=== PATIENT | female | born 1945 | race Caucasian/White ===

== ENCOUNTER 2019-09-07 08:58 | Observation (INO) | payer OTHER, MEDICAID, SELFPAY ==
[2019-09-07] VITALS (9 sets, daily range): BP systolic 68–132; BP diastolic 38–77; PULSE 59–97; RESP 16–20; TEMP 36.7–36.8; O2SAT 88–99; BMI 40.4
--- NOTE | 2019-09-07 09:00 | ED.GENADULT ---
HPI - General Adult General Chief complaint: Neuro Symptoms/Deficit Stated complaint: Code Stroke Time Seen by Provider: 09/07/19 08:59 Source: EMS Mode of arrival: EMS Limitations: altered mental status History of Present Illness HPI narrative: 74-year-old female who was brought into the emergency department by EMS. Patient's last known normal was at 0825 this morning. This was when she was at her nursing facility and they went in to talk with her about breakfast. At some point after that the staff return to her room and found that she was slurring her words. Was staring off? in the space ?seemed to be drooling somewhat. Was unable to answer questions. 911 was called. Patient arrived to the emergency department approximately 45 minutes after the onset of her symptoms. Due to the proximity of the patient's living facility minimal intervention provided by EMS. Her blood glucose was greater than 100. EMS reports that she potentially was improving somewhat in her symptoms and the short route to the emergency department. Patient was unable to provide any HPI or review of systems. Related Data Home Medications Medication Instructions Recorded Confirmed Lactobacillus acidophilus 10,000,000 cell PO DAILY 09/07/19 09/07/19 acetaminophen 650 mg PO Q4H PRN 09/07/19 09/07/19 aspirin 81 mg PO DAILY 09/07/19 09/07/19 atorvastatin 40 mg PO BEDTIME 09/07/19 09/07/19 carvedilol 3.125 mg PO BID 09/07/19 09/07/19 cholecalciferol (vitamin D3) 5,000 unit PO DAILY 09/07/19 09/07/19 docosanol [Abreva] 1 applic TOPICAL DAILY 09/07/19 09/07/19 donepezil 5 mg PO DAILY 09/07/19 09/07/19 ferrous sulfate 325 mg PO DAILY 09/07/19 09/07/19 fluoxetine 40 mg PO DAILY 09/07/19 09/07/19 furosemide 40 mg PO DAILY 09/07/19 09/07/19 gabapentin 100 mg PO TID 09/07/19 09/07/19 levothyroxine 175 mcg PO DAILY 09/07/19 09/07/19 linagliptin [Tradjenta] 5 mg PO DAILY 09/07/19 09/07/19 magnesium oxide 400 mg PO DAILY 09/07/19 09/07/19 menthol-zinc bi-begk-[id number] oil 1 ea TOPICAL BID 09/07/19 09/07/19 [Chamosyn] nystatin 1 applic TOPICAL BID 09/07/19 09/07/19 omega 6-rrb-gya-fish oil [Fish Oil] 1 cap PO DAILY 09/07/19 09/07/19 omeprazole 40 mg PO BID 09/07/19 09/07/19 potassium chloride 10 meq PO DAILY 09/07/19 09/07/19 Allergies Allergy/AdvReac Type Severity Reaction Status Date / Time adhesive tape Allergy Verified 09/07/19 09:15 allopurinol Allergy Verified 09/07/19 09:15 Review of Systems Review of Systems ROS Unobtainable: Unobtainable due to mental status/LOC Patient History Medical/Surgical History Medical History (Updated 09/07/19 @ 17:59 by Dustin Mendoza DO) Hyperlipidemia (Acute) Hypertension (Acute) Hypothyroid (Acute) Pacemaker (Acute) Social History Smoking Status: Never smoker alcohol intake: never Family/Social History Social History Smoking Status: Never smoker alcohol intake: never Exam Initial Vital Signs Initial Vital Signs: Vital Signs Temperature 98.0 F 09/07/19 09:15 Pulse Rate 97 H 09/07/19 09:15 Respiratory Rate 16 09/07/19 09:15 Blood Pressure 132/77 09/07/19 09:15 Pulse Oximetry 88 L 09/07/19 09:15 Const General: cooperative, healthy appearing, comfortable and well developed Orientation: alert, awake, oriented to person, not oriented to place and confused Limitations: altered mental status [facility] Head: normal to inspection and normocephalic Eyes Pupils: PERRL EOM: EOM intact bilaterally Resp Effort & Inspection: normal respiratory effort Auscultation: clear to auscultation bilaterally Cardio Rate: regular rate Rhythm: regular rhythm Pulses: radial pulses present GI Inspection: non-distended Palpation: soft, No firm and tender (Generalized tenderness initially) Other: No umbilical hernia felt, no tenderness over the umbilicus Skin Lesions: no lesions Rashes: no rashes Neuro General: alert and awake Speech: speech abnormal Motor: muscle tone normal throughout Sensory Exam: no sensory deficits noted Extrem General: normal to inspection and capillary refill normal Psych Appearance: grossly normal and well kempt Scores GCS Maggie coma scale eye opening: To sound Maggie coma scale verbal response: Confused [place] coma scale motor response: Obey commands Maggie coma scale total score: 13 NIH Stroke Scale Level of Conciousness: Alert, keenly responsive Ask month/age: Answers both questions correctly. Open/close eyes, close hand: Performs both tasks correctly Best gaze horizontal: Normal Visual hunter: No visual loss Facial palsy: Minor paralysis, flattened nasolabial fold, asymmetry on smiling Left arm drift: No drift for full 10 sec Right arm drift: No drift for full 10 sec Left leg drift: No drift for full 10 sec Right leg drift: Drifts down, not to bed Limb ataxia: Absent Sensory on face/arms/legs: Normal, no sensory loss Best language: No aphasia, normal Dysarthria: Normal Extinction or inattention: No abnormality Total NIH Stroke scale score: 2 Course Orders Ordered: ED Orders 09/07/19 08:59 CT head/brain wo con Stat EKG-12 Lead Stat 09/07/19 09:07 Complete Blood Count AUTO DIFF Stat Comprehensive Metabolic Panel Stat Lipase Stat Partial Thromboplastin Time Stat Prothrombin Time INR Stat Troponin I Stat Type and Screen Stat 09/07/19 09:48 CT abdomen pelvis w con Stat Acetaminophen (Tylenol) 650 mg PO Q6HR PRN PRN Reason: As Needed for Fever/Mild Pain Al Hydrox/Mg Hydrox/Simethicone (Maalox Plus) 30 ml PO Q6HR PRN PRN Reason: Dyspepsia Bisacodyl (Dulcolax) 10 mg CO DAILY PRN PRN Reason: Constipation Calcium Carbonate (Tums) 1,000 mg PO Q4HR PRN PRN Reason: Dyspepsia Heparin Sodium (Porcine) (Heparin) 5,000 unit SUBCUT BID SHANI Sodium Chloride (Normal Saline 0.9%) 1,000 mls @ 125 mls/hr IV CONT SHANI Last Infusion: 09/07/19 11:39 Dose: 125 mls/hr Documented by: Admin: 09/07/19 09:20 Dose: 125 mls/hr Documented by: CRISTOFER Lorazepam (Ativan) 0.5 mg IV NOW PRN PRN Reason: Claustrophobia Magnesium Hydroxide (Milk Of Magnesia) 30 ml PO DAILY PRN PRN Reason: Constipation Nystatin (Nystop) 1 applic TOP TID PRN PRN Reason: Rash Ondansetron HCl (Zofran) 4 mg IV Q8HR PRN PRN Reason: Nausea And Vomiting Discontinued Medications Influenza Virus Vaccine (Flu Vaccine) 0.5 ml IM .ONCE ONE Stop: 09/07/19 13:51 Ondansetron HCl (Zofran) 4 mg IV NOW ONE Stop: 09/07/19 09:10 Last Admin: 09/07/19 09:20 Dose: 4 mg Documented by: SCANAPO Vital Signs Vital signs: Vital Signs - 8 hr 09/07/19 10:00 Pulse Rate 80 Respiratory Rate 16 Blood Pressure [Right Arm] 110/58 L Pulse Oximetry 97 Medical Decision Making Lab Data Lab results reviewed: Yes I reviewed the patient's lab results. Result diagrams: 09/07/19 09:07 09/07/19 09:07 Labs: Lab Results 09/07/19 09/07/19 09/07/19 Range/Units 09:07 09:07 09:07 WBC 8.3 (4.5-11.0) X10^3/uL RBC 4.51 (4.0-5.2) X10^6/uL Hgb 12.5 (12.0-16.0) g/dL Hct 37.6 (36-46) % MCV 83.2 (80-100) fL MCH 27.7 (26-34) PG MCHC 33.3 (30-36) % RDW 14.6 (11.6-14.8) % Plt Count 258 (150-400) X10^3/uL Neut % (Auto) 65.9 (50-75) % Lymph % (Auto) 22.0 L (25-40) % [place] % (Auto) 8.7 (3-14) % Eos % (Auto) 2.2 (2-4) % Baso % (Auto) 1.2 (0-2) % Neut # (Auto) 5500 (2133-1667) /uL Lymph # (Auto) 1800 (0203-7370) /uL [place] # (Auto) 700 (0-900) /uL Eos # (Auto) 200 (0-450) /uL Baso # (Auto) 100 (0-100) /uL PT 12.3 (10.1-12.7) SECONDS INR 1.1 (0.9-1.3) APTT 28 (26.4-36.2) SECONDS Sodium 143 (137-145) mmol/L Potassium 3.5 (3.4-5.1) mmol/L Chloride 97 L (98-107) mmol/L Carbon Dioxide 29 (22-32) mmol/L BUN 24 H (7-17) mg/dL Creatinine 1.50 H (0.52-1.04) mg/dL Estimated GFR 34.1 L (>60) mL/min BUN/Creatinine Ratio 16.0 (6-22) Glucose 123 H (80-110) mg/dL Calcium 6.9 L (8.4-10.2) mg/dL Total Bilirubin 0.5 (0.2-1.3) mg/dL AST 39 H (14-36) IU/L ALT 23 (9-52) IU/L Alkaline Phosphatase 83 (38-126) U/L Troponin I (0.01-0.034) ng/mL Total Protein 8.1 (6.3-8.2) g/dL Albumin 4.3 (3.5-5.0) g/dL Globulin 3.8 (1.7-4.1) g/dL Albumin/Globulin Ratio 1.1 (1.0-2.8) Lipase 181 (23-300) U/L Blood Type Antibody Screen 09/07/19 09/07/19 Range/Units 09:07 09:07 WBC (4.5-11.0) X10^3/uL RBC (4.0-5.2) X10^6/uL Hgb (12.0-16.0) g/dL Hct (36-46) % MCV (80-100) fL MCH (26-34) PG MCHC (30-36) % RDW (11.6-14.8) % Plt Count (150-400) X10^3/uL Neut % (Auto) (50-75) % Lymph % (Auto) (25-40) % [place] % (Auto) (3-14) % Eos % (Auto) (2-4) % Baso % (Auto) (0-2) % Neut # (Auto) (9450-4808) /uL Lymph # (Auto) (4906-6289) /uL [place] # (Auto) (0-900) /uL Eos # (Auto) (0-450) /uL Baso # (Auto) (0-100) /uL PT (10.1-12.7) SECONDS INR (0.9-1.3) APTT (26.4-36.2) SECONDS Sodium (137-145) mmol/L Potassium (3.4-5.1) mmol/L Chloride (98-107) mmol/L Carbon Dioxide (22-32) mmol/L BUN (7-17) mg/dL Creatinine (0.52-1.04) mg/dL Estimated GFR (>60) mL/min BUN/Creatinine Ratio (6-22) Glucose (80-110) mg/dL Calcium (8.4-10.2) mg/dL Total Bilirubin (0.2-1.3) mg/dL AST (14-36) IU/L ALT (9-52) IU/L Alkaline Phosphatase (38-126) U/L Troponin I 0.016 (0.01-0.034) ng/mL Total Protein (6.3-8.2) g/dL Albumin (3.5-5.0) g/dL Globulin (1.7-4.1) g/dL Albumin/Globulin Ratio (1.0-2.8) Lipase (23-300) U/L Blood Type A Positive Antibody Screen Negative Imaging Data CT scan - head: Radiologist's impression: [place] [address] CT Scan Report Signed Patient: Enid Almanza#: [id number] : 7Acct:[id number] Age/Sex: 74 / FDate of Service: 09/07/19 Loc: ED Accession Number: [id number] Procedure: CT head/brain wo con Ordering Provider: Dustin Mendoza D.O. PROCEDURE: CT HEAD/BRAIN WO CON INDICATIONS: sudden onset confusion, code stroke TECHNIQUE: Noncontrast 4.5 mm thick angled axial sections acquired from the foramen magnum to the vertex, with coronal and sagittal reformats. For radiation dose reduction, the following was used: automated exposure control, adjustment of mA and/or kV according to patient size. COMPARISON: None. FINDINGS: Image quality: Excellent. CSF spaces: Basal cisterns are patent. No extra-axial fluid collections. The ventricles are symmetric in size and shape. Brain: No intracranial bleeds or masses. There is cerebral volume loss for age, with resultant ventricular and sulcal prominence. There are moderate periventricular and deep white matter chronic small vessel ischemic changes. There is an old small focal right head of caudate lacunar infarct and right anterior periventricular deep white matter lacunar infarct. There is intracranial internal carotid artery atherosclerosis. Skull and face: Calvarium and visualized facial bones appear intact, without suspicious lesions. Sinuses: Visualized sinuses and mastoids are clear. IMPRESSION: 1. Age related volume loss and moderate small vessel ischemic change. 2. Old small lacunar infarcts. 3. No evidence acute stroke, hemorrhage, or mass. Comment: Findings were discussed with Dr. Mendoza at the time of study dictation on 09/07/19 and 0913 hrs. Dictated by: Maurizio Rosales M.D. on 09/07/2019 at 9:12 Approved by: Maurizio Rosales M.D. on 09/07/2019 at 9:17 CT scan - abdomen: Radiologist's impression: [place] [address] CT Scan Report Signed Patient: Enid AlmanzaMR#: [id number] : 7Acct:[id number] Age/Sex: 74 / FDate of Service: 09/07/19 Loc: ED Accession Number: [id number] Procedure: CT abdomen pelvis w con Ordering Provider: Dustin Mendoza D.O. PROCEDURE: CT ABDOMEN PELVIS W CON INDICATIONS: Left-sided abdominal pain TECHNIQUE: After the administration of intravenous contrast, 5 mm thick sections acquired from the diaphragm to the symphysis. 5 mm coronal and sagittal reformats were acquired. For radiation dose reduction, the following was used: automated exposure control, adjustment of mA and/or kV according to patient size. COMPARISON: None. FINDINGS: Image quality: Excellent. ABDOMEN: Lung bases: Lung bases are clear. Heart size is normal. Solid organs: Liver is normal in size and enhancement. Gallbladder is surgically absent. Biliary system is non dilated. The pancreas is moderately atrophic. Spleen is normal in size and enhancement. No adrenal nodules. Kidneys demonstrate normal size and enhancement, without hydronephrosis. Peritoneum and bowel: Bowel loops demonstrate normal wall thickness and caliber. The appendix is thin walled and gas filled. No free fluid or air. Nodes and vessels: No retroperitoneal or mesenteric adenopathy by size criteria. Aorta and inferior vena cava are normal in size. There are scattered atheromatous calcifications throughout the aorta and iliac arteries bilaterally. Miscellaneous: There is a fat containing paraumbilical hernia. The fat within the hernia has a serpiginous appearance suggesting some fat necrosis. PELVIS: Genitourinary: Bladder wall thickness is normal. The uterus and ovaries are diminutive. Miscellaneous: No inguinal hernias or adenopathy. Surgical clips are present at the left inguinal canal. Bones: An expansile, medullary lesion is present within the right proximal femoral diaphysis at No vertebral body compression fractures. Severe degenerative changes are present at L5-S1. IMPRESSION: 1. No acute intra-abdominal findings. Normal appendix. 2. Fat-containing paraumbilical hernia with fat necrosis. 3. Expansile medullary lesion within the proximal right femur which is incompletely characterized. Although this may represent an enchondroma, neoplasm cannot be excluded and further characterization is recommended. Dedicated views of the femur recommended. Additionally, if the patient endorses pain in this region, MRI of the femur with and without contrast could be used. These findings were discussed with Dr. Mendoza at 10:05 AM on 09/07/19. Dictated by: Bessie Baron M.D. on 09/07/2019 at 9:52 Approved by: Bessie Baron M.D. on 09/07/2019 at 10:11 ECG Data Attestation: I personally reviewed and interpreted this ECG as follows: Prior ECG tracings: not available for review Interpretation: Ventricular paced Rate is [address] changes concerning for ST-elevation GA MDM Narrative Medical decision making narrative: Patient initially arrived as a code stroke. She was within the window for tPA. Her head CT was unremarkable. Upon my initial evaluation the symptoms that were reported were not present. She did have minor droop the left side of her face and did have some drifting for right leg however I do feel that this was effort based. Patient did not know why she was in the emergency department. She did know her name and the date. She did not know the circumstances of why she was here. Initially she complained of abdominal pain which is why the CT scan was ordered. CT scan does show an umbilical hernia there was some concern about potential necrotic areas however upon my read exam patient did not have any abdominal pain. The umbilical hernia was not felt. She had no pain around the umbilicus. She was not slurring her words. She was complaining of being nauseous. She was given Zofran for this. Who vital signs unremarkable. Initial NIH score of 2. I did discuss the case with Dr. Talavera who will admit for further evaluation treatment of potential TIA and her abdominal pain. I did discuss the CT scan findings with General surgery who stated that they will evaluate the patient as an inpatient. Discharge Plan Departure Patient Disposition: Admitted as Observation Clinical Impression: TIA (transient ischemic attack), Nausea Abdominal pain Qualifiers: Abdominal location: generalized Qualified Code(s): R10.84 - Generalized abdominal pain Discharge Date/Time: 09/07/19 11:44 Admit Date/Time: 09/07/19 11:08 Admit Provider: Kaylan Talavera
[2019-09-07 09:20] LABS: Add Manual Diff / Slide Review NO; Basophils Absolute Auto 100 /uL (0-100); Basophils Percent Auto 1.2 % (0-2); Eosinophils Absolute Auto 200 /uL (0-450); Eosinophils Percent Auto 2.2 % (2-4); Hematocrit 37.6 % (36-46); Hemoglobin 12.5 g/dL (12.0-16.0); Lymphocytes Absolute Auto 1800 /uL (1100-4500); Mean Corpuscular HGB Conc 33.3 % (30-36); Mean Corpuscular Hemoglobin 27.7 PG (26-34); Mean Corpuscular Volume 83.2 fL (80-100); Monocytes Absolute Auto 700 /uL (0-900); Monocytes Percent Auto 8.7 % (3-14); Neutrophils Absolute Auto 5500 /uL (1500-7000); Neutrophils Percent Auto 65.9 % (50-75); Platelet Count 258 X10^3/uL (150-400); Red Blood Cell Count 4.51 X10^6/uL (4.0-5.2); Red Cell Distribution Width 14.6 % (11.6-14.8); White Blood Cell Count 8.3 X10^3/uL (4.5-11.0)
[2019-09-07] MEDS: SODIUM CHLORIDE 0.9% 1,000 ML 125 ML IV (09:20)
[2019-09-07] MEDS: ONDANSETRON 4 MG/2 ML INJ IV (09:20)
[2019-09-07 09:25] LABS: INR 1.1 (0.9-1.3); Prothrombin Time 12.3 SECONDS (10.1-12.7)
[2019-09-07 09:27] LABS: PTT Partial Thromboplastin Tim 28 SECONDS (26.4-36.2)
[2019-09-07 09:29] LABS: Alanine Aminotransferase 23 IU/L (9-52); Albumin 4.3 g/dL (3.5-5.0); Albumin Globulin Ratio 1.1 (1.0-2.8); Alkaline Phosphatase 83 U/L (38-126); Aspartate Aminotransferase 39 IU/L (14-36); Bilirubin Total 0.5 mg/dL (0.2-1.3); Blood Urea Nitrogen 24 mg/dL (7-17); Calcium 6.9 mg/dL (8.4-10.2); Carbon Dioxide 29 mmol/L (22-32); Chloride 97 mmol/L (98-107); Estimated Glomerular Filt Rate 34.1 mL/min (>60); Globulin 3.8 g/dL (1.7-4.1); Glucose 123 mg/dL (80-110); HEMOLYSIS < 15 (0-50); Lipase 181 U/L (23-300); Potassium 3.5 mmol/L (3.4-5.1); Sodium 143 mmol/L (137-145); Total Protein 8.1 g/dL (6.3-8.2)
--- NOTE | 2019-09-07 09:48 | DI.CT.S_ITS ---
PROCEDURE: CT ABDOMEN PELVIS W CON INDICATIONS: Left-sided abdominal pain TECHNIQUE: After the administration of intravenous contrast, 5 mm thick sections acquired from the diaphragm to the symphysis. 5 mm coronal and sagittal reformats were acquired. For radiation dose reduction, the following was used: automated exposure control, adjustment of mA and/or kV according to patient size. COMPARISON: None. FINDINGS: Image quality: Excellent. ABDOMEN: Lung bases: Lung bases are clear. Heart size is normal. Solid organs: Liver is normal in size and enhancement. Gallbladder is surgically absent. Biliary system is non dilated. The pancreas is moderately atrophic. Spleen is normal in size and enhancement. No adrenal nodules. Kidneys demonstrate normal size and enhancement, without hydronephrosis. Peritoneum and bowel: Bowel loops demonstrate normal wall thickness and caliber. The appendix is thin walled and gas filled. No free fluid or air. Nodes and vessels: No retroperitoneal or mesenteric adenopathy by size criteria. Aorta and inferior vena cava are normal in size. There are scattered atheromatous calcifications throughout the aorta and iliac arteries bilaterally. Miscellaneous: There is a fat containing paraumbilical hernia. The fat within the hernia has a serpiginous appearance suggesting some fat necrosis. PELVIS: Genitourinary: Bladder wall thickness is normal. The uterus and ovaries are diminutive. Miscellaneous: No inguinal hernias or adenopathy. Surgical clips are present at the left inguinal canal. Bones: An expansile, medullary lesion is present within the right proximal femoral diaphysis at No vertebral body compression fractures. Severe degenerative changes are present at L5-S1. IMPRESSION: 1. No acute intra-abdominal findings. Normal appendix. 2. Fat-containing paraumbilical hernia with fat necrosis. 3. Expansile medullary lesion within the proximal right femur which is incompletely characterized. Although this may represent an enchondroma, neoplasm cannot be excluded and further characterization is recommended. Dedicated views of the femur recommended. Additionally, if the patient endorses pain in this region, MRI of the femur with and without contrast could be used. These findings were discussed with Dr. Mendoza at 10:05 AM on 09/07/19. Dictated by: Bessie Baron M.D. on 09/07/2019 at 9:52 Approved by: Bessie Baron M.D. on 09/07/2019 at 10:11
[2019-09-07 10:09] LABS: Troponin I 0.016 ng/mL (0.01-0.034)
--- NOTE | 2019-09-07 10:47 | PC.NURSE ---
on inital assessment pt c/o abd pain, and nausea. NIH scale elevated due to willingness to participate.
--- NOTE | 2019-09-07 12:43 | PT.IPTN ---
Physical Therapy Treatment Note M3 PT-IP Subjective Start: 09/07/19 12:37 Freq: NEEDED Status: Active Protocol: Document 09/07/19 12:42 RS (Rec: 09/07/19 12:43 RS [id number]) Subjective Physical Therapy Visit Type Type Administrative Note Notes Code stroke called late morning, pt already up to acute floor, will wait for all work-up to be completed and documentation in prior to PT eval, either later today or tomorrow.
--- NOTE | 2019-09-07 14:22 | SLP.IPNOTE ---
Speech evaluation order received. Per MD, okay to see patient for speech and swallow evaluation tomorrow. ST to eval patient tomorrow.
--- NOTE | 2019-09-07 14:30 | OT.IP.TRT ---
Occupational Therapy Treatment Note M3 OT- IP Subjective and Pain Start: 09/07/19 14:27 Freq: Status: Active Protocol: Document 09/07/19 14:28 [facility] (Rec: 09/07/19 14:29 [facility] [id number]) OT- Subjective Occupational Therapy Visit Type Type Administrative Note Notes Awating for all testing and physician notes to be in prior to seeing pt for OT eval. Therefore to see pt tomorrow for OT eval.
--- NOTE | 2019-09-07 16:50 | PM.HP.1 ---
History of Present Illness History of Present Illness Date Patient Seen: 09/07/19 Chief complaint: Code Stroke Narrative: Enid Almanza is a 74-year-old female with a past medical history significant for CAD status post stent x1, cardiac arrest status post pacemaker, aortic stenosis status post TAVR, hypertension, hyperlipidemia, diabetes mellitus type 2, non-insulin using, CKD stage 4, secondary hypothyroidism status post thyroidectomy for thyroid cancer (unknown type), non-Hodgkin's lymphoma in remission and dementia who presented from [facility] for left-sided facial droop and slurred speech. The patient was in her usual state of health and her last known normal was 8:25 a.m. The patient does not remember the chain of events this morning. The last thing she remembers was eating her morning breakfast which was cereal. Patient has retrograde amnesia and does not remember being taken to the ED and vaguely remembers the CT scan. She denies any significant stroke-like symptoms other than mild numbness and tingling of her tongue which is still present. Her initial NIH score was a 2 for right leg drift (which more likely was due to decreased effort per ED physician and not a true neurological deficit) and slight left-sided facial droop. Her symptoms including slurred speech and left-sided facial droop resolved in the ED. The patient denies headache, vision changes, lightheadedness or dizziness, unilateral weakness, chest pain, shortness of breath, abdominal pain, nausea, vomiting, fever, chills, dysuria, or diarrhea. She endorses chronic constipation. CT brain without contrast did not demonstrate any acute intra-cranial abnormalities but did demonstrate age related volume loss and moderate small-vessel ischemic change and old lacunar infarcts. Patient had some mild nausea and left-sided abdominal pain in the ED, therefore, a CT abdomen and pelvis was performed which demonstrated fat containing paraumbilical hernia with fat necrosis. The patient's abdominal pain readily resolved and she has had no recurrence. The patient was admitted observation for CVA rule out. Patient History Medical History (Updated 09/07/19 @ 18:41 by Kaylan Talavera DO) CAD (coronary artery disease) (Acute) CKD (chronic kidney disease) (Acute) CVA (cerebral vascular accident) (Acute) Dementia (Acute) Diabetes mellitus type 2 in obese (Acute) GERD (gastroesophageal reflux disease) (Acute) Hyperlipidemia (Acute) Hypertension (Acute) Hypothyroid (Acute) Non Hodgkin's lymphoma (Acute) Pacemaker (Acute) Thyroid cancer (Acute) Surgical History (Updated 09/07/19 @ 18:34 by Kaylan Talavera DO) History of cholecystectomy (Acute) History of thyroidectomy (Acute) Hx of tonsillectomy (Acute) S/P TAVR (transcatheter aortic valve replacement) (Acute) Family History (Updated 09/07/19 @ 19:41 by Kaylan Talavera DO) Mother Dementia Father Heart attack Social History Smoking Status: Never smoker alcohol intake: never Family & Social History Family History (Updated 09/07/19 @ 19:41 by Kaylan Talavera DO) Mother Dementia Father Heart attack Social History: Prior Living Arrangements Assisted Living Safety & Behavioral: Feels Safe in Current Yes Environment Been Physically Hurt or No Threatened By a Person Suicidal Ideation Description None Tobacco & Substance use: Smoking Status Never smoker alcohol intake never Substance Use Type does not use Patient is . She has 1 biological daughter. 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 Meds Home Medications and Allergies Home Medications Medication Instructions Recorded Confirmed Type Lactobacillus acidophilus 10,000,000 cell PO DAILY 09/07/19 09/07/19 History acetaminophen 650 mg PO Q4H PRN 09/07/19 09/07/19 History aspirin 81 mg PO DAILY 09/07/19 09/07/19 History atorvastatin 40 mg PO BEDTIME 09/07/19 09/07/19 History carvedilol 3.125 mg PO BID 09/07/19 09/07/19 History cholecalciferol (vitamin D3) 5,000 unit PO DAILY 09/07/19 09/07/19 History docosanol [Abreva] 1 applic TOPICAL DAILY 09/07/19 09/07/19 History donepezil 5 mg PO DAILY 09/07/19 09/07/19 History ferrous sulfate 325 mg PO DAILY 09/07/19 09/07/19 History fluoxetine 40 mg PO DAILY 09/07/19 09/07/19 History furosemide 40 mg PO DAILY 09/07/19 09/07/19 History gabapentin 100 mg PO TID 09/07/19 09/07/19 History levothyroxine 175 mcg PO DAILY 09/07/19 09/07/19 History linagliptin [Tradjenta] 5 mg PO DAILY 09/07/19 09/07/19 History magnesium oxide 400 mg PO DAILY 09/07/19 09/07/19 History menthol-zinc ko-coll-lioa oil 1 ea TOPICAL BID 09/07/19 09/07/19 History [Chamosyn] nystatin 1 applic TOPICAL BID 09/07/19 09/07/19 History omega 1-ieb-bra-fish oil [Fish Oil] 1 cap PO DAILY 09/07/19 09/07/19 History omeprazole 40 mg PO BID 09/07/19 09/07/19 History potassium chloride 10 meq PO DAILY 09/07/19 09/07/19 History Allergies Allergy/AdvReac Type Severity Reaction Status Date / Time adhesive tape Allergy Verified 09/07/19 09:15 allopurinol Allergy Verified 09/07/19 09:15 Review of Systems Review of Systems Narrative: A 10 system comprehensive review of systems was conducted with the patient and found to be negative except as above in the History of Present Illness. Exam Vital Signs (past 8 hours): - 09/07/19 09:15 09/07/19 10:00 09/07/19 11:38 Temperature 98.0 F Pulse Rate 97 H 80 80 Respiratory Rate 16 16 16 Blood Pressure 132/77 119/57 L Blood Pressure [Right Arm] 110/58 L Pulse Oximetry 88 L 97 99 09/07/19 13:30 09/07/19 16:00 Temperature 98.0 F Pulse Rate 64 Respiratory Rate 20 Blood Pressure 103/51 L Blood Pressure [Right Arm] Pulse Oximetry 99 99 Oxygen Delivery Method Nasal Cannula Oxygen Flow Rate 2 Narrative Exam Narrative: General: Elderly female lying in bed and in no acute distress, well-developed, well-nourished, appropriately interactive HEENT: Normocephalic, atraumatic. External ears without defect. Pupils equal, round, and reactive to light and accommodation. Anicteric sclerae, moist conjunctivae, and no lid lag. Oropharynx free of erythema and cobble stoning with moist mucosa. Neck: Supple with full range of motion. No jugular venous distension. No lymphadenopathy or thyromegaly. Cardiovascular: Regular rate and rhythm without murmurs, rubs, or gallops appreciated Pulmonary: Clear to auscultation bilaterally without crackles, wheezes, or rhonchi. Normal respiratory effort with no use of accessory muscles. Abdomen: Soft, obese, bowel sounds present, no tenderness to palpation, nondistended. Periumbilical hernia reducible. No hepatosplenomegaly or masses appreciated. Extremities: No clubbing, cyanosis, or edema. Skin: Normal temperature, turgor, and texture; no rash, ulcers, or subcutaneous nodules appreciated. Neurological: Cranial nerves grossly intact. Resting/pill rolling tremor of bilaterally upper extremities. No facial droop. Mild intermittent slurred speech. Numbness and tingling of tongue. Mild left-sided upper extremity weakness +4/5. Muscle strength in all other extremities +5/5. Cerebellar function intact with gjnjwo-bw-uszv and pqcv-np-mama. Reflexes, coordination, and sensory function within normal limits. Known gait impairment with use of FWW. Psychiatric: Normal mood and flat affect. Alert and oriented to person, place, and time. Mild dementia with short-term memory recall deficit. Objective Labs Result Diagrams: 09/07/19 09:07 09/07/19 09:07 Labs: Laboratory Results - last 24 hr 09/07/19 09/07/19 09/07/19 09:07 09:07 09:07 WBC 8.3 RBC 4.51 Hgb 12.5 Hct 37.6 MCV 83.2 MCH 27.7 MCHC 33.3 RDW 14.6 Plt Count 258 Neut % (Auto) 65.9 Lymph % (Auto) 22.0 L [place] % (Auto) 8.7 Eos % (Auto) 2.2 Baso % (Auto) 1.2 Neut # (Auto) 5500 Lymph # (Auto) 1800 [place] # (Auto) 700 Eos # (Auto) 200 Baso # (Auto) 100 PT 12.3 INR 1.1 APTT 28 Sodium 143 Potassium 3.5 Chloride 97 L Carbon Dioxide 29 BUN 24 H Creatinine 1.50 H Estimated GFR 34.1 L BUN/Creatinine Ratio 16.0 Glucose 123 H Calcium 6.9 L Total Bilirubin 0.5 AST 39 H ALT 23 Alkaline Phosphatase 83 Troponin I Total Protein 8.1 Albumin 4.3 Globulin 3.8 Albumin/Globulin Ratio 1.1 Lipase 181 Blood Type Antibody Screen 09/07/19 09/07/19 09:07 09:07 WBC RBC Hgb Hct MCV MCH MCHC RDW Plt Count Neut % (Auto) Lymph % (Auto) [place] % (Auto) Eos % (Auto) Baso % (Auto) Neut # (Auto) Lymph # (Auto) [place] # (Auto) Eos # (Auto) Baso # (Auto) PT INR APTT Sodium Potassium Chloride Carbon Dioxide BUN Creatinine Estimated GFR BUN/Creatinine Ratio Glucose Calcium Total Bilirubin AST ALT Alkaline Phosphatase Troponin I 0.016 Total Protein Albumin Globulin Albumin/Globulin Ratio Lipase Blood Type A Positive Antibody Screen Negative Assessment & Plan Assessment & Plan narrative: Enid Almanza is a 74-year-old female with a past medical history significant for CAD status post stent x1, cardiac arrest status post pacemaker, aortic stenosis status post TAVR, hypertension, hyperlipidemia, diabetes mellitus type 2, non-insulin using, CKD stage 4, secondary hypothyroidism status post thyroidectomy for thyroid cancer (unknown type), non-Hodgkin's lymphoma in remission and dementia who presented from [facility] for left-sided facial droop and slurred speech. 1. TIA, present on admission. Resolved. -Patient presented from [facility] for left-sided facial droop and slurred speech which quickly resolved without intervention in the ED. -Initial NIH score 2 (R leg drift and L sided facial droop). Repeat NIH 0. -CT brain without contrast demonstrated age related volume loss and moderate small-vessel ischemic change, old lacunar infarcts, no evidence of acute CVA hemorrhage or mass. -Ordered MR stroke protocol, pending. Patient has MRI compatible pacemaker. -Allow for permissive hypertension for 24-48 hours. Order labetalol 10 mg IV every 4 hours as needed for SBP > 220 mmHg and DBP > 110 mmHg. -Continue frequent neuro checks and NIH stroke assessment. Of note, patient was recently seen at [facility] for syncopal episode and current episode patient has retrograde amnesia. -Risk stratified with hemoglobin A1c and fasting lipid panel, pending. -Continue to monitor closely on telemetry. -Ordered echocardiogram to rule out embolic source, pending. -Continue IV fluids at 100 mL/hr to promote cerebral perfusion. -Continue aspirin 81 mg daily and atorvastatin 40 mg daily at bedtime. -Ordered physical, occupational and speech therapy evaluation and treatment, pending. 2. Incidentally found medullary lesion of right proximal femur with hypocalcemia, present on admission. Presumed stable. -CT abdomen and pelvis with contrast demonstrated expansile medullary lesion within the proximal right femur which is incompletely characterized. Although this may represent an enchondroma, neoplasm cannot be excluded and further characterization is recommended. Dedicated views of the femur recommended. Additionally, if the patient endorses pain in this region, MRI of the femur with and without contrast could be used. -Patient has no visible deformity or pain in right leg or hip. -Initial calcium level 6.9. Ordered calcium gluconate 2 g IV x1. -Defer further workup to outpatient. 3. CAD status post stenting, pacemaker and TAVR, present on admission. Stable. -Patient has history of stenting with YADIRA to unknown coronary artery. She also has history of TAVR. During her operation for TAVR she had cardiac arrest requiring temporary pacemaker and when temporary pacemaker was later removed she again had another cardiac arrest. -Continue cardiac medications including aspirin 81 mg daily, atorvastatin 40 mg daily at bedtime, carvedilol 3.125 mg twice daily, furosemide 40 mg daily, Steele 3, and potassium chloride 10 mEq daily. 4. Hypertension, chronic, present on admission. Stable. -Continue carvedilol 3.125 mg twice daily and furosemide 40 mg daily. 5. Hyperlipidemia, chronic, present on admission. Stable. -Continue atorvastatin 40 mg daily at bedtime. 6. Diabetes mellitus type 2, non-insulin using, present on admission. Stable. -Unclear baseline glycemic control. Ordered hemoglobin A1c, pending. -Continue gabapentin 100 mg 3 times daily. -Held Tradjenta. -Continue [facility] blood glucose checks and low-dose correctional scale insulin. -Continue heart healthy/carbohydrate consistent diet. 7. Chronic kidney disease stage 4, present on admission. Stable. -Unclear baseline creatinine. Initial creatinine 1.5. Per patient's daughter patient has CKD stage 4. -Avoid nephrotoxin agents. -Continue IV fluids as above. -Continue to monitor creatinine periodically. 8. Secondary hypothyroidism, status post thyroidectomy for thyroid cancer, present on admission. Stable. -Ordered TSH with reflex, pending. -Continue levothyroxine 175 mcg daily. 9. Dementia, chronic, present on admission. Stable. -Unclear if the patient has a baseline behavioral disturbance. -Continue donepezil 5 mg daily. Patient is admitted under observation status with expected length of stay less than 2 midnights due to severity of presenting symptoms, risk of adverse event, and complexity of treatment plan. Quality VTE Deep Vein Thrombosis/Pulmonary Embolism Present on Admission: No
--- NOTE | 2019-09-07 17:08 | ST.IPCSEOM ---
Speech-Language Pathology Swallow Evaluation POLITICAL ADVISOR Clinical Swallow Evaluation Start: 09/07/19 16:50 Freq: Status: Active Protocol: Document 09/07/19 16:51 TLC (Rec: 09/07/19 17:08 TLC [id number]) Clinical Swallow Evaluation Session Time Visit Start Time 16:30 Visit Stop Time 16:51 Total Visit Minutes 21 Setting Assessment Location Acute Care Visit Type Note Type Initial Evaluation Next Note Type Next Note Type Treatment Note Patient Information Identification Type Name History Patient is a resident of [facility] who was brought to the ER department after staff observed her to have stroke like symptoms, specifically, facial droop and slurred speech. Full MD report not yet available; however, patient reports her symptoms have since resolved with the exception of tongue numbness. Subjective Observations Patient is alert and oriented. She was compliant during assessment. Evaluation Liquids Trialed Thin Administration Type Self-Feeding Oral Impairment WFL Oral Phase Comments Patient has bright red/purple swelling underneath her tongue which was noticeable during tongue protrusion. This is not her baseline and she and her daughter are not sure when/ what happened to cause the swelling. Patient reports her whole tongue is numb, but range of motion and strength appear WFL during [facility]. Diadochokinesis rates are WFL and speech is 100% intelligible with very mild speech imprecision likely related to lingual numbness. No impairments in the oral phase with thin liquids. Textures not trialed per patient request. She reports she ate a sandwich for lunch and denied difficulty with chewing or swallowing. Pharyngeal Impairment WFL Pharyngeal Phase Comments No signs of aspiration or other pharyngeal impairment during single and consecutive straw sips of water. Patient's daughter reports she does occasionally choke which the patient attributes to taking too large of bites. Patient has not worked with a speech therapist or been diagnosed with aspiration or pneumonia in the past. Education was provided regarding safe swallow precautions including upright posture, slow rate, and use of lingual sweep to check for residue given lingual numbness. Findings Rehabilitation Potential Good Impressions Patient presents with lingual numbness without overt difficulty during the oral or pharyngeal phases of swallowing. Speech is clear and no signs of expressive or receptive language impairment were observed in conversation. Nursing was made aware of patient's tongue swelling/ bruising and will monitor. Diet Recommendations Liquids Order Thin Diet Order Regular Medication Recommendations As Tolerated Aspiration Precautions Recommended Precautions Upright at 90 Degrees,Small Bites/Sips,Lingual Sweep Treatment Plan Appropriate for Therapy Yes Therapy Recommendations Follow-up for further evaluation of oral/pharyngeal phase of swallowing with regular textures, preferably during meal, as patient was only assessed with water today . Ongoing evaluation to include cognitive assessment as well. Dysphagia Goals Patient will demonstrate adequate safety awareness and implement safe swallowing precautions during meals as recommended in order to improve safety during oral intake and decrease risk of choking.
[2019-09-07] MEDS: CALCIUM GLUCONATE 9.3 MEQ in SODIUM CHLORIDE 0.9% 50 ML 70 ML IV (19:56)
[2019-09-07] MEDS: SODIUM CHLORIDE 0.9% 250 ML IV (22:10)
[2019-09-07] MEDS: INSULIN ASPART 100 UNIT/ML INSULN PEN SUBCUT (22:11)
[2019-09-07] MEDS: HEPARIN 5,000 UNIT/ML VIAL 5000 UNIT SUBCUT (22:14)
[2019-09-08] VITALS (9 sets, daily range): BP systolic 98–113; BP diastolic 43–56; PULSE 60–75; RESP 16–18; TEMP 36.2–37; O2SAT 94–99
[2019-09-08 05:31] LABS: Add Manual Diff / Slide Review NO; Basophils Absolute Auto 100 /uL (0-100); Eosinophils Absolute Auto 200 /uL (0-450); Eosinophils Percent Auto 2.4 % (2-4); Hematocrit 33.2 % (36-46); Lymphocytes Absolute Auto 1400 /uL (1100-4500); Lymphocytes Percent Auto 20.6 % (25-40); Mean Corpuscular HGB Conc 33.2 % (30-36); Mean Corpuscular Hemoglobin 27.7 PG (26-34); Mean Corpuscular Volume 83.6 fL (80-100); Monocytes Absolute Auto 700 /uL (0-900); Neutrophils Absolute Auto 4400 /uL (1500-7000); Platelet Count 212 X10^3/uL (150-400); Red Blood Cell Count 3.97 X10^6/uL (4.0-5.2); Red Cell Distribution Width 14.7 % (11.6-14.8); White Blood Cell Count 6.6 X10^3/uL (4.5-11.0)
[2019-09-08 05:37] LABS: Alanine Aminotransferase 27 IU/L (9-52); Albumin 3.4 g/dL (3.5-5.0); Alkaline Phosphatase 70 U/L (38-126); Aspartate Aminotransferase 28 IU/L (14-36); Bilirubin Total 0.4 mg/dL (0.2-1.3); Blood Urea Nitrogen 27 mg/dL (7-17); Calcium 6.5 mg/dL (8.4-10.2); Carbon Dioxide 33 mmol/L (22-32); Chloride 99 mmol/L (98-107); Cholesterol 131 mg/dL (140-199); Estimated Glomerular Filt Rate 34.1 mL/min (>60); Globulin 3.4 g/dL (1.7-4.1); Glucose 195 mg/dL (80-110); HDL Cholesterol 31 mg/dL (40-60); HEMOLYSIS < 15 (0-50); Hemoglobin A1C% w Est Avg Glu 10.1 % (4.0-6.0); LDL Cholesterol Calculated 59 mg/dL (<100); Potassium 3.8 mmol/L (3.4-5.1); Sodium 139 mmol/L (137-145); Total Protein 6.8 g/dL (6.3-8.2); Triglycerides 205 mg/dL (35-150)
[2019-09-08] MEDS: CALCIUM CARBONATE 500 MG TAB 1000 MG PO ×3 (06:14→13:03)
[2019-09-08 06:20] LABS: TSH w/ Reflex to FT4 2.49 uIU/mL (0.47-4.68)
[2019-09-08] MEDS: SODIUM CHLORIDE 0.9% 1,000 ML 125 ML IV (06:38)
--- NOTE | 2019-09-08 06:53 | PC.NURSE ---
Spoke with the civil cadd technician and he informed me that he cannot complete the MRI due to the lack of adequate staff for an emergency situation. The pacemaker is compatible with receiving an MRI but according to policy, the hospital has to have a engineering program analyst on standby in case of an emergency. JOSEPH Isabel was notified of the information.
[2019-09-08] MEDS: INSULIN ASPART 100 UNIT/ML INSULN PEN SUBCUT ×4 (08:25→20:59)
[2019-09-08] MEDS: INFLUENZA VACCINE 0.5 ML SYRINGE IM (08:28)
[2019-09-08] MEDS: HEPARIN 5,000 UNIT/ML VIAL 5000 UNIT SUBCUT ×2 (08:28→20:31)
--- NOTE | 2019-09-08 09:00 | DI.ECHO.S_ITS ---
Echocardiogram Report + + :Name: JANA LOREDO Study Date: 09/10/2019 Height: 67 in : :[facility] Weight: 257 lb : : Gender: Female BSA: 2.2 m2 : :: 1945 Age: 74 yrs BP: 112/67 mmHg: :Reason For Study: TIA : : Performed By: Neelima Wilkins : :Referring: LILIA CADE : + + Interpretation Summary The left ventricle is normal in size. The ejection fraction is estimated to be 50-55%.There is no obvious LV thrombus. There has been no significant change in LVEF since the previous study. There is a bioprosthetic aortic valve. The prosthetic aortic valve is well-seated. The peak aortic velocity is 2.04 m/sec. The peak aortic velocity on the previous exam was 2.4 m/sec. The aortic valve mean gradient is 9.9 mmHg. The IVC is of normal diameter and collapses greater than 50% with a sniff. This suggests a low right atrial pressure of 3 mm Hg. The patient was in normal sinus rhythm during the exam. Procedure: A two-dimensional transthoracic echocardiogram with color flow and Doppler was performed. The study quality was technically difficult. 1.5 cc's of Definity contrast was used it improve images. The patient was in normal sinus rhythm during the exam. Left Ventricle: The left ventricle is normal in size. There is normal left ventricular wall thickness. There is no thrombus. The ejection fraction is estimated to be 50-55%. There has been no significant change since the previous study. There is inferior wall hypokinesis. Compared to the prior exam, the left ventricular wall motion has not changed. Diastolic function could not be accurately assessed due to unobtainable data. Right Ventricle: The right ventricle grossly appears normal in size with probable normal systolic function. There is a pacemaker lead in the right ventricle. Atria: The left atrium is severely dilated. The left atrium has remained unchanged in size since the prior echo exam. Right atrial size is normal. There is a catheter/pacemaker lead seen in the right atrium. The interatrial septum is intact with no evidence for an atrial septal defect. Mitral Valve: The mitral valve leaflets appear mildly thickened, but open well. There is severe mitral annular calcification. Predominantly posterior mitral annulus calcification. No significant mitral valve stenosis. There is mild to moderate mitral regurgitation. Aortic Valve: There is a bioprosthetic aortic valve. The prosthetic aortic valve is well-seated. The peak aortic velocity is 2.04 m/sec. The peak aortic velocity on the previous exam was 2.4 m/sec. The aortic valve mean gradient is 9.9 mmHg. No aortic regurgitation is present. Tricuspid Valve: The tricuspid valve is normal. The right ventricular systolic pressure is estimated to be at least 32 mmHg based on an estimated right atrial pressure of 3 mm Hg. There is trace tricuspid regurgitation. Pulmonic Valve: The pulmonic valve is not well visualized. Great Vessels: The aortic root is normal size. The ascending aorta is at the upper limits of normal in size. The aortic arch is at the upper limits of normal in size. The IVC is of normal diameter and collapses greater than 50% with a sniff. This suggests a low right atrial pressure of 3 mm Hg. Pericardium/ Pleura There is no pericardial effusion. There is no pleural effusion. MMode/2D Measurements & Calculations LVIDd: 5.2 cm Ao root diam: 2.4 cm LVIDs: 3.1 cm Aortic Jxn: 2.4 cm FS: 40.5 % asc Aorta Diam: 3.5 cm EPSS: 1.3 cm Ao Arch Diam (Prox Trans): 3.4 cm IVSd: 1.0 cm LVPWd: 0.95 cm LV chong. diameter/BSA (cm/m^2): 2.3 LV sys. diameter/BSA (cm/m^2): 1.4 LA dimension: 4.8 cm RA long axis: 4.5 cm LA A2 area: 25.9 cm2 RA area: 14.5 cm2 LA A4 area: 30.7 cm2 RA vol: 40.0 ml LA length (vol): 6.1 cm RA : 17.8 ml/m2 LA vol: 110.8 ml IVC diam: 1.6 cm LA vol index: 49.2 ml/m2 RVDd major: 5.9 cm RVD1 (basal): 3.5 cm RVD2 (mid): 2.6 cm Doppler Measurements & Calculations Ao V2 max: 204.8 cm/sec LVOT Max Topher: 86.1 cm/sec Ao V2 mean: 149.4 cm/sec LV V1 max P.0 mmHg Ao max P.8 mmHg LV V1 VTI: 25.0 cm Ao mean P.9 mmHg sev ratio: 0.49 Ao V2 VTI: 51.4 cm MV E max topher: 118.9 cm/sec TR max topher: 267.8 cm/sec MV A max topher: 135.1 cm/sec TR max P.7 mmHg MV E/A: 0.88 PA V2 max: 60.5 cm/sec Med Peak E' Topher: 3.3 cm/sec PA V2 mean: 44.7 cm/sec E/E' med: 36.5 PA mean P.89 mmHg Lat Peak E' Topher: 5.9 cm/sec PA Accel Time: 0.18 sec E/E' lat: 20.0 E/e' average: 28.3 MV dec time: 0.23 sec MV P1/2t: 72.2 msec MV P1/2t max topher: 120.7 cm/sec MVA(P1/2t): 3.0 cm2 _ Reading Physician:02:05 PM
[2019-09-08 09:48] LABS: Appearance Urine UA CLEAR; Bilirubin Urine UA NEGATIVE (NEGATIVE); Color Urine UA YELLOW; Glucose Urine UA TRACE g/dL (Negative); Ketones Urine UA NEGATIVE (NEGATIVE); Leukocyte Esterase Urine UA TRACE (NEGATIVE); Nitrite Urine UA NEGATIVE (Negative); Occult Blood Urine UA 1+ (Negative); Protein Urine UA TRACE (Negative); Urobilinogen Urine UA 0.2 E.U./dL (0.2)
[2019-09-08 09:59] LABS: pH Urine UA 5.5 (4.5-8.0)
[2019-09-08 10:05] LABS: Amorphous Sediment Urine 1+; Bacteria Urine Moderate (10-30); Culture Indicated Urine Specimen Cultured; RBC Urine 0-1/HPF (0-5/HPF); Squamous Epithelial Cell Urine 1-5 /HPF (0-5/HPF); WBC Urine 1-5/HPF (0-5/HPF)
--- NOTE | 2019-09-08 11:07 | PT.IIE ---
Surgical History (Last Updated 09/07/19 @ 18:34 by Kaylan Talavera DO) History of cholecystectomy (Acute) History of thyroidectomy (Acute) Hx of tonsillectomy (Acute) S/P TAVR (transcatheter aortic valve replacement) (Acute) Medical History (Last Updated 09/07/19 @ 18:41 by Kaylan Talavera DO) CAD (coronary artery disease) (Acute) CKD (chronic kidney disease) (Acute) CVA (cerebral vascular accident) (Acute) Dementia (Acute) Diabetes mellitus type 2 in obese (Acute) GERD (gastroesophageal reflux disease) (Acute) Hyperlipidemia (Acute) Hypertension (Acute) Hypothyroid (Acute) Non Hodgkin's lymphoma (Acute) Pacemaker (Acute) Thyroid cancer (Acute) Physical Therapy Inpatient Evaluation/Re-Eval M1 PT/OT-IP Prior Functional Status Start: 09/07/19 14:27 Freq: NEEDED Status: Active Protocol: Document 09/08/19 10:31 AW (Rec: 09/08/19 11:04 AW [id number]) Medical Review Prior Functional Status Medical History Reviewed Yes Diet/Fluid Consistency Regular Communication Able to make needs known Mobility and Gait Pt lives at [facility] and ambulates facility distances with FWW. She reports use of 4WW for community distances such as shopping trips. Activities of Daily Living and IADL's Pt receives assistance with bathing, meds, and meals at [facility]. She is independent with dressing and toileting. Prior Functional Level (Other details) Pt reports 4 falls in the past year, mostly from tripping over her walker. She denies any injury from her falls. Social History Household Members none Living Arrangements Assisted Living Number of Floors (Floors) One Floor Number of Stairs To Enter/Railing? 0 stairs Home Environment Standard Height Toilet,Walk in Shower Home Equipment Front Wheel Walker,Four Wheel Walker,Straight Cane,Raised Toilet Seat w/Armrests,Shower Seat with Backrest,Hand Held Shower,Hospital Bed,Grab Bars Near Toilet,Grab Bars In Shower Additional Social History Comment Pt lived with her daughter and son in law in [facility] until moving to [facility] a week ago after a reported fallling out with the son in law. M2 PT-IP Current Condition Start: 09/07/19 12:37 Freq: NEEDED Status: Active Protocol: Document 09/08/19 10:31 AW (Rec: 09/08/19 11:04 AW [id number]) Physical Therapy Current Condition Current Condition Evaluation Date 09/08/19 Treatment Diagnosis TIA/rule out CVA, difficulty in walking Onset Date 09/07/19 Weight Bearing Status Weight Bearing Status Full Weight Bearing M3 PT-IP Subjective Start: 09/07/19 12:37 Freq: NEEDED Status: Active Protocol: Document 09/08/19 10:31 AW (Rec: 09/08/19 11:04 AW [id number]) Subjective Physical Therapy Visit Type Type Initial Evaluation Visit Start Time 09:15 Visit Stop Time 09:44 Total Visit Minutes 29 Number of TRAUMA THERAPIST Visits 0 Physical Therapy Visit Comments Patient Comments Pt would like to get to the toilet Patient Goals Pt hopes to return to [facility] today Therapy Pain Assessment Pain When Pain Assessed During Mobility Pain Present Pain Present Denied Pain M4 PT-IP Mobility and Gait Start: 09/07/19 12:37 Freq: NEEDED Status: Active Protocol: Document 09/08/19 10:31 AW (Rec: 09/08/19 11:04 AW [id number]) PT-Transfer Assessment Sit to and From Stand Sit to and from Stand Standby Assistance Equipment Transfer Assistive Device Gait Belt,Front Wheeled Walker Orthotic/Prosthetic Devices or Brace: No Transfers Transfer Destination Chair,Toilet Transfer Ability Level of Assist Standby Assistance Comments Mobility Comments Pt required only SBA for sit < > stand and transfers to and from chair and toilet. She demonstrated good safety awareness overall but required cues to keep FWW closer to her body for increased support . Gait Assessment Gait Gait Assistance Required: Standby Assistance Distance (Feet) 150 Able to Maintain Weight Bearing Status Yes During Gait Assistive Devices Assistive Device Gait Belt,Front Wheeled Walker Orthotic/Prosthetic Devices or Brace: No Gait Deviations General Gait Pattern Decreased Stride Length, Decreased Feet Clearance, Flexed Trunk Factors Limiting Gait Function Factors Limiting Gait Function Poor Balance Comments Gait Comments Pt ambulated 150 feet using FWW SBA, requiring cues to shorten distance to walker. She was able to perform head turns, nods, and changes in velocity with no path deviations and good attention to safety. PT-Balance Assessment Sitting Balance and Reactions Static Sitting Balance Ability Good Dynamic Sitting Balance Ability Good Standing Balance and Reactions Static Standing Balance Ability Good Dynamic Standing Balance Ability Good Device Used FWW M5 PT-IP Objective Assessments Start: 09/07/19 12:37 Freq: NEEDED Status: Active Protocol: Document 09/08/19 10:31 AW (Rec: 09/08/19 11:04 AW [id number]) Orientation Orientation/Cognition Level of Alertness Alert Orientation Name,Month,Day of Week,Place, Situation Language Function Ability No Deficits Noted Safety Awareness Understands Safety Issues Memory Description No Deficits Noted Comments Per chart review, pt has dementia, but she appears appropriate in her responses to questioning and does not falter. She was seen by ST yesterday and reported tongue numbness which has resolved today. Gross Range of Motion Upper Extremity ROM Assessment Within Functional Limits Lower Extremity ROM Assessment Within Functional Limits Strength Upper Extremity Strength Assessment Within Functional Limits Lower Extremity Strength Assessment Within Functional Limits Comments Strength Comments BUE and BLE grossly 4/5 to 4+/ 5 with no appreciable difference side to side. Coordination Assessment Gross Coordination Gross Coordination WNL Assessment Finger to Nose Test Normal Performance Pronation/Supination Test Normal Performance Foot Tapping Test Normal Performance Sensation Assessment Sensation Gross Sensation Right LE Impaired,Left LE Impaired Light Touch Impaired Sensation Description Tingling Comments Sensation Comments Pt reports longstanding history of neuropathy which affects sensation in bilateral plantar feet. M6 PT-IP Treatment Start: 09/07/19 12:37 Freq: NEEDED Status: Active Protocol: Document 09/08/19 10:31 AW (Rec: 09/08/19 11:04 AW [id number]) Physical Therapy Treatment Education Education Provided Precautions,Safety Other Treatments Other Treatment Performed Provided education on safe use of FWW M7 PT-IP Assessment and Plan Start: 09/07/19 12:37 Freq: NEEDED Status: Active Protocol: Document 09/08/19 10:31 AW (Rec: 09/08/19 11:04 AW [id number]) PT Summary Assessment and Plan Potential Rehabilitation Potential Good Status of Condition at Evaluation Evolving Summary Impairments Balance Assessment Summary Pt is a 74 yo woman admitted with TIA/CVA rule-out. CT was clear for acute process; MRI may not be performed due to pacemaker status and imaging staffing issues. She was brought to the ED after being found with left facial drooping and slurred speech. PLOF: Pt was ambulatory for facility distances ([facility]) using FWW and for community distances using 4WW. She receives facility assist with bathing, meals, and meds, but is otherwise independent. She reports 4 non-injurious falls in the past year. CLOF: Pt required no more than SBA for all mobility using FWW. She performed head turns, nods , and changes in velocity with no path deviations and good attention to safety. Pt is likely at her baseline for mobility, but in the context of multiple falls, she may benefit from outpatient PT to address balance concerns. PT recommends return to [facility] when medically cleared. Goals Bed Mobility Goal Independent Gait Goal Independent Gait Distance 300 Frequency of Treatment Frequency Of Treatment Once a Day Treatment Plan Physical Therapy Treatment Plan Gait Training,Therapeutic Exercise,Balance Retraining, Discharge Planning, Neuromuscular Re-ed Other Recommendations and Next Treatment balance Focus Recommendations To Nursing Amount of Assist Needed Standby Assistance Discharge Recommendations PT Discharge Recommendations Home with Assistance, Outpatient PT Other Discharge Recommendations Back to [facility], outpatient PT
[2019-09-08] MEDS: NYSTATIN POWDER 15GM 1 APPLIC TOP (12:15)
--- NOTE | 2019-09-08 12:26 | ST.IPTN ---
BOOTH MANAGER Treatment Note BOOTH MANAGER Treatment Note Start: 09/08/19 12:15 Freq: Status: Active Protocol: Document 09/08/19 12:15 TLC (Rec: 09/08/19 12:26 TLC [email or web address]) Speech Pathology Treatment Note Session Time Visit Start Time 11:40 Visit Stop Time 12:15 Total Visit Minutes 25 Visit Information Visit Number 2 Setting Treatment Setting Acute Care Visit Type Note Type Treatment Note General Information General Information Patient is in for TIA symptoms which have resolved. She continues to have a bruised tongue and numbness. She is a resident of [facility]. Subjective Identification Type Name Observations/Patient Presentation Patient was drowsy, but agreed to participate in cognitive assessment. She was oriented x5. Objective Treatment Activities Grzegorz Cognitive Assessment was administered and patient scored 17/30 indicating impaired neurocognitive function. Patient scored 2/5 on Visuospatial/executive, 3/3 on naming, 4/6 on attention, 1/3 on language, 1/2 on abstraction, 0/5 on delayed recall and 6/6 on orientation. When asked about her diagnosis of dementia, patient reports she doesn't recall ever being diagnosed with dementia. She states memory has always been difficult for her. When asked about medication management, she reports staff helps her with this at [facility]. She has no concerns about her memory at this time. Patient was observed during lunch for ongoing assessment of swallowing skills. No signs of oral or pharyngeal phase dysphagia observed despite ongoing lingual numbness and swelling. Assessment Patient Response to Treatment Good Assessment of Improvement Patient's score of 17/30 on MOCA indicates below normal cognitive function; however, she appears at her baseline cognitively and denies any need for assistance with memory/cognition stating she feels safe at [facility]. I recommend nursing continue to monitor her tongue swelling and she be re-evaluated for speech therapy upon discharge if concerns regarding memory/ safety arise; however, no acute speech therapy needs were identified at this time. Plan Therapy Recommendations Discharge from Speech Therapy
--- NOTE | 2019-09-08 14:17 | CM.DANOTE ---
Discharge Planning/Care Management DCP: assessment: case received, EMR reviewed and met now with pt. Introduced self and role. Pt is a 74 year old female who admitted yesterday to care of hospitalist team. Payer: [facility]. Admission status: OBS: confirmed by UR RN Chad. Pt confirms that she has been at [facility] for a week. 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 She says she does not remember the event that brought her to the hospital but does feel today like my usual self. She uses a FWW and a 4WW at the facility and does report a hx of falls before entering the facility. PT/OT/ONCOLOGIST are seeing pt. Dr. Contreras stated in Team Rounds that she is conferring with [place] neurology for ? dx seizure vs CVA/TIA. MRI cannot be done here as needs pacemaker compatible process. ECHO is pending. Dr. Contreras does say she plans for a likely d/c back to the [facility] setting later today if pt is stable for same. She states she will call Juliana to update her on the POC going forward and the recommendations from neurology. Have spoken with Alisa/[facility]. She reports that she and a new hire, DANIEL Arevalo, will be over later today to assess pt. She is aware that d/c may be today but is busy and cannot get here until later. Dr. Contreras is aware. P: return to [facility] when stable for same and with [facility] w/c van transport. [facility] is faxing clinical information to the [facility] Discharge Assessment Start: 09/08/19 14:15 Freq: Status: Active Protocol: Document 09/08/19 14:16 ITV (Rec: 09/08/19 14:16 ITV [id number]) Discharge Planning Assessment Advance Directives? Yes History Provided By Patient,Medical Record Prior Living Arrangements Assisted Living Household Members none Facility Name Admitted From: [facility] Willing to Return to Facility? Yes Review Status In Process Discharge Assessment Start: 09/08/19 14:15 Freq: Status: Active Protocol: Document 09/08/19 14:16 ITV (Rec: 09/08/19 14:16 ITV [id number]) Discharge Planning Assessment Advance Directives? Yes History Provided By Patient,Medical Record Prior Living Arrangements Assisted Living Household Members none Facility Name Admitted From: [facility] Willing to Return to Facility? Yes Review Status In Process
--- NOTE | 2019-09-08 14:58 | OT.IP.EVAL ---
Past Medical History (Last Updated 09/07/19 @ 18:41 by Kaylan Talavera DO) CAD (coronary artery disease) (Acute) CKD (chronic kidney disease) (Acute) CVA (cerebral vascular accident) (Acute) Dementia (Acute) Diabetes mellitus type 2 in obese (Acute) GERD (gastroesophageal reflux disease) (Acute) Hyperlipidemia (Acute) Hypertension (Acute) Hypothyroid (Acute) Non Hodgkin's lymphoma (Acute) Pacemaker (Acute) Thyroid cancer (Acute) Surgical History (Last Updated 09/07/19 @ 18:34 by Kaylan Talavera DO) History of cholecystectomy (Acute) History of thyroidectomy (Acute) Hx of tonsillectomy (Acute) S/P TAVR (transcatheter aortic valve replacement) (Acute) Occupational Therapy Inpatient Evaluation/Re-Eval M1 PT/OT-IP Prior Functional Status Start: 09/07/19 14:27 Freq: NEEDED Status: Active Protocol: Document 09/08/19 14:34 [facility] (Rec: 09/08/19 14:57 [facility] [id number]) Medical Review Prior Functional Status Medical History Reviewed Yes Diet/Fluid Consistency Regular Communication Able to make needs known Mobility and Gait Pt lives at [facility] and ambulates facility distances with FWW. She reports use of 4WW for community distances such as shopping trips. Activities of Daily Living and IADL's Pt receives assistance with bathing, meds, and meals at [facility]. She is independent with dressing and toileting. Pt's daughter assists with finances . Prior Functional Level (Other details) Pt reports 4 falls in the past year, mostly from tripping over her walker. She denies any injury from her falls. Pt states not sure why she is falling and can not give any reasons to why she is falling. Social History Household Members none Living Arrangements Assisted Living Number of Floors (Floors) One Floor Number of Stairs To Enter/Railing? 0 stairs Home Environment Standard Height Toilet,Walk in Shower Home Equipment Front Wheel Walker,Four Wheel Walker,Straight Cane,Raised Toilet Seat w/Armrests,Shower Seat with Backrest,Hand Held Shower,Hospital Bed,Grab Bars Near Toilet,Grab Bars In Shower Additional Social History Comment Pt lived with her daughter and son in law in [facility] until moving to [facility] a week ago after a reported fallling out with the son in law. M2 OT-IP Current Condition Start: 09/07/19 14:27 Freq: Status: Active Protocol: Document 09/08/19 14:34 [facility] (Rec: 09/08/19 14:57 [facility] [id number]) Occupational Therapy Current Condition Current Condition Evaluation Date 09/08/19 Treatment Diagnosis TIA Diagnosis Onset Date 09/07/19 Weight Bearing Status Weight Bearing Status Weight Bear as Tolerated M3 OT- IP Subjective and Pain Start: 09/07/19 14:27 Freq: Status: Active Protocol: Document 09/08/19 14:34 [facility] (Rec: 09/08/19 14:57 [facility] [email or web address]) OT- Subjective Occupational Therapy Visit Type Type Initial Evaluation Visit Start Time 12:12 Visit Stop Time 12:31 Total Visit Minutes 19 Occupational Therapy Visit Comments Patient Comments Pt eating lunch but agreed to work with OT for OT eval. OT Pain Assessment Pain When Pain Assessed At Rest Pain Present Pain Present Denied Pain M4 OT- IP ADL's Start: 09/07/19 14:27 Freq: Status: Active Protocol: Document 09/08/19 14:34 [facility] (Rec: 09/08/19 14:57 [facility] [email or web address]) OT MUC-Tczm-Ibloglc General Evaluation Self-Feeding Ability Standby Assistance Comments OT Self-Feeding Comments VC for pocketing, noted pt pocketing food on the left side of her mouth and not aware, vc to clear her mouth. OT ADL-Dressing General Eval Lower Body Dressing Ability Independent OT ADL-Toileting Comments OT Toileting Comments Pt states not having to go. OT ADL-Bathing Bathing Type Bathing Type Shower General Evaluation Bathing Ability Minimal Assistance Comments OT Bathing Comments occupational therapy aide assist pt for showering needs. Prior pt gets assist for showering at [facility]. M5 OT- IP IADL's Start: 09/07/19 14:27 Freq: Status: Active Protocol: Document 09/08/19 14:34 [facility] (Rec: 09/08/19 14:57 [facility] [email or web address]) OT-Instrumental Activities of Daily Living Medication Management Medication Management Caregiver Administers Money Management Money Management Caregiver Provides Assistance Meal Preparation Meal Preparation Caregiver Provides Assist Driving Driving Caregiver Provides Assist M6 OT- IP Functional Cognition Start: 09/07/19 14:27 Freq: Status: Active Protocol: Document 09/08/19 14:34 [facility] (Rec: 09/08/19 14:57 [facility] [email or web address]) Cognitive Factors Limiting Selfcare Function Cognitive Ability Level of Alertness Alert Patient Orientation Name,Place,Situation Attention Span Ability Capable of Focused Attention, Capable of Sustained Attention Ability to Follow Commands Able to Follow Multi-Step Commands Memory Description Short Term Impaired Safety Awareness Underestimates Need for Assistance Cognitive Comments Cognitive Assessment Comments Per pt feels does not have any cognitive needs. ELECTRO MECHANICAL TECHNOLOGIST did MOCA and scored - see ELECTRO MECHANICAL TECHNOLOGIST eval for details. OT- Vision and Hearing OT- Hearing Assessment OT- Hearing Assessment WFL OT- Vision Assessment Visual Acuity Glasses For Reading M7 OT- IP Mobility and Balance Start: 09/07/19 14:27 Freq: Status: Active Protocol: Document 09/08/19 14:34 [facility] (Rec: 09/08/19 14:57 [facility] [email or web address]) OT-Transfer Assessment Sit to and From Stand Sit to and from Stand Standby Assistance Transfers Transfer Ability Standby Assistance,1 Person Assistance Technique Transfer Destination Chair Transfer Technique Stand Step Pivot Devices Transfer Assistive Devices Gait Belt,Front Wheeled Walker Comments Mobility Comments Close SBA with FWW, noted that pt leaning to the left. Per pt did not realize it. OT- Balance Assessment Sitting Balance and Reactions Static Sitting Balance Ability Normal Dynamic Sitting Balance Ability Normal Standing Balance and Reactions Static Standing Balance Ability Good M8 OT- IP Objective Assessments Start: 09/07/19 14:27 Freq: Status: Active Protocol: Document 09/08/19 14:34 [facility] (Rec: 09/08/19 14:57 [facility] [email or web address]) OT Gross Range of Motion Upper Extremity Range of Motion Assessment Within Functional Limits OT Strength Upper Extremity Strength Assessment Within Functional Limits OT- Coordination Assessment Upper Extremity Finger to Nose Test Within Functional Limits OT-Muscle Tone Assessment Muscle Tone WNL Yes M9 OT- IP Assessment and Plan Start: 09/07/19 14:27 Freq: Status: Active Protocol: Document 09/08/19 14:34 [facility] (Rec: 09/08/19 14:57 [facility] [email or web address]) OT Summary Assessment and Plan Potential Rehabilitation Potential Good Analytic Complexity at Evaluation Low Goals Self-Feeding Goal Independent Grooming Goal Independent Dressing Goal Independent Toileting Goal Independent Days to Meet Goals 2 Frequency of Treatment Frequency Of Treatment Once a Day Treatment Plan OT Treatment Plan ADL Training,Functional Cognition Training,Functional Mobility,Patient/Family Education,Discharge Planning Other Treatment Recommendations and Next Pt to be able to stand at sink Treatment Focus for grooming and use the toilet independently with good safety. Discharge Recommendations OT Discharge Recommendations Home with Assistance, Outpatient PT
--- NOTE | 2019-09-08 15:54 | P.PN_ITS ---
Subjective Subjective Date Patient Seen: 09/08/19 Interval history: The patient is a 74-year-old female who was observed yesterday to be normal at 830 in the morning following of which she had slurred speech and facial droop. The symptoms resolved fairly quickly. Upon arrival to the [facility] her symptoms had completely resolved. Patient does not recall the events at all. She has a tongue bite. She does not recall that as well. Patient was found to be slumped over unresponsive. Upon awakening she was noted to have slurred speech and facial droop. Patient has no prior history of seizures or prior episodes. She did have a head CT which was unremarkable. She does have a MRI compatible pacemaker but we are unable to get the MRI as we do not have an on-call stem by student records coordinator during the procedure. Exam Vital Signs (past 8 hours): - 09/08/19 08:00 09/08/19 12:00 09/08/19 15:36 Temperature 97.2 F L 97.6 F 97.7 F Pulse Rate 75 60 62 Respiratory Rate 16 16 17 Blood Pressure 100/53 L 106/51 L 107/56 L Pulse Oximetry 99 94 96 Oxygen Delivery Method Room Air Oxygen Flow Rate 2 Narrative Exam Narrative: Pleasant female awake alert and in no obvious distress Patient has a resting tremor of both upper extremities. HEENT: Normocephalic atraumatic, extraocular muscles are intact, tongue is midline, speech is clear, she has no facial droop Lungs: Clear to auscultation Cardiac exam: Regular rate and rhythm normal S1-S2 with a 2/6 systolic ejection murmur Abdomen: Soft nontender nondistended, no hepatosplenomegaly Extremities: No edema Neuro exam: Non focal Objective Labs Result Diagrams: 09/08/19 04:50 09/08/19 04:50 Labs: Laboratory Results - last 24 hr 09/08/19 09/08/19 09/08/19 04:50 04:50 04:50 WBC 6.6 RBC 3.97 L Hgb 11.0 L Hct 33.2 L MCV 83.6 MCH 27.7 MCHC 33.2 RDW 14.7 Plt Count 212 Neut % (Auto) 66.0 Lymph % (Auto) 20.6 L [place] % (Auto) 10.0 Eos % (Auto) 2.4 Baso % (Auto) 1.0 Neut # (Auto) 4400 Lymph # (Auto) 1400 [place] # (Auto) 700 Eos # (Auto) 200 Baso # (Auto) 100 Sodium 139 Potassium 3.8 Chloride 99 Carbon Dioxide 33 H BUN 27 H Creatinine 1.50 H Estimated GFR 34.1 L BUN/Creatinine Ratio 18.0 Glucose 195 H Hemoglobin A1c 10.1 H Calcium 6.5 L Total Bilirubin 0.4 AST 28 ALT 27 Alkaline Phosphatase 70 Total Protein 6.8 Albumin 3.4 L Globulin 3.4 Albumin/Globulin Ratio 1.0 Triglycerides 205 H Cholesterol 131 L LDL Cholesterol, Calc 59 HDL Cholesterol 31 L TSH Urine Color Urine Appearance Urine pH Ur Specific [place] Urine Protein Urine Glucose (UA) Urine Ketones Urine Occult Blood Urine Nitrate Urine Bilirubin Urine Urobilinogen Ur Leukocyte Esterase Urine RBC Urine WBC Ur Squamous Epith Cells Amorphous Sediment Urine Bacteria Ur Culture Indicated? 09/08/19 09/08/19 04:50 09:30 WBC RBC Hgb Hct MCV MCH MCHC RDW Plt Count Neut % (Auto) Lymph % (Auto) [place] % (Auto) Eos % (Auto) Baso % (Auto) Neut # (Auto) Lymph # (Auto) [place] # (Auto) Eos # (Auto) Baso # (Auto) Sodium Potassium Chloride Carbon Dioxide BUN Creatinine Estimated GFR BUN/Creatinine Ratio Glucose Hemoglobin A1c Calcium Total Bilirubin AST ALT Alkaline Phosphatase Total Protein Albumin Globulin Albumin/Globulin Ratio Triglycerides Cholesterol LDL Cholesterol, Calc HDL Cholesterol TSH 2.49 Urine Color Yellow Urine Appearance Clear Urine pH 5.5 Ur Specific [place] 1.010 Urine Protein Trace H Urine Glucose (UA) Trace H Urine Ketones Negative Urine Occult Blood 1+ H Urine Nitrate Negative Urine Bilirubin Negative Urine Urobilinogen 0.2 Ur Leukocyte Esterase Trace H Urine RBC 0-1/hpf Urine WBC 1-5/hpf Ur Squamous Epith Cells 1-5 /hpf Amorphous Sediment 1+ Urine Bacteria Moderate (10-30) H Ur Culture Indicated? Specimen cultured Assessment & Plan Assessment & Plan narrative: 1. 74-year-old female admitted to the hospital aft er being found unresponsive, associated left facial droop, and slurring of her speech. The patient has no recollection of the event. She apparently was unresponsive. In addition the patient has a bite on her tongue. She does not recall this either. Patient's symptom are highly suggestive of probable seizure. I have discussed this with the stroke neurologist. Based on the presentation and information obtained thus far his recommendation is to start her empirically on Keppra 500 twice daily for possible seizure. 2. Question TIA versus stroke. The patient had a head CT which was negative. MRI is unobtainable at this time. Will await cardiac echo to rule out an embolic focus. Patient to have outpatient MRI at a facility has pacemaker compatible MRI. She will also follow up with her outpatient neurologist. This was discussed with the patient and her daughter. 3. Coronary artery disease, status post stent, continue aspirin and Plavix 4. History of cardiac arrest status post pacemaker placement 5. Aortic stenosis with a history of TAVR 6. Hypertension, continue home medication 7. Hyperlipidemia, continue statin 8. Type 2 diabetes, continue current treatment 9. Hypothyroidism, continue L-thyroxine 10. Chronic kidney disease stage 4, chronic 11. History of non-Hodgkin's lymphoma, chronic 12. History of dementia, continue donepezil Weight cardiac echo, start Keppra, observe for recurrent seizure, if negative anticipate discharge back to [facility] with follow-up as above Quality VTE Deep Vein Thrombosis/Pulmonary Embolism Present on Admission: No
[2019-09-08] MEDS: levETIRAcetam 250 MG TABLET 500 MG PO (20:30)
[2019-09-08] MEDS: SODIUM CHLORIDE 0.9% FLUSH 10 ML IV (20:32)
[2019-09-09] VITALS (8 sets, daily range): BP systolic 106–127; BP diastolic 44–71; PULSE 63–85; RESP 14–19; TEMP 36.5–36.9; O2SAT 92–97
[2019-09-09] MEDS: HEPARIN 5,000 UNIT/ML VIAL 5000 UNIT SUBCUT ×2 (09:12→21:00)
[2019-09-09] MEDS: levETIRAcetam 250 MG TABLET 500 MG PO ×2 (09:12→21:01)
[2019-09-09] MEDS: INSULIN ASPART 100 UNIT/ML INSULN PEN SUBCUT ×4 (09:13→21:01)
[2019-09-09] MEDS: SODIUM CHLORIDE 0.9% FLUSH 10 ML IV ×2 (09:16→21:01)
--- NOTE | 2019-09-09 09:52 | PT.IPTN ---
Physical Therapy Treatment Note M2 PT-IP Current Condition Start: 09/07/19 12:37 Freq: NEEDED Status: Active Protocol: Document 09/08/19 10:31 AW (Rec: 09/08/19 11:04 AW [id number]) Physical Therapy Current Condition Current Condition Evaluation Date 09/08/19 Treatment Diagnosis TIA/rule out CVA, difficulty in walking Onset Date 09/07/19 Weight Bearing Status Weight Bearing Status Full Weight Bearing M3 PT-IP Subjective Start: 09/07/19 12:37 Freq: NEEDED Status: Active Protocol: Document 09/09/19 08:57 LJ (Rec: 09/09/19 09:52 LJ [id number]) Subjective Physical Therapy Visit Type Type Treatment Note Visit Start Time 08:57 Visit Stop Time 09:07 Total Visit Minutes 10 Physical Therapy Visit Comments Patient Comments Pt willing to gegt up but not wanting to walk. Therapy Pain Assessment Pain When Pain Assessed During Mobility Pain Present Pain Present Denied Pain M4 PT-IP Mobility and Gait Start: 09/07/19 12:37 Freq: NEEDED Status: Active Protocol: Document 09/09/19 08:57 LJ (Rec: 09/09/19 09:52 LJ [id number]) PT-Transfer Assessment Sit to and From Stand Sit to and from Stand Standby Assistance Equipment Transfer Assistive Device Gait Belt,Front Wheeled Walker Orthotic/Prosthetic Devices or Brace: No Transfers Transfer Destination Chair Transfer Ability Level of Assist Standby Assistance Comments Mobility Comments Pt able to get herself out of bed SBA. She stood and immediately went to chair to sit down. Nursing entered room and pt refused any further PT . Gait Assessment Gait Gait Assistance Required: Standby Assistance Distance (Feet) 3 Assistive Devices Assistive Device Gait Belt,Front Wheeled Walker Orthotic/Prosthetic Devices or Brace: No Gait Deviations General Gait Pattern Decreased Stride Length, Decreased Feet Clearance, Flexed Trunk Comments Gait Comments Pt stand 3 steps then pivot to sit in chair. Unwilling to walk in room or jarrell. Nursing entered to check vitals. Left pt with nusring M5 PT-IP Objective Assessments Start: 09/07/19 12:37 Freq: NEEDED Status: Active Protocol: Document 09/08/19 10:31 AW (Rec: 09/08/19 11:04 AW [id number]) Orientation Orientation/Cognition Level of Alertness Alert Orientation Name,Month,Day of Week,Place, Situation Language Function Ability No Deficits Noted Safety Awareness Understands Safety Issues Memory Description No Deficits Noted Comments Per chart review, pt has dementia, but she appears appropriate in her responses to questioning and does not falter. She was seen by ST yesterday and reported tongue numbness which has resolved today. Gross Range of Motion Upper Extremity ROM Assessment Within Functional Limits Lower Extremity ROM Assessment Within Functional Limits Strength Upper Extremity Strength Assessment Within Functional Limits Lower Extremity Strength Assessment Within Functional Limits Comments Strength Comments BUE and BLE grossly 4/5 to 4+/ 5 with no appreciable difference side to side. Coordination Assessment Gross Coordination Gross Coordination WNL Assessment Finger to Nose Test Normal Performance Pronation/Supination Test Normal Performance Foot Tapping Test Normal Performance Sensation Assessment Sensation Gross Sensation Right LE Impaired,Left LE Impaired Light Touch Impaired Sensation Description Tingling Comments Sensation Comments Pt reports longstanding history of neuropathy which affects sensation in bilateral plantar feet. M6 PT-IP Treatment Start: 09/07/19 12:37 Freq: NEEDED Status: Active Protocol: Document 09/08/19 10:31 AW (Rec: 09/08/19 11:04 AW [id number]) Physical Therapy Treatment Education Education Provided Precautions,Safety Other Treatments Other Treatment Performed Provided education on safe use of FWW M7 PT-IP Assessment and Plan Start: 09/07/19 12:37 Freq: NEEDED Status: Active Protocol: Document 09/09/19 08:57 LJ (Rec: 09/09/19 09:52 LJ [id number]) PT Summary Assessment and Plan Potential Rehabilitation Potential Good Status of Condition at Evaluation Evolving Summary Impairments Balance Assessment Summary Pt was SBA for bed mobility and transfer to chair. Unable to assess gait today d/t pt moving from bed to chair refusing to ambulate. Goals Bed Mobility Goal Independent Gait Goal Independent Gait Distance 300 Frequency of Treatment Frequency Of Treatment Once a Day Treatment Plan Physical Therapy Treatment Plan Gait Training,Therapeutic Exercise,Balance Retraining, Discharge Planning, Neuromuscular Re-ed Recommendations To Nursing Amount of Assist Needed Standby Assistance Discharge Recommendations PT Discharge Recommendations Home with Assistance, Outpatient PT Other Discharge Recommendations Back to [facility], outpatient PT
--- NOTE | 2019-09-09 13:45 | CM.MNRNOTE ---
Pt with flat affect. She is appropriate and helpful with care. Up to chair for a couple of hours and lying back down. Ate well at breakfast. Resting comforably.
--- NOTE | 2019-09-09 15:16 | OT.IP.TRT ---
Occupational Therapy Treatment Note M2 OT-IP Current Condition Start: 09/07/19 14:27 Freq: Status: Active Protocol: Document 09/08/19 14:34 [facility] (Rec: 09/08/19 14:57 [facility] [id number]) Occupational Therapy Current Condition Current Condition Evaluation Date 09/08/19 Treatment Diagnosis TIA Diagnosis Onset Date 09/07/19 Weight Bearing Status Weight Bearing Status Weight Bear as Tolerated M3 OT- IP Subjective and Pain Start: 09/07/19 14:27 Freq: Status: Active Protocol: Document 09/09/19 15:15 [facility] (Rec: 09/09/19 15:16 [facility] [id number]) OT- Subjective Occupational Therapy Visit Type Type Patient Refusal Notes Attempted to see pt for OT, pt asleep in bed and not wanting to get up at this time.
--- NOTE | 2019-09-09 15:22 | CM.DPC ---
DCP Cont: Called [facility], spoke to Jennifer to confirm that patient could be discharged back to the facility, and if assessment was complete. Jennifer stated that patient was already assessed, and they could accept her back. Updated Dr. Contreras during team rounds, but Dr. Contreras stated that patient needs an echocardiogra first. Was noted that echo has not yet been done, so patient will remain another day. Was able to reach Jennifer at [facility], and she stated that they can accept her tomorrow without another assessment as long as she has not had any changes in condition. P: DCP to continue to follow closely. Patient should be able to discharge back to [facility] tomorrow depending on echo. Charissa Bermeo RN/Label Tacker
--- NOTE | 2019-09-09 16:08 | P.PN_ITS ---
Subjective Subjective Date Patient Seen: 09/09/19 Interval history: The Patient is a 74 y/o female admitted to the hospital for a presumed TIA. The patient does not recall the events. She was found to be normal at 8:30 am. When staff returned to check on her she had slurred speech and facial droop. The patient has no memory of the event. Her Head CT was negative. The patient has a large bite on her tongue which she does not recall how it happened. She has had no events overnight.She is awaiting Echo to complete her TIA work up. She has no further speech abnormalities Exam Vital Signs (past 8 hours): - 09/09/19 08:30 09/09/19 11:17 Temperature 98.0 F 98.4 F Pulse Rate 63 79 Respiratory Rate 14 16 Blood Pressure 106/44 L 112/67 Pulse Oximetry 92 95 Oxygen Delivery Method Room Air Oxygen Flow Rate 0 Narrative Exam Narrative: pleasant female in no Acute Distress Lungs: Clear To auscultation CV: RRR nl Sl S2 ABd: Soft/ non tender/ non distended Ext: no edema Neuro: non focal Objective Labs Result Diagrams: 09/08/19 04:50 09/08/19 04:50 Assessment & Plan Assessment & Plan narrative: 74-year-old female admitted to the hospital after being found unresponsive, associated left facial droop, and slurring of her speech. The patient has no recollection of the event. She apparently was unr esponsive. In addition the patient has a bite on her tongue. She does not recall this either. Patient's symptom are highly suggestive of probable seizure. I have discussed this with the stroke neurologist. Based on the presentation and information obtained thus far his recommendation is to start her empirically on Keppra 500 twice daily for possible seizure. No further seizures overnight. Patient tolerating Keppra well. 2. Question TIA versus stroke. The patient had a head CT which was negative. MRI is unobtainable at this time. Will await cardiac echo to rule out an embolic focus. Patient to have outpatient MRI at a facility has pacemaker compatible MRI. She will also follow up with her outpatient neurologist. This was discussed with the patient and her daughter. Echo still pending at this time. Once Echo obtained, transfer back to [facility] 3. Coronary artery disease, status post stent, continue aspirin and Plavix 4. History of cardiac arrest status post pacemaker placement 5. Aortic stenosis with a history of TAVR 6. Hypertension, continue home medication 7. Hyperlipidemia, continue statin 8. Type 2 diabetes, continue current treatment 9. Hypothyroidism, continue L-thyroxine 10. Chronic kidney disease stage 4, chronic 11. History of non-Hodgkin's lymphoma, chronic 12. History of dementia, continue donepezil Await Echo, if negative, transfer back to [facility] Quality VTE Deep Vein Thrombosis/Pulmonary Embolism Present on Admission: No
[2019-09-10 00:15] VITALS: BP 105/58; PULSE 64; RESP 18; TEMP 36.5; O2SAT 95
[2019-09-10] MEDS: SODIUM CHLORIDE 0.9% FLUSH 10 ML IV ×2 (01:17→08:19)
[2019-09-10 04:00] VITALS: BP 107/57; PULSE 63; RESP 16; TEMP 36.4; O2SAT 95
[2019-09-10] MEDS: ACETAMINOPHEN 325 MG TABLET 650 MG PO (04:12)
--- NOTE | 2019-09-10 06:36 | PC.NURSE ---
Pt restless overnight. Helped pt to sit in chair. Tylenol given x1 for objective symptoms of discomfort. Pt able to sleep in chair. PIV dressing reinforced, flushes easily, no blood return. Plan for ECHO today then possible discharge to SNF.
--- NOTE | 2019-09-10 06:39 | PC.NURSE ---
Pt reports pain improving since admit. Pain located at left ribs to left flank. Describes at achy/sharp. Pt denies nausea.Scope patch behind right ear. Tolerating fluids at bedside overnight. SCDs on majority of shift, refused after ambu to BR at 0600. Rationale explained to pt regarding prevention of VTE/clots, pt stated I am walking alot. Possible discharge to home today. Supportive spouse at bedside.
[2019-09-10 08:00] VITALS: BP 112/67; PULSE 79; RESP 16; TEMP 36.6; O2SAT 95
[2019-09-10] MEDS: levETIRAcetam 250 MG TABLET 500 MG PO (08:18)
[2019-09-10] MEDS: HEPARIN 5,000 UNIT/ML VIAL 5000 UNIT SUBCUT (08:18)
[2019-09-10] MEDS: INSULIN ASPART 100 UNIT/ML INSULN PEN SUBCUT ×2 (08:19→13:09)
--- NOTE | 2019-09-10 11:51 | PT.IPTN ---
Physical Therapy Treatment Note M2 PT-IP Current Condition Start: 09/07/19 12:37 Freq: NEEDED Status: Active Protocol: Document 09/08/19 10:31 AW (Rec: 09/08/19 11:04 AW [id number]) Physical Therapy Current Condition Current Condition Evaluation Date 09/08/19 Treatment Diagnosis TIA/rule out CVA, difficulty in walking Onset Date 09/07/19 Weight Bearing Status Weight Bearing Status Full Weight Bearing M3 PT-IP Subjective Start: 09/07/19 12:37 Freq: NEEDED Status: Active Protocol: Document 09/10/19 11:51 SP (Rec: 09/10/19 12:01 SP [id number]) Subjective Physical Therapy Visit Type Type Treatment Note Visit Start Time 11:25 Visit Stop Time 11:50 Total Visit Minutes 25 Number of LOG PREPARER Visits 1 Physical Therapy Visit Comments Patient Comments Pt willing to get up and work with PT. Patient Goals Pt hopes is going to [facility] soon. Therapy Pain Assessment Pain Present Pain Present Denied Pain M4 PT-IP Mobility and Gait Start: 09/07/19 12:37 Freq: NEEDED Status: Active Protocol: Document 09/10/19 11:51 SP (Rec: 09/10/19 12:01 SP [id number]) PT-Bed Mobility Assessment Rolling Type of Rolling Roll to Left Level of Assist Standby Assistance Supine to Sit Supine to Sit Standby Assistance Scooting Scooting to Edge of Bed Standby Assistance PT-Transfer Assessment Sit to and From Stand Sit to and from Stand Standby Assistance Equipment Transfer Assistive Device Gait Belt,Front Wheeled Walker Orthotic/Prosthetic Devices or Brace: No Transfers Transfer Destination Chair Transfer Technique Stand Step Pivot Transfer Ability Level of Assist Standby Assistance,Use of Upper Extremities Comments Mobility Comments Pt is able to get herself out of bed SBA. Occasional cues for stationary stance before moving for awareness of balance and hand placement prior to sitting. Good FWW positioning. Gait Assessment Gait Gait Assistance Required: Standby Assistance Distance (Feet) 274 Assistive Devices Assistive Device Gait Belt,Front Wheeled Walker Orthotic/Prosthetic Devices or Brace: No Gait Deviations General Gait Pattern Decreased Stride Length,Flexed Trunk Comments Gait Comments Pt was able to walk 137 ft x2 using FW, occasional cues for slower pacing during turns. M5 PT-IP Objective Assessments Start: 09/07/19 12:37 Freq: NEEDED Status: Active Protocol: Document 09/08/19 10:31 AW (Rec: 09/08/19 11:04 AW [id number]) Orientation Orientation/Cognition Level of Alertness Alert Orientation Name,Month,Day of Week,Place, Situation Language Function Ability No Deficits Noted Safety Awareness Understands Safety Issues Memory Description No Deficits Noted Comments Per chart review, pt has dementia, but she appears appropriate in her responses to questioning and does not falter. She was seen by ST yesterday and reported tongue numbness which has resolved today. Gross Range of Motion Upper Extremity ROM Assessment Within Functional Limits Lower Extremity ROM Assessment Within Functional Limits Strength Upper Extremity Strength Assessment Within Functional Limits Lower Extremity Strength Assessment Within Functional Limits Comments Strength Comments BUE and BLE grossly 4/5 to 4+/ 5 with no appreciable difference side to side. Coordination Assessment Gross Coordination Gross Coordination WNL Assessment Finger to Nose Test Normal Performance Pronation/Supination Test Normal Performance Foot Tapping Test Normal Performance Sensation Assessment Sensation Gross Sensation Right LE Impaired,Left LE Impaired Light Touch Impaired Sensation Description Tingling Comments Sensation Comments Pt reports longstanding history of neuropathy which affects sensation in bilateral plantar feet. M6 PT-IP Treatment Start: 09/07/19 12:37 Freq: NEEDED Status: Active Protocol: Document 09/10/19 11:51 SP (Rec: 09/10/19 12:01 SP [id number]) Physical Therapy Treatment Other Treatments Other Treatment Performed Pt performed standing LE marching, forward/backward/ side stepping using FWW, cued for body awareness around end of bed for safety. M7 PT-IP Assessment and Plan Start: 09/07/19 12:37 Freq: NEEDED Status: Active Protocol: Document 09/10/19 11:51 SP (Rec: 09/10/19 12:01 SP [id number]) PT Summary Assessment and Plan Potential Rehabilitation Potential Good Status of Condition at Evaluation Evolving Summary Impairments Balance Assessment Summary Pt was SBA for bed mobility and transfer to chair, and gait. Goals Bed Mobility Goal Independent Gait Goal Independent Gait Distance 300 Frequency of Treatment Frequency Of Treatment Once a Day Treatment Plan Physical Therapy Treatment Plan Gait Training,Therapeutic Exercise,Balance Retraining, Discharge Planning, Neuromuscular Re-ed Recommendations To Nursing Amount of Assist Needed Standby Assistance Discharge Recommendations PT Discharge Recommendations Home with Assistance, Outpatient PT Other Discharge Recommendations Back to [facility], outpatient PT
[2019-09-10 12:00] VITALS: BP 118/70; PULSE 90; RESP 16; TEMP 36.6; O2SAT 95
--- NOTE | 2019-09-10 14:54 | CM.DPC ---
DCP Cont: Patient is to be discharged today to go back to [facility]. Dr. Contreras will review echocardiogram when report comes in. At this time, she is stable for discharge. Called Jennifer at [facility] and set up time of picking machine operator helper for [id number]. Just faxed over signed med sheets and latest prog note to [facility]. Updated nurse, Jass. P: Patient is to be discharged today back to [facility]. White board updated. Charissa Bermeo RN/Blending Plant Operator
--- NOTE | 2019-09-10 15:12 | PC.NURSE ---
Report called to Navid at [facility]. Patient packed and ready to be picked up. VSS. Patient denies pain or other complaint, eager to get back to [facility].
--- NOTE | 2019-09-10 18:50 | P.DS_ITS ---
History of Present Illness History of Present Illness Date Patient Seen: 09/10/19 Chief complaint: Code Stroke Narrative: logan Almanza is a 74-year-old female with a past medical history sign ificant for CAD status post stent x1, cardiac arrest status post pacemaker, aortic stenosis status post TAVR, hypertension, hyperlipidemia, diabetes mellitus type 2, non-insulin using, CKD stage 4, secondary hypothyroidism status post thyroidectomy for thyroid cancer (unknown type), non-Hodgkin's lymphoma in remission and dementia who presented from [facility] for left-sided facial droop and slurred speech. The patient was in her usual state of health and her last known normal was 8:25 a.m. The patient does not remember the chain of events this morning. The last thing she remembers was eating her morning breakfast which was cereal. Patient has retrograde amnesia and does not remember being taken to the ED and vaguely remembers the CT scan. She denies any significant stroke-like symptoms other than mild numbness and tingling of her tongue which is still present. Her initial NIH score was a 2 for right leg drift (which more likely was due to decreased effort per ED physician and not a true neurological deficit) and slight left-sided facial droop. Her symptoms including slurred speech and left-sided facial droop resolved in the ED. The patient denies headache, vision changes, lightheadedness or dizziness, unilateral weakness, chest pain, shortness of breath, abdominal pain, nausea, vomiting, fever, chills, dysuria, or diarrhea. She endorses chronic c onstipation. CT brain without contrast did not demonstrate any acute intra- cranial abnormalities but did demonstrate age related volume loss and moderate small-vessel ischemic change and old lacunar infarcts. Patient had some mild nausea and left-sided abdominal pain in the ED, therefore, a CT abdomen and pelvis was performed which demonstrated fat containing paraumbilical hernia with fat necrosis. The patient's abdominal pain readily resolved and she has had no recurrence. The patient was admitted observation for CVA rule out. Discharge Providers Provider Date of admission: 09/07/19 11:08 Discharge Date: 09/10/19 Consults: 09/07/19 12:10 Consult to Discharge Planning Routine Comment: Consult to Occupational Therapy Evaluate & Treat Comment: Physician Instructions: Evaluate and treat 09/07/19 12:11 Consult to Physical Therapy Evaluate & Treat Comment: Physician Instructions: Evaluate and Treat Consult to Speech Therapy Evaluate & Treat Comment: facial droop, slurred speech Physician Instructions: Evaluate and treat Discharge provider: Melba Contreras MD Summary Hospital Course Discharge Diagnosis: 1. New onset seizure 2. History of coronary disease status post stent 3. History of cardiac arrest with pacemaker placed 4. Aortic stenosis with a history of TAVR 5. Hypertension 6. Hyperlipidemia 7. Chronic kidney disease stage 4 8. Hypothyroidism, status post thyroidectomy for thyroid cancer 9. History of non-Hodgkin's lymphoma in remission 10. Morbid obesity Hospital Course: The patient is a 74-year-old female who was admitted to the hospital for presumed CVA. Patient is a [facility] and was eating breakfast. When staff returned the patient was unresponsive and found to have facial droop and difficulty with speech. The patient had no memory of the event . Head CT was obtained which showed no active bleed. the patient had a pacemaker in place although MRI compatible she was unable to get an MRI at this facility. The patient had a large bite on her tongue. She did not recall biting her tongue. Patient also had no memory of the event. Case was discussed with the [facility] on-call Neurology who concurred that this was highly suspicious for probable seizure. Patient was started on Keppra for seizure prophylaxis. Echocardiogram was obtained to rule out an embolic focus. It unfortunately we were unable to get the echo after 3 days. She ultimately got the echocardiogram and was deemed appropriate for discharge back to [facility]. Patient had no further episodes in the hospital. His she had no further slurring of her speech, no facial droop, or neurological symptoms. Exam Vital Signs (past 8 hours): - 09/10/19 12:00 Temperature 97.9 F Pulse Rate 90 Respiratory Rate 16 Blood Pressure 118/70 Pulse Oximetry 95 Oxygen Delivery Method Room Air Oxygen Flow Rate 0 Narrative Exam Narrative: Pleasant female in no obvious distress Lungs: Clear to auscultation Cardiac exam: Regular rate rhythm normal S1-S2 with a 2/6 systolic ejection Abdomen: Soft nontender nondistended Extremities: No edema Objective Labs Result Diagrams: 09/08/19 04:50 09/08/19 04:50 Discharge Plan Discharge Plan Patient Disposition: SNF Transfer to: [facility] Transportation: Cab[facility] Discharge comment: Needs outpatient MRI at a facility that has a MRI compatible pacemaker capacity I certify the postop hospital retirement care is medically necessary on a continuing basis for any conditions for which he/ she received care during this hospitalization.: Yes The receiving facility has agreed to accept transfer and provide medical t reatment.: Yes Discharge Med Rec/Prescriptions Prescriptions: New levetiracetam 250 mg Tablet 500 mg PO BID 30 Days Qty: 120 RF: 0 Continued fluoxetine 40 mg Capsule 40 mg PO DAILY RF: 0 furosemide 40 mg Tablet 40 mg PO DAILY RF: 0 atorvastatin 40 mg Tablet 40 mg PO BEDTIME RF: 0 docosanol [Abreva] 10 % Cream 1 applic TOPICAL DAILY RF: 0 levothyroxine 175 mcg Tablet 175 mcg PO DAILY RF: 0 acetaminophen 325 mg Tablet 650 mg PO Q4H PRN (Reason: pain level 1-3 or fever >100.1) RF: 0 donepezil 5 mg Tablet 5 mg PO DAILY RF: 0 potassium chloride 10 mEq Tablet Extended Release 10 meq PO DAILY RF: 0 omeprazole 40 mg Capsule,Delayed Release(Dr/Ec) 40 mg PO BID RF: 0 aspirin 81 mg Tablet,Delayed Release (Dr/Ec) 81 mg PO DAILY RF: 0 carvedilol 3.125 mg Tablet 3.125 mg PO BID RF: 0 ferrous sulfate 325 mg (65 mg iron) Tablet 325 mg PO DAILY RF: 0 gabapentin 100 mg Capsule 100 mg PO TID RF: 0 nystatin 100,000 unit/gram Powder 1 applic TOPICAL BID RF: 0 cholecalciferol (vitamin D3) 1,000 unit (25 mcg) Tablet 5,000 unit PO DAILY RF: 0 Chamosyn 0.45-20 % Ointment 1 ea TOPICAL BID RF: 0 omega 5-vpv-sdu-fish oil [Fish Oil] 1,000 mg (120 mg-180 mg) Capsule 1 cap PO DAILY RF: 0 Tradjenta 5 mg Tablet 5 mg PO DAILY RF: 0 Lactobacillus acidophilus 10 billion cell Capsule 10,000,000 cell PO DAILY RF: 0 magnesium oxide 400 mg magnesium Tablet 400 mg PO DAILY RF: 0 Provider Discharge Instructions Diet: Low-sodium and Low-cholesterol Liquid consistency: Normal/Thin Food texture: Regular Special Rehabilitation Services Reason for rehabilitation: Recovery r/t decondition Rehab type: Physical therapy and Occupational therapy Visit Report/Discharge Packet Instructions: DI for Transient Ischemic Attack, DI for Seizure (Not Epilepsy/Seizure Disorder), Levetiracetam Discharge Data Attending Provider: Kaylan Talavera Admit Date/Time: 09/07/19 11:08 Discharges patient from system. Discharge Date/Time: 09/10/19 16:00 Quality VTE Deep Vein Thrombosis/Pulmonary Embolism Present on Admission: No
--- NOTE | 2019-09-14 16:39 | PT.IPTN ---
Current Diagnoses Other symptoms and signs involving the nervous system (09/07/19) Physical Therapy Treatment Note M2 PT-IP Current Condition Start: 09/07/19 12:37 Freq: NEEDED Status: Discharge Protocol: Document 09/08/19 10:31 AW (Rec: 09/08/19 11:04 AW [id number]) Physical Therapy Current Condition Current Condition Evaluation Date 09/08/19 Treatment Diagnosis TIA/rule out CVA, difficulty in walking Onset Date 09/07/19 Weight Bearing Status Weight Bearing Status Full Weight Bearing M3 PT-IP Subjective Start: 09/07/19 12:37 Freq: NEEDED Status: Discharge Protocol: Document 09/10/19 11:51 SP (Rec: 09/10/19 12:01 SP [id number]) Subjective Physical Therapy Visit Type Type Treatment Note Visit Start Time 11:25 Visit Stop Time 11:50 Total Visit Minutes 25 Number of ADAPTIVE PHYSICAL EDUCATOR Visits 1 Physical Therapy Visit Comments Patient Comments Pt willing to get up and work with PT. Patient Goals Pt hopes is going to [facility] soon. Therapy Pain Assessment Pain Present Pain Present Denied Pain M4 PT-IP Mobility and Gait Start: 09/07/19 12:37 Freq: NEEDED Status: Discharge Protocol: Document 09/10/19 11:51 SP (Rec: 09/10/19 12:01 SP [id number]) PT-Bed Mobility Assessment Rolling Type of Rolling Roll to Left Level of Assist Standby Assistance Supine to Sit Supine to Sit Standby Assistance Scooting Scooting to Edge of Bed Standby Assistance PT-Transfer Assessment Sit to and From Stand Sit to and from Stand Standby Assistance Equipment Transfer Assistive Device Gait Belt,Front Wheeled Walker Orthotic/Prosthetic Devices or Brace: No Transfers Transfer Destination Chair Transfer Technique Stand Step Pivot Transfer Ability Level of Assist Standby Assistance,Use of Upper Extremities Comments Mobility Comments Pt is able to get herself out of bed SBA. Occasional cues for stationary stance before moving for awareness of balance and hand placement prior to sitting. Good FWW positioning. Gait Assessment Gait Gait Assistance Required: Standby Assistance Distance (Feet) 274 Assistive Devices Assistive Device Gait Belt,Front Wheeled Walker Orthotic/Prosthetic Devices or Brace: No Gait Deviations General Gait Pattern Decreased Stride Length,Flexed Trunk Comments Gait Comments Pt was able to walk 137 ft x2 using FW, occasional cues for slower pacing during turns. M5 PT-IP Objective Assessments Start: 09/07/19 12:37 Freq: NEEDED Status: Discharge Protocol: Document 09/08/19 10:31 AW (Rec: 09/08/19 11:04 AW [id number]) Orientation Orientation/Cognition Level of Alertness Alert Orientation Name,Month,Day of Week,Place, Situation Language Function Ability No Deficits Noted Safety Awareness Understands Safety Issues Memory Description No Deficits Noted Comments Per chart review, pt has dementia, but she appears appropriate in her responses to questioning and does not falter. She was seen by ST yesterday and reported tongue numbness which has resolved today. Gross Range of Motion Upper Extremity ROM Assessment Within Functional Limits Lower Extremity ROM Assessment Within Functional Limits Strength Upper Extremity Strength Assessment Within Functional Limits Lower Extremity Strength Assessment Within Functional Limits Comments Strength Comments BUE and BLE grossly 4/5 to 4+/ 5 with no appreciable difference side to side. Coordination Assessment Gross Coordination Gross Coordination WNL Assessment Finger to Nose Test Normal Performance Pronation/Supination Test Normal Performance Foot Tapping Test Normal Performance Sensation Assessment Sensation Gross Sensation Right LE Impaired,Left LE Impaired Light Touch Impaired Sensation Description Tingling Comments Sensation Comments Pt reports longstanding history of neuropathy which affects sensation in bilateral plantar feet. M6 PT-IP Treatment Start: 09/07/19 12:37 Freq: NEEDED Status: Discharge Protocol: Document 09/10/19 11:51 SP (Rec: 09/10/19 12:01 SP [id number]) Physical Therapy Treatment Other Treatments Other Treatment Performed Pt performed standing LE marching, forward/backward/ side stepping using FWW, cued for body awareness around end of bed for safety. M7 PT-IP Assessment and Plan Start: 09/07/19 12:37 Freq: NEEDED Status: Discharge Protocol: Document 09/10/19 11:51 SP (Rec: 09/10/19 12:01 SP [id number]) PT Summary Assessment and Plan Potential Rehabilitation Potential Good Status of Condition at Evaluation Evolving Summary Impairments Balance Assessment Summary Pt was SBA for bed mobility and transfer to chair, and gait. Goals Bed Mobility Goal Independent Gait Goal Independent Gait Distance 300 Frequency of Treatment Frequency Of Treatment Once a Day Treatment Plan Physical Therapy Treatment Plan Gait Training,Therapeutic Exercise,Balance Retraining, Discharge Planning, Neuromuscular Re-ed Recommendations To Nursing Amount of Assist Needed Standby Assistance Discharge Recommendations PT Discharge Recommendations Home with Assistance, Outpatient PT Other Discharge Recommendations Back to [facility], outpatient PT
--- NOTE | 2019-09-21 10:08 | PC.NURSE ---
late entry: Calcium Gluconate stopped 2056 NS stopped 2310
== END 2019-09-10 16:00 ==
LOC: ED 10:57 → AC 11:09
PROVIDERS: Nurse Practitioner Adult Health; Admitting Provider Internal Medicine; Emergency Provider Emergency Medicine; Visit Provider Internal Medicine
DX: R29.818 Other symptoms and signs involving the nervous system (principal); I25.10 Atherosclerotic heart disease of native coronary artery without angina pectoris; Z95.0 Presence of cardiac pacemaker; Z86.74 Personal history of sudden cardiac arrest; E78.5 Hyperlipidemia, unspecified; N18.4 Chronic kidney disease, stage 4 (severe); E03.9 Hypothyroidism, unspecified; E66.9 Obesity, unspecified; Z23 Encounter for immunization
CPT/HCPCS: 36415; 70450; 74177; 80053; 80061; 81001; 82962; 83036; 83690; 84443; 84484; 85025; 85610; 85730; 86850; 86900; 86901; 87086; 90471; 90656; 92507; 92610; 93005; 93306; 96361; 96365; 96372; 96375; 97116; 97162; 97165; 97530; 99283; 99285; G0378; J0610; J1644; J2405; Q2038; Q9957; Q9967

== ENCOUNTER → 2019-10-20 08:10 | Outpatient (ROUT) | payer OTHER, MEDICAID, SELFPAY ==
[2019-09-07 13:30] VITALS: BMI 40.4
[2019-10-20 08:59] LABS: Add Manual Diff / Slide Review NO; Basophils Absolute Auto 100 /uL (0-100); Basophils Percent Auto 1.3 % (0-2); Eosinophils Absolute Auto 100 /uL (0-450); Hematocrit 31.6 % (36-46); Lymphocytes Absolute Auto 1400 /uL (1100-4500); Mean Corpuscular HGB Conc 34.8 % (30-36); Mean Corpuscular Volume 83.1 fL (80-100); Monocytes Absolute Auto 700 /uL (0-900); Monocytes Percent Auto 11.6 % (3-14); Neutrophils Absolute Auto 3600 /uL (1500-7000); Neutrophils Percent Auto 61.1 % (50-75); Platelet Count 227 X10^3/uL (150-400); Red Cell Distribution Width 14.4 % (11.6-14.8); White Blood Cell Count 5.9 X10^3/uL (4.5-11.0)
[2019-10-20 09:04] LABS: Hemoglobin A1C% w Est Avg Glu 9.6 % (4.0-6.0)
[2019-10-20 09:08] LABS: Alanine Aminotransferase 21 IU/L (<35); Albumin 3.8 g/dL (3.5-5.0); Albumin Globulin Ratio 1.2 (1.0-2.8); Alkaline Phosphatase 78 U/L (38-126); Aspartate Aminotransferase 32 IU/L (14-36); BUN Creatinine Ratio 18.8 (6-22); Bilirubin Total 0.4 mg/dL (0.2-1.3); Blood Urea Nitrogen 32 mg/dL (7-17); Carbon Dioxide 34 mmol/L (22-32); Chloride 97 mmol/L (98-107); Estimated Glomerular Filt Rate 29.5 mL/min (>60); Globulin 3.2 g/dL (1.7-4.1); Glucose 140 mg/dL (80-110); HEMOLYSIS < 15 (0-50); Magnesium 1.3 mg/dL (1.6-2.3); Potassium 3.9 mmol/L (3.4-5.1); Sodium 142 mmol/L (137-145)
[2019-10-20 09:26] LABS: Calcium 6.3 mg/dL (8.4-10.2)
[2019-10-20 09:39] LABS: Thyroid Stimulating Hormone 1.15 uIU/mL (0.47-4.68)
[2019-10-20 09:56] LABS: Vitamin B12 507 pg/mL (239-931)
== END ==
PROVIDERS: Visit Provider Family Medicine
DX: E83.42 Hypomagnesemia (principal); E83.51 Hypocalcemia; E03.9 Hypothyroidism, unspecified; E11.9 Type 2 diabetes mellitus without complications; I50.9 Heart failure, unspecified; Z79.899 Other long term (current) drug therapy
CPT/HCPCS: 36415; 80053; 82607; 83036; 83735; 84443; 85025

== ENCOUNTER 2019-10-20 11:00 | Emergency (ER) | payer OTHER, MEDICAID, SELFPAY ==
[2019-09-07 13:30] VITALS: BMI 40.4
[2019-10-20 11:00] VITALS: BP 136/76; PULSE 76; RESP 14; TEMP 36.9; O2SAT 100
[2019-10-20 11:30] VITALS: BP 114/54; PULSE 70; RESP 17; O2SAT 94
--- NOTE | 2019-10-20 11:32 | ED_ITS ---
HPI - Recheck/Abnormal Lab/Rx <Marisela Harris PA-C - Last Filed: 10/20/19 14:51> General Chief Complaint: Recheck/Abnormal Lab/Rx Stated Complaint: states hypocalcemia Time Seen by Provider: 10/20/19 11:13 Source: patient and old records reviewed Mode of arrival: Wheelchair Limitations: no limitations History of Present Illness HPI narrative: This 74-year-old female states that she was sent here by her PCP office (got a phone call this morning) due to low calcium. She states that she had routine lab work and this was found. She states that she would not have come in otherwise. She states that for the last few days, she has had some very mild intermittent headache not interfering with sleep or activity or needing any medications, no headache now. This morning she states she had some mild abdominal cramping and a single episode of diarrhea, no vomiting. She states she has been eating and drinking normally. She denies any urinary symptoms. She denies any chest pain or dyspnea, denies any recent new illness or fever. She denies any new body aches or muscle cramps. She does have some chronic pain in the right foot but denies any other symptoms on systems review aside from some fatigue Related Data Home Medications Medication Instructions Recorded Confirmed Lactobacillus acidophilus 10,000,000 cell PO DAILY 09/07/19 10/20/19 Tradjenta 5 mg PO DAILY 09/07/19 10/20/19 acetaminophen 650 mg PO Q4H PRN 09/07/19 10/20/19 aspirin 81 mg PO DAILY 09/07/19 10/20/19 atorvastatin 40 mg PO BEDTIME 09/07/19 10/20/19 carvedilol 3.125 mg PO BID 09/07/19 10/20/19 cholecalciferol (vitamin D3) 5,000 unit PO DAILY 09/07/19 10/20/19 donepezil 5 mg PO DAILY 09/07/19 10/20/19 ferrous sulfate 325 mg PO DAILY 09/07/19 10/20/19 fluoxetine 40 mg PO DAILY 09/07/19 10/20/19 furosemide 40 mg PO DAILY 09/07/19 10/20/19 levothyroxine 175 mcg PO DAILY 09/07/19 10/20/19 magnesium oxide 400 mg PO DAILY 09/07/19 10/20/19 nystatin 1 applic TOPICAL BID 09/07/19 10/20/19 omega 2-qvv-brv-fish oil [Fish Oil] 1 cap PO DAILY 09/07/19 10/20/19 omeprazole 40 mg PO BID 09/07/19 10/20/19 potassium chloride 10 meq PO DAILY 09/07/19 10/20/19 acetaminophen 1,000 mg PO TID 10/20/19 10/20/19 acyclovir 400 mg PO DAILYX5 10/20/19 10/20/19 gabapentin 300 mg PO BID 10/20/19 10/20/19 levetiracetam 500 mg PO BID 10/20/19 10/20/19 primidone 75 mg PO BEDTIME 10/20/19 10/20/19 Allergies Allergy/AdvReac Type Severity Reaction Status Date / Time adhesive tape Allergy Verified 10/20/19 11:36 allopurinol Allergy Verified 10/20/19 11:36 Review of Systems <Marisela Harris PA-C - Last Filed: 10/20/19 14:51> Review of Systems ROS Unobtainable: All systems reviewed & are unremarkable except as noted in HPI and below Patient History <Marisela Harris PA-C - Last Filed: 10/20/19 14:51> Medical History (Updated 10/20/19 @ 12:02 by Marisela Harris PA-C) CAD (coronary artery disease) (Acute) CKD (chronic kidney disease) (Acute) CVA (cerebral vascular accident) (Acute) Dementia (Acute) Diabetes mellitus type 2 in obese (Acute) GERD (gastroesophageal reflux disease) (Acute) Heart failure, unspecified (Acute) Hyperlipidemia (Acute) Hypertension (Acute) Hypothyroid (Acute) Non Hodgkin's lymphoma (Acute) Pacemaker (Acute) Thyroid cancer (Acute) Tremor, unspecified (Acute) Surgical History History of cholecystectomy (Acute) History of thyroidectomy (Acute) Hx of tonsillectomy (Acute) S/P TAVR (transcatheter aortic valve replacement) (Acute) Family History (Updated 09/07/19 @ 19:41 by Kaylan Talavera DO) Mother Dementia Father Heart attack Social History household members: none Smoking Status: Never smoker alcohol intake: never alcohol intake frequency: 0-2 drinks per day Substance Use Type: does not use Exam <Marisela Harris PA-C - Last Filed: 10/20/19 14:51> Narrative Exam Narrative: GENERAL APPEARANCE: Patient resting comfortably, in no distress. HEENT: PERRL, EOMI, normal oropharynx NECK: Supple LUNGS: Clear to auscultation bilaterally. HEART: Rate and rhythm regular without murmur, normal S1 and S2, no S3 or S4. ABDOMEN: Soft, NT, ND, + BS x 4 quadrants, no palpable HSM or mass NEUROLOGIC: Alert and gives appropriate history, normal speech, bilateral upper extremity resting tremor noted MUSCULOSKELETAL: Negative Chovstek sign EXTREMITIES: No cyanosis or edema, no calf tenderness DERMATOLOGIC: No exanthem Initial Vital Signs Initial Vital Signs: Vital Signs Temperature 98.4 F 10/20/19 11:00 Pulse Rate 76 10/20/19 11:00 Respiratory Rate 14 10/20/19 11:00 Blood Pressure 136/76 10/20/19 11:00 Pulse Oximetry 100 10/20/19 11:00 <Lizzy Be DO - Last Filed: 10/21/19 07:26> Initial Vital Signs Initial Vital Signs: Vital Signs Temperature 98.4 F 10/20/19 11:00 Pulse Rate 76 10/20/19 11:00 Respiratory Rate 14 10/20/19 11:00 Blood Pressure 136/76 10/20/19 11:00 Pulse Oximetry 100 10/20/19 11:00 Course <Marisela Harris PA-C - Last Filed: 10/20/19 14:51> Course Additional Information: Patient does not appear to have any acute symptoms of hypocalcemia today. She had a similar calcium on her previous admission here. We did attempt to reach her PCP office for records however apparently not seen recently there, they not have same EMR so unclear what outpatient workup and lab work has been done. Patient certainly could tolerate oral calcium replacement if needed. She was given IV calcium as her corrected calcium was quite low, and advised contacting PCP for further instructions and follow-up based on results of previous workup. She is agreeable and nursing reviewed planned with her nurse at [facility]. She was sleeping comfortably throughout her stay Orders Ordered: Discontinued Medications Calcium Gluconate 9.3 meq/ (Sodium Chloride) 70 mls @ 140 mls/hr IV NOW ONE Stop: 10/20/19 11:51 Last Infusion: 10/20/19 13:00 Dose: 0 mls/hr Documented by: Admin: 10/20/19 12:17 Dose: 140 mls/hr Documented by: ERASTO Sodium Chloride (Normal Saline 0.9%) 1,000 mls @ 1,000 mls/hr IV BOLUS ONE Stop: 10/20/19 12:49 Last Infusion: 10/20/19 13:20 Dose: 0 mls/hr Documented by: Infusion: 10/20/19 12:24 Dose: 500 mls/hr Documented by: Admin: 10/20/19 12:18 Dose: 1,000 mls/hr Documented by: ERASTO Vital Signs Vital signs: Vital Signs - 8 hr 10/20/19 11:00 10/20/19 11:30 10/20/19 12:00 Temperature 98.4 F Pulse Rate 76 70 70 Respiratory Rate 14 17 18 Blood Pressure 136/76 Blood Pressure [Left Arm] 114/54 L 104/54 L Pulse Oximetry 100 94 98 10/20/19 13:00 Temperature Pulse Rate 65 Respiratory Rate 15 Blood Pressure Blood Pressure [Left Arm] 112/61 Pulse Oximetry 98 <Lizzy Be, - Last Filed: 10/21/19 07:26> Orders Ordered: Discontinued Medications Calcium Gluconate 9.3 meq/ (Sodium Chloride) 70 mls @ 140 mls/hr IV NOW ONE Stop: 10/20/19 11:51 Last Infusion: 10/20/19 13:00 Dose: 0 mls/hr Documented by: Admin: 10/20/19 12:17 Dose: 140 mls/hr Documented by: ERASTO Sodium Chloride (Normal Saline 0.9%) 1,000 mls @ 1,000 mls/hr IV BOLUS ONE Stop: 10/20/19 12:49 Last Infusion: 10/20/19 13:20 Dose: 0 mls/hr Documented by: Infusion: 10/20/19 12:24 Dose: 500 mls/hr Documented by: Admin: 10/20/19 12:18 Dose: 1,000 mls/hr Documented by: ERASTO Vital Signs Vital signs: Vital Signs - 8 hr 10/20/19 11:00 10/20/19 11:30 10/20/19 12:00 Temperature 98.4 F Pulse Rate 76 70 70 Respiratory Rate 14 17 18 Blood Pressure 136/76 Blood Pressure [Left Arm] 114/54 L 104/54 L Pulse Oximetry 100 94 98 10/20/19 13:00 Temperature Pulse Rate 65 Respiratory Rate 15 Blood Pressure Blood Pressure [Left Arm] 112/61 Pulse Oximetry 98 MDM - Recheck/Abnormal Lab/Rx <Marisela Harris PA-C - Last Filed: 10/20/19 14:51> Lab Data Attestation: I reviewed the patient's lab results. Result diagrams: 10/20/19 11:15 10/20/19 11:15 Labs: Lab Results 10/20/19 10/20/19 10/20/19 Range/Units 11:15 11:15 11:15 WBC 7.7 (4.5-11.0) X10^3/uL RBC 4.02 (4.0-5.2) X10^6/uL Hgb 11.2 L (12.0-16.0) g/dL Hct 33.6 L (36-46) % MCV 83.7 (80-100) fL MCH 27.9 (26-34) PG MCHC 33.3 (30-36) % RDW 14.7 (11.6-14.8) % Plt Count 259 (150-400) X10^3/uL Neut % (Auto) 66.7 (50-75) % Lymph % (Auto) 21.5 L (25-40) % [place] % (Auto) 9.0 (3-14) % Eos % (Auto) 1.4 L (2-4) % Baso % (Auto) 1.4 (0-2) % Neut # (Auto) 5100 (2335-8838) /uL Lymph # (Auto) 1700 (4049-3407) /uL [place] # (Auto) 700 (0-900) /uL Eos # (Auto) 100 (0-450) /uL Baso # (Auto) 100 (0-100) /uL Sodium 140 (137-145) mmol/L Potassium 4.1 (3.4-5.1) mmol/L Chloride 97 L (98-107) mmol/L Carbon Dioxide 30 (22-32) mmol/L BUN 32 H (7-17) mg/dL Creatinine 1.80 H (0.52-1.04) mg/dL Estimated GFR 27.7 L (>60) mL/min BUN/Creatinine Ratio 17.8 (6-22) Glucose 277 H D (80-110) mg/dL Calcium 6.4 L* (8.4-10.2) mg/dL Phosphorus 4.7 H (2.8-4.1) mg/dL Magnesium 1.2 L (1.6-2.3) mg/dL Total Bilirubin 0.4 (0.2-1.3) mg/dL AST 36 (14-36) IU/L ALT 22 (<35) IU/L Alkaline Phosphatase 88 (38-126) U/L Total Protein 8.1 (6.3-8.2) g/dL Albumin 4.2 (3.5-5.0) g/dL Globulin 3.9 (1.7-4.1) g/dL Albumin/Globulin Ratio 1.1 (1.0-2.8) ECG Data Attestation: I personally reviewed and interpreted this ECG as follows: (Paced rhythm, rate 72, no acute changes) <Lizzy Be, - Last Filed: 10/21/19 07:26> Lab Data Labs: Lab Results 10/20/19 10/20/19 10/20/19 Range/Units 11:15 11:15 11:15 WBC 7.7 (4.5-11.0) X10^3/uL RBC 4.02 (4.0-5.2) X10^6/uL Hgb 11.2 L (12.0-16.0) g/dL Hct 33.6 L (36-46) % MCV 83.7 (80-100) fL MCH 27.9 (26-34) PG MCHC 33.3 (30-36) % RDW 14.7 (11.6-14.8) % Plt Count 259 (150-400) X10^3/uL Neut % (Auto) 66.7 (50-75) % Lymph % (Auto) 21.5 L (25-40) % [place] % (Auto) 9.0 (3-14) % Eos % (Auto) 1.4 L (2-4) % Baso % (Auto) 1.4 (0-2) % Neut # (Auto) 5100 (3056-8077) /uL Lymph # (Auto) 1700 (6445-9380) /uL [place] # (Auto) 700 (0-900) /uL Eos # (Auto) 100 (0-450) /uL Baso # (Auto) 100 (0-100) /uL Sodium 140 (137-145) mmol/L Potassium 4.1 (3.4-5.1) mmol/L Chloride 97 L (98-107) mmol/L Carbon Dioxide 30 (22-32) mmol/L BUN 32 H (7-17) mg/dL Creatinine 1.80 H (0.52-1.04) mg/dL Estimated GFR 27.7 L (>60) mL/min BUN/Creatinine Ratio 17.8 (6-22) Glucose 277 H D (80-110) mg/dL Calcium 6.4 L* (8.4-10.2) mg/dL Phosphorus 4.7 H (2.8-4.1) mg/dL Magnesium 1.2 L (1.6-2.3) mg/dL Total Bilirubin 0.4 (0.2-1.3) mg/dL AST 36 (14-36) IU/L ALT 22 (<35) IU/L Alkaline Phosphatase 88 (38-126) U/L Total Protein 8.1 (6.3-8.2) g/dL Albumin 4.2 (3.5-5.0) g/dL Globulin 3.9 (1.7-4.1) g/dL Albumin/Globulin Ratio 1.1 (1.0-2.8) Discharge Plan Departure Patient Disposition: Assisted Living Clinical Impression: Hypocalcemia Discharge Date/Time: 10/20/19 13:39 Instructions: DI for Hypocalcemia Activity Restrictions/Additional Instructions: From what we know of your history, your low calcium is likely chronic. We were not able to obtain any of your outside lab work from your primary care office today, so it is not clear what additional testing you have had as an outpatient since you were last hospitalized here. We have given you IV calcium today to help, and you should call your PCP office today to schedule a follow-up so you can have repeat lab work drawn this week. Please check with them on whether they want you to be taking any oral calcium and whether you need any other testing as this may be related to kidney or endocrine issue. Prescriptions: No Action fluoxetine 40 mg Capsule 40 mg PO DAILY RF: 0 furosemide 40 mg Tablet 40 mg PO DAILY RF: 0 atorvastatin 40 mg Tablet 40 mg PO BEDTIME RF: 0 levothyroxine 175 mcg Tablet 175 mcg PO DAILY RF: 0 acetaminophen 325 mg Tablet 650 mg PO Q4H PRN (Reason: pain level 1-3 or fever >100.1) RF: 0 donepezil 5 mg Tablet 5 mg PO DAILY RF: 0 potassium chloride 10 mEq Tablet Extended Release 10 meq PO DAILY RF: 0 omeprazole 40 mg Capsule,Delayed Release(Dr/Ec) 40 mg PO BID RF: 0 aspirin 81 mg Tablet,Delayed Release (Dr/Ec) 81 mg PO DAILY RF: 0 carvedilol 3.125 mg Tablet 3.125 mg PO BID RF: 0 ferrous sulfate 325 mg (65 mg iron) Tablet 325 mg PO DAILY RF: 0 nystatin 100,000 unit/gram Powder 1 applic TOPICAL BID RF: 0 cholecalciferol (vitamin D3) 1,000 unit (25 mcg) Tablet 5,000 unit PO DAILY RF: 0 omega 7-gzg-emc-fish oil [Fish Oil] 1,000 mg (120 mg-180 mg) Capsule 1 cap PO DAILY RF: 0 Tradjenta 5 mg Tablet 5 mg PO DAILY RF: 0 Lactobacillus acidophilus 10 billion cell Capsule 10,000,000 cell PO DAILY RF: 0 magnesium oxide 400 mg magnesium Tablet 400 mg PO DAILY RF: 0 primidone 50 mg Tablet 75 mg PO BEDTIME RF: 0 acyclovir 400 mg Tablet 400 mg PO DAILYX5 RF: 0 acetaminophen 500 mg Tablet 1,000 mg PO TID RF: 0 levetiracetam 250 mg Tablet 500 mg PO BID RF: 0 gabapentin 300 mg Capsule 300 mg PO BID RF: 0 Referrals: Kinsey Bose MD [Non-Staff] -
[2019-10-20 11:40] LABS: Add Manual Diff / Slide Review NO; Basophils Absolute Auto 100 /uL (0-100); Basophils Percent Auto 1.4 % (0-2); Eosinophils Absolute Auto 100 /uL (0-450); Eosinophils Percent Auto 1.4 % (2-4); Hematocrit 33.6 % (36-46); Hemoglobin 11.2 g/dL (12.0-16.0); Lymphocytes Absolute Auto 1700 /uL (1100-4500); Lymphocytes Percent Auto 21.5 % (25-40); Mean Corpuscular HGB Conc 33.3 % (30-36); Mean Corpuscular Hemoglobin 27.9 PG (26-34); Mean Corpuscular Volume 83.7 fL (80-100); Monocytes Absolute Auto 700 /uL (0-900); Neutrophils Absolute Auto 5100 /uL (1500-7000); Neutrophils Percent Auto 66.7 % (50-75); Platelet Count 259 X10^3/uL (150-400); Red Blood Cell Count 4.02 X10^6/uL (4.0-5.2); Red Cell Distribution Width 14.7 % (11.6-14.8); White Blood Cell Count 7.7 X10^3/uL (4.5-11.0)
[2019-10-20 11:44] LABS: Phosphorous 4.7 mg/dL (2.8-4.1)
[2019-10-20 11:45] LABS: Alanine Aminotransferase 22 IU/L (<35); Albumin 4.2 g/dL (3.5-5.0); Albumin Globulin Ratio 1.1 (1.0-2.8); Alkaline Phosphatase 88 U/L (38-126); Aspartate Aminotransferase 36 IU/L (14-36); BUN Creatinine Ratio 17.8 (6-22); Bilirubin Total 0.4 mg/dL (0.2-1.3); Blood Urea Nitrogen 32 mg/dL (7-17); Carbon Dioxide 30 mmol/L (22-32); Chloride 97 mmol/L (98-107); Estimated Glomerular Filt Rate 27.7 mL/min (>60); Globulin 3.9 g/dL (1.7-4.1); Glucose 277 mg/dL (80-110); HEMOLYSIS < 15 (0-50); Magnesium 1.2 mg/dL (1.6-2.3); Potassium 4.1 mmol/L (3.4-5.1); Sodium 140 mmol/L (137-145); Total Protein 8.1 g/dL (6.3-8.2)
[2019-10-20 11:49] LABS: Calcium 6.4 mg/dL (8.4-10.2)
[2019-10-20 12:00] VITALS: BP 104/54; PULSE 70; RESP 18; O2SAT 98
[2019-10-20] MEDS: CALCIUM GLUCONATE 9.3 MEQ in SODIUM CHLORIDE 0.9% 50 ML 140 ML IV (12:17)
[2019-10-20] MEDS: SODIUM CHLORIDE 0.9% 1,000 ML 1000 ML IV (12:18)
[2019-10-20 13:00] VITALS: BP 112/61; PULSE 65; RESP 15; O2SAT 98
== END 2019-10-20 13:39 ==
PROVIDERS: Emergency Provider Internal Medicine
DX: E83.51 Hypocalcemia (principal); E11.69 Type 2 diabetes mellitus with other specified complication; I10 Essential (primary) hypertension; R07.9 Chest pain, unspecified
CPT/HCPCS: 36415; 80053; 83735; 84100; 85025; 93005; 96365; 99283; 99284; J0610

== ENCOUNTER 2019-12-25 22:04 | Emergency (ER) | payer OTHER, MEDICAID, SELFPAY ==
[2019-09-07 13:30] VITALS: BMI 40.4
[2019-12-25 22:17] VITALS: BP 141/61; PULSE 64; RESP 20; TEMP 36.4; O2SAT 97
[2019-12-25 22:28] LABS: Creatine Kinase 131 U/L (30-135)
--- NOTE | 2019-12-25 22:38 | ED.SOB ---
HPI - SOB/Dyspnea General Chief Complaint: Shortness of Breath/Dyspnea Stated Complaint: SOB & swollen feet Time Seen by Provider: 12/25/19 22:27 Source: patient and EMS Mode of arrival: EMS Limitations: no limitations History of Present Illness HPI Narrative: This is a 74-year-old female comes in with complaint of swelling in her feet that is been gradually worsening over the last 2-3 days. She states today she noticed that she started to feel more short of breath. She is not having any trouble laying flat. She denies any fevers or chills. She denies any nasal congestion or cold or cough. No productive sputum. She states she had a little chest pain earlier today. Um she denies any radiation. She also started feeling short of breath today. Patient denies any nausea, no vomiting. She has not felt sweaty. She denies any issues with urination or bowel movements. She states she does have a history of CHF she is on Lasix. She states she has not had any changes to her Lasix dose. Patient has a history of diabetes states she is on insulin as well as oral medications, hypertension, dyslipidemia and a tremor. States she has been evaluated for Parkinson's but told that that is not the source. She does take an aspirin 81 mg daily. She states she has had a pacemaker placed as well as stents in her groin. It appears she has also had aortic valve replacement. She is allergic to allopurinol. No tobacco, no alcohol or illicit. She lives at [facility] living [facility]. She typically gets around with a walker. Her primary care is Kinsey Barrera, she follows with Dr. Huynh and [facility]. Related Data Home Medications Medication Instructions Recorded Confirmed Lactobacillus acidophilus 10,000,000 cell PO DAILY 09/07/19 10/20/19 Tradjenta 5 mg PO DAILY 09/07/19 10/20/19 acetaminophen 650 mg PO Q4H PRN 09/07/19 10/20/19 aspirin 81 mg PO DAILY 09/07/19 10/20/19 atorvastatin 40 mg PO BEDTIME 09/07/19 10/20/19 carvedilol 3.125 mg PO BID 09/07/19 10/20/19 cholecalciferol (vitamin D3) 5,000 unit PO DAILY 09/07/19 10/20/19 donepezil 5 mg PO DAILY 09/07/19 10/20/19 ferrous sulfate 325 mg PO DAILY 09/07/19 10/20/19 fluoxetine 40 mg PO DAILY 09/07/19 10/20/19 furosemide 40 mg PO DAILY 09/07/19 10/20/19 levothyroxine 175 mcg PO DAILY 09/07/19 10/20/19 magnesium oxide 400 mg PO DAILY 09/07/19 10/20/19 nystatin 1 applic TOPICAL BID 09/07/19 10/20/19 omega 4-pan-hca-fish oil [Fish Oil] 1 cap PO DAILY 09/07/19 10/20/19 omeprazole 40 mg PO BID 09/07/19 10/20/19 potassium chloride 10 meq PO DAILY 09/07/19 10/20/19 acetaminophen 1,000 mg PO TID 10/20/19 10/20/19 acyclovir 400 mg PO DAILYX5 10/20/19 10/20/19 gabapentin 300 mg PO BID 10/20/19 10/20/19 levetiracetam 500 mg PO BID 10/20/19 10/20/19 primidone 75 mg PO BEDTIME 10/20/19 10/20/19 Previous Rx's Medication Instructions Recorded furosemide [Lasix] 20 mg PO DAILY #3 tab 12/25/19 Allergies Allergy/AdvReac Type Severity Reaction Status Date / Time adhesive tape Allergy Verified 10/20/19 11:36 allopurinol Allergy Verified 10/20/19 11:36 Review of Systems Review of Systems ROS Unobtainable: All systems reviewed & are unremarkable except as noted in HPI and below Patient History Medical History CAD (coronary artery disease) (Acute) CKD (chronic kidney disease) (Acute) CVA (cerebral vascular accident) (Acute) Dementia (Acute) Diabetes mellitus type 2 in obese (Acute) GERD (gastroesophageal reflux disease) (Acute) Heart failure, unspecified (Acute) Hyperlipidemia (Acute) Hypertension (Acute) Hypothyroid (Acute) Non Hodgkin's lymphoma (Acute) Pacemaker (Acute) Thyroid cancer (Acute) Tremor, unspecified (Acute) Surgical History History of cholecystectomy (Acute) History of thyroidectomy (Acute) Hx of tonsillectomy (Acute) S/P TAVR (transcatheter aortic valve replacement) (Acute) Family History Mother Dementia Father Heart attack Social History household members: none Smoking Status: Never smoker alcohol intake: never Smoking Status: Never smoker alcohol intake frequency: 0-2 drinks per day Substance Use Type: does not use Exam Narrative Exam Narrative: GENERAL: Alert and oriented x three, obese female in mild distress. HEENT: Head normocephalic, atraumatic, EOMI, pupils reactive, face symmetric, moist mucous membranes NECK: Supple, full range of motion CARDIOVASCULAR: Regular rate and rhythm without murmurs, rubs or gallops. RESPIRATORY: Breath sounds equal bilaterally, no wheezes rales or rhonchi. ABDOMEN: Soft, nontender. Normoactive bowel sounds all 4 quadrants. No guarding or rebound, rigidity, no mass : No CVA tenderness EXTREMITIES: Normal range of motion, patient has 2+ edema bilateral lower extremities.. Neurovascularly intact NEUROLOGICAL: Cranial nerves II through XII grossly intact. Moving all extremities. Patient has mild generalized tremor that is most obvious in the right upper extremity. SKIN: Warm, dry, no petechiae, no rashes or lesions. Initial Vital Signs Initial Vital Signs: Vital Signs Temperature 97.6 F 12/25/19 22:17 Pulse Rate 64 12/25/19 22:17 Respiratory Rate 20 12/25/19 22:17 Blood Pressure 141/61 H 12/25/19 22:17 Pulse Oximetry 97 12/25/19 22:17 Course Orders Ordered: ED Orders 12/25/19 22:00 BNP [NT-proBNP (BNP-Adult 18+)] Stat Complete Blood Count AUTO DIFF Stat Comprehensive Metabolic Panel Stat Lipase Stat cardiac panel [Troponin & CK Cardiac Panel] Stat 12/25/19 22:39 XR chest 1V Stat Discontinued Medications Acetaminophen (Tylenol) 650 mg PO NOW ONE Stop: 12/25/19 23:10 Furosemide (Lasix) 40 mg IV NOW ONE Stop: 12/25/19 23:02 Last Admin: 12/25/19 23:06 Dose: 40 mg Documented by: SEEMA Vital Signs Vital signs: Vital Signs - 8 hr 12/25/19 22:17 12/26/19 00:09 Temperature 97.6 F Pulse Rate 64 66 Respiratory Rate 20 19 Blood Pressure 141/61 H Blood Pressure [Left Arm] 141/61 H Pulse Oximetry 97 93 MDM - SOB/Dyspnea Lab Data Attestation: I reviewed the patient's lab results. Result diagrams: 12/25/19 22:00 12/25/19 22:00 Labs: Lab Results 12/25/19 12/25/19 12/25/19 Range/Units 22:00 22:00 22:00 WBC 6.9 (4.5-11.0) X10^3/uL RBC 4.07 (4.0-5.2) X10^6/uL Hgb 11.3 L (12.0-16.0) g/dL Hct 34.2 L (36-46) % MCV 84.1 (80-100) fL MCH 27.8 (26-34) PG MCHC 33.1 (30-36) % RDW 14.5 (11.6-14.8) % Plt Count 235 (150-400) X10^3/uL Neut % (Auto) 55.9 (50-75) % Lymph % (Auto) 31.7 (25-40) % [place] % (Auto) 8.9 (3-14) % Eos % (Auto) 2.6 (2-4) % Baso % (Auto) 0.9 (0-2) % Neut # (Auto) 3900 (3960-3188) /uL Lymph # (Auto) 2200 (3360-5278) /uL [place] # (Auto) 600 (0-900) /uL Eos # (Auto) 200 (0-450) /uL Baso # (Auto) 100 (0-100) /uL Sodium 135 L (137-145) mmol/L Potassium 3.8 (3.4-5.1) mmol/L Chloride 94 L (98-107) mmol/L Carbon Dioxide 30 (22-32) mmol/L BUN 39 H (7-17) mg/dL Creatinine 1.60 H (0.52-1.04) mg/dL Estimated GFR 31.7 L (>60) mL/min BUN/Creatinine Ratio 24.4 H (6-22) Glucose 286 H (80-110) mg/dL Calcium 9.1 (8.4-10.2) mg/dL Total Bilirubin 0.3 (0.2-1.3) mg/dL AST 33 (14-36) IU/L ALT 20 (<35) IU/L Alkaline Phosphatase 91 (38-126) U/L Total Creatine Kinase 131 (30-135) U/L CK-MB (CK-2) 2.54 H (<2.37) ng/mL CK-MB (CK-2) Rel Index 1.9 (1.5-5.0) % Troponin I 0.014 (0.01-0.034) ng/mL NT-Pro-B Natriuret Pep 1060 H (<125) pg/mL Total Protein 8.1 (6.3-8.2) g/dL Albumin 4.2 (3.5-5.0) g/dL Globulin 3.9 (1.7-4.1) g/dL Albumin/Globulin Ratio 1.1 (1.0-2.8) Lipase 155 (23-300) U/L Imaging Data Chest x-ray: Attestation: I personally reviewed and interpreted this imaging study as follows: My Impression: patient has pulm edema, no infiltrate noted. ECG Data Attestation: I personally reviewed and interpreted this ECG as follows: Prior ECG tracings: available for review Interpretation: Ventricularly paced rhythm with a rate of 65 P are 162 QRS of 129 and QTC of 511. Patient has similar EKG from 10/20/19. [facility] Narrative Medical decision making narrative: Patient comes in with history consistent with CHF. Her renal function appears stable a baseline creatinine of 1.6 most recent in September was 1.8. Patient's glucose is elevated to 86. She has some laterally abnormalities with a sodium 135 and chloride 94 but normal potassium. BUN is elevated 39. Normal LFTs. CK-MB is 2.4 with a negative troponin and a positive BNP of 1060. CV she shows a mild anemia which is it consistent with prior labs. No white count or other changes. Chest x-ray appears consistent with pulmonary edema and cardiomegaly and patient does not have any other process noted. Pacemaker does appear to be in place. Patient does not appear to be in significant distress she was given additional dose of Lasix here in the department with plan for short term increase in her Lasix for additional diuresis and short-term follow-up. Patient is feeilng better. She is comfortable with the plan for outpatient diuresis and based on her vital signs and labs I feel this would be appropriate today. Patient able to ambulate with walker and states she was able to get around her home without major issue today. Discharge Plan Departure Patient Disposition: Home Clinical Impression: CHF exacerbation Discharge Date/Time: 12/26/19 00:39 Instructions: DI for Heart Failure Activity Restrictions/Additional Instructions: Follow-up with primary care your coroner, call Saturday morning for recheck. I recommend follow up in the next 3-5 days. Increase your Lasix, take 60 mg instead of 40 mg x 3 days. Continue your other home medications as prescribed. Return to the ER for fevers greater 100.4 F, new or worsening shortness of breath, increasing swelling in your lower extremities, lightheadedness, passing out, nausea, persistent vomiting, chest pain or other new or concerning symptoms Prescriptions: New furosemide [Lasix] 20 mg tablet 20 mg PO DAILY Qty: 3 RF: 0 No Action fluoxetine 40 mg Capsule 40 mg PO DAILY RF: 0 furosemide 40 mg Tablet 40 mg PO DAILY RF: 0 atorvastatin 40 mg Tablet 40 mg PO BEDTIME RF: 0 levothyroxine 175 mcg Tablet 175 mcg PO DAILY RF: 0 acetaminophen 325 mg Tablet 650 mg PO Q4H PRN (Reason: pain level 1-3 or fever >100.1) RF: 0 donepezil 5 mg Tablet 5 mg PO DAILY RF: 0 potassium chloride 10 mEq Tablet Extended Release 10 meq PO DAILY RF: 0 omeprazole 40 mg Capsule,Delayed Release(Dr/Ec) 40 mg PO BID RF: 0 aspirin 81 mg Tablet,Delayed Release (Dr/Ec) 81 mg PO DAILY RF: 0 carvedilol 3.125 mg Tablet 3.125 mg PO BID RF: 0 ferrous sulfate 325 mg (65 mg iron) Tablet 325 mg PO DAILY RF: 0 nystatin 100,000 unit/gram Powder 1 applic TOPICAL BID RF: 0 cholecalciferol (vitamin D3) 1,000 unit (25 mcg) Tablet 5,000 unit PO DAILY RF: 0 omega 2-yja-mpo-fish oil [Fish Oil] 1,000 mg (120 mg-180 mg) Capsule 1 cap PO DAILY RF: 0 Tradjenta 5 mg Tablet 5 mg PO DAILY RF: 0 Lactobacillus acidophilus 10 billion cell Capsule 10,000,000 cell PO DAILY RF: 0 magnesium oxide 400 mg magnesium Tablet 400 mg PO DAILY RF: 0 primidone 50 mg Tablet 75 mg PO BEDTIME RF: 0 acyclovir 400 mg Tablet 400 mg PO DAILYX5 RF: 0 acetaminophen 500 mg Tablet 1,000 mg PO TID RF: 0 levetiracetam 250 mg Tablet 500 mg PO BID RF: 0 gabapentin 300 mg Capsule 300 mg PO BID RF: 0 Referrals: Kinsey Bose MD [Non-Staff] -
--- NOTE | 2019-12-25 22:39 | DI.RAD.S_ITS ---
PROCEDURE: XR CHEST 1V INDICATIONS: Short of breath, swollen feet. TECHNIQUE: One view of the chest was acquired. COMPARISON: None. FINDINGS: Surgical changes and devices: A pacer device is seen. A percutaneous placed aortic valve replacement can be seen. Lower neck clips can be seen. Lungs and pleura: Low lung volumes are noted. This causes a crowded appearance to the lung markings and limits evaluation. Mild blunting of the left costophrenic angle can be seen. No focal infiltrates are seen. No pneumothorax is seen. Mediastinum: Mediastinal contours appear normal. Heart size is normal. Bones and chest wall: No suspicious bony lesions. Age-appropriate bony degenerative changes are seen. Overlying soft tissues appear unremarkable. IMPRESSION: Mild blunting of the left costophrenic angle is seen, which may represent small pleural effusion. Postoperative and degenerative changes are seen. As clinically appropriate, a short-term followup chest series (with PA and lateral views) performed in deep inspiration is suggested for further evaluation. Dictated by: Vinayak Gupta M.D. on 12/26/2019 at 9:12 Approved by: Vinayak Gupta M.D. on 12/26/2019 at 9:14
[2019-12-25 22:42] LABS: NT-proBNP (BNP-Adult 18+) 1060 pg/mL (<125); Troponin I 0.014 ng/mL (0.01-0.034)
[2019-12-25 22:44] LABS: CKMB % Relative Index 1.9 % (1.5-5.0); Creatine Kinase MB 2.54 ng/mL (<2.37)
[2019-12-25 22:55] LABS: Alanine Aminotransferase 20 IU/L (<35); Albumin 4.2 g/dL (3.5-5.0); Albumin Globulin Ratio 1.1 (1.0-2.8); Alkaline Phosphatase 91 U/L (38-126); Aspartate Aminotransferase 33 IU/L (14-36); BUN Creatinine Ratio 24.4 (6-22); Bilirubin Total 0.3 mg/dL (0.2-1.3); Blood Urea Nitrogen 39 mg/dL (7-17); Calcium 9.1 mg/dL (8.4-10.2); Carbon Dioxide 30 mmol/L (22-32); Chloride 94 mmol/L (98-107); Estimated Glomerular Filt Rate 31.7 mL/min (>60); Globulin 3.9 g/dL (1.7-4.1); Glucose 286 mg/dL (80-110); HEMOLYSIS 27 (0-50); Lipase 155 U/L (23-300); Potassium 3.8 mmol/L (3.4-5.1); Sodium 135 mmol/L (137-145); Total Protein 8.1 g/dL (6.3-8.2)
[2019-12-25 22:56] LABS: Add Manual Diff / Slide Review NO; Basophils Absolute Auto 100 /uL (0-100); Basophils Percent Auto 0.9 % (0-2); Eosinophils Absolute Auto 200 /uL (0-450); Eosinophils Percent Auto 2.6 % (2-4); Hematocrit 34.2 % (36-46); Hemoglobin 11.3 g/dL (12.0-16.0); Lymphocytes Absolute Auto 2200 /uL (1100-4500); Lymphocytes Percent Auto 31.7 % (25-40); Mean Corpuscular HGB Conc 33.1 % (30-36); Mean Corpuscular Hemoglobin 27.8 PG (26-34); Mean Corpuscular Volume 84.1 fL (80-100); Monocytes Absolute Auto 600 /uL (0-900); Monocytes Percent Auto 8.9 % (3-14); Neutrophils Absolute Auto 3900 /uL (1500-7000); Neutrophils Percent Auto 55.9 % (50-75); Platelet Count 235 X10^3/uL (150-400); Red Blood Cell Count 4.07 X10^6/uL (4.0-5.2); Red Cell Distribution Width 14.5 % (11.6-14.8); White Blood Cell Count 6.9 X10^3/uL (4.5-11.0)
[2019-12-25] MEDS: FUROSEMIDE 40 MG/4 ML VIAL IV (23:06)
[2019-12-26 00:09] VITALS: BP 141/61; PULSE 66; RESP 19; O2SAT 93
== END 2019-12-26 00:39 | disposition home or self-care (01) ==
PROVIDERS: Emergency Provider Emergency Medicine
DX: I11.0 Hypertensive heart disease with heart failure (principal); I50.9 Heart failure, unspecified; E11.8 Type 2 diabetes mellitus with unspecified complications; Z79.4 Long term (current) use of insulin; Z95.0 Presence of cardiac pacemaker; Z95.4 Presence of other heart-valve replacement; R06.02 Shortness of breath
CPT/HCPCS: 36415; 71045; 80053; 82550; 82553; 83690; 83880; 84484; 85025; 93005; 96374; 99284; 99285; J1940

== ENCOUNTER → 2020-01-12 19:32 | Outpatient (ROUT) | payer OTHER, SELFPAY ==
[2019-09-07 13:30] VITALS: BMI 40.4
[2020-01-12 19:49] LABS: Appearance Urine UA CLEAR; Bilirubin Urine UA NEGATIVE (NEGATIVE); Color Urine UA YELLOW; Glucose Urine UA 1+ g/dL (Negative); Ketones Urine UA NEGATIVE (NEGATIVE); Leukocyte Esterase Urine UA NEGATIVE (NEGATIVE); Nitrite Urine UA NEGATIVE (Negative); Occult Blood Urine UA TRACE-LYSED (Negative); Protein Urine UA NEGATIVE (Negative); Specific Gravity Urine UA 1.015 (1.000-1.035); Urobilinogen Urine UA 0.2 E.U./dL (0.2)
[2020-01-12 20:21] LABS: Bacteria Urine Many (>30); Culture Indicated Urine Specimen Cultured; RBC Urine 0-1/HPF (0-5/HPF); Squamous Epithelial Cell Urine 0-1 /HPF (0-5/HPF); WBC Urine 5-10/HPF (0-5/HPF)
== END ==
PROVIDERS: Visit Provider Family Medicine
DX: R35.0 Frequency of micturition (principal); R39.15 Urgency of urination
CPT/HCPCS: 81001; 87077; 87086; 87186

== ENCOUNTER → 2020-01-21 07:44 | Outpatient (ROUT) | payer OTHER, MEDICAID, SELFPAY ==
[2019-09-07 13:30] VITALS: BMI 40.4
[2020-01-21 09:04] LABS: Hemoglobin A1C% w Est Avg Glu 8.7 % (4.0-6.0)
[2020-01-21 09:21] LABS: Alanine Aminotransferase 26 IU/L (<35); Albumin 3.9 g/dL (3.5-5.0); Alkaline Phosphatase 73 U/L (38-126); Aspartate Aminotransferase 33 IU/L (14-36); BUN Creatinine Ratio 17.1 (6-22); Bilirubin Total 0.3 mg/dL (0.2-1.3); Blood Urea Nitrogen 36 mg/dL (7-17); Calcium 9.7 mg/dL (8.4-10.2); Carbon Dioxide 35 mmol/L (22-32); Chloride 98 mmol/L (98-107); Estimated Glomerular Filt Rate 23.2 mL/min (>60); Globulin 3.9 g/dL (1.7-4.1); Glucose 126 mg/dL (80-110); HEMOLYSIS < 15 (0-50); Potassium 3.7 mmol/L (3.4-5.1); Sodium 140 mmol/L (137-145); Total Protein 7.8 g/dL (6.3-8.2)
[2020-01-21 09:48] LABS: Thyroid Stimulating Hormone 0.75 uIU/mL (0.47-4.68)
== END ==
PROVIDERS: Visit Provider Family Medicine
DX: E11.9 Type 2 diabetes mellitus without complications (principal); Z79.899 Other long term (current) drug therapy; E03.9 Hypothyroidism, unspecified
CPT/HCPCS: 36415; 80053; 83036; 84443

== ENCOUNTER → 2020-04-28 08:14 | Outpatient (ROUT) | payer OTHER, MEDICAID, SELFPAY ==
[2019-09-07 13:30] VITALS: BMI 40.4
[2020-04-28 08:45] LABS: Hemoglobin A1C% w Est Avg Glu 9.6 % (4.0-6.0)
[2020-04-28 08:49] LABS: Alanine Aminotransferase 25 IU/L (<35); Albumin Globulin Ratio 1.1 (1.0-2.8); Alkaline Phosphatase 74 U/L (38-126); Aspartate Aminotransferase 30 IU/L (14-36); BUN Creatinine Ratio 23.1 (6-22); Bilirubin Total 0.4 mg/dL (0.2-1.3); Blood Urea Nitrogen 42 mg/dL (7-17); Calcium 9.4 mg/dL (8.4-10.2); Carbon Dioxide 33 mmol/L (22-32); Chloride 95 mmol/L (98-107); Cholesterol 174 mg/dL (140-199); Estimated Glomerular Filt Rate 27.3 mL/min (>60); Globulin 3.6 g/dL (1.7-4.1); Glucose 240 mg/dL (80-110); HDL Cholesterol 35 mg/dL (40-60); HEMOLYSIS < 15 (0-50); LDL Cholesterol Calculated 83 mg/dL (<100); Potassium 3.6 mmol/L (3.4-5.1); Sodium 137 mmol/L (137-145); Total Protein 7.6 g/dL (6.3-8.2); Triglycerides 281 mg/dL (35-150)
[2020-04-28 14:41] LABS: Microalbumin Urine Random 3.7 mg/dL (0-1.6)
== END ==
PROVIDERS: Visit Provider Family Medicine
DX: E11.42 Type 2 diabetes mellitus with diabetic polyneuropathy (principal); E11.22 Type 2 diabetes mellitus with diabetic chronic kidney disease
CPT/HCPCS: 36415; 80053; 80061; 82043; 82570; 83036

== ENCOUNTER → 2020-06-21 07:58 | Outpatient (ROUT) | payer OTHER, MEDICAID, SELFPAY ==
[2019-09-07 13:30] VITALS: BMI 40.4
[2020-06-21 09:31] LABS: BUN Creatinine Ratio 14.3 (6-22); Blood Urea Nitrogen 29 mg/dL (7-17); Calcium 8.9 mg/dL (8.4-10.2); Carbon Dioxide 38 mmol/L (22-32); Chloride 96 mmol/L (98-107); Estimated Glomerular Filt Rate 24.1 mL/min (>60); Glucose 189 mg/dL (80-110); HEMOLYSIS < 15 (0-50); Potassium 3.7 mmol/L (3.4-5.1); Sodium 139 mmol/L (137-145)
[2020-06-21 10:11] LABS: Vitamin B12 936 pg/mL (239-931)
== END ==
PROVIDERS: Visit Provider Physician Assistant
DX: E53.8 Deficiency of other specified B group vitamins (principal); N18.9 Chronic kidney disease, unspecified
CPT/HCPCS: 36415; 80048; 82607

== ENCOUNTER → 2020-07-07 07:39 | Outpatient (ROUT) | payer OTHER, MEDICAID, SELFPAY ==
[2019-09-07 13:30] VITALS: BMI 40.4
[2020-07-07 07:50] LABS: BUN Creatinine Ratio 17.4 (6-22); Blood Urea Nitrogen 35 mg/dL (7-17); Calcium 9.4 mg/dL (8.4-10.2); Carbon Dioxide 36 mmol/L (22-32); Chloride 96 mmol/L (98-107); Estimated Glomerular Filt Rate 24.4 mL/min (>60); Glucose 132 mg/dL (80-110); HEMOLYSIS < 15 (0-50); Potassium 3.9 mmol/L (3.4-5.1); Sodium 138 mmol/L (137-145)
== END ==
PROVIDERS: Visit Provider Family Medicine
DX: N18.9 Chronic kidney disease, unspecified (principal)
CPT/HCPCS: 80048

== ENCOUNTER → 2020-07-11 06:59 | Outpatient (CLI) | payer OTHER, MEDICAID, SELFPAY ==
[2019-09-07 13:30] VITALS: BMI 40.4
--- NOTE | 2020-07-11 | DI.ECHO.S_ITS ---
[place] +---------+ [facility] +---------+ : : [address] : : : : [id number] : : : : Phone: [phone]+ Echocardiogram Report + + :Name: JANA LOREDO Study Date: 07/11/2020 Height: 66 in : :[facility] Weight: 311 lb : : Gender: Female BSA: 2.4 m2 : :: 1945 Age: 74 yrs BP: 144/86 mmHg: :Reason For Study: HEART FAILURE : : Performed By: Maria Elena Vilchis : :Referring: NIKUNJ STOO : + + Interpretation Summary This was a technically difficult study. -A bioprosthetic valve is present in aortic position; The morphology is consistent with a transcatheter (TAVR) valve with normal hemodynamics for this type of valve and without perivalvular leak. -There is significant mitral annular calcification, mainly associated with the posterior leaflet and annulus. Despite accelerated flow, the mean gradient across the mitral valve is only 2.7 mmHg, indicating no significant mitral stenosis. -The LVEF is grossly normal. Diastolic function cannot be assessed due to concomitant heavy calcification of the mitral valve annulus. There is E/A reversal indicating probably only grade I diastolic dysfunction. -There is no obvious wall abnormality although this possibility is not entirely excluded due to inadequate visualization. Despite echo contrast use, the image quality remains poor, related to poor acoustic windows. -Overall these findings are similar to the prior echocardiogram. Procedure: A two-dimensional transthoracic echocardiogram with color flow and Doppler was performed. The study quality was technically difficult. Images were not obtained from all of the standard acoustic windows due to the limited scope of the study. Contrast was injected into an intravenous site in the right arm. A contrast injection of Definity was performed to improve assessment of LV function. The patient has a paced rhythm. The heart rate ranged between 72-75 bpm during the study. Left Ventricle: The left ventricle is normal in size. There is mild concentric left ventricular hypertrophy. There is no thrombus. The ejection fraction is estimated to be 55-60%. The left ventricular ejection fraction is normal. There are no obvious focal wall motion abnormalities noted but poor endocardial definition reduces the sensitivity for the detection of such. Diastolic function could not be accurately assessed due to confounding valvular disease. Right Ventricle: The right ventricle is not well visualized. There is a pacemaker lead in the right ventricle. The right ventricular systolic function is normal. Atria: The left atrium is mildly dilated. Right atrium not well visualized. The right atrium grossly appears normal in size. There is no Doppler evidence for an interatrial shunt. Mitral Valve: The mitral valve leaflets are heavily calcified. There is moderate mitral annular calcification. No significant mitral valve stenosis. There is trace mitral regurgitation. Aortic Valve: There is a bioprosthetic aortic valve. The gradients through the prosthetic aortic valve are within the normal range for this type of valve. The peak aortic velocity is 1.9 m/sec. The aortic valve mean gradient is 7 mmHg. No aortic regurgitation is present. Tricuspid Valve: The tricuspid valve is not well visualized. The tricuspid valve is not well visualized, but is grossly normal. Pulmonary artery pressures cannot be estimated because of the lack of a measurable TR jet velocity. There is trace tricuspid regurgitation. Pulmonic Valve: The pulmonic valve is not well visualized. There is no pulmonic valvular regurgitation. Great Vessels: The aortic root is not well visualized but is probably normal size. The ascending aorta could not be visualized. The inferior vena cava was not visualized. Pericardium/ Pleura There is no pericardial effusion. There is no pleural effusion. MMode/2D Measurements & Calculations LVIDd: 3.8 cm LVOT diam: 2.0 cm LVIDs: 2.8 cm Ao Arch Diam (Prox Trans): 3.3 cm FS: 26.9 % IVSd: 0.94 cm LVPWd: 1.2 cm LV chong. diameter/BSA (cm/m^2): 1.6 LV sys. diameter/BSA (cm/m^2): 1.2 LA A2 area: 25.2 cm2 TAPSE: 1.8 cm LA A4 area: 21.2 cm2 LA length (vol): 5.4 cm LA vol: 83.4 ml LA vol index: 34.5 ml/m2 Doppler Measurements & Calculations Ao V2 max: 188.6 cm/sec LVOT Max Topher: 90.8 cm/sec Ao V2 mean: 123.6 cm/sec LV V1 max P.3 mmHg Ao max P.2 mmHg LV V1 VTI: 21.2 cm Ao mean P.3 mmHg DAVID(I,D): 1.9 cm2 Ao V2 VTI: 37.6 cm DAVID(V,D): 1.6 cm2 sev ratio: 0.56 DAVID indexed to BSA (cm^2/m^2): 0.77 MV E max topher: 120.3 cm/sec PA V2 max: 76.5 cm/sec MV A max topher: 130.8 cm/sec PA V2 mean: 49.9 cm/sec MV E/A: 0.92 PA mean P.2 mmHg Med Peak E' Topher: 4.7 cm/sec PA pr(Accel): 17.3 mmHg E/E' med: 25.5 Lat Peak E' Topher: 7.4 cm/sec E/E' lat: 16.4 E/e' average: 20.9 MV dec time: 0.25 sec MVA(VTI): 1.8 cm2 MV V2 mean: 77.8 cm/sec SV(LVOT): 69.7 ml MV mean P.8 mmHg MV V2 VTI: 38.5 cm Electronically signed by: Erich Tello M.D. on Reading Physician:07/11/2020 09:55 AM
== END ==
PROVIDERS: Referring Provider Physician Assistant; Visit Provider Physician Assistant
DX: I50.9 Heart failure, unspecified (principal); Z95.2 Presence of prosthetic heart valve; Z95.0 Presence of cardiac pacemaker
CPT/HCPCS: 93306; Q9957

== ENCOUNTER 2020-08-07 03:09 | Emergency (ER) | payer OTHER, MEDICAID, SELFPAY ==
[2019-09-07 13:30] VITALS: BMI 40.4
[2020-08-07] VITALS (9 sets, daily range): BP systolic 118–133; BP diastolic 52–73; PULSE 63–70; RESP 16; TEMP 36.6; O2SAT 91–98; BMI 50.3
--- NOTE | 2020-08-07 03:22 | ED.FALL ---
HPI - Fall General Chief Complaint: Fall Stated Complaint: fall Time Seen by Provider: 08/07/20 03:22 Source: patient and EMS Mode of arrival: EMS History of Present Illness HPI Narrative: 74-year-old woman with a history of SD with stenting, aortic stenosis post TAVR, pacemaker complicated by cardiac arrest, diabetes, chronic renal disease, hypothyroidism post thyroid cancer, hyperlipidemia and memory loss lives in an assisted living facility and presented for further evaluation after a fall from bed. Was sitting on the edge of her bed and think she probably fell asleep briefly she tumbled forward hitting the midportion of her forehead/bridge of her nose on her nightstand in landing directly on her face with no blocking of protection using hands or knees. She does not believe that she passed out. She activated her call light and was helped up by staff. Because of the head injury she is sent to the emergency room for further evaluation. She herself has no specific complaints. She was given Tylenol prior to leaving the facility and notes some tenderness over the bridge of her nose. Related Data Home Medications Medication Instructions Recorded Confirmed Lactobacillus acidophilus 10,000,000 cell PO DAILY 09/07/19 10/20/19 Tradjenta 5 mg PO DAILY 09/07/19 10/20/19 acetaminophen 650 mg PO Q4H PRN 09/07/19 10/20/19 aspirin 81 mg PO DAILY 09/07/19 10/20/19 atorvastatin 40 mg PO BEDTIME 09/07/19 10/20/19 carvedilol 3.125 mg PO BID 09/07/19 10/20/19 cholecalciferol (vitamin D3) 5,000 unit PO DAILY 09/07/19 10/20/19 donepezil 5 mg PO DAILY 09/07/19 10/20/19 ferrous sulfate 325 mg PO DAILY 09/07/19 10/20/19 fluoxetine 40 mg PO DAILY 09/07/19 10/20/19 furosemide 40 mg PO DAILY 09/07/19 10/20/19 levothyroxine 175 mcg PO DAILY 09/07/19 10/20/19 magnesium oxide 400 mg PO DAILY 09/07/19 10/20/19 nystatin 1 applic TOPICAL BID 09/07/19 10/20/19 omega 0-mtq-gzq-fish oil [Fish Oil] 1 cap PO DAILY 09/07/19 10/20/19 omeprazole 40 mg PO BID 09/07/19 10/20/19 potassium chloride 10 meq PO DAILY 09/07/19 10/20/19 acetaminophen 1,000 mg PO TID 10/20/19 10/20/19 acyclovir 400 mg PO DAILYX5 10/20/19 10/20/19 gabapentin 300 mg PO BID 10/20/19 10/20/19 levetiracetam 500 mg PO BID 10/20/19 10/20/19 primidone 75 mg PO BEDTIME 10/20/19 10/20/19 Previous Rx's Medication Instructions Recorded furosemide [Lasix] 20 mg PO DAILY #3 tab 12/25/19 Allergies Allergy/AdvReac Type Severity Reaction Status Date / Time adhesive tape Allergy Verified 10/20/19 11:36 allopurinol Allergy Verified 10/20/19 11:36 Review of Systems Review of Systems Narrative: Pertinent positive and negative findings as per HPI Remainder of review of systems is otherwise unremarkable for Constitutional: Fevers, chills, weakness ENT: No sore throat, ear pain CV: Chest pain, palpitations, Respiratory: Cough, wheeze, GI: Nausea, vomiting, diarrhea, : Dysuria, hematuria, flank pain Neuro: Syncope, dizziness, tingling Patient History Medical History CAD (coronary artery disease) (Acute) CKD (chronic kidney disease) (Acute) CVA (cerebral vascular accident) (Acute) Dementia (Acute) Diabetes mellitus type 2 in obese (Acute) GERD (gastroesophageal reflux disease) (Acute) Heart failure, unspecified (Acute) Hyperlipidemia (Acute) Hypertension (Acute) Hypothyroid (Acute) Non Hodgkin's lymphoma (Acute) Pacemaker (Acute) Thyroid cancer (Acute) Tremor, unspecified (Acute) Surgical History History of cholecystectomy (Acute) History of thyroidectomy (Acute) Hx of tonsillectomy (Acute) S/P TAVR (transcatheter aortic valve replacement) (Acute) Family History Mother Dementia Father Heart attack Social History household members: none Smoking Status: Never smoker alcohol intake: never Smoking Status: Never smoker alcohol intake frequency: 0-2 drinks per day Substance Use Type: does not use Exam Narrative Exam Narrative: General: Morbidly obese, in no acute distress. Able to give a complete and coherent history. Well-nourished well-developed HEENT: Moist mucous membranes, normal sclera with reactive pupils, small skin tear over the bridge of her nose and contusion from the bridge of the nose up through her eyebrows consistent with hitting the edge of a nightstand Neck: No JVD, supple, tenderness midline at C2 and C3 with no occipital Sir boggs tenderness or paraspinous muscle spasm Respiratory: Lungs are clear to auscultation, no wheezing no rales no rhonchi. Full and symmetrical air movement Cardiac: Regular rate and rhythm Abdomen: Soft nontender good bowel tones, no flank pain Skin: Warm and dry, no rashes Neurologic: Grossly neurologically intact with no obvious asymmetries or abnormalities, gentle resting tremor in both hands Extremities: No trauma, well perfused, no abrasions to hands or knees, no tenderness to upper extremities are clavicles Psych: Cooperative, fluent speech and thought process Initial Vital Signs Initial Vital Signs: Vital Signs Temperature 98 F 08/07/20 03:14 Pulse Rate 67 08/07/20 03:14 Respiratory Rate 16 08/07/20 03:14 Blood Pressure 118/56 L 08/07/20 03:14 Pulse Oximetry 98 08/07/20 03:14 Procedures Laceration Repair Skin flap over the bridge of the nose: Site: face Size (cm): 0.3 Description: flap Depth: simple, single layer Pre-repair: wound explored Skin layer closed with: dermabond Course Orders Ordered: ED Orders 08/07/20 03:50 CT cervical spine wo con Stat CT head/brain wo con Stat Discontinued Medications Oxycodone/Acetaminophen (Percocet 5/325) 1 tab PO NOW ONE Stop: 08/07/20 03:51 Last Admin: 08/07/20 03:55 Dose: 1 tab Documented by: SHARRON Vital Signs Vital signs: Vital Signs - 8 hr 08/07/20 03:14 Temperature 98 F Pulse Rate 67 Respiratory Rate 16 Blood Pressure 118/56 L Pulse Oximetry 98 [facility] - Fall Medical Records Attestation: I reviewed the patient's medical records. [facility] Narrative Medical decision making narrative: 74-year-old woman who fell forward out of bed landing directly on her mid face with midline cervical spine pain. The 3 mm skin flap area over her nose is reapproximated with skin glue. Mechanism and body habitus are all consistent with significant risk for acute cervical injury and CT scan of the head and C-spine are done. Pain is moderate after receiving the Tylenol so additional Percocet is given in the department. Discharge Plan Departure Prescriptions: No Action fluoxetine 40 mg Capsule 40 mg PO DAILY RF: 0 furosemide 40 mg Tablet 40 mg PO DAILY RF: 0 atorvastatin 40 mg Tablet 40 mg PO BEDTIME RF: 0 levothyroxine 175 mcg Tablet 175 mcg PO DAILY RF: 0 acetaminophen 325 mg Tablet 650 mg PO Q4H PRN (Reason: pain level 1-3 or fever >100.1) RF: 0 donepezil 5 mg Tablet 5 mg PO DAILY RF: 0 potassium chloride 10 mEq Tablet Extended Release 10 meq PO DAILY RF: 0 omeprazole 40 mg Capsule,Delayed Release(Dr/Ec) 40 mg PO BID RF: 0 aspirin 81 mg Tablet,Delayed Release (Dr/Ec) 81 mg PO DAILY RF: 0 carvedilol 3.125 mg Tablet 3.125 mg PO BID RF: 0 ferrous sulfate 325 mg (65 mg iron) Tablet 325 mg PO DAILY RF: 0 nystatin 100,000 unit/gram Powder 1 applic TOPICAL BID RF: 0 cholecalciferol (vitamin D3) 1,000 unit (25 mcg) Tablet 5,000 unit PO DAILY RF: 0 omega 1-wot-nlh-fish oil [Fish Oil] 1,000 mg (120 mg-180 mg) Capsule 1 cap PO DAILY RF: 0 Tradjenta 5 mg Tablet 5 mg PO DAILY RF: 0 Lactobacillus acidophilus 10 billion cell Capsule 10,000,000 cell PO DAILY RF: 0 magnesium oxide 400 mg magnesium Tablet 400 mg PO DAILY RF: 0 primidone 50 mg Tablet 75 mg PO BEDTIME RF: 0 acyclovir 400 mg Tablet 400 mg PO DAILYX5 RF: 0 acetaminophen 500 mg Tablet 1,000 mg PO TID RF: 0 levetiracetam 250 mg Tablet 500 mg PO BID RF: 0 gabapentin 300 mg Capsule 300 mg PO BID RF: 0 furosemide [Lasix] 20 mg tablet 20 mg PO DAILY Qty: 3 RF: 0
--- NOTE | 2020-08-07 03:50 | DI.CT.S_ITS ---
PROCEDURE: CT CERVICAL SPINE WO CON INDICATIONS: fall, midline tenderness C2 and 3 TECHNIQUE: Noncontrast 3 mm thick sections acquired from the skull base to the T4 level. Sagittal and coronal reformats were then constructed. For radiation dose reduction, the following was used: automated exposure control, adjustment of mA and/or kV according to patient size. COMPARISON: None. FINDINGS: Image quality: Excellent. Bones: No fractures or dislocations. Visualized superior ribs are intact. Mild degenerative changes at the atlantodental interval and in the disc spaces of the lower cervical spine. Soft tissues: Prevertebral soft tissues are normal in thickness. No paravertebral hematomas. No apical pneumothoraces. Surgical clips of prior thyroidectomy. Pacemaker power pack in the left chest. Mild calcific atherosclerosis. IMPRESSION: 1. No CT evidence of acute cervical spine injury. 2. Mild degenerative changes. 3. Post thyroidectomy and cardiac assist device placement. 4. Concordant with preliminary report. Dictated by: Lilibeth Liao M.D. on 08/07/2020 at 6:26 Approved by: Lilibeth Liao M.D. on 08/07/2020 at 6:29
--- NOTE | 2020-08-07 03:50 | DI.CT.S_ITS ---
PROCEDURE: CT HEAD/BRAIN WO CON INDICATIONS: fall TECHNIQUE: Noncontrast 4.5 mm thick angled axial sections acquired from the foramen magnum to the vertex, with coronal and sagittal reformats. For radiation dose reduction, the following was used: automated exposure control, adjustment of mA and/or kV according to patient size. COMPARISON: [facility], CT, CT HEAD/BRAIN WO CON, 09/07/2019, 8:49. FINDINGS: Image quality: Excellent. CSF spaces: Basal cisterns are patent. No extra-axial fluid collections. The ventricles are symmetric in size and shape. Brain: No intracranial bleeds or masses. There is cerebral volume loss for age, with resultant ventricular and sulcal prominence. There are periventricular and deep white matter chronic small vessel ischemic changes. There is intracranial internal carotid artery atherosclerosis. Skull and face: Moderate-sized frontal subcutaneous hematoma. There is slight flattening deformity of the right nasal bone, chronicity uncertain. Sinuses: Visualized sinuses and mastoids are clear. IMPRESSION: 1. No CT evidence of acute intracranial process. 2. Changes of mild chronic microvascular ischemia in the white matter. 3. A frontal scalp hematoma with adjacent right nasal bone fracture of uncertain chronicity but no underlying acute skull fracture. 4. Concordant with preliminary report. Dictated by: Lilibeth Liao M.D. on 08/07/2020 at 6:29 Approved by: Lilibeth Liao M.D. on 08/07/2020 at 6:33
[2020-08-07] MEDS: OXYCODONE/ACETAMINOPHEN 5/325 TABLET 1 TAB PO (03:55)
== END 2020-08-07 09:00 | disposition home or self-care (01) ==
PROVIDERS: Emergency Provider Emergency Medicine
DX: S01.21XA Laceration without foreign body of nose, initial encounter (principal); W06.XXXA Fall from bed, initial encounter
CPT/HCPCS: 70450; 72125; 99284

== ENCOUNTER → 2020-08-11 07:29 | Outpatient (ROUT) | payer OTHER, MEDICAID, SELFPAY ==
[2019-09-07 13:30] VITALS: BMI 40.4
[2020-08-11 08:28] LABS: Add Manual Diff / Slide Review NO; Basophils Absolute Auto 100 /uL (0-100); Basophils Percent Auto 1.2 % (0-2); Eosinophils Absolute Auto 200 /uL (0-450); Eosinophils Percent Auto 2.8 % (2-4); Hematocrit 32.9 % (36-46); Hemoglobin 10.8 g/dL (12.0-16.0); Lymphocytes Absolute Auto 2000 /uL (1100-4500); Mean Corpuscular Hemoglobin 28.7 PG (26-34); Monocytes Absolute Auto 800 /uL (0-900); Monocytes Percent Auto 10.6 % (3-14); Neutrophils Absolute Auto 4200 /uL (1500-7000); Neutrophils Percent Auto 57.4 % (50-75); Platelet Count 201 X10^3/uL (150-400); Red Blood Cell Count 3.78 X10^6/uL (4.0-5.2); Red Cell Distribution Width 14.1 % (11.6-14.8); White Blood Cell Count 7.2 X10^3/uL (4.5-11.0)
[2020-08-11 08:50] LABS: Alanine Aminotransferase 17 IU/L (<35); Albumin 3.8 g/dL (3.5-5.0); Albumin Globulin Ratio 1.1 (1.0-2.8); Alkaline Phosphatase 68 U/L (38-126); Aspartate Aminotransferase 28 IU/L (14-36); BUN Creatinine Ratio 19.2 (6-22); Bilirubin Total 0.4 mg/dL (0.2-1.3); Blood Urea Nitrogen 38 mg/dL (7-17); Calcium 9.4 mg/dL (8.4-10.2); Carbon Dioxide 33 mmol/L (22-32); Chloride 97 mmol/L (98-107); Estimated Glomerular Filt Rate 24.7 mL/min (>60); Globulin 3.5 g/dL (1.7-4.1); Glucose 150 mg/dL (80-110); HEMOLYSIS < 15 (0-50); Magnesium 1.4 mg/dL (1.6-2.3); Sodium 141 mmol/L (137-145); Total Protein 7.3 g/dL (6.3-8.2)
[2020-08-11 09:16] LABS: Hemoglobin A1C% w Est Avg Glu 9.6 % (4.0-6.0)
[2020-08-11 09:23] LABS: Thyroid Stimulating Hormone 3.64 uIU/mL (0.47-4.68)
[2020-08-11 09:39] LABS: Vitamin B12 852 pg/mL (239-931)
== END ==
PROVIDERS: Visit Provider Family Medicine
DX: E11.22 Type 2 diabetes mellitus with diabetic chronic kidney disease (principal); E11.42 Type 2 diabetes mellitus with diabetic polyneuropathy; E53.8 Deficiency of other specified B group vitamins; E83.42 Hypomagnesemia; D64.9 Anemia, unspecified; E03.9 Hypothyroidism, unspecified; E03.4 Atrophy of thyroid (acquired)
CPT/HCPCS: 36415; 80053; 82607; 83036; 83735; 84443; 85025

== ENCOUNTER → 2020-09-22 07:48 | Outpatient (ROUT) | payer OTHER, MEDICAID, SELFPAY ==
[2019-09-07 13:30] VITALS: BMI 40.4
[2020-09-22 08:39] LABS: Add Manual Diff / Slide Review NO; Basophils Absolute Auto 100 /uL (0-100); Basophils Percent Auto 1.3 % (0-2); Eosinophils Absolute Auto 200 /uL (0-450); Eosinophils Percent Auto 2.2 % (2-4); Hematocrit 37.9 % (36-46); Hemoglobin 12.3 g/dL (12.0-16.0); Lymphocytes Absolute Auto 1800 /uL (1100-4500); Lymphocytes Percent Auto 25.3 % (25-40); Mean Corpuscular HGB Conc 32.3 % (30-36); Mean Corpuscular Hemoglobin 28.6 PG (26-34); Mean Corpuscular Volume 88.4 fL (80-100); Monocytes Absolute Auto 600 /uL (0-900); Monocytes Percent Auto 8.2 % (3-14); Neutrophils Absolute Auto 4600 /uL (1500-7000); Platelet Count 237 X10^3/uL (150-400); Red Blood Cell Count 4.29 X10^6/uL (4.0-5.2); Red Cell Distribution Width 14.4 % (11.6-14.8); White Blood Cell Count 7.2 X10^3/uL (4.5-11.0)
[2020-09-22 08:43] LABS: Alanine Aminotransferase 26 IU/L (<35); Albumin 4.4 g/dL (3.5-5.0); Alkaline Phosphatase 81 U/L (38-126); Aspartate Aminotransferase 38 IU/L (14-36); BUN Creatinine Ratio 16.3 (6-22); Bilirubin Total 0.4 mg/dL (0.2-1.3); Blood Urea Nitrogen 33 mg/dL (7-17); Calcium 10.1 mg/dL (8.4-10.2); Carbon Dioxide 38 mmol/L (22-32); Chloride 96 mmol/L (98-107); Globulin 4.5 g/dL (1.7-4.1); Glucose 191 mg/dL (80-110); HEMOLYSIS < 15 (0-50); Magnesium 1.5 mg/dL (1.6-2.3); Potassium 3.7 mmol/L (3.4-5.1); Sodium 142 mmol/L (137-145); Total Protein 8.9 g/dL (6.3-8.2)
== END ==
PROVIDERS: PCP Family Medicine; Visit Provider Internal Medicine
DX: G25.0 Essential tremor (principal); E83.42 Hypomagnesemia
CPT/HCPCS: 36415; 80053; 83735; 85025

== ENCOUNTER → 2020-11-03 07:34 | Outpatient (ROUT) | payer OTHER, MEDICAID, SELFPAY ==
[2019-09-07 13:30] VITALS: BMI 40.4
[2020-11-03 08:47] LABS: Blood Urea Nitrogen 42 mg/dL (7-17); Calcium 8.7 mg/dL (8.4-10.2); Carbon Dioxide 36 mmol/L (22-32); Chloride 97 mmol/L (98-107); Estimated Glomerular Filt Rate 27.1 mL/min (>60); Glucose 267 mg/dL (80-110); HEMOLYSIS < 15 (0-50); Potassium 4.1 mmol/L (3.4-5.1); Sodium 138 mmol/L (137-145)
== END ==
PROVIDERS: PCP Family Medicine; Visit Provider Nurse Practitioner Family
DX: N18.9 Chronic kidney disease, unspecified (principal)
CPT/HCPCS: 36415; 80048

== ENCOUNTER → 2020-11-10 08:15 | Outpatient (ROUT) | payer OTHER, MEDICAID, SELFPAY ==
[2019-09-07 13:30] VITALS: BMI 40.4
[2020-11-10 08:47] LABS: Add Manual Diff / Slide Review NO; Basophils Absolute Auto 100 /uL (0-100); Eosinophils Absolute Auto 200 /uL (0-450); Eosinophils Percent Auto 1.9 % (2-4); Hematocrit 36.2 % (36-46); Hemoglobin 11.7 g/dL (12.0-16.0); Lymphocytes Absolute Auto 2100 /uL (1100-4500); Lymphocytes Percent Auto 24.2 % (25-40); Mean Corpuscular HGB Conc 32.3 % (30-36); Mean Corpuscular Hemoglobin 28.2 PG (26-34); Mean Corpuscular Volume 87.4 fL (80-100); Monocytes Absolute Auto 800 /uL (0-900); Monocytes Percent Auto 9.1 % (3-14); Neutrophils Absolute Auto 5400 /uL (1500-7000); Neutrophils Percent Auto 63.8 % (50-75); Platelet Count 219 X10^3/uL (150-400); Red Blood Cell Count 4.14 X10^6/uL (4.0-5.2); Red Cell Distribution Width 14.2 % (11.6-14.8); White Blood Cell Count 8.5 X10^3/uL (4.5-11.0)
[2020-11-10 09:06] LABS: Alanine Aminotransferase 24 IU/L (<35); Albumin 4.1 g/dL (3.5-5.0); Albumin Globulin Ratio 1.1 (1.0-2.8); Alkaline Phosphatase 78 U/L (38-126); Aspartate Aminotransferase 37 IU/L (14-36); BUN Creatinine Ratio 20.9 (6-22); Bilirubin Total 0.4 mg/dL (0.2-1.3); Blood Urea Nitrogen 37 mg/dL (7-17); Calcium 8.8 mg/dL (8.4-10.2); Carbon Dioxide 39 mmol/L (22-32); Chloride 95 mmol/L (98-107); Estimated Glomerular Filt Rate 28.1 mL/min (>60); Globulin 3.9 g/dL (1.7-4.1); Glucose 140 mg/dL (80-110); HEMOLYSIS < 15 (0-50); Potassium 3.7 mmol/L (3.4-5.1); Sodium 140 mmol/L (137-145)
== END ==
PROVIDERS: PCP Family Medicine; Visit Provider Nurse Practitioner Gerontology
DX: E11.9 Type 2 diabetes mellitus without complications (principal)
CPT/HCPCS: 36415; 80053; 83036; 85025

== ENCOUNTER → 2020-11-11 14:32 | Outpatient (ROUT) | payer OTHER, MEDICAID, SELFPAY ==
[2019-09-07 13:30] VITALS: BMI 40.4
[2020-11-11 14:38] LABS: Appearance Urine UA CLOUDY; Bilirubin Urine UA NEGATIVE (NEGATIVE); Color Urine UA YELLOW; Glucose Urine UA NEGATIVE (Negative); Ketones Urine UA NEGATIVE (NEGATIVE); Leukocyte Esterase Urine UA 1+ (NEGATIVE); Nitrite Urine UA POSITIVE (Negative); Occult Blood Urine UA 1+ (Negative); Protein Urine UA 1+ (Negative); Urobilinogen Urine UA 0.2 E.U./dL (0.2)
[2020-11-11 14:52] LABS: Amorphous Sediment Urine 1+; Bacteria Urine Many (>30); Culture Indicated Urine Specimen Cultured; RBC Urine 1-5/HPF (0-5/HPF); Squamous Epithelial Cell Urine 1-5 /HPF (0-5/HPF); WBC Urine 30-100/HPF (0-5/HPF)
== END ==
PROVIDERS: PCP Family Medicine; Visit Provider Internal Medicine
DX: N39.0 Urinary tract infection, site not specified (principal)
CPT/HCPCS: 81001; 87077; 87086; 87186

== ENCOUNTER → 2020-11-15 14:48 | Outpatient (ROUT) | payer OTHER, MEDICAID, SELFPAY ==
[2019-09-07 13:30] VITALS: BMI 40.4
[2020-11-15 16:52] LABS: Vitamin B12 826 pg/mL (239-931)
== END ==
PROVIDERS: PCP Family Medicine; Visit Provider Nurse Practitioner Gerontology
DX: E53.8 Deficiency of other specified B group vitamins (principal)
CPT/HCPCS: 82607

== ENCOUNTER → 2020-12-12 15:15 | Outpatient (ROUT) | payer OTHER, MEDICAID, SELFPAY ==
[2019-09-07 13:30] VITALS: BMI 40.4
[2020-12-12 15:20] LABS: Appearance Urine UA SL CLOUDY; Bilirubin Urine UA NEGATIVE (NEGATIVE); Color Urine UA YELLOW; Glucose Urine UA NEGATIVE (Negative); Ketones Urine UA NEGATIVE (NEGATIVE); Leukocyte Esterase Urine UA 2+ (NEGATIVE); Nitrite Urine UA NEGATIVE (Negative); Occult Blood Urine UA TRACE-LYSED (Negative); Protein Urine UA NEGATIVE (Negative); Urobilinogen Urine UA 0.2 E.U./dL (0.2)
[2020-12-12 15:41] LABS: pH Urine UA 5.5 (4.5-8.0)
[2020-12-12 15:42] LABS: Bacteria Urine Many (>30); Culture Indicated Urine Specimen Cultured; RBC Urine 1-5/HPF (0-5/HPF); Squamous Epithelial Cell Urine 1-5 /HPF (0-5/HPF); WBC Urine 30-100/HPF (0-5/HPF)
== END ==
PROVIDERS: PCP Family Medicine; Visit Provider Nurse Practitioner Gerontology
DX: R35.0 Frequency of micturition (principal); R39.15 Urgency of urination; R32 Unspecified urinary incontinence
CPT/HCPCS: 81001; 87077; 87086; 87186

== ENCOUNTER → 2021-01-03 08:26 | Outpatient (ROUT) | payer OTHER, MEDICAID, SELFPAY ==
[2019-09-07 13:30] VITALS: BMI 40.4
[2021-01-03 09:00] LABS: Blood Urea Nitrogen 31 mg/dL (7-17); Calcium 9.3 mg/dL (8.4-10.2); Carbon Dioxide 38 mmol/L (22-32); Chloride 97 mmol/L (98-107); Estimated Glomerular Filt Rate 27.2 mL/min (>60); Glucose 145 mg/dL (80-110); HEMOLYSIS < 15 (0-50); Potassium 3.8 mmol/L (3.4-5.1); Sodium 138 mmol/L (137-145)
== END ==
PROVIDERS: PCP Family Medicine; Visit Provider Nurse Practitioner Family
DX: I50.9 Heart failure, unspecified (principal)
CPT/HCPCS: 36415; 80048

== ENCOUNTER → 2021-02-07 08:58 | Outpatient (ROUT) | payer OTHER, MEDICAID, SELFPAY ==
[2019-09-07 13:30] VITALS: BMI 40.4
[2021-02-07 09:36] LABS: BUN Creatinine Ratio 18.7 (6-22); Blood Urea Nitrogen 40 mg/dL (7-17); Carbon Dioxide 38 mmol/L (22-32); Chloride 94 mmol/L (98-107); Estimated Glomerular Filt Rate 22.6 mL/min (>60); Glucose 136 mg/dL (80-110); HEMOLYSIS < 15 (0-50); Potassium 3.8 mmol/L (3.4-5.1); Sodium 138 mmol/L (137-145)
[2021-02-07 09:37] LABS: Hemoglobin A1C% w Est Avg Glu 7.7 % (4.0-6.0)
== END ==
PROVIDERS: PCP Family Medicine; Visit Provider Nurse Practitioner Family
DX: E11.22 Type 2 diabetes mellitus with diabetic chronic kidney disease (principal); N18.9 Chronic kidney disease, unspecified
CPT/HCPCS: 36415; 80048; 83036

== ENCOUNTER → 2021-02-14 08:09 | Outpatient (ROUT) | payer OTHER, MEDICAID, SELFPAY ==
[2019-09-07 13:30] VITALS: BMI 40.4
[2021-02-14 09:15] LABS: BUN Creatinine Ratio 19.2 (6-22); Blood Urea Nitrogen 44 mg/dL (7-17); Calcium 9.4 mg/dL (8.4-10.2); Carbon Dioxide 35 mmol/L (22-32); Chloride 95 mmol/L (98-107); Estimated Glomerular Filt Rate 20.9 mL/min (>60); Glucose 246 mg/dL (80-110); HEMOLYSIS < 15 (0-50); Potassium 3.9 mmol/L (3.4-5.1); Sodium 138 mmol/L (137-145)
== END ==
PROVIDERS: PCP Family Medicine; Visit Provider Nurse Practitioner Family
DX: N18.9 Chronic kidney disease, unspecified (principal)
CPT/HCPCS: 36415; 80048

== ENCOUNTER → 2021-03-07 07:52 | Outpatient (ROUT) | payer OTHER, MEDICAID, SELFPAY ==
[2019-09-07 13:30] VITALS: BMI 40.4
[2021-03-07 08:49] LABS: Albumin 4.2 g/dL (3.5-5.0); BUN Creatinine Ratio 19.5 (6-22); Blood Urea Nitrogen 41 mg/dL (7-17); Calcium 9.5 mg/dL (8.4-10.2); Carbon Dioxide 34 mmol/L (22-32); Chloride 97 mmol/L (98-107); Estimated Glomerular Filt Rate 23.1 mL/min (>60); Glucose 157 mg/dL (80-110); HEMOLYSIS < 15 (0-50); Sodium 140 mmol/L (137-145)
[2021-03-07 08:57] LABS: Vitamin D 25 Hydroxy (D3) 31.4 ng/mL (30.0-100.0)
[2021-03-08 05:37] LABS: Parathyroid Hormone Int 4 pg/mL (15-65)
== END ==
PROVIDERS: PCP Family Medicine; Visit Provider Internal Medicine Nephrology
DX: N18.4 Chronic kidney disease, stage 4 (severe) (principal)
CPT/HCPCS: 36415; 80069; 82306; 83970

== ENCOUNTER → 2021-03-14 08:08 | Outpatient (ROUT) | payer OTHER, MEDICAID, SELFPAY ==
[2019-09-07 13:30] VITALS: BMI 40.4
[2021-03-14 09:28] LABS: BUN Creatinine Ratio 18.3 (6-22); Blood Urea Nitrogen 35 mg/dL (7-17); Calcium 9.7 mg/dL (8.4-10.2); Carbon Dioxide 35 mmol/L (22-32); Chloride 96 mmol/L (98-107); Estimated Glomerular Filt Rate 25.8 mL/min (>60); Glucose 137 mg/dL (80-110); HEMOLYSIS < 15 (0-50); Potassium 3.8 mmol/L (3.4-5.1); Sodium 138 mmol/L (137-145)
== END ==
PROVIDERS: PCP Family Medicine; Visit Provider Nurse Practitioner Family
DX: N18.9 Chronic kidney disease, unspecified (principal)
CPT/HCPCS: 36415; 80048

== ENCOUNTER → 2021-04-06 19:25 | Outpatient (ROUT) | payer OTHER, MEDICAID, SELFPAY ==
[2019-09-07 13:30] VITALS: BMI 40.4
[2021-04-06 19:29] LABS: RBC Urine None Seen (0-5/HPF)
[2021-04-06 19:35] LABS: Appearance Urine UA CLOUDY; Bilirubin Urine UA NEGATIVE (NEGATIVE); Color Urine UA YELLOW; Glucose Urine UA NEGATIVE (Negative); Ketones Urine UA NEGATIVE (NEGATIVE); Leukocyte Esterase Urine UA 2+ (NEGATIVE); Nitrite Urine UA NEGATIVE (Negative); Occult Blood Urine UA TRACE-INTACT (Negative); Protein Urine UA NEGATIVE (Negative); Urobilinogen Urine UA 0.2 E.U./dL (0.2)
[2021-04-06 19:47] LABS: Bacteria Urine Many (>30); Culture Indicated Urine Specimen Cultured; Squamous Epithelial Cell Urine 1-5 /HPF (0-5/HPF); Transitional Epi Cells Urine 1-5/HPF (0-5/HPF); WBC Urine 30-100/HPF (0-5/HPF)
== END ==
PROVIDERS: PCP Family Medicine; Visit Provider Nurse Practitioner Family
DX: R39.15 Urgency of urination (principal)
CPT/HCPCS: 81001; 87077; 87086; 87186

== ENCOUNTER → 2021-04-11 08:31 | Outpatient (ROUT) | payer OTHER, MEDICAID, SELFPAY ==
[2019-09-07 13:30] VITALS: BMI 40.4
[2021-04-11 08:58] LABS: Add Manual Diff / Slide Review NO; Basophils Absolute Auto 100 /uL (0-100); Basophils Percent Auto 1.3 % (0-2); Eosinophils Absolute Auto 200 /uL (0-450); Eosinophils Percent Auto 2.6 % (2-4); Hematocrit 36.2 % (36-46); Hemoglobin 11.6 g/dL (12.0-16.0); Lymphocytes Absolute Auto 1800 /uL (1100-4500); Lymphocytes Percent Auto 23.2 % (25-40); Mean Corpuscular HGB Conc 32.1 % (30-36); Mean Corpuscular Hemoglobin 28.2 PG (26-34); Mean Corpuscular Volume 87.8 fL (80-100); Monocytes Absolute Auto 500 /uL (0-900); Monocytes Percent Auto 6.5 % (3-14); Neutrophils Absolute Auto 5000 /uL (1500-7000); Neutrophils Percent Auto 66.4 % (50-75); Platelet Count 262 X10^3/uL (150-400); Red Blood Cell Count 4.12 X10^6/uL (4.0-5.2); Red Cell Distribution Width 14.6 % (11.6-14.8); White Blood Cell Count 7.5 X10^3/uL (4.5-11.0)
[2021-04-11 09:25] LABS: Alanine Aminotransferase 38 IU/L (<35); Albumin 4.2 g/dL (3.5-5.0); Alkaline Phosphatase 87 U/L (38-126); Aspartate Aminotransferase 57 IU/L (14-36); BUN Creatinine Ratio 18.1 (6-22); Bilirubin Total 0.3 mg/dL (0.2-1.3); Blood Urea Nitrogen 37 mg/dL (7-17); Calcium 9.9 mg/dL (8.4-10.2); Carbon Dioxide 36 mmol/L (22-32); Chloride 93 mmol/L (98-107); Estimated Glomerular Filt Rate 23.9 mL/min (>60); Globulin 4.2 g/dL (1.7-4.1); Glucose 196 mg/dL (80-110); HEMOLYSIS < 15 (0-50); Magnesium 1.4 mg/dL (1.6-2.3); Sodium 138 mmol/L (137-145); Total Protein 8.4 g/dL (6.3-8.2)
[2021-04-11 09:28] LABS: NT-proBNP (BNP-Adult 18+) 474 pg/mL (<125)
[2021-04-11 10:29] LABS: Thyroid Stimulating Hormone 21.2 uIU/mL (0.47-4.68)
== END ==
PROVIDERS: PCP Family Medicine; Visit Provider Nurse Practitioner Family
DX: N18.9 Chronic kidney disease, unspecified (principal); I50.9 Heart failure, unspecified; Z79.899 Other long term (current) drug therapy
CPT/HCPCS: 36415; 80053; 83735; 83880; 84443; 85025

== ENCOUNTER → 2021-04-19 18:44 | Outpatient (ROUT) | payer OTHER, MEDICAID, SELFPAY ==
[2019-09-07 13:30] VITALS: BMI 40.4
[2021-04-19 18:58] LABS: Appearance Urine UA CLOUDY; Bilirubin Urine UA NEGATIVE (NEGATIVE); Color Urine UA YELLOW; Glucose Urine UA NEGATIVE (Negative); Ketones Urine UA NEGATIVE (NEGATIVE); Leukocyte Esterase Urine UA 1+ (NEGATIVE); Nitrite Urine UA POSITIVE (Negative); Occult Blood Urine UA TRACE-INTACT (Negative); Protein Urine UA NEGATIVE (Negative); Urobilinogen Urine UA 0.2 E.U./dL (0.2)
[2021-04-19 19:08] LABS: pH Urine UA 5.5 (4.5-8.0)
[2021-04-19 19:13] LABS: RBC Urine 1-5/HPF (0-5/HPF); Squamous Epithelial Cell Urine 5-10 /HPF (0-5/HPF); WBC Urine 30-100/HPF (0-5/HPF)
[2021-04-19 19:14] LABS: Bacteria Urine Many (>30); Culture Indicated Urine Specimen Cultured
[2021-04-19 19:19] LABS: Creatinine Urine Random 59.1 mg/dL; Protein (Total) Urine Random 19 mg/dL (0-12); Protein Creatinine Ratio Urine 0.32 GRAM/24H
[2021-04-19 19:28] LABS: BUN Creatinine Ratio 18.3 (6-22); Blood Urea Nitrogen 38 mg/dL (7-17); Calcium 9.1 mg/dL (8.4-10.2); Carbon Dioxide 37 mmol/L (22-32); Chloride 93 mmol/L (98-107); Estimated Glomerular Filt Rate 23.3 mL/min (>60); Glucose 263 mg/dL (80-110); HEMOLYSIS < 15 (0-50); Phosphorous 3.5 mg/dL (2.8-4.1); Potassium 4.2 mmol/L (3.4-5.1); Sodium 140 mmol/L (137-145)
[2021-04-21 05:36] LABS: Parathyroid Hormone Int 4 pg/mL (15-65)
== END ==
PROVIDERS: PCP Family Medicine; Visit Provider Internal Medicine Nephrology
DX: E11.22 Type 2 diabetes mellitus with diabetic chronic kidney disease (principal); N18.4 Chronic kidney disease, stage 4 (severe); Z79.4 Long term (current) use of insulin
CPT/HCPCS: 80069; 81001; 82570; 83970; 84156; 87077; 87086; 87186

== ENCOUNTER → 2021-04-20 08:00 | Outpatient (ROUT) | payer OTHER, MEDICAID, SELFPAY ==
[2019-09-07 13:30] VITALS: BMI 40.4
[2021-04-20 08:50] LABS: Magnesium 1.6 mg/dL (1.6-2.3)
== END ==
PROVIDERS: PCP Family Medicine; Visit Provider Internal Medicine
DX: R79.0 Abnormal level of blood mineral (principal)
CPT/HCPCS: 36415; 83735

== ENCOUNTER → 2021-05-09 07:52 | Outpatient (ROUT) | payer OTHER, MEDICAID, SELFPAY ==
[2019-09-07 13:30] VITALS: BMI 40.4
[2021-05-09 09:25] LABS: Thyroid Stimulating Hormone 13.3 uIU/mL (0.47-4.68)
== END ==
PROVIDERS: PCP Family Medicine; Visit Provider Internal Medicine
DX: E05.90 Thyrotoxicosis, unspecified without thyrotoxic crisis or storm (principal)
CPT/HCPCS: 36415; 84443

== ENCOUNTER → 2021-06-15 14:55 | Outpatient (ROUT) | payer OTHER, MEDICAID, SELFPAY ==
[2019-09-07 13:30] VITALS: BMI 40.4
[2021-06-15 15:05] LABS: Add Manual Diff / Slide Review NO; Basophils Absolute Auto 100 /uL (0-100); Basophils Percent Auto 1.2 % (0-2); Eosinophils Absolute Auto 200 /uL (0-450); Eosinophils Percent Auto 2.3 % (2-4); Hematocrit 34.1 % (36-46); Hemoglobin 11.2 g/dL (12.0-16.0); Lymphocytes Absolute Auto 1500 /uL (1100-4500); Lymphocytes Percent Auto 19.3 % (25-40); Mean Corpuscular HGB Conc 32.9 % (30-36); Mean Corpuscular Hemoglobin 29.2 PG (26-34); Mean Corpuscular Volume 88.6 fL (80-100); Monocytes Absolute Auto 500 /uL (0-900); Monocytes Percent Auto 6.5 % (3-14); Neutrophils Absolute Auto 5300 /uL (1500-7000); Neutrophils Percent Auto 70.7 % (50-75); Platelet Count 235 X10^3/uL (150-400); Red Blood Cell Count 3.84 X10^6/uL (4.0-5.2); Red Cell Distribution Width 15.2 % (11.6-14.8); White Blood Cell Count 7.6 X10^3/uL (4.5-11.0)
[2021-06-15 15:23] LABS: Alanine Aminotransferase 21 IU/L (<35); Albumin 4.1 g/dL (3.5-5.0); Alkaline Phosphatase 77 U/L (38-126); Aspartate Aminotransferase 36 IU/L (14-36); BUN Creatinine Ratio 15.7 (6-22); Bilirubin Total 0.3 mg/dL (0.2-1.3); Blood Urea Nitrogen 31 mg/dL (7-17); Calcium 9.3 mg/dL (8.4-10.2); Carbon Dioxide 31 mmol/L (22-32); Chloride 100 mmol/L (98-107); Estimated Glomerular Filt Rate 24.7 mL/min (>60); Glucose 249 mg/dL (80-110); HEMOLYSIS < 15 (0-50); Potassium 3.6 mmol/L (3.4-5.1); Sodium 139 mmol/L (137-145); Total Protein 8.1 g/dL (6.3-8.2)
== END ==
PROVIDERS: PCP Family Medicine; Visit Provider Nurse Practitioner Family
DX: R19.7 Diarrhea, unspecified (principal)
CPT/HCPCS: 80053; 85025

== ENCOUNTER → 2021-06-20 07:40 | Outpatient (ROUT) | payer OTHER, MEDICAID, SELFPAY ==
[2019-09-07 13:30] VITALS: BMI 40.4
== END ==
PROVIDERS: PCP Family Medicine; Visit Provider Internal Medicine
DX: E03.9 Hypothyroidism, unspecified (principal)
CPT/HCPCS: 36415; 84443

== ENCOUNTER → 2021-06-22 16:29 | Outpatient (ROUT) | payer OTHER, MEDICAID, SELFPAY ==
[2019-09-07 13:30] VITALS: BMI 40.4
[2021-06-22 16:47] LABS: BUN Creatinine Ratio 23.4 (6-22); Blood Urea Nitrogen 44 mg/dL (7-17); Calcium 10.1 mg/dL (8.4-10.2); Carbon Dioxide 32 mmol/L (22-32); Chloride 97 mmol/L (98-107); Estimated Glomerular Filt Rate 26.2 mL/min (>60); Glucose 225 mg/dL (80-110); HEMOLYSIS < 15 (0-50); Potassium 3.4 mmol/L (3.4-5.1); Sodium 140 mmol/L (137-145)
== END ==
PROVIDERS: PCP Family Medicine; Visit Provider Nurse Practitioner Family
DX: N18.9 Chronic kidney disease, unspecified (principal); Z79.899 Other long term (current) drug therapy; R53.83 Other fatigue
CPT/HCPCS: 80048

== ENCOUNTER → 2021-06-27 08:31 | Outpatient (ROUT) | payer OTHER, MEDICAID, SELFPAY ==
[2019-09-07 13:30] VITALS: BMI 40.4
[2021-06-27 09:15] LABS: BUN Creatinine Ratio 21.6 (6-22); Blood Urea Nitrogen 43 mg/dL (7-17); Calcium 9.6 mg/dL (8.4-10.2); Carbon Dioxide 34 mmol/L (22-32); Chloride 97 mmol/L (98-107); Estimated Glomerular Filt Rate 24.6 mL/min (>60); Glucose 238 mg/dL (80-110); HEMOLYSIS < 15 (0-50); Magnesium 1.1 mg/dL (1.6-2.3); Potassium 3.8 mmol/L (3.4-5.1); Sodium 139 mmol/L (137-145)
== END ==
PROVIDERS: PCP Family Medicine; Visit Provider Nurse Practitioner Family
DX: R22.43 Localized swelling, mass and lump, lower limb, bilateral (principal); I50.9 Heart failure, unspecified; E83.42 Hypomagnesemia
CPT/HCPCS: 36415; 80048; 83735

== ENCOUNTER → 2021-07-11 08:28 | Outpatient (ROUT) | payer OTHER, MEDICAID, SELFPAY ==
[2019-09-07 13:30] VITALS: BMI 40.4
[2021-07-11 10:16] LABS: BUN Creatinine Ratio 23.6 (6-22); Blood Urea Nitrogen 49 mg/dL (7-17); Carbon Dioxide 32 mmol/L (22-32); Chloride 100 mmol/L (98-107); Estimated Glomerular Filt Rate 23.3 mL/min (>60); Glucose 183 mg/dL (80-110); HEMOLYSIS < 15 (0-50); Magnesium 1.2 mg/dL (1.6-2.3); Potassium 3.6 mmol/L (3.4-5.1); Sodium 139 mmol/L (137-145)
== END ==
PROVIDERS: PCP Family Medicine; Visit Provider Nurse Practitioner Family
DX: N18.9 Chronic kidney disease, unspecified (principal); E83.42 Hypomagnesemia
CPT/HCPCS: 36415; 80048; 83735

== ENCOUNTER → 2021-07-25 08:58 | Outpatient (ROUT) | payer OTHER, MEDICAID, SELFPAY ==
[2019-09-07 13:30] VITALS: BMI 40.4
[2021-07-25 10:11] LABS: Add Manual Diff / Slide Review NO; Basophils Absolute Auto 100 /uL (0-100); Basophils Percent Auto 1.4 % (0-2); Eosinophils Absolute Auto 100 /uL (0-450); Hematocrit 35.8 % (36-46); Hemoglobin 11.6 g/dL (12.0-16.0); Lymphocytes Absolute Auto 1500 /uL (1100-4500); Lymphocytes Percent Auto 21.5 % (25-40); Mean Corpuscular HGB Conc 32.5 % (30-36); Mean Corpuscular Hemoglobin 28.7 PG (26-34); Mean Corpuscular Volume 88.4 fL (80-100); Monocytes Absolute Auto 600 /uL (0-900); Monocytes Percent Auto 8.9 % (3-14); Neutrophils Absolute Auto 4600 /uL (1500-7000); Neutrophils Percent Auto 66.2 % (50-75); Platelet Count 214 X10^3/uL (150-400); Red Blood Cell Count 4.05 X10^6/uL (4.0-5.2); Red Cell Distribution Width 15.4 % (11.6-14.8)
[2021-07-25 10:26] LABS: Albumin 4.2 g/dL (3.5-5.0); BUN Creatinine Ratio 21.8 (6-22); Blood Urea Nitrogen 42 mg/dL (7-17); Calcium 9.4 mg/dL (8.4-10.2); Carbon Dioxide 33 mmol/L (22-32); Chloride 100 mmol/L (98-107); Estimated Glomerular Filt Rate 25.4 mL/min (>60); Glucose 148 mg/dL (80-110); HEMOLYSIS < 15 (0-50); Magnesium 1.3 mg/dL (1.6-2.3); Phosphorous 4.1 mg/dL (2.8-4.1); Potassium 3.6 mmol/L (3.4-5.1); Sodium 142 mmol/L (137-145)
[2021-07-26 12:11] LABS: Parathyroid Hormone Int 2 pg/mL (15-65)
== END ==
PROVIDERS: PCP Family Medicine; Visit Provider Internal Medicine Nephrology
DX: N18.4 Chronic kidney disease, stage 4 (severe) (principal)
CPT/HCPCS: 36415; 80069; 83735; 83970; 85025

== ENCOUNTER → 2021-08-01 08:05 | Outpatient (ROUT) | payer OTHER, MEDICAID, SELFPAY ==
[2019-09-07 13:30] VITALS: BMI 40.4
[2021-08-01 08:22] LABS: Add Manual Diff / Slide Review NO; Basophils Absolute Auto 100 /uL (0-100); Eosinophils Absolute Auto 200 /uL (0-450); Eosinophils Percent Auto 2.6 % (2-4); Hematocrit 35.1 % (36-46); Hemoglobin 11.3 g/dL (12.0-16.0); Lymphocytes Absolute Auto 1600 /uL (1100-4500); Lymphocytes Percent Auto 25.6 % (25-40); Mean Corpuscular HGB Conc 32.1 % (30-36); Mean Corpuscular Hemoglobin 28.2 PG (26-34); Monocytes Absolute Auto 700 /uL (0-900); Monocytes Percent Auto 10.3 % (3-14); Neutrophils Absolute Auto 3900 /uL (1500-7000); Neutrophils Percent Auto 60.5 % (50-75); Platelet Count 222 X10^3/uL (150-400); Red Blood Cell Count 3.99 X10^6/uL (4.0-5.2); Red Cell Distribution Width 14.9 % (11.6-14.8); White Blood Cell Count 6.4 X10^3/uL (4.5-11.0)
[2021-08-01 08:45] LABS: Albumin 3.8 g/dL (3.5-5.0); BUN Creatinine Ratio 18.5 (6-22); Blood Urea Nitrogen 32 mg/dL (7-17); Calcium 9.2 mg/dL (8.4-10.2); Carbon Dioxide 33 mmol/L (22-32); Chloride 100 mmol/L (98-107); Estimated Glomerular Filt Rate 28.9 mL/min (>60); Glucose 145 mg/dL (80-110); HEMOLYSIS < 15 (0-50); Magnesium 1.4 mg/dL (1.6-2.3); Phosphorous 3.8 mg/dL (2.8-4.1); Potassium 3.7 mmol/L (3.4-5.1); Sodium 140 mmol/L (137-145)
[2021-08-01 09:02] LABS: Vitamin D 25 Hydroxy (D3) 18.1 ng/mL (30.0-100.0)
[2021-08-02 05:37] LABS: Parathyroid Hormone Int 2 pg/mL (15-65)
== END ==
PROVIDERS: PCP Family Medicine; Visit Provider Internal Medicine Nephrology
DX: N18.4 Chronic kidney disease, stage 4 (severe) (principal)
CPT/HCPCS: 36415; 80069; 82306; 83735; 83970; 85025

== ENCOUNTER → 2021-08-08 07:58 | Outpatient (ROUT) | payer OTHER, MEDICAID, SELFPAY ==
[2019-09-07 13:30] VITALS: BMI 40.4
[2021-08-08 09:15] LABS: BUN Creatinine Ratio 16.7 (6-22); Blood Urea Nitrogen 32 mg/dL (7-17); Calcium 9.5 mg/dL (8.4-10.2); Carbon Dioxide 36 mmol/L (22-32); Chloride 96 mmol/L (98-107); Estimated Glomerular Filt Rate 25.5 mL/min (>60); Glucose 143 mg/dL (80-110); HEMOLYSIS < 15 (0-50); Potassium 3.7 mmol/L (3.4-5.1); Sodium 139 mmol/L (137-145)
== END ==
PROVIDERS: PCP Family Medicine; Visit Provider Nurse Practitioner Family
DX: N18.9 Chronic kidney disease, unspecified (principal)
CPT/HCPCS: 36415; 80048

== ENCOUNTER → 2021-09-12 08:18 | Outpatient (ROUT) | payer OTHER, MEDICAID, SELFPAY ==
[2019-09-07 13:30] VITALS: BMI 40.4
[2021-09-12 08:56] LABS: BUN Creatinine Ratio 20.8 (6-22); Blood Urea Nitrogen 38 mg/dL (7-17); Carbon Dioxide 37 mmol/L (22-32); Chloride 97 mmol/L (98-107); Glucose 159 mg/dL (80-110); HEMOLYSIS < 15 (0-50); Potassium 4.3 mmol/L (3.4-5.1); Sodium 141 mmol/L (137-145)
[2021-09-12 09:45] LABS: Vitamin B12 875 pg/mL (239-931)
== END ==
PROVIDERS: PCP Family Medicine; Visit Provider Nurse Practitioner Family
DX: N18.9 Chronic kidney disease, unspecified (principal); E53.9 Vitamin B deficiency, unspecified
CPT/HCPCS: 36415; 80048; 82607

== ENCOUNTER → 2021-09-26 08:36 | Outpatient (ROUT) | payer OTHER, MEDICAID, SELFPAY ==
[2019-09-07 13:30] VITALS: BMI 40.4
[2021-09-26 08:54] LABS: Add Manual Diff / Slide Review NO; Basophils Absolute Auto 100 /uL (0-100); Basophils Percent Auto 1.3 % (0-2); Eosinophils Absolute Auto 200 /uL (0-450); Hematocrit 32.6 % (36-46); Hemoglobin 10.9 g/dL (12.0-16.0); Lymphocytes Absolute Auto 1700 /uL (1100-4500); Lymphocytes Percent Auto 23.6 % (25-40); Mean Corpuscular HGB Conc 33.5 % (30-36); Mean Corpuscular Hemoglobin 29.8 PG (26-34); Mean Corpuscular Volume 88.9 fL (80-100); Monocytes Absolute Auto 700 /uL (0-900); Monocytes Percent Auto 10.3 % (3-14); Neutrophils Absolute Auto 4300 /uL (1500-7000); Neutrophils Percent Auto 61.8 % (50-75); Platelet Count 212 X10^3/uL (150-400); Red Blood Cell Count 3.67 X10^6/uL (4.0-5.2); Red Cell Distribution Width 16.1 % (11.6-14.8)
[2021-09-26 09:25] LABS: BUN Creatinine Ratio 19.4 (6-22); Blood Urea Nitrogen 36 mg/dL (7-17); Carbon Dioxide 37 mmol/L (22-32); Chloride 94 mmol/L (98-107); Estimated Glomerular Filt Rate 26.5 mL/min (>60); Glucose 147 mg/dL (80-110); HEMOLYSIS < 15 (0-50); Potassium 3.9 mmol/L (3.4-5.1); Sodium 138 mmol/L (137-145)
[2021-09-26 13:09] LABS: Appearance Urine UA CLEAR; Bilirubin Urine UA NEGATIVE (NEGATIVE); Color Urine UA YELLOW; Glucose Urine UA NEGATIVE (Negative); Ketones Urine UA NEGATIVE (NEGATIVE); Leukocyte Esterase Urine UA TRACE (NEGATIVE); Nitrite Urine UA POSITIVE (Negative); Occult Blood Urine UA 2+ (Negative); Protein Urine UA 1+ (Negative); Specific Gravity Urine UA 1.015 (1.000-1.035); Urobilinogen Urine UA 0.2 E.U./dL (0.2)
[2021-09-26 13:15] LABS: pH Urine UA 5.5 (4.5-8.0)
[2021-09-26 13:17] LABS: Bacteria Urine Many (>30); Culture Indicated Urine Specimen Cultured; RBC Urine 5-10/HPF (0-5/HPF); WBC Urine 1-5/HPF (0-5/HPF)
== END ==
PROVIDERS: Internal Medicine; PCP Family Medicine; Visit Provider Nurse Practitioner Gerontology
DX: N18.9 Chronic kidney disease, unspecified (principal); R41.0 Disorientation, unspecified
CPT/HCPCS: 36415; 80048; 81001; 85025; 87077; 87086; 87186

== ENCOUNTER 2021-10-04 21:52 | Emergency (ER) | payer OTHER, MEDICAID, SELFPAY ==
[2019-09-07 13:30] VITALS: BMI 40.4
[2021-10-04] VITALS (15 sets, daily range): BP systolic 96–120; BP diastolic 57–64; PULSE 79–96; RESP 16–32; O2SAT 91–99
--- NOTE | 2021-10-04 21:58 | DI.RAD.S_ITS ---
PROCEDURE: XR CHEST 1V INDICATIONS: chest pain TECHNIQUE: One view of the chest was acquired. COMPARISON: [facility], CR, XR CHEST 1V, 12/25/2019, 23:07. FINDINGS: Surgical changes and devices: PACEMAKER, PERCUTANEOUS AORTIC VALVE, THYROID CLIPS Lungs and pleura: Submaximal inspiration. Patchy bibasilar atelectasis. No pleural effusions or pneumothorax. Mediastinum: Mediastinal contours appear normal. Heart size is normal. Bones and chest wall: No suspicious bony lesions. Overlying soft tissues appear unremarkable. IMPRESSION: Submaximal inspiration, patchy bibasilar atelectasis. Dictated by: Maurizio Rosales M.D. on 10/04/2021 at 22:52 Approved by: Maurizio Rosales M.D. on 10/04/2021 at 22:53
--- NOTE | 2021-10-04 22:05 | ED_ITS ---
HPI - Chest Pain General Chief Complaint: Chest Pain Stated Complaint: Chest pain Time Seen by Provider: 10/04/21 21:57 Source: patient and EMS Mode of arrival: EMS History of Present Illness HPI narrative: 76-year-old female nonsmoker with a history of coronary artery disease presents from a local assisted living facility in the chief complaint of some anterior chest pain that started about an hour prior to her arrival. She states that she was in bed and had been repositioned with a pillow behind her back and felt uncomfortable and stated that it made her feel like she had a hard time breathing. Associated with this she developed some sharp poke E pain in her central chest that was still there when paramedics were called. She denies any dizziness, weakness or lightheadedness. She denies any recent trauma or injury. She has had no fever or chills nor abdominal pain, nausea, vomiting or diarrhea. Paramedics gave aspirin and nitro and patient has been asymptomatic since her arrival. She states that she has been in her normal state of health and denies any recent fatigue, weakness, lightheadedness or any bothersome symp toms. She denies any recent travel, history of blood clot. She denies any change in medications or diet Related Data Home Medications Medication Instructions Recorded Confirmed Lactobacillus acidophilus 10 10,000,000 cell PO DAILY 09/07/19 10/20/19 billion cell capsule acetaminophen 325 mg tablet 650 mg PO Q4H PRN 09/07/19 10/20/19 aspirin 81 mg tablet,delayed 81 mg PO DAILY 09/07/19 10/20/19 release atorvastatin 40 mg tablet 40 mg PO BEDTIME 09/07/19 10/20/19 carvedilol 3.125 mg tablet 3.125 mg PO BID 09/07/19 10/20/19 cholecalciferol (vitamin D3) 25 5,000 unit PO DAILY 09/07/19 10/20/19 mcg (1,000 unit) tablet donepezil 5 mg tablet 5 mg PO DAILY 09/07/19 10/20/19 ferrous sulfate 325 mg (65 mg 325 mg PO DAILY 09/07/19 10/20/19 iron) tablet fluoxetine 40 mg capsule 40 mg PO DAILY 09/07/19 10/20/19 furosemide 40 mg tablet 40 mg PO DAILY 09/07/19 10/20/19 levothyroxine 175 mcg tablet 175 mcg PO DAILY 09/07/19 10/20/19 linagliptin 5 mg tablet (Tradjenta) 5 mg PO DAILY 09/07/19 10/20/19 magnesium oxide 400 mg PO DAILY 09/07/19 10/20/19 nystatin 100,000 unit/gram topical 1 applic TOPICAL BID 09/07/19 10/20/19 powder omega 0-eko-jnu-fish oil 1,000 mg 1 cap PO DAILY 09/07/19 10/20/19 (120 mg-180 mg) capsule (Fish Oil) omeprazole 40 mg capsule,delayed 40 mg PO BID 09/07/19 10/20/19 release potassium chloride 10 mEq 10 meq PO DAILY 09/07/19 10/20/19 tablet,extended release acetaminophen 500 mg tablet 1,000 mg PO TID 10/20/19 10/20/19 acyclovir 400 mg tablet 400 mg PO DAILYX5 10/20/19 10/20/19 gabapentin 300 mg capsule 300 mg PO BID 10/20/19 10/20/19 levetiracetam 250 mg tablet 500 mg PO BID 10/20/19 10/20/19 primidone 50 mg tablet 75 mg PO BEDTIME 10/20/19 10/20/19 Previous Rx's Medication Instructions Recorded furosemide 20 mg tablet (Lasix) 20 mg PO DAILY #3 tab 12/25/19 Allergies Allergy/AdvReac Type Severity Reaction Status Date / Time adhesive tape Allergy Verified 10/20/19 11:36 allopurinol Allergy Verified 10/20/19 11:36 Review of Systems Review of Systems Narrative: GENERAL: Denies chills, fatigue, malaise, fever, sweats. HEENT: Denies sinus pain, ear pain, sore throat, difficulty swallowing, dizziness. RESPIRATORY: Denies dyspnea, cough, wheezing, hemoptysis, sputum. CARDIOVASCULAR: See HPI GASTROINTESTINAL: Denies nausea, vomiting, abdominal pain, diarrhea, constipation, melena. : Denies dysuria, frequency, incontinence, hematuria, urinary retention. MUSCULOSKELETAL: denies weakness, joint pain, or bony pain SKIN: Denies rash, skin lesions, or other NEUROLOGIC: Denies weakness, headache, numbness, change in speech, confusion, seizures, incoordination. PSYCHIATRIC: No concerning psychosocial issues. 12 point review of systems is negative except for those stated above Patient History Medical History (Updated 10/05/21 @ 01:38 by Zeke Conn DO) CAD (coronary artery disease) CKD (chronic kidney disease) CVA (cerebral vascular accident) Dementia Diabetes mellitus type 2 in obese GERD (gastroesophageal reflux disease) Heart failure, unspecified Hyperlipidemia Hypertension Hypothyroid Non Hodgkin's lymphoma Pacemaker Thyroid cancer Tremor, unspecified Surgical History History of cholecystectomy History of thyroidectomy Hx of tonsillectomy S/P TAVR (transcatheter aortic valve replacement) Family History Mother Dementia Father Heart attack Social History household members: none Smoking Status: Never smoker alcohol intake: never Smoking Status: Never smoker alcohol intake frequency: 0-2 drinks per day Substance Use Type: does not use Exam Narrative Exam Narrative: GENERAL: [76 year old patient appears stated age. Well-developed patient, in mild distress. HEAD: Atraumatic. Normocephalic. EYES: Pupils equal round and reactive. Extraocular motions intact. No scleral icterus. No injection or drainage. ENT: Nose without bleeding, purulent drainage. Throat without erythema, tonsillar hypertrophy or exudate. Airway patent. NECK: Trachea midline. Non tender CARDIOVASCULAR: Regular rate and rhythm without murmurs, gallops, or rubs. RESPIRATORY: Clear to auscultation. Breath sounds equal bilaterally. No wheezes, rales, or rhonchi. GASTROINTESTINAL: Abdomen soft, non-tender, nondistended. EXTREMITIES: No edema or joint tenderness. BACK: Nontender without deformity or crepitance. No flank tenderness. NEURO: AOx3. SKIN: No rash or erythema of visible areas Initial Vital Signs Initial Vital Signs: Vital Signs Pulse Rate 96 H 10/04/21 21:57 Respiratory Rate 16 10/04/21 21:57 Blood Pressure 96/58 L 10/04/21 21:57 Pulse Oximetry 91 10/04/21 21:57 Course Orders Ordered: ED Orders 10/04/21 21:58 XR chest 1V Stat EKG-12 Lead Stat 10/04/21 22:10 Complete Blood Count AUTO DIFF Stat Comprehensive Metabolic Panel Stat D Dimer Stat Lipase Stat NT-proBNP (BNP-Adult 18+) Stat Troponin & CK Cardiac Panel Stat 10/05/21 00:25 Troponin I Stat Sodium Chloride (Normal Saline 0.9%) 1,000 mls @ 150 mls/hr IV CONT SHANI Last Infusion: 10/05/21 01:06 Dose: 0 mls/hr Documented by: Infusion: 10/04/21 22:43 Dose: 150 mls/hr Documented by: Admin: 10/04/21 22:13 Dose: 500 mls/hr Documented by: JALIL Discontinued Medications Aspirin (Aspirin 81 Mg Chew Tab) 324 mg PO NOW ONE Stop: 10/04/21 21:59 Last Admin: 10/04/21 22:13 Dose: Not Given Documented by: JALIL Vital Signs Vital signs: Vital Signs - 8 hr 10/04/21 21:57 10/04/21 22:01 10/04/21 22:04 Pulse Rate 96 H 95 H 96 H Respiratory Rate 16 22 26 H Blood Pressure 96/58 L Pulse Oximetry 91 97 97 10/04/21 22:08 10/04/21 22:10 10/04/21 22:20 Pulse Rate 93 H 93 H 86 Respiratory Rate 32 H 24 18 Blood Pressure 101/57 L 105/58 L 103/58 L Pulse Oximetry 95 95 97 10/04/21 22:30 10/04/21 22:40 10/04/21 22:50 Pulse Rate 84 85 84 Respiratory Rate 18 19 20 Blood Pressure 113/60 116/63 112/57 L Pulse Oximetry 97 99 97 10/04/21 23:00 10/04/21 23:10 10/04/21 23:20 Pulse Rate 82 84 85 Respiratory Rate 19 20 19 Blood Pressure 117/57 L 114/62 112/61 Pulse Oximetry 97 94 94 10/04/21 23:30 10/04/21 23:40 10/04/21 23:50 Pulse Rate 79 79 79 Respiratory Rate 18 17 17 Blood Pressure 117/64 120/60 113/59 L Pulse Oximetry 95 96 96 10/05/21 00:00 10/05/21 00:10 10/05/21 00:20 Pulse Rate 78 83 80 Respiratory Rate 16 21 18 Blood Pressure 120/57 L 118/61 124/63 Pulse Oximetry 96 96 97 10/05/21 00:30 10/05/21 00:40 10/05/21 00:50 Pulse Rate 78 82 79 Respiratory Rate 17 23 20 Blood Pressure 122/61 122/57 L 125/60 Pulse Oximetry 97 97 99 10/05/21 01:00 Pulse Rate 79 Respiratory Rate 20 Blood Pressure 143/60 H Pulse Oximetry 97 MDM - Chest Pain Lab Data Result diagrams: 10/04/21 22:10 10/04/21 22:10 Labs: Lab Results 10/04/21 10/04/21 10/04/21 Range/Units 22:10 22:10 22:10 WBC 8.1 (4.5-11.0) X10^3/uL RBC 3.93 L (4.0-5.2) X10^6/uL Hgb 11.6 L (12.0-16.0) g/dL Hct 35.6 L (36-46) % MCV 90.7 (80-100) fL MCH 29.5 (26-34) PG MCHC 32.5 (30-36) % RDW 16.5 H (11.6-14.8) % Plt Count 271 (150-400) X10^3/uL Neut % (Auto) 60.1 (50-75) % Lymph % (Auto) 24.9 L (25-40) % [place] % (Auto) 10.8 (3-14) % Eos % (Auto) 2.8 (2-4) % Baso % (Auto) 1.4 (0-2) % Neut # (Auto) 4900 (7272-9094) /uL Lymph # (Auto) 2000 (0259-8985) /uL [place] # (Auto) 900 (0-900) /uL Eos # (Auto) 200 (0-450) /uL Baso # (Auto) 100 (0-100) /uL D-Dimer 441 H (<230) ng/mL Sodium 138 (137-145) mmol/L Potassium 4.2 (3.4-5.1) mmol/L Chloride 91 L (98-107) mmol/L Carbon Dioxide 38 H (22-32) mmol/L BUN 39 H (7-17) mg/dL Creatinine 2.07 H (0.52-1.04) mg/dL Estimated GFR 23.4 L (>60) mL/min BUN/Creatinine Ratio 18.8 (6-22) Glucose 255 H D (80-110) mg/dL Calcium 9.8 (8.4-10.2) mg/dL Total Bilirubin 0.4 (0.2-1.3) mg/dL AST 58 H (14-36) IU/L ALT 43 H (<35) IU/L Alkaline Phosphatase 90 (38-126) U/L Total Creatine Kinase 72 (30-135) U/L CK-MB (CK-2) TNP CK-MB (CK-2) Rel Index TNP Troponin I 0.026 (0.01-0.034) ng/mL NT-Pro-B Natriuret Pep 595 H (<125) pg/mL Total Protein 8.4 H (6.3-8.2) g/dL Albumin 4.2 (3.5-5.0) g/dL Globulin 4.2 H (1.7-4.1) g/dL Albumin/Globulin Ratio 1.0 (1.0-2.8) Lipase 225 (23-300) U/L 10/05/21 Range/Units 00:25 WBC (4.5-11.0) X10^3/uL RBC (4.0-5.2) X10^6/uL Hgb (12.0-16.0) g/dL Hct (36-46) % MCV (80-100) fL MCH (26-34) PG MCHC (30-36) % RDW (11.6-14.8) % Plt Count (150-400) X10^3/uL Neut % (Auto) (50-75) % Lymph % (Auto) (25-40) % [place] % (Auto) (3-14) % Eos % (Auto) (2-4) % Baso % (Auto) (0-2) % Neut # (Auto) (5554-5404) /uL Lymph # (Auto) (7916-1901) /uL [place] # (Auto) (0-900) /uL Eos # (Auto) (0-450) /uL Baso # (Auto) (0-100) /uL D-Dimer (<230) ng/mL Sodium (137-145) mmol/L Potassium (3.4-5.1) mmol/L Chloride (98-107) mmol/L Carbon Dioxide (22-32) mmol/L BUN (7-17) mg/dL Creatinine (0.52-1.04) mg/dL Estimated GFR (>60) mL/min BUN/Creatinine Ratio (6-22) Glucose (80-110) mg/dL Calcium (8.4-10.2) mg/dL Total Bilirubin (0.2-1.3) mg/dL AST (14-36) IU/L ALT (<35) IU/L Alkaline Phosphatase (38-126) U/L Total Creatine Kinase (30-135) U/L CK-MB (CK-2) CK-MB (CK-2) Rel Index Troponin I 0.031 (0.01-0.034) ng/mL NT-Pro-B Natriuret Pep (<125) pg/mL Total Protein (6.3-8.2) g/dL Albumin (3.5-5.0) g/dL Globulin (1.7-4.1) g/dL Albumin/Globulin Ratio (1.0-2.8) Lipase (23-300) U/L Imaging Data Chest x-ray: Radiologist's Impression: Enid Almanza??76??F??1945 ? Allergy/Adv: adhesive tape, allopurinol Close Chest X-Ray (Signed) Maurizio Rosales - 10/04/[address] (Signed) Lilibeth Liao - 08/07/[address] (Signed) Lilibeth Liao - 08/07/20 Echocardiogram Ultrasound (Signed) Erich Tello - 07/11/20 Chest X-Ray (Signed) Vinayak Gupta - 12/25/19 Echocardiogram Ultrasound (Signed) Eric Gallagher - 09/08/19 Telemetry Strips 09/07/19 Abdomen/Pelvis CT (Signed) Bessie Baron - 09/07/[address] (Signed) Maurizio Rosales - 09/07/19 Launch?[address] [address] XRay Report Signed Patient: Enid Almanza MR#: [id number] : 1945 Acct:[id number] Age/Sex: 76 / F Date of Service: 11/10/21 Loc: ED Accession Number: [id number] ?? Procedure: XR chest 1V Ordering Provider: Zeke Conn D.O. PROCEDURE:? XR CHEST 1V ? INDICATIONS:? chest pain ? TECHNIQUE:? One view of the chest was acquired.? ? COMPARISON:? [facility], CR, XR CHEST 1V, 12/25/2019, 23:07. ? FINDINGS:? ? Surgical changes and devices:? PACEMAKER, PERCUTANEOUS AORTIC VALVE, THYROID CLIPS ? Lungs and pleura:? Submaximal inspiration.? Patchy bibasilar atelectasis.? No pleural effusions or pneumothorax.? ? Mediastinum:? Mediastinal contours appear normal.? Heart size is normal.? ? Bones and chest wall:? No suspicious bony lesions.? Overlying soft tissues appear unremarkable.? ? IMPRESSION:? Submaximal inspiration, patchy bibasilar atelectasis. ? ? Dictated by: Maurizio Rosales M.D. on 10/04/2021 at 22:52 ? ? Approved by: Maurizio Rosales M.D. on 10/04/2021 at 22:53 ? MDM Narrative Medical decision making narrative: Atrial sensed, ventricular paced, no obvious occlusive findings, no T-wave inversions or depressions, no ST elevations or depressions. No ectopy. Discharge Plan Departure Patient Disposition: Home Clinical Impression: Atypical chest pain Instructions: DI for Atypical Chest Pain Activity Restrictions/Additional Instructions: *You have been diagnosed with [atypical chest pain. Your history, physical exam, EKG and labs are very reassuring. There is no evidence of heart attack, pneumonia, or other life-threatening cause of her chest pain. *What to do: *Please continue to take your regular medications as directed. [ ] New medication prescriptions sent to your pharmacy: [ ] [ ] New medication written as a paper prescription [x ] No new medications given *Please follow up with your primary care provider in 2-3 days, call for an appointment. Let them know you were seen in the Emergency Department and that we ask that you be seen in follow up. We will electronically transmit a record of today's note if your PCP is in our system *If you do not have a primary care provider please contact the [facility] Resource line at [phone]. They will ask some questions about your medical history and help get you set up with a doctor in the community. *Return to Emergency Department if you should have any new, worsening or concerning symptoms, such as [fever greater than 101 F, shaking chills, worsening pain, persistent vomiting or other bothersome symptoms] Prescriptions: No Action fluoxetine 40 mg Capsule 40 mg PO DAILY RF: 0 furosemide 40 mg Tablet 40 mg PO DAILY RF: 0 atorvastatin 40 mg Tablet 40 mg PO BEDTIME RF: 0 levothyroxine 175 mcg Tablet 175 mcg PO DAILY RF: 0 acetaminophen 325 mg Tablet 650 mg PO Q4H PRN (Reason: pain level 1-3 or fever >100.1) RF: 0 donepezil 5 mg Tablet 5 mg PO DAILY RF: 0 potassium chloride 10 mEq Tablet Extended Release 10 meq PO DAILY RF: 0 omeprazole 40 mg Capsule,Delayed Release(Dr/Ec) 40 mg PO BID RF: 0 aspirin 81 mg Tablet,Delayed Release (Dr/Ec) 81 mg PO DAILY RF: 0 carvedilol 3.125 mg Tablet 3.125 mg PO BID RF: 0 ferrous sulfate 325 mg (65 mg iron) Tablet 325 mg PO DAILY RF: 0 nystatin 100,000 unit/gram Powder 1 applic TOPICAL BID RF: 0 cholecalciferol (vitamin D3) 1,000 unit (25 mcg) Tablet 5,000 unit PO DAILY RF: 0 omega 7-ako-scn-fish oil [Fish Oil] 1,000 mg (120 mg-180 mg) Capsule 1 cap PO DAILY RF: 0 Tradjenta 5 mg Tablet 5 mg PO DAILY RF: 0 Lactobacillus acidophilus 10 billion cell Capsule 10,000,000 cell PO DAILY RF: 0 magnesium oxide 400 mg magnesium Tablet 400 mg PO DAILY RF: 0 primidone 50 mg Tablet 75 mg PO BEDTIME RF: 0 acyclovir 400 mg Tablet 400 mg PO DAILYX5 RF: 0 acetaminophen 500 mg Tablet 1,000 mg PO TID RF: 0 levetiracetam 250 mg Tablet 500 mg PO BID RF: 0 gabapentin 300 mg Capsule 300 mg PO BID RF: 0 furosemide [Lasix] 20 mg tablet 20 mg PO DAILY Qty: 3 RF: 0 Referrals: Kinsey Bose MD [Primary Care Provider] -
[2021-10-04] MEDS: SODIUM CHLORIDE 0.9% 1,000 ML 500 ML IV (22:13)
[2021-10-04 22:22] LABS: Add Manual Diff / Slide Review NO; Basophils Absolute Auto 100 /uL (0-100); Basophils Percent Auto 1.4 % (0-2); Eosinophils Absolute Auto 200 /uL (0-450); Eosinophils Percent Auto 2.8 % (2-4); Hematocrit 35.6 % (36-46); Hemoglobin 11.6 g/dL (12.0-16.0); Lymphocytes Absolute Auto 2000 /uL (1100-4500); Lymphocytes Percent Auto 24.9 % (25-40); Mean Corpuscular HGB Conc 32.5 % (30-36); Mean Corpuscular Hemoglobin 29.5 PG (26-34); Mean Corpuscular Volume 90.7 fL (80-100); Monocytes Absolute Auto 900 /uL (0-900); Monocytes Percent Auto 10.8 % (3-14); Neutrophils Absolute Auto 4900 /uL (1500-7000); Neutrophils Percent Auto 60.1 % (50-75); Platelet Count 271 X10^3/uL (150-400); Red Blood Cell Count 3.93 X10^6/uL (4.0-5.2); Red Cell Distribution Width 16.5 % (11.6-14.8); White Blood Cell Count 8.1 X10^3/uL (4.5-11.0)
[2021-10-04 22:28] LABS: Alanine Aminotransferase 43 IU/L (<35); Albumin 4.2 g/dL (3.5-5.0); Alkaline Phosphatase 90 U/L (38-126); Aspartate Aminotransferase 58 IU/L (14-36); BUN Creatinine Ratio 18.8 (6-22); Bilirubin Total 0.4 mg/dL (0.2-1.3); Blood Urea Nitrogen 39 mg/dL (7-17); Calcium 9.8 mg/dL (8.4-10.2); Carbon Dioxide 38 mmol/L (22-32); Chloride 91 mmol/L (98-107); Creatine Kinase 72 U/L (30-135); D Dimer 441 ng/mL (<230); Estimated Glomerular Filt Rate 23.4 mL/min (>60); Globulin 4.2 g/dL (1.7-4.1); Glucose 255 mg/dL (80-110); HEMOLYSIS < 15 (0-50); Lipase 225 U/L (23-300); Potassium 4.2 mmol/L (3.4-5.1); Sodium 138 mmol/L (137-145); Total Protein 8.4 g/dL (6.3-8.2)
[2021-10-04 22:40] LABS: NT-proBNP (BNP-Adult 18+) 595 pg/mL (<125); Troponin I 0.026 ng/mL (0.01-0.034)
[2021-10-05] VITALS (11 sets, daily range): BP systolic 105–146; BP diastolic 53–74; PULSE 74–83; RESP 16–23; O2SAT 94–99
[2021-10-05 00:52] LABS: Troponin I 0.031 ng/mL (0.01-0.034)
== END 2021-10-05 08:47 | disposition home or self-care (01) ==
PROVIDERS: Emergency Provider Emergency Medicine; PCP Family Medicine
DX: R07.89 Other chest pain (principal)
CPT/HCPCS: 36415; 71045; 80053; 82550; 83690; 83880; 84484; 85025; 85379; 93005; 93010; 96360; 96361; 99284

== ENCOUNTER → 2021-10-24 08:17 | Outpatient (ROUT) | payer OTHER, MEDICAID, SELFPAY ==
[2019-09-07 13:30] VITALS: BMI 40.4
[2021-10-24 08:50] LABS: Add Manual Diff / Slide Review NO; Basophils Absolute Auto 100 /uL (0-100); Basophils Percent Auto 1.9 % (0-2); Eosinophils Absolute Auto 200 /uL (0-450); Eosinophils Percent Auto 3.1 % (2-4); Hematocrit 35.5 % (36-46); Hemoglobin 11.6 g/dL (12.0-16.0); Lymphocytes Absolute Auto 1700 /uL (1100-4500); Mean Corpuscular HGB Conc 32.7 % (30-36); Mean Corpuscular Hemoglobin 29.8 PG (26-34); Mean Corpuscular Volume 91.2 fL (80-100); Monocytes Absolute Auto 600 /uL (0-900); Monocytes Percent Auto 9.5 % (3-14); Neutrophils Absolute Auto 4000 /uL (1500-7000); Neutrophils Percent Auto 60.5 % (50-75); Platelet Count 247 X10^3/uL (150-400); Red Blood Cell Count 3.89 X10^6/uL (4.0-5.2); Red Cell Distribution Width 16.6 % (11.6-14.8); White Blood Cell Count 6.7 X10^3/uL (4.5-11.0)
[2021-10-24 09:09] LABS: BUN Creatinine Ratio 19.4 (6-22); Blood Urea Nitrogen 39 mg/dL (7-17); Carbon Dioxide 37 mmol/L (22-32); Chloride 95 mmol/L (98-107); Estimated Glomerular Filt Rate 24.2 mL/min (>60); Glucose 181 mg/dL (80-110); HEMOLYSIS < 15 (0-50); Potassium 4.2 mmol/L (3.4-5.1); Sodium 141 mmol/L (137-145)
== END ==
PROVIDERS: PCP Family Medicine; Visit Provider Nurse Practitioner Gerontology
DX: N18.9 Chronic kidney disease, unspecified (principal)
CPT/HCPCS: 36415; 80048; 85025

== ENCOUNTER → 2021-11-23 14:28 | Outpatient (ROUT) | payer OTHER, MEDICAID, SELFPAY ==
[2019-09-07 13:30] VITALS: BMI 40.4
[2021-11-23 14:51] LABS: Add Manual Diff / Slide Review NO; Basophils Absolute Auto 100 /uL (0-100); Basophils Percent Auto 0.7 % (0-2); Eosinophils Absolute Auto 200 /uL (0-450); Eosinophils Percent Auto 2.6 % (2-4); Hematocrit 35.5 % (36-46); Hemoglobin 11.7 g/dL (12.0-16.0); Lymphocytes Absolute Auto 1800 /uL (1100-4500); Lymphocytes Percent Auto 22.8 % (25-40); Mean Corpuscular Hemoglobin 30.5 PG (26-34); Mean Corpuscular Volume 92.2 fL (80-100); Monocytes Absolute Auto 700 /uL (0-900); Monocytes Percent Auto 8.7 % (3-14); Neutrophils Absolute Auto 5200 /uL (1500-7000); Neutrophils Percent Auto 65.2 % (50-75); Platelet Count 250 X10^3/uL (150-400); Red Blood Cell Count 3.85 X10^6/uL (4.0-5.2); Red Cell Distribution Width 15.4 % (11.6-14.8)
[2021-11-23 15:14] LABS: BUN Creatinine Ratio 21.2 (6-22); Blood Urea Nitrogen 40 mg/dL (7-17); Calcium 9.7 mg/dL (8.4-10.2); Carbon Dioxide 33 mmol/L (22-32); Chloride 98 mmol/L (98-107); Glucose 251 mg/dL (80-110); HEMOLYSIS < 15 (0-50); Potassium 4.3 mmol/L (3.4-5.1); Sodium 141 mmol/L (137-145)
== END ==
PROVIDERS: PCP Family Medicine; Visit Provider Internal Medicine
DX: N18.9 Chronic kidney disease, unspecified (principal); D64.9 Anemia, unspecified
CPT/HCPCS: 80048; 85025

== ENCOUNTER → 2021-12-15 15:41 | Outpatient (CLI) | payer OTHER, MEDICAID, SELFPAY ==
[2019-09-07 13:30] VITALS: BMI 40.4
== END ==
PROVIDERS: PCP Family Medicine; Referring Provider Nurse Practitioner Family; Visit Provider Nurse Practitioner Family
DX: L89.323 Pressure ulcer of left buttock, stage 3 (principal); E11.22 Type 2 diabetes mellitus with diabetic chronic kidney disease; I12.9 Hypertensive chronic kidney disease with stage 1 through stage 4 chronic kidney disease, or unspecified chronic kidney disease; N18.9 Chronic kidney disease, unspecified; R32 Unspecified urinary incontinence; I87.2 Venous insufficiency (chronic) (peripheral); E66.01 Morbid (severe) obesity due to excess calories; F03.90 Unspecified dementia, unspecified severity, without behavioral disturbance, psychotic disturbance, mood disturbance, and anxiety; Z72.9 Problem related to lifestyle, unspecified; Z68.43 Body mass index [BMI] 50.0-59.9, adult; Z79.4 Long term (current) use of insulin; Z79.84 Long term (current) use of oral hypoglycemic drugs
CPT/HCPCS: 11042; 87070; 87075; 87077; 87186; 87205; 99204; 99213

== ENCOUNTER → 2021-12-29 14:09 | Outpatient (CLI) | payer OTHER, MEDICAID, SELFPAY ==
[2019-09-07 13:30] VITALS: BMI 40.4
== END ==
PROVIDERS: PCP Family Medicine; Referring Provider Registered Nurse; Visit Provider Nurse Practitioner Family
DX: E11.22 Type 2 diabetes mellitus with diabetic chronic kidney disease (principal); I12.9 Hypertensive chronic kidney disease with stage 1 through stage 4 chronic kidney disease, or unspecified chronic kidney disease; N18.30 Chronic kidney disease, stage 3 unspecified; R32 Unspecified urinary incontinence; I50.20 Unspecified systolic (congestive) heart failure; E03.9 Hypothyroidism, unspecified; D64.9 Anemia, unspecified; E66.01 Morbid (severe) obesity due to excess calories; Z68.43 Body mass index [BMI] 50.0-59.9, adult; Z72.9 Problem related to lifestyle, unspecified; Z79.4 Long term (current) use of insulin; Z87.2 Personal history of diseases of the skin and subcutaneous tissue
CPT/HCPCS: 99212; 99213

== ENCOUNTER 2022-01-06 13:20 | Inpatient (IN) | payer OTHER, MEDICAID, SELFPAY ==
[2019-09-07 13:30] VITALS: BMI 40.4
[2022-01-06] VITALS (9 sets, daily range): BP systolic 109–143; BP diastolic 56–65; PULSE 87–95; RESP 16–24; TEMP 36.1–36.6; O2SAT 89–97; BMI 50.5; BMI 47.5
--- NOTE | 2022-01-06 14:17 | DI.RAD.S_ITS ---
PROCEDURE: XR CHEST 1V INDICATIONS: suspected sepsis TECHNIQUE: One view of the chest was acquired. COMPARISON: [facility], CR, XR CHEST 1V, 10/04/2021, 22:00. FINDINGS: Biventricular pacemaker in good position. Elevation left hemidiaphragm and blunting the left costophrenic angle. Right lung and pleural space clear. Surgical clips noted in the thyroid fossa. Osseous structures unremarkable. Heart size is enlarged. Mild vascular congestion noted. IMPRESSION: Small left pleural effusion with associated atelectasis and or infiltrate. Biventricular pacer in place. Mild cardiomegaly and vascular congestion Approved by: Jerad Brothers M.D. on 01/06/2022 at 14:31
[2022-01-06 14:27] LABS: Bilirubin Urine UA NEGATIVE (NEGATIVE); Color Urine UA YELLOW; Glucose Urine UA NEGATIVE (Negative); Ketones Urine UA NEGATIVE (NEGATIVE); Leukocyte Esterase Urine UA 2+ (NEGATIVE); Nitrite Urine UA POSITIVE (Negative); Occult Blood Urine UA 1+ (Negative); Protein Urine UA NEGATIVE (Negative); Urobilinogen Urine UA 0.2 E.U./dL (0.2)
[2022-01-06 14:30] LABS: pH Urine UA 5.5 (4.5-8.0)
[2022-01-06 14:34] LABS: Lactate (Lactic Acid) 1.3 mmol/L (0.7-2.1)
[2022-01-06 14:35] LABS: Alanine Aminotransferase 34 IU/L (<35); Albumin 4.3 g/dL (3.5-5.0); Alkaline Phosphatase 85 U/L (38-126); Aspartate Aminotransferase 43 IU/L (14-36); BUN Creatinine Ratio 26.1 (6-22); Bilirubin Total 0.4 mg/dL (0.2-1.3); Blood Urea Nitrogen 49 mg/dL (7-17); Calcium 11.1 mg/dL (8.4-10.2); Carbon Dioxide 38 mmol/L (22-32); Chloride 99 mmol/L (98-107); Estimated Glomerular Filt Rate 26.2 mL/min (>60); Globulin 4.4 g/dL (1.7-4.1); Glucose 96 mg/dL (80-110); HEMOLYSIS < 15 (0-50); Lipase 69 U/L (23-300); Potassium 4.4 mmol/L (3.4-5.1); Sodium 141 mmol/L (137-145); Total Protein 8.7 g/dL (6.3-8.2)
--- NOTE | 2022-01-06 14:38 | PC.NURSE ---
nonblanchable pressure injury to sacral/buttocks area. Pt co pain to area. Rolled to side and positioned with pillow to offload pressure.
--- NOTE | 2022-01-06 14:46 | ED_ITS ---
HPI - Altered Mental Status General Chief Complaint: Altered Mental Status Stated Complaint: decreased LOC Time Seen by Provider: 01/06/22 14:43 Source: patient, EMS and RN notes reviewed Mode of arrival: EMS History of Present Illness HPI narrative: Patient is a 76-year-old female who resides at [facility]. She has a history morbid obesity, coronary artery disease presenting today with altered mental status. She apparently has had declining mental status for a couple of days. She she has foul-smelling urine and is incontinent. She has some skin breakdown in her sacral area as well. He is overall extremely poor historian. Complaining of pain in her buttock region. Related Data Home Medications Medication Instructions Recorded Confirmed aspirin 81 mg tablet,delayed 81 mg PO DAILY 09/07/19 01/06/22 release atorvastatin 40 mg tablet 40 mg PO BEDTIME 09/07/19 01/06/22 carvedilol 3.125 mg tablet 3.125 mg PO BID 09/07/19 01/06/22 cholecalciferol (vitamin D3) 25 5,000 unit PO DAILY 09/07/19 01/06/22 mcg (1,000 unit) tablet donepezil 5 mg tablet 5 mg PO DAILY 09/07/19 01/06/22 ferrous sulfate 325 mg (65 mg 325 mg PO DAILY 09/07/19 01/06/22 iron) tablet fluoxetine 40 mg capsule 40 mg PO DAILY 09/07/19 01/06/22 levothyroxine 175 mcg tablet 200 mcg PO DAILY 09/07/19 01/06/22 linagliptin 5 mg tablet (Tradjenta) 5 mg PO DAILY 09/07/19 01/06/22 magnesium oxide 400 mg PO DAILY 09/07/19 01/06/22 nystatin 100,000 unit/gram topical 1 applic TOPICAL BID 09/07/19 01/06/22 powder potassium chloride 10 mEq 10 meq PO DAILY 09/07/19 01/06/22 tablet,extended release acetaminophen 500 mg tablet 1,000 mg PO TID 10/20/19 01/06/22 gabapentin 300 mg capsule 300 mg PO BID 10/20/19 01/06/22 levetiracetam 250 mg tablet 500 mg PO BID 10/20/19 01/06/22 primidone 50 mg tablet 75 mg PO BEDTIME 11/26/19 02/12/22 torsemide 20 mg tablet 40 mg PO DAILY 01/06/22 01/06/22 Allergies Allergy/AdvReac Type Severity Reaction Status Date / Time adhesive tape Allergy Verified 01/06/22 13:27 allopurinol Allergy Verified 01/06/22 13:27 Review of Systems Review of Systems ROS Unobtainable: All systems reviewed & are unremarkable except as noted in HPI and below Constitutional Constitutional: Reports fatigue and Reports weakness Cardiovascular Cardiovascular: Denies chest pain and Denies dyspnea Respiratory Respiratory: Denies dyspnea Gastrointestinal Gastrointestinal: Denies abdominal pain Genitourinary Genitourinary: Reports as per HPI Integumentary/Breasts Skin/Breast: Reports as per HPI, Reports skin ulcer and Reports sores Neurologic Neurologic: Reports confusion and Reports weakness Psychiatric Psychiatric: Reports confusion Endocrine Endocrine: Reports fatigue Patient History Medical History CAD (coronary artery disease) CKD (chronic kidney disease) CVA (cerebral vascular accident) Dementia Diabetes mellitus type 2 in obese GERD (gastroesophageal reflux disease) Heart failure, unspecified Hyperlipidemia Hypertension Hypothyroid Non Hodgkin's lymphoma Pacemaker Thyroid cancer Tremor, unspecified Surgical History History of cholecystectomy History of thyroidectomy Hx of tonsillectomy S/P TAVR (transcatheter aortic valve replacement) Family History Mother Dementia Father Heart attack Social History household members: none Smoking Status: Never smoker alcohol intake: never Smoking Status: Never smoker alcohol intake frequency: 0-2 drinks per day Substance Use Type: does not use Exam Initial Vital Signs Initial Vital Signs: Vital Signs Temperature 97.9 F 01/06/22 13:27 Pulse Rate 94 H 01/06/22 13:27 Respiratory Rate 24 01/06/22 13:27 Blood Pressure 143/61 H 01/06/22 13:27 Pulse Oximetry 94 01/06/22 13:27 GENERAL: Alert 76-year-old female alert appears in pain BMI 47 HEENT: Head atraumatic,EOMI, pupils reactive, face symmetric, moist mucous membranes CARDIOVASCULAR: Regular rate and rhythm without murmurs, rubs or gallops. RESPIRATORY: Breath sounds equal bilaterally, no wheezes rales or rhonchi. ABDOMEN: Soft, nontender. Normoactive bowel sounds all 4 quadrants. No guarding or rebound. : Kimble catheter in place EXTREMITIES: Normal range of motion, no clubbing or edema. Neurovascularly intact NEUROLOGICAL: Moving all extremities SKIN: Warm, dry, no laceration, no petechiae, no rashes or lesions. Scores GCS [place] coma scale eye opening: Spontaneous Maggie coma scale verbal response: Confused [place] coma scale motor response: Localising [place] coma scale total score: 13 Course Orders Ordered: ED Orders 01/06/22 13:27 COVID19 -Nasal swab/Pre-Proc Stat 01/06/22 14:00 Urinalysis and Microscopic Stat Urine Culture Stat 01/06/22 14:10 Complete Blood Count AUTO DIFF Stat Comprehensive Metabolic Panel Stat Lactate (Lactic Acid) Stat Lipase Stat Procalcitonin Stat 01/06/22 14:17 XR chest 1V Stat 01/06/22 15:06 CT head/brain wo con Stat 01/06/22 15:10 Blood Culture Stat Acetaminophen (Acetaminophen 325 Mg Tablet) 650 mg PO Q6HR PRN PRN Reason: Fever/Mild Pain (1-3) Dextrose (Dextrose 50 % In Water 25 Gm/50 Ml Syringe) 25 gm IV PRN PRN PRN Reason: Hypoglycemia Enoxaparin Sodium (Enoxaparin 40 Mg/0.4 Ml Syringe) 40 mg SUBCUT BID SHANI Sodium Chloride (Normal Saline 0.9%) 1,000 mls @ 100 mls/hr IV CONT SHANI Last Admin: 01/06/22 17:59 Dose: 100 mls/hr Documented by: JEREMY Ceftriaxone Sodium 1,000 mg/ (Sodium Chloride) 100 mls @ 200 mls/hr IV Q24H SHANI Stop: 01/08/22 15:01 Insulin Human Lispro (Insulin Lispro 100 Unit/Ml 3ml Vial) 0 unit SUBCUT ACHS SHANI; Protocol Naloxone HCl (Naloxone 0.4 Mg/Ml Vial) 0.2 mg IV Q2MIN PRN PRN Reason: Opiate Reversal Ondansetron HCl (Ondansetron 4 Mg/2 Ml Inj) 4 mg IV Q8HR PRN PRN Reason: Nausea And Vomiting Discontinued Medications Ceftriaxone Sodium 1,000 mg/ (Sodium Chloride) 100 mls @ 200 mls/hr IV NOW ONE Stop: 01/06/22 15:05 Last Infusion: 01/06/22 17:00 Dose: 0 mls/hr Documented by: Infusion: 01/06/22 16:14 Dose: 200 mls/hr Documented by: Infusion: 01/06/22 15:54 Dose: 0 mls/hr Documented by: Admin: 01/06/22 15:48 Dose: 200 mls/hr Documented by: KRISSY Vital Signs Vital signs: Vital Signs - 8 hr 01/06/22 13:27 Temperature 97.9 F Pulse Rate 94 H Respiratory Rate 24 Blood Pressure 143/61 H Pulse Oximetry 94 MDM - Altered Mental Status Lab Data Attestation: I reviewed the patient's lab results. Result diagrams: 01/06/22 14:10 01/06/22 14:10 Labs: Lab Results 01/06/22 01/06/22 01/06/22 Range/Units 13:27 14:00 14:10 WBC 8.2 (4.5-11.0) X10^3/uL RBC 3.95 L (4.0-5.2) X10^6/uL Hgb 11.9 L (12.0-16.0) g/dL Hct 36.1 (36-46) % MCV 91.6 (80-100) fL MCH 30.2 (26-34) PG MCHC 33.0 (30-36) % RDW 15.1 H (11.6-14.8) % Plt Count 273 (150-400) X10^3/uL Neut % (Auto) 68.0 (50-75) % Lymph % (Auto) 19.3 L (25-40) % [place] % (Auto) 8.9 (3-14) % Eos % (Auto) 2.3 (2-4) % Baso % (Auto) 1.5 (0-2) % Neut # (Auto) 5600 (7346-2662) /uL Lymph # (Auto) 1600 (6204-2916) /uL [place] # (Auto) 700 (0-900) /uL Eos # (Auto) 200 (0-450) /uL Baso # (Auto) 100 (0-100) /uL Sodium (137-145) mmol/L Potassium (3.4-5.1) mmol/L Chloride (98-107) mmol/L Carbon Dioxide (22-32) mmol/L BUN (7-17) mg/dL Creatinine (0.52-1.04) mg/dL Estimated GFR (>60) mL/min BUN/Creatinine Ratio (6-22) Glucose (80-110) mg/dL Lactate (0.7-2.1) mmol/L Calcium (8.4-10.2) mg/dL Total Bilirubin (0.2-1.3) mg/dL AST (14-36) IU/L ALT (<35) IU/L Alkaline Phosphatase (38-126) U/L Total Protein (6.3-8.2) g/dL Albumin (3.5-5.0) g/dL Globulin (1.7-4.1) g/dL Albumin/Globulin Ratio (1.0-2.8) Lipase (23-300) U/L Procalcitonin (<0.5) ng/mL Urine Color Yellow Urine Appearance Cloudy Urine pH 5.5 (4.5-8.0) Ur Specific [place] 1.010 (1.000-1.035) Urine Protein Negative (Negative) Urine Glucose (UA) Negative (Negative) g/dL Urine Ketones Negative (NEGATIVE) Urine Occult Blood 1+ H (Negative) Urine Nitrate Positive H (Negative) Urine Bilirubin Negative (NEGATIVE) Urine Urobilinogen 0.2 (0.2) E.U./dL Ur Leukocyte Esterase 2+ H (NEGATIVE) Urine RBC 5-10/hpf H (0-5/HPF) Urine WBC 10-30/hpf H (0-5/HPF) Urine Bacteria Many (>30) H (None) Hyaline Casts 1-5/lpf (None) Ur Culture Indicated? Specimen cultured SARS-CoV-2 (PCR) Negative (Negative) 01/06/22 01/06/22 Range/Units 14:10 14:10 WBC (4.5-11.0) X10^3/uL RBC (4.0-5.2) X10^6/uL Hgb (12.0-16.0) g/dL Hct (36-46) % MCV (80-100) fL MCH (26-34) PG MCHC (30-36) % RDW (11.6-14.8) % Plt Count (150-400) X10^3/uL Neut % (Auto) (50-75) % Lymph % (Auto) (25-40) % [place] % (Auto) (3-14) % Eos % (Auto) (2-4) % Baso % (Auto) (0-2) % Neut # (Auto) (6608-0204) /uL Lymph # (Auto) (6244-6284) /uL [place] # (Auto) (0-900) /uL Eos # (Auto) (0-450) /uL Baso # (Auto) (0-100) /uL Sodium 141 (137-145) mmol/L Potassium 4.4 (3.4-5.1) mmol/L Chloride 99 (98-107) mmol/L Carbon Dioxide 38 H (22-32) mmol/L BUN 49 H (7-17) mg/dL Creatinine 1.88 H (0.52-1.04) mg/dL Estimated GFR 26.2 L (>60) mL/min BUN/Creatinine Ratio 26.1 H (6-22) Glucose 96 (80-110) mg/dL Lactate 1.3 (0.7-2.1) mmol/L Calcium 11.1 H (8.4-10.2) mg/dL Total Bilirubin 0.4 (0.2-1.3) mg/dL AST 43 H (14-36) IU/L ALT 34 (<35) IU/L Alkaline Phosphatase 85 (38-126) U/L Total Protein 8.7 H (6.3-8.2) g/dL Albumin 4.3 (3.5-5.0) g/dL Globulin 4.4 H (1.7-4.1) g/dL Albumin/Globulin Ratio 1.0 (1.0-2.8) Lipase 69 (23-300) U/L Procalcitonin 0.07 (<0.5) ng/mL Urine Color Urine Appearance Urine pH (4.5-8.0) Ur Specific [place] (1.000-1.035) Urine Protein (Negative) Urine Glucose (UA) (Negative) g/dL Urine Ketones (NEGATIVE) Urine Occult Blood (Negative) Urine Nitrate (Negative) Urine Bilirubin (NEGATIVE) Urine Urobilinogen (0.2) E.U./dL Ur Leukocyte Esterase (NEGATIVE) Urine RBC (0-5/HPF) Urine WBC (0-5/HPF) Urine Bacteria (None) Hyaline Casts (None) Ur Culture Indicated? SARS-CoV-2 (PCR) (Negative) Imaging Data CT scan - head: Radiologist's Impression: PROCEDURE:? CT HEAD/BRAIN WO CON ? INDICATIONS:? Altered mental status ? TECHNIQUE:? Noncontrast 4.5 mm thick angled axial sections acquired from the foramen magnum to the vertex, with coronal and sagittal reformats.? For radiation dose reduction, the following was used:? automated exposure control, adjustment of mA and/or kV according to patient size.? ? COMPARISON:? [facility], CT, CT HEAD/BRAIN WO CON, 08/07/2020, 3:53. ? FINDINGS:? Image quality:? Excellent.? ? CSF spaces:? Basal cisterns are patent.? No extra-axial fluid collections.? Ventricles are normal in size and shape.? ? Brain:? No midline shift.? No intracranial masses or hemorrhage.? Mccoy-white matter interface is normal.? Moderate cerebral and cerebellar volume loss with multifocal white matter chronic ischemic change noted.? Old posterior parietal bilateral infarcts noted.? Old right frontal infarct noted as well. ? Incidental note is made of fluid-filled slightly expanded sella reflecting a empty sella, unchanged from the prior ? Skull and face:? Calvarium and visualized facial bones are intact, without suspicious lesions.? ? Sinuses:? Visualized sinuses and mastoids are clear.? ? IMPRESSION:? Atrophy, old bilateral parietal and right frontal infarcts, and chronic ischemic change without acute hemorrhage or mass effect ? Approved by: Jerad Brothers M.D. on 01/06/2022 at 15:01? Chest x-ray: Radiologist's Impression: PROCEDURE:? XR CHEST 1V ? INDICATIONS:? suspected sepsis ? TECHNIQUE:? One view of the chest was acquired.? ? COMPARISON:? [facility], CR, XR CHEST 1V, 10/04/2021, 22:00. ? FINDINGS:? ? ? Biventricular pacemaker in good position.? Elevation left hemidiaphragm and blunting the left costophrenic angle.? Right lung and pleural space clear.? Surgical clips noted in the thyroid fossa.? Osseous structures unremarkable. ? Heart size is enlarged.? Mild vascular congestion noted. ? ? IMPRESSION:? ? Small left pleural effusion with associated atelectasis and or infiltrate. ? Biventricular pacer in place.? Mild cardiomegaly and vascular congestion ? ? ? Approved by: Jerad Brothers M.D. on 01/06/2022 at 14:31? ECG Data Interpretation: Paced rhythm rate 91 is artifact noted no ST changes MDM Narrative Medical decision making narrative: Patient has metabolic encephalopathy she is found have a UTI. Reassuring no sign of severe sepsis. Head CT negative. Dr. Kumar accepts Discharge Plan Departure Patient Disposition: Admitted as Observation Clinical Impression: Acute UTI Admit Date/Time: 01/06/22 15:26 Admit Provider: Jose Kumar
[2022-01-06 14:47] LABS: COVID19 -Nasal RAPID Negative (Negative)
[2022-01-06 14:52] LABS: Procalcitonin 0.07 ng/mL (<0.5)
[2022-01-06 14:57] LABS: Appearance Urine UA CLOUDY; RBC Urine 5-10/HPF (0-5/HPF); WBC Urine 10-30/HPF (0-5/HPF)
[2022-01-06 14:58] LABS: Bacteria Urine Many (>30); Culture Indicated Urine Specimen Cultured; Hyaline Casts Urine 1-5/LPF
[2022-01-06 15:04] LABS: Add Manual Diff / Slide Review NO; Basophils Absolute Auto 100 /uL (0-100); Basophils Percent Auto 1.5 % (0-2); Eosinophils Absolute Auto 200 /uL (0-450); Eosinophils Percent Auto 2.3 % (2-4); Hematocrit 36.1 % (36-46); Hemoglobin 11.9 g/dL (12.0-16.0); Lymphocytes Absolute Auto 1600 /uL (1100-4500); Lymphocytes Percent Auto 19.3 % (25-40); Mean Corpuscular Hemoglobin 30.2 PG (26-34); Mean Corpuscular Volume 91.6 fL (80-100); Monocytes Absolute Auto 700 /uL (0-900); Monocytes Percent Auto 8.9 % (3-14); Neutrophils Absolute Auto 5600 /uL (1500-7000); Platelet Count 273 X10^3/uL (150-400); Red Blood Cell Count 3.95 X10^6/uL (4.0-5.2); Red Cell Distribution Width 15.1 % (11.6-14.8); White Blood Cell Count 8.2 X10^3/uL (4.5-11.0)
--- NOTE | 2022-01-06 15:06 | DI.CT.S_ITS ---
PROCEDURE: CT HEAD/BRAIN WO CON INDICATIONS: Altered mental status TECHNIQUE: Noncontrast 4.5 mm thick angled axial sections acquired from the foramen magnum to the vertex, with coronal and sagittal reformats. For radiation dose reduction, the following was used: automated exposure control, adjustment of mA and/or kV according to patient size. COMPARISON: [facility], CT, CT HEAD/BRAIN WO CON, 08/07/2020, 3:53. FINDINGS: Image quality: Excellent. CSF spaces: Basal cisterns are patent. No extra-axial fluid collections. Ventricles are normal in size and shape. Brain: No midline shift. No intracranial masses or hemorrhage. Mccoy-white matter interface is normal. Moderate cerebral and cerebellar volume loss with multifocal white matter chronic ischemic change noted. Old posterior parietal bilateral infarcts noted. Old right frontal infarct noted as well. Incidental note is made of fluid-filled slightly expanded sella reflecting a empty sella, unchanged from the prior Skull and face: Calvarium and visualized facial bones are intact, without suspicious lesions. Sinuses: Visualized sinuses and mastoids are clear. IMPRESSION: Atrophy, old bilateral parietal and right frontal infarcts, and chronic ischemic change without acute hemorrhage or mass effect Approved by: Jerad Brothers M.D. on 01/06/2022 at 15:01
[2022-01-06] MEDS: cefTRIAXone 1,000 MG in SODIUM CHLORIDE 0.9% 100 ML 200 ML IV (15:48)
--- NOTE | 2022-01-06 16:41 | PM.HP.1 ---
History of Present Illness History of Present Illness Chief complaint: decreased LOC Narrative: Enid Almanza is a 74-year-old female with a past medical history significant for CAD status post stent x1, cardiac arrest status post pacemaker, aortic stenosis status post TAVR, hypertension, hyperlipidemia, diabetes mellitus type 2, non-insulin using, CKD stage 4, secondary hypothyroidism status post thyroidectomy for thyroid cancer (unknown type), non-Hodgkin's lymphoma in remission and dementia who presented from [place] assisted living facility?for decreased alertness. She is not currently rousable enough to participate in subjective exam currently so history is largely taken from review of the medical record. She complained of pain in her buttock region to the ER provider. No further history is available for review. She did respond and open eyes somewhat when ABG attempted by respiratory therapy. In the emergency room, the patient was mildly hypertensive but very minimally, the remainder of her vital signs are unremarkable. Laboratory evaluation revealed no significant changes in her CBC and no leukocytosis. Her Carbon dioxide is elevated at 38, have ordered ABG to check for hypercapnea. Calcium also mildly elevated at 11.1. Procalcitonin was negative. Urinalysis was indicative of infection with nitrates and 2+ leuk esterase. Specimen was sent for culture. COVID-19 testing was negative.CXR with mild vascular congestion and head CT without acute abnormality. Patient History Medical History CAD (coronary artery disease) CKD (chronic kidney disease) CVA (cerebral vascular accident) Dementia Diabetes mellitus type 2 in obese GERD (gastroesophageal reflux disease) Heart failure, unspecified Hyperlipidemia Hypertension Hypothyroid Non Hodgkin's lymphoma Pacemaker Thyroid cancer Tremor, unspecified Surgical History History of cholecystectomy History of thyroidectomy Hx of tonsillectomy S/P TAVR (transcatheter aortic valve replacement) Family & Social History Family History Mother Dementia Father Heart attack Social History: household members none Tobacco & Substance use: Smoking Status Never smoker alcohol intake never alcohol intake frequency 0-2 drinks per day Substance Use Type does not use Meds Home Medications and Allergies Home Medications Medication Instructions Recorded Confirmed Type aspirin 81 mg tablet,delayed 81 mg PO DAILY 09/07/19 01/06/22 History release atorvastatin 40 mg tablet 40 mg PO BEDTIME 09/07/19 01/06/22 History carvedilol 3.125 mg tablet 3.125 mg PO BID 09/07/19 01/06/22 History cholecalciferol (vitamin D3) 25 5,000 unit PO DAILY 09/07/19 01/06/22 History mcg (1,000 unit) tablet donepezil 5 mg tablet 5 mg PO DAILY 09/07/19 01/06/22 History ferrous sulfate 325 mg (65 mg 325 mg PO DAILY 09/07/19 01/06/22 History iron) tablet fluoxetine 40 mg capsule 40 mg PO DAILY 09/07/19 01/06/22 History levothyroxine 175 mcg tablet 200 mcg PO DAILY 09/07/19 01/06/22 History linagliptin 5 mg tablet (Tradjenta) 5 mg PO DAILY 09/07/19 01/06/22 History magnesium oxide 400 mg PO DAILY 09/07/19 01/06/22 History nystatin 100,000 unit/gram topical 1 applic TOPICAL BID 09/07/19 01/06/22 History powder potassium chloride 10 mEq 10 meq PO DAILY 09/07/19 01/06/22 History tablet,extended release acetaminophen 500 mg tablet 1,000 mg PO TID 10/20/19 01/06/22 History gabapentin 300 mg capsule 300 mg PO BID 10/20/19 01/06/22 History levetiracetam 250 mg tablet 500 mg PO BID 10/20/19 01/06/22 History primidone 50 mg tablet 75 mg PO BEDTIME 10/20/19 01/06/22 History torsemide 20 mg tablet 40 mg PO DAILY 01/06/22 01/06/22 History Allergies Allergy/AdvReac Type Severity Reaction Status Date / Time adhesive tape Allergy Verified 01/06/22 13:27 allopurinol Allergy Verified 01/06/22 13:27 Review of Systems Review of Systems Narrative: Patient unable to participate in review of systems given altered mental status as noted in HPI. Exam Vital Signs (past 8 hours): - 01/06/22 13:27 01/06/22 16:26 Temperature 97.9 F 97.9 F Pulse Rate 94 H 87 Respiratory Rate 24 18 Blood Pressure 143/61 H 137/56 L Pulse Oximetry 94 95 Oxygen Delivery Method Room Air Oxygen Flow Rate 0 Narrative Exam Narrative: General:? Elderly female lying in bed and in no acute distress, well-developed, well-nourished. Somnolent. HEENT: Normocephalic, atraumatic. External ears without defect. Pupils equal, round, and reactive to light . Anicteric sclerae, moist conjunctivae. Neck: Supple with full range of motion. No jugular venous distension. No lymphadenopathy or thyromegaly.? Cardiovascular: Regular rate and rhythm without murmurs, rubs, or gallops appreciated Pulmonary: Decreased breath sounds with shallow respirations. Sonorous. no use of accessory muscles. Abdomen:? Soft, obese, nondistended. Extremities: No clubbing, cyanosis. bilateral non pitting lower extremity edema is present. Skin: Normal temperature, turgor, and texture; no rash, ulcers, or subcutaneous nodules appreciated. Neurological: Non-verbal, GCS of 8 as noted below but protecting airway. Psychiatric:unable to assess. Objective ECG Impression: A sensed, V-paced rhythm. Labs Result Diagrams: 01/06/22 14:10 01/06/22 14:10 Labs: Laboratory Results - last 24 hr 01/06/22 01/06/22 01/06/22 13:27 14:00 14:10 WBC 8.2 RBC 3.95 L Hgb 11.9 L Hct 36.1 MCV 91.6 MCH 30.2 MCHC 33.0 RDW 15.1 H Plt Count 273 Neut % (Auto) 68.0 Lymph % (Auto) 19.3 L Kings % (Auto) 8.9 Eos % (Auto) 2.3 Baso % (Auto) 1.5 Neut # (Auto) 5600 Lymph # (Auto) 1600 Kings # (Auto) 700 Eos # (Auto) 200 Baso # (Auto) 100 Sodium Potassium Chloride Carbon Dioxide BUN Creatinine Estimated GFR BUN/Creatinine Ratio Glucose Lactate Calcium Total Bilirubin AST ALT Alkaline Phosphatase Total Protein Albumin Globulin Albumin/Globulin Ratio Lipase Procalcitonin Urine Color Yellow Urine Appearance Cloudy Urine pH 5.5 Ur Specific [place] 1.010 Urine Protein Negative Urine Glucose (UA) Negative Urine Ketones Negative Urine Occult Blood 1+ H Urine Nitrate Positive H Urine Bilirubin Negative Urine Urobilinogen 0.2 Ur Leukocyte Esterase 2+ H Urine RBC 5-10/hpf H Urine WBC 10-30/hpf H Urine Bacteria Many (>30) H Hyaline Casts 1-5/lpf Ur Culture Indicated? Specimen cultured SARS-CoV-2 (PCR) Negative 01/06/22 01/06/22 14:10 14:10 WBC RBC Hgb Hct MCV MCH MCHC RDW Plt Count Neut % (Auto) Lymph % (Auto) Kings % (Auto) Eos % (Auto) Baso % (Auto) Neut # (Auto) Lymph # (Auto) Kings # (Auto) Eos # (Auto) Baso # (Auto) Sodium 141 Potassium 4.4 Chloride 99 Carbon Dioxide 38 H BUN 49 H Creatinine 1.88 H Estimated GFR 26.2 L BUN/Creatinine Ratio 26.1 H Glucose 96 Lactate 1.3 Calcium 11.1 H Total Bilirubin 0.4 AST 43 H ALT 34 Alkaline Phosphatase 85 Total Protein 8.7 H Albumin 4.3 Globulin 4.4 H Albumin/Globulin Ratio 1.0 Lipase 69 Procalcitonin 0.07 Urine Color Urine Appearance Urine pH Ur Specific [place] Urine Protein Urine Glucose (UA) Urine Ketones Urine Occult Blood Urine Nitrate Urine Bilirubin Urine Urobilinogen Ur Leukocyte Esterase Urine RBC Urine WBC Urine Bacteria Hyaline Casts Ur Culture Indicated? SARS-CoV-2 (PCR) Assessment & Plan Assessment & Plan narrative: Enid Almanza is a 74-year-old female with a past medical history significant for CAD status post stent x1, cardiac arrest status post pacemaker, aortic stenosis status post TAVR, hypertension, hyperlipidemia, diabetes mellitus type 2, non-insulin using, CKD stage 4, secondary hypothyroidism status post thyroidectomy for thyroid cancer (unknown type), non-Hodgkin's lymphoma in remission and dementia who presented from [facility]?for decreased alertness. 1. Acute toxic / metabolic encephalopathy in setting of known chronic dementia. - possible sepsis from UTI in setting of chronic dementia. - will continue ceftriaxone and follow up cultures. - check ABG to evaluate for hypercapnea. - Head CT with old CVAs, but no acute process. - CXR unremarkable. - f/u urine and blood cultures. 2. Acute cystitis with possible sepsis - SOFA score is 4 given GCS of 11 today as well as renal disease. - continue ceftriaxone. Antibiotics and fluids given in ER 3. Mild hypercalcemia - continue IVF and recheck, likely due to relative dehydration. 4. CAD status post stenting, pacemaker and TAVR, present on admission.? Stable. -Patient has history of stenting with YADIRA to unknown coronary artery.? She also has history of TAVR.? During her operation for TAVR she had cardiac arrest requiring temporary pacemaker and when temporary pacemaker was later removed she again had another cardiac arrest. -Previous cardiac medications including aspirin 81 mg daily, atorvastatin 40 mg daily at bedtime, carvedilol 3.125 mg twice daily, furosemide 40 mg daily, Bishop 3, and potassium chloride 10 mEq daily. Will recheck once able to confirm outside meds. 5. Hypertension, chronic, present on admission.? Stable. -Continue carvedilol 3.125 mg twice daily and furosemide 40 mg daily if confirmed med list. 6. Hyperlipidemia, chronic, present on admission.? Stable. -Continue atorvastatin 40 mg daily at bedtime if confirmed. 7. Diabetes mellitus type 2, non-insulin using, present on admission.? Stable. -Unclear baseline glycemic control.? -until med list from assisted living continue fingersticks with sliding scale. 8. Chronic kidney disease stage 4, present on admission.? Stable. -Unclear baseline creatinine.? Initial creatinine 1.88. Continue to follow. 9. Secondary hypothyroidism, status post thyroidectomy for thyroid cancer, present on admission.? Stable. - continue home medications once obtained from assisted living Code: Full, patient unable to give surrogate decision maker given current confusion / altered mental status. Emergency contact listed as Juliana in fax cover sheet from assisted living. DVT: Lovenox Dispo: Admit as inpatient. I have utilized all available immediate resources to obtain, update, or review the patient's current medications. COVID-19 COVID-19 status: Negative Time Spent With Patient Critical Care time: I spent a total of [] minutes of critical care time on this patient's care today; this time is exclusive of procedural time. Scores GCS Maggie coma scale eye opening: To pressure Maggie coma scale verbal response: Confused [place] coma scale motor response: Localising [place] coma scale total score: 11 SOFA PaO2/FIO2: >=400 mmHg Platelets: >= 150 Bilirubin: < 1.2 mg/dL Hypotension: MAP >= 70 mmHg [place] Coma Scale: 10-12 Renal: Creatinine 1.2-1.9 mg/dL SOFA Score: 3
[2022-01-06 17:25] LABS: HCO3 ABG 37 mmol/L (22-26); PCO2 ABG 61.1 mmHg (35-45); PO2 ABG 56 mmHg (80-100); pH ABG 7.38 (7.35-7.45)
[2022-01-06 17:26] LABS: Fractionated Inspired Oxygen 21; Oxygen Saturation ABG 87 % (95-100); TCO2 ABG 38 mmol/L (21-31)
[2022-01-06] MEDS: SODIUM CHLORIDE 0.9% 1,000 ML 100 ML IV (17:59)
[2022-01-06] MEDS: ENOXAPARIN 40 MG/0.4 ML SYRINGE SUBCUT (21:05)
[2022-01-07] VITALS (17 sets, daily range): BP systolic 111–139; BP diastolic 51–66; PULSE 84–100; RESP 16–22; TEMP 36.3–37.2; O2SAT 88–98
[2022-01-07] MEDS: ACETAMINOPHEN 325 MG TABLET 650 MG PO ×3 (01:27→19:24)
[2022-01-07] MEDS: SODIUM CHLORIDE 0.9% 1,000 ML 100 ML IV ×2 (03:05→12:24)
--- NOTE | 2022-01-07 04:45 | PC.NURSE ---
Shift note: Patient became more alert and responsive, oriented to person and place, with verbalized anxiety and appears restless at times, complaints of hip pain, tylenol was given and stated relief. Maintained on O2 support at 1lpm, denies shortness of breath, O2 sat >89%. Turned and repositioned every 2hrs, pericare rendered. Afebrile, vital signs within acceptable limits. Kimble cath in placed with adequate urine output. Will continue to monitor.
[2022-01-07 06:09] LABS: Add Manual Diff / Slide Review NO; Basophils Absolute Auto 100 /uL (0-100); Basophils Percent Auto 0.8 % (0-2); Eosinophils Absolute Auto 100 /uL (0-450); Eosinophils Percent Auto 1.7 % (2-4); Hematocrit 32.2 % (36-46); Hemoglobin 10.8 g/dL (12.0-16.0); Lymphocytes Absolute Auto 1400 /uL (1100-4500); Lymphocytes Percent Auto 16.9 % (25-40); Mean Corpuscular HGB Conc 33.5 % (30-36); Mean Corpuscular Hemoglobin 30.3 PG (26-34); Mean Corpuscular Volume 90.4 fL (80-100); Monocytes Absolute Auto 900 /uL (0-900); Neutrophils Absolute Auto 5700 /uL (1500-7000); Neutrophils Percent Auto 69.6 % (50-75); Platelet Count 233 X10^3/uL (150-400); Red Blood Cell Count 3.56 X10^6/uL (4.0-5.2); Red Cell Distribution Width 14.9 % (11.6-14.8); White Blood Cell Count 8.2 X10^3/uL (4.5-11.0)
[2022-01-07 06:14] LABS: Alanine Aminotransferase 25 IU/L (<35); Albumin 3.6 g/dL (3.5-5.0); Alkaline Phosphatase 74 U/L (38-126); Aspartate Aminotransferase 40 IU/L (14-36); BUN Creatinine Ratio 26.1 (6-22); Bilirubin Total 0.4 mg/dL (0.2-1.3); Blood Urea Nitrogen 41 mg/dL (7-17); Calcium 9.7 mg/dL (8.4-10.2); Carbon Dioxide 38 mmol/L (22-32); Chloride 101 mmol/L (98-107); Estimated Glomerular Filt Rate 32.2 mL/min (>60); Globulin 3.6 g/dL (1.7-4.1); Glucose 149 mg/dL (80-110); HEMOLYSIS < 15 (0-50); Magnesium 1.6 mg/dL (1.6-2.3); Sodium 142 mmol/L (137-145); Total Protein 7.2 g/dL (6.3-8.2)
[2022-01-07 06:22] LABS: Hemoglobin A1C% w Est Avg Glu 8.1 % (4.0-6.0)
[2022-01-07] MEDS: INSULIN LISPRO 100 UNIT/ML 3ML VIAL SUBCUT ×2 (08:24→12:11)
[2022-01-07] MEDS: FLUoxetine 20 MG CAPSULE 40 MG PO (08:27)
[2022-01-07] MEDS: POTASSIUM CHLORIDE 10 MEQ TAB PO (08:27)
[2022-01-07] MEDS: ASPIRIN EC 81 MG TABLET PO (08:27)
[2022-01-07] MEDS: GABAPENTIN 300 MG CAPSULE PO ×2 (08:27→20:29)
[2022-01-07] MEDS: levETIRAcetam 250 MG TABLET 500 MG PO ×2 (08:27→20:29)
[2022-01-07] MEDS: carvediloL 3.125 MG TABLET PO ×2 (08:28→20:29)
[2022-01-07] MEDS: FERROUS SULFATE 325 MG TABLET PO (08:28)
[2022-01-07] MEDS: ENOXAPARIN 40 MG/0.4 ML SYRINGE SUBCUT ×2 (08:29→20:30)
[2022-01-07] MEDS: NYSTATIN POWDER 15GM 1 APPLIC TOP ×2 (08:38→20:30)
[2022-01-07] MEDS: CHOLECALCIFEROL (VITAMIN D3) 5,000 UNIT TABLET 5000 UNIT PO (08:38)
[2022-01-07] MEDS: MAGNESIUM CHLORIDE 64 MG TABLET 128 MG PO (08:40)
--- NOTE | 2022-01-07 09:31 | PT.IIE ---
Medical History (Last Reviewed 01/06/22 @ 16:42 by Jose Kumar DO) CAD (coronary artery disease) CKD (chronic kidney disease) CVA (cerebral vascular accident) Dementia Diabetes mellitus type 2 in obese GERD (gastroesophageal reflux disease) Heart failure, unspecified Hyperlipidemia Hypertension Hypothyroid Non Hodgkin's lymphoma Pacemaker Thyroid cancer Tremor, unspecified Physical Therapy Inpatient Evaluation/Re-Eval M1 PT/OT-IP Prior Functional Status Start: 01/07/22 07:44 Freq: NEEDED Status: Active Protocol: Document 01/07/22 09:31 AW (Rec: 01/07/22 09:57 AW [id number]) Medical Review Prior Functional Status Medical History Reviewed Yes Communication Pt has dementia at baseline. She speaks in short sentences and requires extra processing time for all responses. She is actively hallucinating during this visit, talking about a dog in the corner. Mobility and Gait Pt is unable to describe her baseline mobility. After evaluation, PT calls [facility] who report she is a lillian lift for all transfers and does not stand. Activities of Daily Living and IADL's Facility staff assist with all ADLs Prior Functional Level (Other details) Per chart notes, pt was SBA with [facility] in August 2019 with fair dynamic balance. Social History Household Members none Living Arrangements Assisted Living M2 PT-IP Current Condition Start: 01/07/22 07:44 Freq: NEEDED Status: Active Protocol: Document 01/07/22 09:31 AW (Rec: 01/07/22 09:57 AW [id number]) Physical Therapy Current Condition Current Condition Evaluation Date 01/07/22 Treatment Diagnosis AMS, sacral PI's, hypercapneic respiratory failure; impaired mobility Onset Date 01/06/22 M3 PT-IP Subjective Start: 01/07/22 07:44 Freq: NEEDED Status: Active Protocol: Document 01/07/22 09:31 AW (Rec: 01/07/22 09:57 AW [id number]) Subjective Physical Therapy Visit Type Type Initial Evaluation Visit Start Time 08:55 Visit Stop Time 09:31 Total Visit Minutes 36 Physical Therapy Visit Comments Patient Comments I've been better. Patient Goals Return to [facility] Pain Assessment Pain When Pain Assessed During Mobility Pain Present Pain Present Pain Reported FLACC Pain Scale Face Frequent/constant frown Legs Uneasy, restless, tense Activity Squirming,shifting Cry Moans/whimpers/complains Consolability Reassurable with touch FLACC Total 6 Location Buttock Scale Used not quantified; see FLACC M4 PT-IP Mobility and Gait Start: 01/07/22 07:44 Freq: NEEDED Status: Active Protocol: Document 01/07/22 09:31 AW (Rec: 01/07/22 09:57 AW [id number]) PT-Bed Mobility Assessment Rolling Level of Assist Maximal Assistance,1 Person Assistance Supine to Sit Supine to Sit Maximum Assistance,Total Assistance,1 Person Assistance Sit to Supine Sit to Supine Moderate Assistance,Maximum Assistance,1 Person Assistance Scooting Scooting Up and Down in Bed Dependent PT-Transfer Assessment Comments Mobility Comments Pt was sitting up in bed trying to eat breakfast as PT arrived. BUE were tremulous which complicated feeding. BP was 124/61 HR 100. SpO2 was 95 % on room air. Pt complained of buttock pain (right more affected than left) but agreed to attempt sitting up EOB. With HOB max elevated, pt required max A x 1 to sit up. PT moved her legs to the side and provided bed cane for pt to use to pull her trunk upright. Once sitting, pt was able to use bed cane to stabilize herself without need for further assist to maintain seated balance. Pt is grossly weak and not following commands well enough to attempt standing. She was assisted back to supine mod A x 1. She rolled to her left side with heavy use of bed tilt features for RN to inspect skin. She required total A x 2 for scooting up in the bed. SpO2 was 89% room air. RN applied 1.5 lpm NC and SpO2 recovered to 92% almost immediately. Pt was left with RN attending. Gait Assessment Comments Gait Comments Pt is not ambulatory at baseline PT-Balance Assessment Sitting Balance and Reactions Static Sitting Balance Ability Fair Dynamic Sitting Balance Ability Poor M5 PT-IP Objective Assessments Start: 01/07/22 07:44 Freq: NEEDED Status: Active Protocol: Document 01/07/22 09:31 AW (Rec: 01/07/22 09:57 AW [id number]) Orientation Orientation/Cognition Level of Alertness Confusional State Orientation Name,Place Gross Range of Motion Lower Extremity ROM Assessment Bilaterally Impaired Impairments Habitus impairs LE mobility Strength Lower Extremity Strength Assessment Bilaterally Impaired Comments Strength Comments Pt requires assist with all LE movements but is able to elevate RLE to the bed in left sidelying. Sensation Assessment Comments Sensation Comments Unable to formally assess due to cognition. Muscle Tone Muscle Tone WNL No Comments Muscle Tone Comments Hypotonia throughout BLE. BUE tremulous. M6 PT-IP Treatment Start: 01/07/22 07:44 Freq: NEEDED Status: Active Protocol: Document 01/07/22 09:31 AW (Rec: 01/07/22 09:57 AW [id number]) Physical Therapy Treatment Education Education Provided Safety M7 PT-IP Assessment and Plan Start: 01/07/22 07:44 Freq: NEEDED Status: Active Protocol: Document 01/07/22 09:31 AW (Rec: 01/07/22 09:57 AW [id number]) PT Summary Assessment and Plan Potential Rehabilitation Potential Poor Status of Condition at Evaluation Evolving Summary Assessment Summary Enid is a 76 yo woman admitted with AMS, hypercapneic respiratory failure, and sacral wounds. She is currently being followed by outpatient wound care. She resides at [facility]. After assessment - during which pt required max to total assist with bed mobility and was deemed unsafe for out of bed activity - phone call to [facility] confirms she is a lillian lift at baseline and does not stand to transfer. No acute PT needs are identified. Will complete orders at this time. Advised RN to use lillian for any transfer needs. Frequency of Treatment Frequency Of Treatment Discharge Recommendations To Nursing Amount of Assist Needed Mechanical Lift Discharge Recommendations PT Discharge Recommendations Home with 24/7 Assist Available
--- NOTE | 2022-01-07 12:02 | CM.DANOTE ---
Addendum entered by Charissa Bermeo R.N. 01/07/22 14:37: Osiris, nurse at [facility] called back. Confirmed that she is hoier at baseline, and she eats on her own. Stated that patient's wounds have resolved, and no longer goes to wound clinic. She is aware that [facility] most likely will be ready for discharge tomorrow. She did indicate that their nurse, Sola, may need to come over and assess before returning, since she has been out for over 24 hours. Original Note: DCP: Case received, EMR reviewed and met with patient. Lianna physical therapist was able to get in contact with [facility] nurse to inquire upon patient's baseline mobility status at their facility. DCP assessment was completed based upon information currently available. Patient is a 76 year old female who admitted yesterday afternoon to the care of the hospitalist team. PCP: Dr. Bose. Payer: confirmed: [employer]/Medicaid. Patient came to the hospital via ambulance secondary to having decreased LOC. Patient was difficult to rouse. She was diagnosed with acute toxic/metabolic encephalopathy, with acute cystitis. Checked on patient in her room. Karyn Dsouza was in room and getting ready to work with her. She was in pain to to her having some break down to her sacral area. Lianna was able to contact [facility] nurse, Osiris, who confirmed that patient is a hoier lift at her baseline. Lianna was able to get her to scoot to the edge of the bed. Discussed patient during rounds. She is more alert, for she had been somulent at admission. She is being treated for UTI with IV ABO. Patient may be ready for discharge tomorrow, according to hospitalist. Called over at [facility], left a message at the nursing station regarding patient, to inquire about would care. In the message, let nursing know that patient will likely be ready for discharge tomorrow, but is currently being treated for UTI. P: DCP to continue to follow. Patient should be able to return back to [facility], they will either transport, or may order Medicaid transport if needed. There is a message out for [facility] nurse to call back. Charissa Bermeo RN/News Technical Director Discharge Planning/Care Management CM Discharge Assessment Start: 01/07/22 12:01 Freq: Status: Active Protocol: Document 01/07/22 12:01 (Rec: 01/07/22 12:02 [id number]) Discharge Planning Assessment Assigned Human Resources Receptionist Charissa Bermeo RN/News Technical Director Advance Directives? Yes Advance Directives on File No History Provided By Patient,Medical Record Prior Living Arrangements Assisted Living Household Members none Type of transporation used prior to Relies on Others admit Independent with ADL's No Is patient alert and oriented? Yes Needs Assistance With Bathing,Grooming,Meal Prep, Toileting,Managing Medications ,Home Chores / Shopping DME Already Rented / Owned Wheelchair Discharge Plan Assisted Living Facility Transportation Arrangement Facility or Medicaid Transport Referrals Initiated None needed Whiteboard Updated in Patient Room with Yes name and ext. # of Human Resources Receptionist Review Status In Process Next Review Type Continued Stay Review
--- NOTE | 2022-01-07 14:43 | P.PN_ITS ---
Subjective Subjective Date Patient Seen: 01/07/22 Time Patient Seen: 12:00 Interval history: Much improved mentation today, still feels a bit confused but denies nausea, vomiting. No abdominal pain, chest pain, or shortness of breath. Exam Vital Signs (past 8 hours): - 01/07/22 07:30 01/07/22 08:00 01/07/22 08:30 Temperature 98.9 F Pulse Rate 100 H Respiratory Rate 18 Blood Pressure 121/51 L Pulse Oximetry 94 91 88 L 01/07/22 08:35 01/07/22 08:55 01/07/22 11:16 Temperature Pulse Rate Respiratory Rate Blood Pressure Pulse Oximetry 92 94 96 01/07/22 12:00 Temperature 97.3 F L Pulse Rate 84 Respiratory Rate 18 Blood Pressure 139/66 Pulse Oximetry 96 Oxygen Delivery Method Room Air Oxygen Flow Rate 1 Narrative Exam Narrative: General:? Elderly female lying in bed and in no acute distress, well-developed, well-nourished. HEENT: Normocephalic, atraumatic. External ears without defect. Pupils equal, round, and reactive to light . Anicteric sclerae, moist conjunctivae. Neck: Supple with full range of motion. No jugular venous distension. No lymphadenopathy or thyromegaly.? Cardiovascular: Regular rate and rhythm without murmurs, rubs, or gallops appreciated Pulmonary: Decreased breath sounds with shallow respirations. Sonorous. no use o f accessory muscles. Abdomen:? Soft, obese, nondistended. Extremities: No clubbing, cyanosis. bilateral non pitting lower extremity edema is present. Skin: Normal temperature, turgor, and texture; no rash, ulcers, or subcutaneous nodules appreciated. Neurological: alert and oriented to name only, but awake and answers questions appropriately. Baseline mentation unknown. Objective Labs Result Diagrams: 01/07/22 05:27 01/07/22 05:27 Labs: Laboratory Results - last 24 hr 01/06/22 01/06/22 01/06/22 13:27 14:00 14:10 WBC 8.2 RBC 3.95 L Hgb 11.9 L Hct 36.1 MCV 91.6 MCH 30.2 MCHC 33.0 RDW 15.1 H Plt Count 273 Neut % (Auto) 68.0 Lymph % (Auto) 19.3 L Dickens % (Auto) 8.9 Eos % (Auto) 2.3 Baso % (Auto) 1.5 Neut # (Auto) 5600 Lymph # (Auto) 1600 Dickens # (Auto) 700 Eos # (Auto) 200 Baso # (Auto) 100 ABG pH ABG pCO2 ABG pO2 ABG HCO3 ABG Total CO2 ABG O2 Saturation ABG Base Excess FiO2 Sodium Potassium Chloride Carbon Dioxide BUN Creatinine Estimated GFR BUN/Creatinine Ratio Glucose Hemoglobin A1c Lactate Calcium Magnesium Total Bilirubin AST ALT Alkaline Phosphatase Total Protein Albumin Globulin Albumin/Globulin Ratio Lipase Procalcitonin Urine Appearance Cloudy Urine RBC 5-10/hpf H Urine WBC 10-30/hpf H Urine Bacteria Many (>30) H Hyaline Casts 1-5/lpf Ur Culture Indicated? Specimen cultured SARS-CoV-2 (PCR) Negative 01/06/22 01/06/22 01/06/22 14:10 14:10 17:06 WBC RBC Hgb Hct MCV MCH MCHC RDW Plt Count Neut % (Auto) Lymph % (Auto) Dickens % (Auto) Eos % (Auto) Baso % (Auto) Neut # (Auto) Lymph # (Auto) Dickens # (Auto) Eos # (Auto) Baso # (Auto) ABG pH 7.38 ABG pCO2 61.1 H* ABG pO2 56 L ABG HCO3 37 H ABG Total CO2 38 H ABG O2 Saturation 87 L ABG Base Excess 11.0 H FiO2 21 Sodium 141 Potassium 4.4 Chloride 99 Carbon Dioxide 38 H BUN 49 H Creatinine 1.88 H Estimated GFR 26.2 L BUN/Creatinine Ratio 26.1 H Glucose 96 Hemoglobin A1c Lactate 1.3 Calcium 11.1 H Magnesium Total Bilirubin 0.4 AST 43 H ALT 34 Alkaline Phosphatase 85 Total Protein 8.7 H Albumin 4.3 Globulin 4.4 H Albumin/Globulin Ratio 1.0 Lipase 69 Procalcitonin 0.07 Urine Appearance Urine RBC Urine WBC Urine Bacteria Hyaline Casts Ur Culture Indicated? SARS-CoV-2 (PCR) 01/07/22 01/07/22 01/07/22 05:27 05:27 05:27 WBC 8.2 RBC 3.56 L Hgb 10.8 L Hct 32.2 L MCV 90.4 MCH 30.3 MCHC 33.5 RDW 14.9 H Plt Count 233 Neut % (Auto) 69.6 Lymph % (Auto) 16.9 L Dickens % (Auto) 11.0 Eos % (Auto) 1.7 L Baso % (Auto) 0.8 Neut # (Auto) 5700 Lymph # (Auto) 1400 Dickens # (Auto) 900 Eos # (Auto) 100 Baso # (Auto) 100 ABG pH ABG pCO2 ABG pO2 ABG HCO3 ABG Total CO2 ABG O2 Saturation ABG Base Excess FiO2 Sodium 142 Potassium 4.0 Chloride 101 Carbon Dioxide 38 H BUN 41 H Creatinine 1.57 H Estimated GFR 32.2 L BUN/Creatinine Ratio 26.1 H Glucose 149 H Hemoglobin A1c 8.1 H Lactate Calcium 9.7 Magnesium 1.6 Total Bilirubin 0.4 AST 40 H ALT 25 Alkaline Phosphatase 74 Total Protein 7.2 Albumin 3.6 Globulin 3.6 Albumin/Globulin Ratio 1.0 Lipase Procalcitonin Urine Appearance Urine RBC Urine WBC Urine Bacteria Hyaline Casts Ur Culture Indicated? SARS-CoV-2 (PCR) [facility] Medical History CAD (coronary artery disease) CKD (chronic kidney disease) CVA (cerebral vascular accident) Dementia Diabetes mellitus type 2 in obese GERD (gastroesophageal reflux disease) Heart failure, unspecified Hyperlipidemia Hypertension Hypothyroid Non Hodgkin's lymphoma Pacemaker Thyroid cancer Tremor, unspecified Surgical History History of cholecystectomy History of thyroidectomy Hx of tonsillectomy S/P TAVR (transcatheter aortic valve replacement) Family History Mother Dementia Father Heart attack Social History household members: none Smoking Status: Never smoker alcohol intake: never Assessment & Plan Assessment & Plan narrative: Enid Almanza is a 74-year-old female with a past medical history significant for CAD status post stent x1, cardiac arrest status post pacemaker, aortic stenosis status post TAVR, hypertension, hyperlipidemia, diabetes mellitus type 2, non- insulin using, CKD stage 4, secondary hypothyroidism status post thyroidectomy for thyroid cancer (unknown type), non-Hodgkin's lymphoma in remission and d ementia who presented from [facility] living [facility]?for decreased alertness. 1. Acute toxic / metabolic encephalopathy in setting of known chronic dementia, improving. ?- probable sepsis from UTI in setting of chronic dementia. GCS 11 on admit, now improved to just mild confusion. ?- will continue ceftriaxone and follow up cultures. ?- ABG with PCO2 but no acidosis, likely chronic hypercapnea and much improved today. ?- Head CT with old CVAs, but no acute process. ?- CXR unremarkable. ?- f/u urine and blood cultures. 2. Acute cystitis with possible sepsis ?- SOFA score is 4 given GCS of 11 on admission as well as renal disease. ?- continue ceftriaxone. Antibiotics and fluids given in ER - follow up cultures. 3. Mild hypercalcemia, resolved ?- continue IVF today but calcium level now normal, likely due to dehdydration. 4. CAD status post stenting, pacemaker and TAVR, present on admission.? Stable. -Patient has history of stenting with YADIRA to unknown coronary artery.? She also has history of TAVR.? During her operation for TAVR she had cardiac arrest requiring temporary pacemaker and when temporary pacemaker was later removed she again had another cardiac arrest. -Continue home medications. 5. Hypertension, chronic, present on admission.? Stable. -Continue home medications. 6. Hyperlipidemia, chronic, present on admission.? Stable. -Continue atorvastatin 40 mg daily at bedtime if confirmed. 7. Diabetes mellitus type 2, non-insulin using, present on admission.? Stable. -Unclear baseline glycemic control.? -continue sliding scale only for now. AM sugar 149 today. -A1c 8.1%. 8. Acute kidney injury on Chronic kidney disease stage 4, present on admission. -Unclear baseline creatinine.? Initial creatinine 1.88 improved to 1.57 today with fluids. 9. Secondary hypothyroidism, status post thyroidectomy for thyroid cancer, present on admission.? Stable. ?- continue home medications once obtained from assisted living 10. Chronic hypercapnic respiratory failure - PCO2 on ABG of 60 but compensated. Likely baseline from presumed Obesity hypoventilation syndrome. Code: Full, patient unable to give surrogate decision maker given current confusion / altered mental status. Emergency contact listed as Juliana in fax cover sheet from assisted living. DVT: Lovenox Dispo: Admitted as inpatient. Anticipate return to assisted living in the next 1-2 days with continued improvement in encephalopathy. I have utilized all available immediate resources to obtain, update, or review the patient's current medications. Time Spent With Patient Critical Care time: I spent a total of [] minutes of critical care time on this patient's care today; this time is exclusive of procedural time. Quality VTE Deep Vein Thrombosis/Pulmonary Embolism Present on Admission: No
[2022-01-07] MEDS: cefTRIAXone 1,000 MG in SODIUM CHLORIDE 0.9% 100 ML 200 ML IV (14:49)
[2022-01-07] MEDS: DONEPEZIL 5 MG TABLET PO (20:29)
[2022-01-07] MEDS: ATORVASTATIN 20 MG TABLET 40 MG PO (20:29)
[2022-01-08] VITALS (17 sets, daily range): BP systolic 118–137; BP diastolic 32–79; PULSE 80–104; RESP 16–24; TEMP 36.6–37.7; O2SAT 91–95
--- NOTE | 2022-01-08 01:38 | PC.NURSE ---
Large BM during this shift. Thoroughly cleaned sacrum, applied barrier cream, and applied padded allevyn's dressing to pressure injuries. Waffle cushion in place. Patient laying right side after complete bed change, refused the following turn 2 hours later. Continuing to attempt repositionings throughout shift.
[2022-01-08 06:25] LABS: Add Manual Diff / Slide Review NO; Basophils Absolute Auto 100 /uL (0-100); Eosinophils Absolute Auto 200 /uL (0-450); Hematocrit 33.2 % (36-46); Hemoglobin 11.1 g/dL (12.0-16.0); Lymphocytes Absolute Auto 1400 /uL (1100-4500); Lymphocytes Percent Auto 16.7 % (25-40); Mean Corpuscular HGB Conc 33.3 % (30-36); Mean Corpuscular Hemoglobin 30.1 PG (26-34); Mean Corpuscular Volume 90.4 fL (80-100); Monocytes Absolute Auto 900 /uL (0-900); Monocytes Percent Auto 11.6 % (3-14); Neutrophils Absolute Auto 5600 /uL (1500-7000); Neutrophils Percent Auto 68.7 % (50-75); Platelet Count 228 X10^3/uL (150-400); Red Blood Cell Count 3.67 X10^6/uL (4.0-5.2); Red Cell Distribution Width 14.7 % (11.6-14.8); White Blood Cell Count 8.1 X10^3/uL (4.5-11.0)
[2022-01-08] MEDS: LEVOTHYROXINE 100 MCG TABLET 200 MCG PO (06:26)
[2022-01-08 06:34] LABS: Alanine Aminotransferase 22 IU/L (<35); Albumin 3.7 g/dL (3.5-5.0); Albumin Globulin Ratio 0.9 (1.0-2.8); Alkaline Phosphatase 71 U/L (38-126); Aspartate Aminotransferase 50 IU/L (14-36); BUN Creatinine Ratio 19.3 (6-22); Bilirubin Total 0.5 mg/dL (0.2-1.3); Blood Urea Nitrogen 27 mg/dL (7-17); Calcium 9.4 mg/dL (8.4-10.2); Carbon Dioxide 37 mmol/L (22-32); Chloride 100 mmol/L (98-107); Estimated Glomerular Filt Rate 36.8 mL/min (>60); Globulin 4.1 g/dL (1.7-4.1); Glucose 170 mg/dL (80-110); HEMOLYSIS < 15 (0-50); Magnesium 1.6 mg/dL (1.6-2.3); Potassium 3.9 mmol/L (3.4-5.1); Sodium 140 mmol/L (137-145); Total Protein 7.8 g/dL (6.3-8.2)
[2022-01-08] MEDS: INSULIN LISPRO 100 UNIT/ML 3ML VIAL SUBCUT ×3 (08:25→17:33)
[2022-01-08] MEDS: carvediloL 3.125 MG TABLET PO (08:26)
[2022-01-08] MEDS: ASPIRIN EC 81 MG TABLET PO (08:26)
[2022-01-08] MEDS: ENOXAPARIN 40 MG/0.4 ML SYRINGE SUBCUT ×2 (08:26→21:11)
[2022-01-08] MEDS: GABAPENTIN 300 MG CAPSULE PO (08:27)
[2022-01-08] MEDS: FERROUS SULFATE 325 MG TABLET PO (08:27)
[2022-01-08] MEDS: FLUoxetine 20 MG CAPSULE 40 MG PO (08:27)
[2022-01-08] MEDS: ACETAMINOPHEN 325 MG TABLET 650 MG PO ×2 (08:27→20:49)
[2022-01-08] MEDS: CHOLECALCIFEROL (VITAMIN D3) 5,000 UNIT TABLET 5000 UNIT PO (08:27)
[2022-01-08] MEDS: POTASSIUM CHLORIDE 10 MEQ TAB PO (08:27)
[2022-01-08] MEDS: levETIRAcetam 250 MG TABLET 500 MG PO (08:27)
[2022-01-08] MEDS: NYSTATIN POWDER 15GM 1 APPLIC TOP ×2 (08:29→21:13)
--- NOTE | 2022-01-08 09:38 | OT.IPNOTE ---
Per chart review pt is dep in all ADLs and functional mobility at baseline. Per P.T. note: PT calls [facility] who report she is a lillian lift for all transfers and does not stand. Activities of Daily Living and IADL's: Facility staff assist with all ADLs Will discharge pt from OT services as baseline is dependent.
[2022-01-08] MEDS: SODIUM CHLORIDE 0.9% 1,000 ML 100 ML IV (09:51)
[2022-01-08] MEDS: OXYCODONE IR 5 MG TABLET PO (10:44)
--- NOTE | 2022-01-08 11:02 | CM.DPC ---
DCP continued: During Am round Dr. Barbosa stated he will be DC the patient home today. NATALIE called [facility] and talked with Sola who stated she will need to come and get eyes on the patient to make sure she is ready for DC and that they can accept the patient back to there facility at OR. CM let the patients nurse know of Sola's visit and the patients nurse let CM know she was behaving a little differently and they gave the patient pain medication to see if that helped the patient feel less shaky and ready for DC. NATALIE will follow up with Sola from [place] after her visit and Cm will also follow up with the patients nurse to see on the patients potential for DC today. Shani Bocanegra RNrespiratory manager
--- NOTE | 2022-01-08 12:51 | PM.PN.1 ---
Subjective Subjective Date Patient Seen: 01/08/22 Time Patient Seen: 08:00 Interval history: She is confused, she seems to be moaning in pain. Nurse who has been taking care of her other days says she is more alert than when admitted. When asked where her pain is she says her UTI. Exam Vital Signs (past 8 hours): - 01/08/22 05:00 01/08/22 08:00 01/08/22 08:26 Temperature 97.9 F Pulse Rate 100 H 100 H Respiratory Rate 19 Blood Pressure 118/62 118/62 Pulse Oximetry 91 94 01/08/22 09:41 Temperature Pulse Rate Respiratory Rate Blood Pressure Pulse Oximetry 93 Oxygen Delivery Method Room Air Oxygen Flow Rate 0 Narrative Exam Narrative: General: moaning, confused Cardiovascular: Regular rate and rhythm without murmurs Pulmonary: clear bilaterally Abdomen:? Soft, obese, nondistended. Skin: stage 2 sacral decubitus ulcer Neurological: alert and oriented to name only, but awake and answers questions appropriately. Baseline mentation unknown. Objective Labs Result Diagrams: 01/08/22 06:10 01/08/22 06:10 Labs: Laboratory Results - last 24 hr 01/08/22 01/08/22 06:10 06:10 WBC 8.1 RBC 3.67 L Hgb 11.1 L Hct 33.2 L MCV 90.4 MCH 30.1 MCHC 33.3 RDW 14.7 Plt Count 228 Neut % (Auto) 68.7 Lymph % (Auto) 16.7 L Wilkin % (Auto) 11.6 Eos % (Auto) 2.0 Baso % (Auto) 1.0 Neut # (Auto) 5600 Lymph # (Auto) 1400 Wilkin # (Auto) 900 Eos # (Auto) 200 Baso # (Auto) 100 Sodium 140 Potassium 3.9 Chloride 100 Carbon Dioxide 37 H BUN 27 H Creatinine 1.40 H Estimated GFR 36.8 L BUN/Creatinine Ratio 19.3 Glucose 170 H Calcium 9.4 Magnesium 1.6 Total Bilirubin 0.5 AST 50 H ALT 22 Alkaline Phosphatase 71 Total Protein 7.8 Albumin 3.7 Globulin 4.1 Albumin/Globulin Ratio 0.9 L PFSH Medical History CAD (coronary artery disease) CKD (chronic kidney disease) CVA (cerebral vascular accident) Dementia Diabetes mellitus type 2 in obese GERD (gastroesophageal reflux disease) Heart failure, unspecified Hyperlipidemia Hypertension Hypothyroid Non Hodgkin's lymphoma Pacemaker Thyroid cancer Tremor, unspecified Surgical History History of cholecystectomy History of thyroidectomy Hx of tonsillectomy S/P TAVR (transcatheter aortic valve replacement) Family History Mother Dementia Father Heart attack Social History household members: none Smoking Status: Never smoker alcohol intake: never Assessment & Plan Assessment & Plan narrative: Enid Almanza 74W with PMH CAD status post stent x1, cardiac arrest status post pacemaker, aortic stenosis status post TAVR, HTN, HL, DM, CKD stage 3-4, secondary hypothyroidism status post thyroidectomy for thyroid cancer (unknown type), non-Hodgkin's lymphoma in remission and dementia who presented from [facility]?for decreased alertness. 1. Acute toxic / metabolic encephalopathy in setting of known chronic dementia, improving. ?- probable sepsis from UTI in setting of chronic dementia. GCS 11 on admit, now improved to just mild confusion. ?- will continue ceftriaxone and follow up cultures. ?- ABG with PCO2 but no acidosis, likely chronic hypercapnea and much improved today. ?- Head CT with old CVAs, but no acute process. ?- CXR unremarkable. ?- urine cultures show proteus with many resistance but sensitive to ceftriaxone, blood cultures negative 2. Acute cystitis with possible sepsis ?- SOFA score is 4 given GCS of 11 on admission as well as renal disease. ?- continue ceftriaxone. Antibiotics and fluids given in ER 3. Mild hypercalcemia, resolved ?- continue IVF today but calcium level now normal, likely due to dehdydration. 4. CAD status post stenting, pacemaker and TAVR, present on admission.? Stable. -Patient has history of stenting with YADIRA to unknown coronary artery.? She also has history of TAVR.? During her operation for TAVR she had cardiac arrest requiring temporary pacemaker and when temporary pacemaker was later removed she again had another cardiac arrest. -Continue home medications. 5. Hypertension, chronic, present on admission.? Stable. -Continue home medications. 6. Hyperlipidemia, chronic, present on admission.? Stable. -Continue atorvastatin 40 mg daily at bedtime if confirmed. 7. Diabetes mellitus type 2, non-insulin using, present on admission.? Stable. -Unclear baseline glycemic control.? -continue sliding scale only for now. AM sugar 149 today. -A1c 8.1%. 8. Acute kidney injury on Chronic kidney disease stage 4, present on admission. -Unclear baseline creatinine.? Initial creatinine 1.88 improved to 1.57 today with fluids. 9. Secondary hypothyroidism, status post thyroidectomy for thyroid cancer, present on admission.? Stable. ?- continue home medications once obtained from assisted living 10. Chronic hypercapnic respiratory failure - PCO2 on ABG of 60 but compensated. Likely baseline from presumed Obesity hypoventilation syndrome. Code: Full, patient unable to give surrogate decision maker given current confusion / altered mental status. Emergency contact listed as Juliana in fax cover sheet from assisted living. DVT: Lovenox Dispo: Admitted as inpatient. Anticipate return to assisted living in the next 1-2 days with continued improvement in encephalopathy. Time Spent With Patient Critical Care time: I spent a total of [] minutes of critical care time on this patient's care today; this time is exclusive of procedural time. Quality VTE Deep Vein Thrombosis/Pulmonary Embolism Present on Admission: No
[2022-01-08] MEDS: cefTRIAXone 1,000 MG in SODIUM CHLORIDE 0.9% 100 ML 200 ML IV (15:10)
--- NOTE | 2022-01-08 18:11 | PC.NURSE ---
tried to feed patient but she refused to eat lunch and dinner.
--- NOTE | 2022-01-08 22:56 | PC.NURSE ---
Addendum entered by Zeenat Jones R.N. 01/09/22 01:35: Pt had pulled out IV sometime around 0100. New IV site inserted at 0125. Original Note: Pt was given Tylenol at 2048 for a mild fever of 100.0, while swallowing the medication she held the water and one pill in her mouth for an extended period of time and was reminded multiple times to swallow the medication. After swallowing one, this RN asked the patient if the medication could be crushed and given in applesauce, however, she refused and she was given the next pill. Pt held the pill in her mouth again and was reminded several times to swallow. Once she swallowed she began to cough intensely. She did calm down and began to slow her breathing after several reminders. Provider Anna Puente was notified that patient was not able to take the rest of her medications due to it not being safe for her to swallow. Pt has calmed down and is breathing fine, however she continues to moan out from chronic pain. No new orders for IV pain medications given at this time.
[2022-01-09] VITALS (16 sets, daily range): BP systolic 102–130; BP diastolic 44–74; PULSE 97–115; RESP 18–29; TEMP 31.7–37.7; O2SAT 91–96
[2022-01-09 06:42] LABS: Alanine Aminotransferase 20 IU/L (<35); Albumin 3.8 g/dL (3.5-5.0); Albumin Globulin Ratio 1.1 (1.0-2.8); Alkaline Phosphatase 72 U/L (38-126); Aspartate Aminotransferase 48 IU/L (14-36); BUN Creatinine Ratio 15.1 (6-22); Bilirubin Total 0.6 mg/dL (0.2-1.3); Blood Urea Nitrogen 21 mg/dL (7-17); Calcium 9.4 mg/dL (8.4-10.2); Carbon Dioxide 34 mmol/L (22-32); Chloride 100 mmol/L (98-107); Estimated Glomerular Filt Rate 37.1 mL/min (>60); Globulin 3.5 g/dL (1.7-4.1); Glucose 177 mg/dL (80-110); HEMOLYSIS < 15 (0-50); Magnesium 1.6 mg/dL (1.6-2.3); Potassium 3.9 mmol/L (3.4-5.1); Sodium 139 mmol/L (137-145); Total Protein 7.3 g/dL (6.3-8.2)
[2022-01-09 06:52] LABS: Hematocrit 33.6 % (36-46); Hemoglobin 11.1 g/dL (12.0-16.0); Mean Corpuscular HGB Conc 33.1 % (30-36); Mean Corpuscular Hemoglobin 30.1 PG (26-34); Mean Corpuscular Volume 91.1 fL (80-100); Platelet Count 237 X10^3/uL (150-400); Red Blood Cell Count 3.69 X10^6/uL (4.0-5.2); Red Cell Distribution Width 14.7 % (11.6-14.8); White Blood Cell Count 9.3 X10^3/uL (4.5-11.0)
[2022-01-09 06:57] LABS: Add Manual Diff / Slide Review YES
[2022-01-09 07:18] LABS: Anisocytosis 1+; Neutrophils Absolute Manual 7161 /uL (3000-5900); Total Cells Counted 100
[2022-01-09] MEDS: INSULIN LISPRO 100 UNIT/ML 3ML VIAL SUBCUT ×4 (08:40→21:14)
[2022-01-09] MEDS: ENOXAPARIN 40 MG/0.4 ML SYRINGE SUBCUT ×2 (11:37→21:13)
--- NOTE | 2022-01-09 15:56 | P.PN_ITS ---
Subjective Subjective Interval history: The patient denies any acute complaints this morning. She reports feeling overall well. She is aware that she's pending SNF. Exam Vital Signs (past 8 hours): - 01/09/22 08:00 01/09/22 09:21 01/09/22 11:00 Temperature 99.6 F Pulse Rate 107 H Respiratory Rate 18 Blood Pressure 130/71 Pulse Oximetry 92 93 93 01/09/22 12:00 01/09/22 12:29 01/09/22 15:30 Temperature 99.8 F H Pulse Rate 103 H Respiratory Rate 18 Blood Pressure 102/44 L Pulse Oximetry 93 95 91 01/09/22 15:38 Temperature Pulse Rate Respiratory Rate Blood Pressure Pulse Oximetry 96 Oxygen Delivery Method Room Air Oxygen Flow Rate 0 Narrative Exam Narrative: General: moaning, confused Cardiovascular: RRR, S1 and S2 heart sounds normal, no extra heart sounds or murmurs appreciated Pulmonary: clear to auscultation bilaterally Abdomen:? Soft, obese, non-distended, non-tender Skin: stage 2 sacral decubitus ulcer Neurological: alert and oriented to name only, but awake and answers questions appropriately. Baseline mentation unknown. Objective Labs Result Diagrams: 01/09/22 05:50 01/09/22 05:50 Labs: Laboratory Results - last 24 hr 01/09/22 01/09/22 05:50 05:50 WBC 9.3 RBC 3.69 L Hgb 11.1 L Hct 33.6 L MCV 91.1 MCH 30.1 MCHC 33.1 RDW 14.7 Plt Count 237 Neut % (Auto) Not Reportable Lymph % (Auto) Not Reportable Winston % (Auto) Not Reportable Eos % (Auto) Not Reportable Baso % (Auto) Not Reportable Lymph # (Auto) Not Reportable Winston # (Auto) Not Reportable Baso # (Auto) Not Reportable Total Counted 100 Seg Neutrophils % 77.0 H Lymphocytes % (Manual) 10.0 L Atypical Lymphs % 5.0 H Monocytes % (Manual) 4.0 Eosinophils % (Manual) 4.0 Neutrophils # (Manual) 7161 H RBC Morphology Not Reportable Anisocytosis 1+ H Sodium 139 Potassium 3.9 Chloride 100 Carbon Dioxide 34 H BUN 21 H Creatinine 1.39 H Estimated GFR 37.1 L BUN/Creatinine Ratio 15.1 Glucose 177 H Calcium 9.4 Magnesium 1.6 Total Bilirubin 0.6 AST 48 H ALT 20 Alkaline Phosphatase 72 Total Protein 7.3 Albumin 3.8 Globulin 3.5 Albumin/Globulin Ratio 1.1 PFSH Medical History CAD (coronary artery disease) CKD (chronic kidney disease) CVA (cerebral vascular accident) Dementia Diabetes mellitus type 2 in obese GERD (gastroesophageal reflux disease) Heart failure, unspecified Hyperlipidemia Hypertension Hypothyroid Non Hodgkin's lymphoma Pacemaker Thyroid cancer Tremor, unspecified Surgical History History of cholecystectomy History of thyroidectomy Hx of tonsillectomy S/P TAVR (transcatheter aortic valve replacement) Family History Mother Dementia Father Heart attack Social History household members: none Smoking Status: Never smoker alcohol intake: never Assessment & Plan Assessment & Plan narrative: Enid Almanza 74W with H CAD status post stent x1, cardiac arrest status post pacemaker, aortic stenosis status post TAVR, HTN, HL, DM, CKD stage 3-4, secondary hypothyroidism status post thyroidectomy for thyroid cancer (unknown type), non-Hodgkin's lymphoma in remission and dementia who presented from [facility]?for decreased alertness. 1. Acute toxic / metabolic encephalopathy in setting of known chronic dementia, improving. ?- probable sepsis from UTI in setting of chronic dementia. GCS 11 on admit, now improved to just mild confusion. ?- completed 3 days of IV ceftriaxone ?- ABG with PCO2 but no acidosis, likely chronic hypercapnea ?- Head CT with old CVAs, but no acute process. ?- CXR unremarkable. ?- urine cultures show proteus with many resistance but sensitive to ceftriaxone, blood cultures negative 2. Acute cystitis with possible sepsis ?- SOFA score is 4 given GCS of 11 on admission as well as renal disease. ?- IV ceftriaxone. Antibiotics and fluids given in ER 3. Mild hypercalcemia, resolved ?- likely due to dehydration 4. CAD status post stenting, pacemaker and TAVR, present on admission.? Stable. -Patient has history of stenting with YADIRA to unknown coronary artery.? She also has history of TAVR.? During her operation for TAVR she had cardiac arrest requiring temporary pacemaker and when temporary pacemaker was later removed she again had another cardiac arrest. -Continue home medications. 5. Hypertension, chronic, present on admission.? Stable. -Continue home medications. 6. Hyperlipidemia, chronic, present on admission.? Stable. -Continue atorvastatin 40 mg daily at bedtime if confirmed. 7. Diabetes mellitus type 2, non-insulin using, present on admission.? Stable. -Unclear baseline glycemic control.? -continue sliding scale only for now. AM sugar 149 today. -A1c 8.1%. 8. Acute kidney injury on Chronic kidney disease stage 4, present on admission. -Unclear baseline creatinine.? Initial creatinine 1.88 improved to 1.57 today with fluids. 9. Secondary hypothyroidism, status post thyroidectomy for thyroid cancer, present on admission.? Stable. ?- continue home medications once obtained from assisted living 10. Chronic hypercapnic respiratory failure - PCO2 on ABG of 60 but compensated. Likely baseline from presumed Obesity hypoventilation syndrome. Code: Full, patient unable to give surrogate decision maker given current confusion / altered mental status. Emergency contact listed as Juliana in fax cover sheet from assisted living. I have utilized all available immediate resources to obtain, update, or review the patient's current medications. Time Spent With Patient Critical Care time: I spent a total of [] minutes of critical care time on this patient's care today; this time is exclusive of procedural time. Quality VTE Deep Vein Thrombosis/Pulmonary Embolism Present on Admission: No MIPS - Admit I confirm the patient?s Advance Care Plan is present, Code status is documented, Surrogate decision maker is in patient?s record [If Yes, STOP here]: Yes
[2022-01-09] MEDS: NYSTATIN POWDER 15GM 1 APPLIC TOP ×2 (16:45→21:20)
--- NOTE | 2022-01-09 17:30 | ST.IPCSEOM ---
Visit Care Team Role Provider Type Kinsey Bose MD Primary Care Provider Non-Staff Specialty: Family Practice Address: [address] [place] [address], [id number] Email: Lizzy Be DO Emergency Provider Physician Specialty: Emergency Medicine Address: [address] [place] [address], [address] Email: [email or web address] Jose [email or web address] DO Admit Provider Physician Attending Provider Specialty: Internal Medicine Address: [address] [place] [address], [address] Email: [email or web address] Current Diagnoses Other toxic encephalopathy (01/06/22) Past Medical History (Last Reviewed 01/06/22 @ 16:42 by Jose Kumar DO) CAD (coronary artery disease) (Medical) CKD (chronic kidney disease) (Medical) CVA (cerebral vascular accident) (Medical) Dementia (Medical) Diabetes mellitus type 2 in obese (Medical) GERD (gastroesophageal reflux disease) (Medical) Heart failure, unspecified (Medical) History of cholecystectomy (Medical) History of thyroidectomy (Medical) Hx of tonsillectomy (Medical) Hyperlipidemia (Medical) Hypertension (Medical) Hypothyroid (Medical) Non Hodgkin's lymphoma (Medical) Pacemaker (Medical) S/P TAVR (transcatheter aortic valve replacement) (Medical) Thyroid cancer (Medical) Tremor, unspecified (Medical) Speech-Language Pathology Swallow Evaluation TRENCH DIGGING MACHINE OPERATOR Clinical Swallow Evaluation Start: 01/09/22 14:31 Freq: Status: Active Protocol: Document 01/09/22 14:32 JADYN (Rec: 01/09/22 14:56 ZS [id number]) Clinical Swallow Evaluation Session Time Visit Start Time 12:00 Visit Stop Time 13:00 Total Visit Minutes 60 Visit Information Visit Number Initial Evaluation Setting Assessment Location Acute Care Visit Type Note Type Initial evaluation Next Note Type Next Note Type Treatment Note Patient Information Identification Type Name,Wristband History Enid Almanza is a 74-year-old female with a past medical history significant for CAD status post stent x1, cardiac arrest status post pacemaker, aortic stenosis status post TAVR, hypertension, hyperlipidemia, diabetes mellitus type 2, non-insulin using, CKD stage 4, secondary hypothyroidism status post thyroidectomy for thyroid cancer (unknown type), non- Hodgkin's lymphoma in remission and dementia who presented from [facility] facility?for decreased alertness. She presents with acute toxic/ metabolic encephalopathy in setting of known chronic dementia and probable sepsis from UTI. Subjective Observations Enid was reclined in bed when TRENCH DIGGING MACHINE OPERATOR arrived at 12:00. She was moaning, though she denied any pain. Resting tremors observed in both arms and hands. She agreed to participate in swallow evaluation and was repositioned. After repositioning Enid and completing oral mechanism exam , she complained of pain in her buttocks and was repositioned to reduce pain. Nursing assisted with positioning for reduced pain in buttocks and achieve an upright position for PO trials . TRENCH DIGGING MACHINE OPERATOR returned at 15:00 to complete solid PO trials and Enid was seated upright in bed following a bath with daughter at bedside. Enid continued moaning, but was not coughing when TRENCH DIGGING MACHINE OPERATOR returned at 15:00. She did report that she felt itchy, though was agreeable to repositioning and participation in assessment with solid PO trials. Reported by Patient Location Lower Back,Other Other Symptoms Coughing,Difficulty swallowing pills Comment Nursing reported Enid has difficulty swallowing medication and presents with prolonged holding of water in her mouth. NSG added Enid refused for pills to be delivered crushed in carrier despite difficulty taking pills with water. On 01/08/2022 , Enid required reminders to swallow and began to cough intensely following a pill and was unable to take the rest of her pills due to concerns regarding swallow safety, per NSG. Current Diet Regular,Thin liquids Baseline Feeding Method Needs some assistance Objective Assessment Mental Status Alert,Cooperative,Confused Oral Integrity WFL Dentition Within normal limits Lip Function Within normal limits Observation of Lips at Rest Symmetrical Pucker Within normal limits Lip Retraction Within normal limits Alternating Pucker/Lip Retraction Within normal limits Tongue Function Mild impairment Observations of Tongue at Rest Within normal limits Tongue Protrusion Within normal limits Tongue Lateralization Reduced range of motion, Reduced strength Jaw Function Within normal limits Observations of Jaw at Rest Within normal limits Jaw Opening Within normal limits Jaw Closing Within normal limits Hard/Soft Palate Function Within normal limits Observations of Hard/Soft Palate Within normal limits Comment Completed oral mechanism exam with patient. Enid presented with symmetrical features at rest and in motion. Mild resting tremors observed in lips when holding positions (e .g., smiling or puckering), though tremors were not present in lips at rest. Reduced strength and ROM observed with tongue lateralization and elevation. Multiple repetitions of instructions were required for Enid to complete actions and visual models were required for some movements. Enid demonstrated difficulty maintaining a labial seal, though did not exhibit anterior loss of bolus during PO trials. Mild weakness observed in lips, but otherwise structure and function of oral mechanism is WFL for the purposes of speech and swallowing. Food and Liquid Trials Position During Assessment Upright (90 degrees),In bed Liquids Trialed Ice chips,Thin Solids Trialed Puree Administration Type Tea spoon,Straw,Self-feeding, Needs some assistance Oral Impairment Within functional limits Oral Phase Comments No anterior loss of bolus observed for PO trials. Prolonged holding observed with second sip of water through straw cup, though pt swallowed without verbal cues. Patient was receptive to dementia strategy of counting down to swallow (i.e., 3, 2, 1, swallow) to reduce holding of bolus in oral cavity. Mild coughing present prior to PO trials, which patient reported was due to dryness. Coughing continued through PO trials, though pt reported nothing went down the wrong way or difficulty with swallowing. Coughing continued after PO trials. No oral residue following trial of applesauce. When TRENCH DIGGING MACHINE OPERATOR returned at 15:00, pt was not coughing and did not cough following sip of water through straw cup. Pharyngeal Impairment Within normal limits Pharyngeal Phase Comments Coughing observed throughout assessment, though no other overt signs/symptoms of aspiration were present. Cough was unproductive and consistent for TRENCH DIGGING MACHINE OPERATOR's first visit. When TRENCH DIGGING MACHINE OPERATOR returned at 15 :00, cough had subsided and pt exhibited no overt signs/ symptoms of aspiration following trials of water and applesauce. Fatigue/Endurance Endurance WNL Comment No concers with fatigue at this time, though limited trials were completed. Pain management is more likely to impact positioning, fatigue, and swallow safety at this time. Enid participated in assessment at 12:00 and 15:00 for about 15-20 minutes each prior to pain becoming distracting and requiring repositioning. Once repositioned, Enid was unable to continue assessment as she was fatigued from high pain levels. Strategies Attempted Chin tuck,Other Response/Comments Patient required verbal reminders to tuck her chin while swallowing. Patient responded well to a countdown (e.g., 3, 2, 1, swallow) when exhibiting prolonged holding of a bolus in her oral cavity. Findings Swallowing Function Within functional limits Severity of Swallow Impairment Within functional limits Contributing Factors to Swallow Reduced alertness or attention Impairment ,Difficulty following directions Prognosis Good Based on Cognitive status,Family support,Age,Comorbidities Comment Enid presents with swallowing WFL at this time, though limited trials have been completed due to pain. Enid tolerates thin liquids and pureed foods with no overt signs/symptoms of aspiration, though concerns for fatigue secondary to pain limit her ability to meet her nutrition and hydration needs. Continue with regular diet and thin liquids at this time. TRENCH DIGGING MACHINE OPERATOR will continue assessment as pain allows to determine most appropriate diet to safely meet her nutrition and hydration needs. Impact on Safety and Functioning Risk for inadequate nutrition/ hydration Recommendations Instrumental Assessment No Swallowing Treatment Yes Frequency Continued assessment as pain allows to determine appropriate diet Recommended Solids Regular Recommended Liquids Thin Other Recommendations Medications crushed in carrier if possible. If pt requests no carrier, use chin tuck and countdown for swallow to increase swallow safety and reduce holding of bolus in oral cavity. Safety Precautions/Swallowing Feed only when alert,Reduce Recommendations distractions,Remain upright ( 90 degrees) during all oral intake,Upright position at least 30 minutes after meals, Small bites and sips when eating,Slow rate; swallow between bites,Set-up assistance,Strict oral care after intake Medication Recommendations Crushed in Carrier Education Patient/Caregiver Education Described results of evaluation,Family/caregivers expressed understanding of evaluation,Family/caregivers expressed agreement with goals & treatment plans,Family/ caregivers expressed understanding of feeding recommendations,Patient requires further education/ training,Family/caregivers require further education/ training Goals Short-term Goals 1. Continue assessment of solid PO trials to determine most appropriate diet to meet nutrition and hydration needs. Long-term Goals Pt will safely tolerate least restrictive diet to meet her nutritionand hydration needs.
--- NOTE | 2022-01-09 19:26 | PC.NURSE ---
Pt oriented only to self today. Overnight, pt choked on meds so this nurse performed swallow eval this am and noticed delayed swallow with liquids. Speech consulted per MD order. Pt passed swallow eval from speech but still refused to swallow meds, even crushed in pudding. Pt had to spit out bolus after holding it in mouth for several minutes. Hard to tell if this is due to disorientation or an actual mechanical issue with swallowing, but pt did not receive any of her PO meds, MD aware. Per MD, pt may still be suffering from hypercapnia and could benefit from Bipap to help relieve confusion. Pt was placed on Bipap this afternoon for a trial run, which she passed. She will now be transferred to ICU for proper monitoring while wearing Bipap.
--- NOTE | 2022-01-09 19:39 | PC.NURSE ---
Addendum entered by Sarah Ochoa R.N. 01/10/22 00:45: 0045: Bed bath given with total assist x2. Pt tolerated fairly. Pt conversive and making jokes, oriented to self and place. Addendum entered by Sarah Ochoa R.N. 01/09/22 21:41: 2100: Pt swallowed PM meds whole in pudding with no issues. Original Note: 1924: Pt arrived to ICU 226 from room 222 for application of bipap. Pt oriented to self, RR=30s, breath sounds diminished with expiratory wheezes. Call light in reach, bed in locked and low position.
[2022-01-09] MEDS: carvediloL 3.125 MG TABLET PO (21:12)
[2022-01-09] MEDS: OXYCODONE IR 5 MG TABLET PO (21:12)
[2022-01-09] MEDS: levETIRAcetam 250 MG TABLET 500 MG PO (21:13)
[2022-01-09] MEDS: ATORVASTATIN 20 MG TABLET 40 MG PO (21:13)
[2022-01-09] MEDS: DONEPEZIL 5 MG TABLET PO (21:13)
[2022-01-09] MEDS: GABAPENTIN 300 MG CAPSULE PO (21:13)
--- NOTE | 2022-01-09 22:10 | PM.CALLCOV.1 ---
Call Coverage Note Note Date of Patient Contact: 01/09/22 Time of Patient Contact: 22:10 Narrative of Care Provided: Patient briefly assessed. She is confused and after 2 questions, unable to verbalize any longer. I believe she is the patient whom nursing thought the facility was not monitoring her compliance w/BiPap. Nursing attempted to place O2 nasal cannula and she ripped it off. For tonight, she will be housed in the ICU but her status will remain acute care. Have apprised Dr. Hunt.
[2022-01-10] VITALS (18 sets, daily range): BP systolic 101–134; BP diastolic 53–71; PULSE 77–104; RESP 16–27; TEMP 32–37.4; O2SAT 90–98
[2022-01-10] MEDS: OXYCODONE IR 5 MG TABLET PO (01:23)
[2022-01-10] MEDS: LEVOTHYROXINE 100 MCG TABLET 200 MCG PO (05:56)
[2022-01-10] MEDS: POTASSIUM CHLORIDE 20 MEQ/15 ML UDC 10 MEQ PO (09:30)
[2022-01-10] MEDS: ASPIRIN 81 MG CHEW TAB PO (09:30)
[2022-01-10] MEDS: NYSTATIN POWDER 15GM 1 APPLIC TOP ×2 (09:35→20:46)
[2022-01-10] MEDS: INSULIN LISPRO 100 UNIT/ML 3ML VIAL SUBCUT ×4 (09:38→20:56)
[2022-01-10] MEDS: levETIRAcetam 250 MG TABLET 500 MG PO ×2 (09:39→20:43)
[2022-01-10] MEDS: FLUoxetine 20 MG CAPSULE 40 MG PO (09:39)
[2022-01-10] MEDS: ENOXAPARIN 40 MG/0.4 ML SYRINGE SUBCUT (09:39)
[2022-01-10] MEDS: FERROUS SULFATE 325 MG TABLET PO (09:40)
[2022-01-10] MEDS: GABAPENTIN 300 MG CAPSULE PO ×2 (09:40→20:44)
[2022-01-10] MEDS: carvediloL 3.125 MG TABLET PO (09:46)
[2022-01-10] MEDS: CHOLECALCIFEROL (VITAMIN D3) 5,000 UNIT TABLET 5000 UNIT PO (09:46)
--- NOTE | 2022-01-10 10:31 | ST.IPDYTX ---
Visit Care Team Role Provider Type Kinsey Bose MD Primary Care Provider Non-Staff Specialty: Family Practice Address: [address] [place] [address], [address] Email: Hilton Moody MD Other Providers Physician Specialty: Medical Address: Phone: Fax: Email: Angelian Landeros MD Other Providers Physician Specialty: Medical Address: Phone: Fax: Email: Cinthya Ness MD Other Providers Physician Specialty: Medical Address: Phone: Fax: Email: Craig Duke MD Other Providers Physician Specialty: Medical Address: Phone: Fax: Email: Therese Samaniego MD Other Providers Physician Specialty: Internal Medicine Address: Phone: Fax: Email: Dustin Booth MD Other Providers Physician Specialty: Medical Address: Phone: Fax: Email: Bernardo Sidhu MD Other Providers Physician Specialty: Internal Medicine Address: Phone: Fax: Email: Ruben Woods MD Other Providers Physician Specialty: Medical Address: Phone: Fax: Email: Tony Ness MD Other Providers Physician Specialty: Medical Address: Phone: Fax: Email: Merlin Palacios MD Other Providers Physician Specialty: Medical Address: Phone: Fax: Email: Princess Osuna Other Providers Physician Specialty: Medical Address: Phone: Fax: Email: Carlos Espitia MD Other Providers Physician Specialty: Medical Address: Phone: Fax: Email: Lizzy Be DO Emergency Provider Physician Specialty: Emergency Medicine Address: [address] [place] [address], [address] Email: [email or web address] DO Admit Provider Physician Attending Provider Specialty: Internal Medicine Address: [address] [place] [address], [address] Email: [email or web address] PLASTIC BATTERY ASSEMBLER Dysphagia Treatment PLASTIC BATTERY ASSEMBLER Dysphagia Treatment Start: 01/10/22 10:16 Freq: Status: Active Protocol: Document 01/10/22 10:16 JENNYFER (Rec: 01/10/22 10:31 JENNYFER [id number]) Dysphagia Treatment Session Time Visit Start Time 09:40 Visit Stop Time 10:00 Total Visit Minutes 20 Setting Assessment Location Acute Care Visit Type Note Type Treatment Note Next Note Type Next Note Type Treatment Note Patient Information Identification Type Name,ID Card Subjective Observations Pt was finishing bi-pap treatment upon PLASTIC BATTERY ASSEMBLER arrival. Bi -pap mask was removed and pt positioned upright in bed to take oral medication with Nsg. During the session, the pt complained of tingling and soreness around her bottom. Denied other pain and difficulty breathing. Treatment Liquids Trialed Thin Solids Trialed Puree Administration Type Straw,Self-Feeding Oral Strategies Upright at 90 degrees,Dementia Strategies Pharyngeal Strategies Sitting Upright (90 deg) Additional Dysphagia Treatment Oral prompts to swallow Strategies Treatment Activities Assessed pt's swallow safety taking meds. Pt swallowed small pills 2-3 at a time whole in applesauce with mild bolus holding in oral cavity requiring occasional verbal prompts. Improved swallow trigger since yesterday. One pill remained on the pt's tongue post swallow, then cleared with another bite of applesauce. All other pills cleared effectively with no significant oral residue. Pt self-fed 5 bites of applesauce independently with same slowed a/p propulsion and swallow initiation, but again, better than yesterday. She consumed thin liquid medication from med cap with small cough after, seemingly d /t unexpected taste vs laryngeal penetration. She consumed ice water from straw with audible swallows and several small burps after, likely d/t to reduced pharyngeal muscle coordination and large quantity of liquid. Advised pt to take smaller sips, which reduced these symptoms. The pt did not have breakfast and stated she was not hungry. PLASTIC BATTERY ASSEMBLER recommended the pt have small meals/snacks throughout the day vs 3 large meals in order to stimulate appetite and reduce fatigue and physical discomfort from sitting up at length. Pt and Nsg were in agreement. Assessment Patient Response to Treatment Good Rehab Potential Good Assessment of Improvement The pt swallowed medication whole in carrier without difficulty with exception of one pill remaining in oral cavity. This cleared with subsequent bite. Timeliness of oral prep and swallow initiation remains slow but improved since yesterday. Occ verbal prompts were helpful to reduce bolus holding. Pt was able to self- feed. Recommend small bites and sips for swallow safety and small snacks/meals throughout the day to stimulate appetite and promote adequate oral intake. Diet Recommendations Recommendations Continue Current Diet Liquids Order Thin Diet Order Regular Medication Recommendations Whole in Carrier Additional Dietary Needs Reminders to Use Strategies Aspiration Precautions Recommended Precautions Upright at 90 Degrees,Small Bites/Sips Additional Precautions Distant supervision; Prompts to swallow as needed Treatment Plan Placement Recommendation after Discharge Snf Facility Appropriate for Continued Therapy Yes Therapy Recommendations 1. The pt will follow safe swallow strategies to reduce risk of aspiration. 2. The pt will participate in ongoing assessment of swallow safety to guide POC. Dysphagia Goals 1. The pt will tolerate least restrictive diet to meet her nutrition and hydration needs.
--- NOTE | 2022-01-10 11:42 | DI.ECHO.S_ITS ---
[facility]---------+ [facility] +---------+ : : [address] : : : : [id number] : : : : Phone: [phone]+ Echocardiogram Report + + :Name: JANA LOREDO Study Date: 01/10/2022 Height: 67 in : :[facility] ReadingLocation: Weight: 301 lb : : Gender: Female BSA: 2.4 m2 : :: 1945 Age: 76 yrs BP: 101/53 mmHg: :Reason For Study: RULE OUT PE : :Ordering Physician: AUDRA MCCRACKEN : : Performed By: Maria Elena Vilchis : :Referring: AUDRA MCCRACKEN MD : + + Interpretation Summary The ejection fraction is estimated to be 40-45%. Left ventricular wall thickness is mildly increased. Apical and basal inferior hypokinesis Left ventricular function has moderately worsened compared to the previous exam. The mitral valve leaflets are severely calcified. The mitral valve mean gradient is 2.4 mmHg. There is a bioprosthetic aortic valve. There is no hemodynamically significant valvular aortic stenosis. Procedure: A two-dimensional transthoracic echocardiogram with color flow and Doppler was performed. The study quality was technically difficult. Comparison is made with the echocardiogram of 07/11/2020. A contrast injection of Definity was performed to improve assessment of LV function. Left Ventricle: The left ventricle is normal in size. Left ventricular wall thickness is mildly increased. The ejection fraction is estimated to be 40- 45%. Left ventricular function has moderately worsened compared to the previous exam. Apical and basal inferior hypokinesis. Diastolic function could not be accurately assessed due to confounding valvular disease. Right Ventricle: The right ventricle is not well visualized. The right ventricular systolic function is normal. Atria: Right atrium not well visualized. Mitral Valve: The mitral valve leaflets are severely calcified. There is moderate to severe mitral annular calcification. The mitral valve mean gradient is 2.4 mmHg. There is trace mitral regurgitation. Aortic Valve: There is a bioprosthetic aortic valve. There is probable normal prosthetic aortic valve function. There is no hemodynamically significant valvular aortic stenosis. No aortic regurgitation is present. Tricuspid Valve: The tricuspid valve is not well visualized. There is trace tricuspid regurgitation. Pulmonary artery pressures cannot be estimated because of the lack of a measurable TR jet velocity. Pulmonic Valve: The pulmonic valve is not well visualized. There is trace pulmonic regurgitation. Great Vessels: The aortic root is not well visualized but is probably normal size. The ascending aorta is normal in size. The inferior vena cava was not well visualized. Pericardium/ Pleura There is no pericardial effusion. There is no pleural effusion. MMode/2D Measurements & Calculations LVIDd: 4.8 cm LVOT diam: 2.0 cm LVIDs: 3.7 cm asc Aorta Diam: 3.4 cm FS: 21.9 % Ao Arch Diam (Prox Trans): 3.0 cm IVSd: 0.90 cm LVPWd: 1.2 cm LV chong. diameter/BSA (cm/m^2): 2.0 LV sys. diameter/BSA (cm/m^2): 1.6 LA dimension: 4.9 cm TAPSE: 2.0 cm LA A4 area: 32.3 cm2 LA length (vol): 6.7 cm Doppler Measurements & Calculations Ao V2 max: 194.6 cm/sec LVOT Max Topher: 93.6 cm/sec Ao V2 mean: 136.8 cm/sec LV V1 max P.5 mmHg Ao max P.1 mmHg LV V1 VTI: 17.4 cm Ao mean P.3 mmHg DAVID(I,D): 1.5 cm2 Ao V2 VTI: 35.3 cm DAVID(V,D): 1.5 cm2 sev ratio: 0.49 DAVID indexed to BSA (cm^2/m^2): 0.64 MV E max topher: 74.6 cm/sec PA V2 max: 83.3 cm/sec MV A max topher: 107.1 cm/sec PA V2 mean: 53.5 cm/sec MV E/A: 0.70 PA mean P.3 mmHg Lat Peak E' Topher: 4.9 cm/sec PA pr(Accel): 39.6 mmHg E/E' lat: 15.1 MV dec time: 0.17 sec MVA(VTI): 1.9 cm2 MV V2 mean: 71.8 cm/sec SV(LVOT): 54.0 ml MV mean P.4 mmHg MV V2 VTI: 28.6 cm Reading Physician:02:04 PM
--- NOTE | 2022-01-10 12:13 | DI.US.S_ITS ---
PROCEDURE: US PERIPH VENOUS LOW EXTREM BI INDICATIONS: EDEMA TECHNIQUE: Real-time imaging, as well as color and pulse Doppler interrogation, were performed of the deep veins of both legs from the inguinal ligament to the popliteal fossa. COMPARISON: None. FINDINGS: Right: The common femoral, femoral and popliteal veins are normally compressible, and free of intraluminal thrombus. Color and pulse Doppler demonstrate normal phasic intravascular flow. There is normal augmentation response to distal compression maneuver. Left: The common femoral, femoral and popliteal veins are normally compressible, and free of intraluminal thrombus. Color and pulse Doppler demonstrate normal phasic intravascular flow. There is normal augmentation response to distal compression maneuver. IMPRESSION: No evidence of DVT in visualized bilateral lower extremity veins. Dictated by: Tommy Porter M.D. on 01/10/2022 at 14:41 Approved by: Tommy Porter M.D. on 01/10/2022 at 14:41
[2022-01-10] MEDS: BUMETANIDE 1 MG TABLET PO (15:12)
--- NOTE | 2022-01-10 15:45 | DIET.CONS ---
Dietary Consultation Note Admission Date: 01/06/2022 15:26 Assessment: 76y F admitted for decreased LOC referred to nutrition for low christiano score (12). Pt has decreased mobility due to breathing issues and morbid obesity. Pt having quite a bit of pain making offloading q2h difficult. Recc ONS Ensure Max c lunch secondary to moderate POs to support skin integrity. Ht: 170.18 cm Wt: 136.6 kg BMI: 47.5 UBW: Last BM: 01/07/22 (01/07/22 23:00) MNA: 12 Christiano Score: 12 Diet: 01/06/22 Dinner Carbohydrate Consistent Diet Diet Modifications: Ensure Max c lunch Carbohydrate level: Large (4 CHO) Nutrition Percent Meal Consumed 25% 01/09/22 18:00 Percent Meal Consumed 50% 01/09/22 14:46 Labs: RBC 3.69 X10^6/uL (4.0-5.2) L 01/09/22 05:50 Hgb 11.1 g/dL (12.0-16.0) L 01/09/22 05:50 Hct 33.6 % (36-46) L 01/09/22 05:50 Creatinine 1.39 mg/dL (0.52-1.04) H 01/09/22 05:50 Hemoglobin A1c 8.1 % (4.0-6.0) H 01/07/22 05:27 Lactate 1.3 mmol/L (0.7-2.1) 01/06/22 14:10 Electronically Signed by: Lisa Casillas 01/10/22 15:45 Clinical Dietitian [address] [address]
--- NOTE | 2022-01-10 18:21 | PM.PN.1 ---
Subjective Subjective Interval history: Patient reports feeling well this morning. She recalls that her daughter, Zahira, came to visit her yesterday. RN reports good urine output. Given her persistent tachycardia, issues with oxygenation, immobility, and other risk factors, will investigate whether there is VTE. CT PE is precluded given her CKD. However, will order echocardiogram to assess right-sided pressures and lower extremity venous dopplers to assist this work-up. Exam Vital Signs (past 8 hours): - 01/10/22 10:50 01/10/22 11:32 01/10/22 12:58 Temperature 98.8 F Pulse Rate 92 H 88 Respiratory Rate 22 20 Blood Pressure 101/53 L Pulse Oximetry 92 92 98 01/10/22 14:00 01/10/22 15:35 01/10/22 17:00 Temperature 98.3 F Pulse Rate 86 Respiratory Rate 24 Blood Pressure 115/59 L Pulse Oximetry 98 93 95 01/10/22 18:03 Temperature Pulse Rate Respiratory Rate Blood Pressure Pulse Oximetry 90 L Fraction of Inspired Oxygen 30 Oxygen Delivery Method Room Air Oxygen Flow Rate 0 Narrative Exam Narrative: General: sitting up in chair upon my entering the room, eating lunch comfortablyEyes: no scleral icterus appreciated Neck: no carotid bruits appreciated or JVD Cardiovascular: RRR, S1 and S2 heart sounds normal, no extra heart sounds or murmurs appreciated Pulmonary: diminished breath sounds bilaterally, with faint wet crackles over the lung bases Abdomen:? Soft, obese, non-distended, non-tender, bowel sounds present Neurological: alert and oriented to person only, but awake and answers questions appropriately Objective Labs Result Diagrams: 01/09/22 05:50 01/09/22 05:50 Labs: Laboratory Results - last 24 hr 01/09/22 22:10 Nasal Screen MRSA (PCR) Negative for mrsa [facility] Medical History CAD (coronary artery disease) CKD (chronic kidney disease) CVA (cerebral vascular accident) Dementia Diabetes mellitus type 2 in obese GERD (gastroesophageal reflux disease) Heart failure, unspecified Hyperlipidemia Hypertension Hypothyroid Non Hodgkin's lymphoma Pacemaker Thyroid cancer Tremor, unspecified Surgical History History of cholecystectomy History of thyroidectomy Hx of tonsillectomy S/P TAVR (transcatheter aortic valve replacement) Family History Mother Dementia Father Heart attack Social History household members: none Smoking Status: Never smoker alcohol intake: never Assessment & Plan Assessment & Plan narrative: Enid Almanza 74W with PMH CAD status post stent x1, cardiac arrest status post pacemaker, aortic stenosis status post TAVR, HTN, HL, DM, CKD stage 3-4, secondary hypothyroidism status post thyroidectomy for thyroid cancer (unknown type), non-Hodgkin's lymphoma in remission and dementia who presented from [facility]?for decreased alertness. 1. Acute toxic / metabolic encephalopathy in setting of known chronic dementia, improving. ?- probable sepsis from UTI in setting of chronic dementia. GCS 11 on admit, now improved to just mild confusion. ?- completed 3 days of IV ceftriaxone ?- ABG with PCO2 but no acidosis, likely chronic hypercapnea ?- Head CT with old CVAs, but no acute process. ?- CXR unremarkable. ?- urine cultures show proteus with many resistance but sensitive to ceftriaxone, blood cultures negative 2. Acute cystitis with possible sepsis ?- SOFA score is 4 given GCS of 11 on admission as well as renal disease. ?- Completed 3 days of IV ceftriaxone. 3. Mild hypercalcemia, resolved ?- likely due to dehydration 4. CAD status post stenting, pacemaker and TAVR, present on admission.? Stable. -Patient has history of stenting with YADIRA to unknown coronary artery.? She also has history of TAVR.? During her operation for TAVR she had cardiac arrest requiring temporary pacemaker and when temporary pacemaker was later removed she again had another cardiac arrest. -Continue home medications. 5. Hypertension, chronic, present on admission.? Stable. -Continue home medications. 6. Hyperlipidemia, chronic, present on admission.? Stable. -Continue atorvastatin 40 mg daily at bedtime if confirmed. 7. Diabetes mellitus type 2, non-insulin using, present on admission.? Stable. -Unclear baseline glycemic control.? -continue sliding scale only for now. -A1c 8.1%. 8. Acute kidney injury on Chronic kidney disease stage 4, present on admission. -Unclear baseline creatinine. Initial creatinine 1.88 improved to 1.57 with fluids. 9. Secondary hypothyroidism, status post thyroidectomy for thyroid cancer, present on admission.? Stable. ?- continue home levothyroxine replacement therapy 10. Chronic hypercapnic respiratory failure - PCO2 on ABG of 60 but compensated. Likely baseline from presumed obesity hypoventilation syndrome. 11. Obesity, class 3 -This is contributing greatly to patient's chronic comorbidities VTE prophylaxis: Heparin 7,500 tid Time Spent With Patient Critical Care time: I spent a total of [] minutes of critical care time on this patient's care today; this time is exclusive of procedural time. Quality VTE Deep Vein Thrombosis/Pulmonary Embolism Present on Admission: No
--- NOTE | 2022-01-10 19:01 | PC.NURSE ---
PT UNABLE TO GET UP FROM BED EVEN WITH ASSIST OF 2 - REQUIRED USE OF MECH LIFT TO GET TO CHAIR - SHE ATE HER DINNER ALONE AND GETTING SSC WITH HER CBG- VAGUE AND WITH SHORT TERM MEMORY ISSUES
[2022-01-10] MEDS: carvediloL 12.5 MG TABLET PO (20:44)
[2022-01-10] MEDS: ATORVASTATIN 20 MG TABLET 40 MG PO (20:44)
[2022-01-10] MEDS: SODIUM CHLORIDE 0.9% FLUSH 10 ML IV (20:47)
[2022-01-10] MEDS: DONEPEZIL 5 MG TABLET PO (21:04)
[2022-01-10] MEDS: HEPARIN 5,000 UNIT/ML VIAL 7500 UNIT SUBCUT (21:13)
--- NOTE | 2022-01-10 23:24 | P.ICUMDRN_ITS ---
- Date Patient Seen: 01/10/22 Time Patient Seen: 23:20 :: This patient was seen in the Intensive Care Unit via real time interactive two- way audiovisual telecommunication.
--- NOTE | 2022-01-10 23:27 | P.TELICUCN_ITS ---
History of Present Illness Consult details Date Patient Seen: 01/10/22 (9921) Chief complaint: decreased LOC :: This patient was seen in the Intensive Care Unit via real time interactive two- way audiovisual telecommunication. Narrative: 76 y.o. admitted 01/06 with toxic-metabolic encephalopathy and found to have evidence of a UTI. Urine culture is growing Proetus mirabilis. Made ICU status 01/10 due to nocturnal BIPAP initiation by hospitalist; by hospital policy, all BIPAP patients are ICU status. LE dopplers (-) earlier today. 2-D echo w/ LVEF 40-45%. NCHCT (-) for acute pathology on day of admission; old CVAs seen. PMHx: CAD status post stent x1, hx cardiac arrest, hx pacemaker, TAVR, HTN, hyperlipidemia, T2DM, CKD4, secondary hypothyroidism status post thyroidectomy for thyroid cancer (unknown type), non-Hodgkin's lymphoma in remission and dementia. [facility] Medical History (Updated 01/10/22 @ 23:40 by Bernardo Sidhu MD) CAD (coronary artery disease) CKD (chronic kidney disease) CVA (cerebral vascular accident) Dementia Diabetes mellitus type 2 in obese GERD (gastroesophageal reflux disease) Heart failure, unspecified Hyperlipidemia Hypertension Hypothyroid Non Hodgkin's lymphoma Pacemaker Thyroid cancer Tremor, unspecified Surgical History History of cholecystectomy History of thyroidectomy Hx of tonsillectomy S/P TAVR (transcatheter aortic valve replacement) Family History Mother Dementia Father Heart attack Social History household members: none Smoking Status: Never smoker alcohol intake: never Current Medications Current Medications Medications: Home Medications aspirin 81 mg tablet,delayed release 81 mg PO DAILY 09/07/19 [History Confirmed 01/06/22] atorvastatin 40 mg tablet 40 mg PO BEDTIME 09/07/19 [History Confirmed 01/06/22] carvedilol 3.125 mg tablet 3.125 mg PO BID 09/07/19 [History Confirmed 01/06/22] cholecalciferol (vitamin D3) 25 mcg (1,000 unit) tablet 5,000 unit PO DAILY 09/07/19 [History Confirmed 01/06/22] donepezil 5 mg tablet 5 mg PO DAILY 09/07/19 [History Confirmed 01/06/22] ferrous sulfate 325 mg (65 mg iron) tablet 325 mg PO DAILY 09/07/19 [History Confirmed 01/06/22] fluoxetine 40 mg capsule 40 mg PO DAILY 09/07/19 [History Confirmed 01/06/22] levothyroxine 175 mcg tablet 200 mcg PO DAILY 09/07/19 [History Confirmed 01/06/22] linagliptin 5 mg tablet (Tradjenta) 5 mg PO DAILY 09/07/19 [History Confirmed 01/06/22] magnesium oxide 400 mg PO DAILY 09/07/19 [History Confirmed 01/06/22] nystatin 100,000 unit/gram topical powder 1 applic TOPICAL BID 09/07/19 [History Confirmed 01/06/22] potassium chloride 10 mEq tablet,extended release 10 meq PO DAILY 09/07/19 [History Confirmed 01/06/22] acetaminophen 500 mg tablet 1,000 mg PO TID 10/20/19 [History Confirmed 01/06/22] gabapentin 300 mg capsule 300 mg PO BID 10/20/19 [History Confirmed 01/06/22] levetiracetam 250 mg tablet 500 mg PO BID 10/20/19 [History Confirmed 01/06/22] primidone 50 mg tablet 75 mg PO BEDTIME 10/20/19 [History Confirmed 01/06/22] torsemide 20 mg tablet 40 mg PO DAILY 01/06/22 [History Confirmed 01/06/22] Visit Medications (administered) Generic Name Dose Route Start Last Admin Trade Name Linda PRN Reason Stop Dose Admin Acetaminophen 650 mg 01/06/22 17:29 01/08/22 20:49 Acetaminophen 325 Mg Tablet PO 650 mg Q6HR PRN Administration Fever/Mild Pain (1-3) Aspirin 81 mg 01/10/22 09:00 01/10/22 09:30 Aspirin 81 Mg Chew Tab PO 81 mg DAILY SHANI Administration Atorvastatin Calcium 40 mg 01/07/22 21:00 01/10/22 20:44 Atorvastatin 20 Mg Tablet PO 40 mg BEDTIME SHANI Administration Bumetanide 1 mg 01/10/22 12:15 01/10/22 15:12 Bumetanide 1 Mg Tablet PO 1 mg DAILY SHANI Administration Carvedilol 12.5 mg 01/10/22 21:00 01/10/22 20:44 Carvedilol 12.5 Mg Tablet PO 12.5 mg BID SHANI Administration Donepezil HCl 5 mg 01/07/22 21:00 01/10/22 21:04 Donepezil 5 Mg Tablet PO 5 mg BEDTIME SHANI Administration Ferrous Sulfate 325 mg 01/07/22 09:00 01/10/22 09:40 Ferrous Sulfate 325 Mg Tablet PO 325 mg DAILY SHANI Administration Fluoxetine HCl 40 mg 01/07/22 09:00 01/10/22 09:39 Fluoxetine 20 Mg Capsule PO 40 mg DAILY SHANI Administration Gabapentin 300 mg 01/07/22 09:00 01/10/22 20:44 Gabapentin 300 Mg Capsule PO 300 mg BID SHANI Administration Heparin Sodium (Porcine) 7,500 unit 01/10/22 22:00 01/10/22 21:13 Heparin 5,000 Unit/Ml Vial SUBCUT 7,500 unit Q8HR SHANI Administration Insulin Human Lispro 0 unit 01/06/22 21:00 01/10/22 20:56 Insulin Lispro 100 Unit/Ml 3ml Vial SUBCUT 2 unit ACHS SHANI Administration Protocol Levetiracetam 500 mg 01/07/22 09:00 01/10/22 20:43 Levetiracetam 250 Mg Tablet PO 500 mg BID SAHNI Administration Levothyroxine Sodium 200 mcg 01/08/22 06:00 01/10/22 05:56 Levothyroxine 100 Mcg Tablet PO 200 mcg DAILY@0600 SHANI Administration Nystatin 1 applic 01/07/22 09:00 01/10/22 20:46 Nystatin Powder 15gm TOP 1 applic BID SHANI Administration Oxycodone HCl 5 mg 01/08/22 10:36 01/10/22 01:23 Oxycodone Ir 5 Mg Tablet PO 5 mg Q4HR PRN Administration Pain, Moderate (4-6) Potassium Chloride 10 meq 01/10/22 09:00 01/10/22 09:30 Potassium Chloride 20 Meq/15 Ml Udc PO 10 meq DAILY SHANI Administration Sodium Chloride 10 ml 01/10/22 21:00 01/10/22 20:47 Sodium Chloride 0.9% Flush IV 10 ml BID SHANI Administration Vitamin D 5,000 unit 01/07/22 09:00 01/10/22 09:46 Cholecalciferol (Vitamin D3) 5,000 Unit Tablet PO 5,000 unit DAILY SHANI Administration Review of Systems Review of Systems Narrative: not possible due to dementia Exam Vital Signs (past 8 hours): - 01/10/22 15:35 01/10/22 17:00 01/10/22 18:03 Temperature 98.3 F Pulse Rate 86 Respiratory Rate 24 Blood Pressure 115/59 L Pulse Oximetry 93 95 90 L 01/10/22 20:36 01/10/22 20:44 01/10/22 22:00 Temperature 97.9 F Pulse Rate 104 H 99 H Respiratory Rate 27 H Blood Pressure 105/64 125/64 Pulse Oximetry 93 92 Fraction of Inspired Oxygen 30 Oxygen Delivery Method BiPAP Oxygen Flow Rate 30 Const Other: elderly female in NAD Resp Other: non-labored respiration on NIPPV Objective Labs Result Diagrams: 01/09/22 05:50 01/09/22 05:50 Labs: Laboratory Results - last 24 hr 01/09/22 22:10 Nasal Screen MRSA (PCR) Negative for mrsa Assessment & Plan Assessment and plan (1) Urinary tract infection due to Proteus: Status: Acute Plan: -Was on ceftriaxone earlier this hospitalization-->defer to hospitalist service (2) Chronic systolic CHF (congestive heart failure): Status: Acute Plan: -ASA/statin/carvedilol/NIPPV and other mgmt as per hospitalist service (3) Hypothyroidism associated with surgical procedure: Status: Acute Plan: -Continue levothyroxine (4) Dementia: Status: Acute Plan: -Would address goals of care if not already done and if faily amenable
[2022-01-11] VITALS (14 sets, daily range): BP systolic 99–112; BP diastolic 52–80; PULSE 71–91; RESP 13–25; TEMP 28–36.9; O2SAT 90–98
[2022-01-11] MEDS: HEPARIN 5,000 UNIT/ML VIAL 7500 UNIT SUBCUT ×3 (05:59→21:24)
[2022-01-11] MEDS: LEVOTHYROXINE 100 MCG TABLET 200 MCG PO (06:00)
[2022-01-11 06:28] LABS: BUN Creatinine Ratio 16.6 (6-22); Blood Urea Nitrogen 28 mg/dL (7-17); Calcium 9.1 mg/dL (8.4-10.2); Carbon Dioxide 35 mmol/L (22-32); Chloride 98 mmol/L (98-107); Estimated Glomerular Filt Rate 29.6 mL/min (>60); Glucose 226 mg/dL (80-110); HEMOLYSIS < 15 (0-50); Magnesium 1.7 mg/dL (1.6-2.3); Potassium 4.1 mmol/L (3.4-5.1); Sodium 137 mmol/L (137-145)
--- NOTE | 2022-01-11 07:17 | PC.NURSE ---
Shift Note Patient was alert and oriented to self, not in distress, denies any pain/discomfort. Patient was on BIPAP all night, maintained O2 sat >90%. Afebrile, vital signs within acceptable limits. IV access at left wrist, intact to saline lock. Kimble cath in placed with adequate urine output. Tele-forensic pathologist updated. Will continue to monitor.
[2022-01-11] MEDS: INSULIN LISPRO 100 UNIT/ML 3ML VIAL SUBCUT ×4 (09:47→21:27)
[2022-01-11] MEDS: POTASSIUM CHLORIDE 20 MEQ/15 ML UDC 10 MEQ PO (10:03)
[2022-01-11] MEDS: carvediloL 12.5 MG TABLET PO ×2 (10:03→21:24)
[2022-01-11] MEDS: ASPIRIN 81 MG CHEW TAB PO (10:03)
[2022-01-11] MEDS: levETIRAcetam 250 MG TABLET 500 MG PO ×2 (10:08→21:24)
[2022-01-11] MEDS: GABAPENTIN 300 MG CAPSULE PO ×2 (10:08→21:24)
[2022-01-11] MEDS: FLUoxetine 20 MG CAPSULE 40 MG PO (10:08)
[2022-01-11] MEDS: FERROUS SULFATE 325 MG TABLET PO (10:09)
[2022-01-11] MEDS: NYSTATIN POWDER 15GM 1 APPLIC TOP ×2 (10:11→21:27)
[2022-01-11] MEDS: BUMETANIDE 1 MG TABLET PO (10:28)
[2022-01-11] MEDS: CHOLECALCIFEROL (VITAMIN D3) 5,000 UNIT TABLET 5000 UNIT PO (10:29)
[2022-01-11] MEDS: SODIUM CHLORIDE 0.9% FLUSH 10 ML IV ×2 (10:30→21:28)
--- NOTE | 2022-01-11 11:10 | CM.DPC ---
Discharge plan cont: Patient has had workup for DVT completed with no concerns noted. Patient is medically stable for discharge. Patient's nurse at [facility] contacted to completed assessment; Sola indicated she could do this late PM of 01/11. Patient anticipated to discharge back to [facility] pending Sola's [facility] outcome. Odilon MARROQUIN
--- NOTE | 2022-01-11 11:16 | P.TELICUPN_ITS ---
Subjective Subjective :: This patient was seen in the Intensive Care Unit via real time interactive two- way audiovisual telecommunication. Current Medications Current Medications Medications: Home Medications aspirin 81 mg tablet,delayed release 81 mg PO DAILY 09/07/19 [History Confirmed 01/06/22] atorvastatin 40 mg tablet 40 mg PO BEDTIME 09/07/19 [History Confirmed 01/06/22] carvedilol 3.125 mg tablet 3.125 mg PO BID 09/07/19 [History Confirmed 01/06/22] cholecalciferol (vitamin D3) 25 mcg (1,000 unit) tablet 5,000 unit PO DAILY 09/07/19 [History Confirmed 01/06/22] donepezil 5 mg tablet 5 mg PO DAILY 09/07/19 [History Confirmed 01/06/22] ferrous sulfate 325 mg (65 mg iron) tablet 325 mg PO DAILY 09/07/19 [History Confirmed 01/06/22] fluoxetine 40 mg capsule 40 mg PO DAILY 09/07/19 [History Confirmed 01/06/22] levothyroxine 175 mcg tablet 200 mcg PO DAILY 09/07/19 [History Confirmed 01/06/22] linagliptin 5 mg tablet (Tradjenta) 5 mg PO DAILY 09/07/19 [History Confirmed 01/06/22] magnesium oxide 400 mg PO DAILY 09/07/19 [History Confirmed 01/06/22] nystatin 100,000 unit/gram topical powder 1 applic TOPICAL BID 09/07/19 [History Confirmed 01/06/22] potassium chloride 10 mEq tablet,extended release 10 meq PO DAILY 09/07/19 [History Confirmed 01/06/22] acetaminophen 500 mg tablet 1,000 mg PO TID 10/20/19 [History Confirmed 01/06/22] gabapentin 300 mg capsule 300 mg PO BID 10/20/19 [History Confirmed 01/06/22] levetiracetam 250 mg tablet 500 mg PO BID 10/20/19 [History Confirmed 01/06/22] primidone 50 mg tablet 75 mg PO BEDTIME 10/20/19 [History Confirmed 01/06/22] torsemide 20 mg tablet 40 mg PO DAILY 01/06/22 [History Confirmed 01/06/22] Visit Medications (administered) Generic Name Dose Route Start Last Admin Trade Name Moralesq PRN Reason Stop Dose Admin Acetaminophen 650 mg 01/06/22 17:29 01/08/22 20:49 Acetaminophen 325 Mg Tablet PO 650 mg Q6HR PRN Administration Fever/Mild Pain (1-3) Aspirin 81 mg 01/10/22 09:00 01/11/22 10:03 Aspirin 81 Mg Chew Tab PO 81 mg DAILY SHANI Administration Bumetanide 1 mg 01/10/22 12:15 01/11/22 10:28 Bumetanide 1 Mg Tablet PO 1 mg DAILY SHANI Administration Carvedilol 12.5 mg 01/10/22 21:00 01/11/22 10:03 Carvedilol 12.5 Mg Tablet PO 12.5 mg BID SHANI Administration Donepezil HCl 5 mg 01/07/22 21:00 01/10/22 21:04 Donepezil 5 Mg Tablet PO 5 mg BEDTIME SHANI Administration Ferrous Sulfate 325 mg 01/07/22 09:00 01/11/22 10:09 Ferrous Sulfate 325 Mg Tablet PO 325 mg DAILY SHANI Administration Fluoxetine HCl 40 mg 01/07/22 09:00 01/11/22 10:08 Fluoxetine 20 Mg Capsule PO 40 mg DAILY SHANI Administration Gabapentin 300 mg 01/07/22 09:00 01/11/22 10:08 Gabapentin 300 Mg Capsule PO 300 mg BID SHANI Administration Heparin Sodium (Porcine) 7,500 unit 01/10/22 22:00 01/11/22 05:59 Heparin 5,000 Unit/Ml Vial SUBCUT 7,500 unit Q8HR SHANI Administration Insulin Human Lispro 0 unit 01/06/22 21:00 01/11/22 09:47 Insulin Lispro 100 Unit/Ml 3ml Vial SUBCUT 4 unit ACHS SHANI Administration Protocol Levetiracetam 500 mg 01/07/22 09:00 01/11/22 10:08 Levetiracetam 250 Mg Tablet PO 500 mg BID SHANI Administration Levothyroxine Sodium 200 mcg 01/08/22 06:00 01/11/22 06:00 Levothyroxine 100 Mcg Tablet PO 200 mcg DAILY@0600 SHANI Administration Nystatin 1 applic 01/07/22 09:00 01/11/22 10:11 Nystatin Powder 15gm TOP 1 applic BID SHANI Administration Oxycodone HCl 5 mg 01/08/22 10:36 01/10/22 01:23 Oxycodone Ir 5 Mg Tablet PO 5 mg Q4HR PRN Administration Pain, Moderate (4-6) Potassium Chloride 10 meq 01/10/22 09:00 01/11/22 10:03 Potassium Chloride 20 Meq/15 Ml Udc PO 10 meq DAILY SHANI Administration Sodium Chloride 10 ml 01/10/22 21:00 01/11/22 10:30 Sodium Chloride 0.9% Flush IV 10 ml BID SHANI Administration Vitamin D 5,000 unit 01/07/22 09:00 01/11/22 10:29 Cholecalciferol (Vitamin D3) 5,000 Unit Tablet PO 5,000 unit DAILY SHANI Administration Objective Labs Result Diagrams: 01/09/22 05:50 01/11/22 06:01 Labs: Laboratory Results - last 24 hr 01/11/22 06:01 Sodium 137 Potassium 4.1 Chloride 98 Carbon Dioxide 35 H BUN 28 H Creatinine 1.69 H Estimated GFR 29.6 L BUN/Creatinine Ratio 16.6 Glucose 226 H Calcium 9.1 Magnesium 1.7 Exam Vital Signs (past 8 hours): - 01/11/22 04:29 01/11/22 04:53 01/11/22 06:00 Temperature 98.4 F Pulse Rate 74 Respiratory Rate 14 Blood Pressure 99/75 110/80 Pulse Oximetry 95 93 01/11/22 10:00 01/11/22 10:03 Temperature 98.0 F Pulse Rate 79 Respiratory Rate 14 Blood Pressure 102/58 L 111/56 L Pulse Oximetry 94 Fraction of Inspired Oxygen 30 Oxygen Delivery Method BiPAP Oxygen Flow Rate 0 Quality TeleICU VTE Deep Vein Thrombosis/Pulmonary Embolism Present on Admission: No Assessment & Plan Assessment & Plan narrative: Assessment: (1) Urinary tract infection due to Proteus: ?Status:?Acute ?Plan: -Was ceftriaxone earlier this hospitalization-->neg repeated cx, defer to hospitalist service (2) Chronic systolic CHF (congestive heart failure): ?Status:?Acute ?Plan: -ASA/statin/carvedilol/NIPPV and other mgmt as per hospitalist service (3) Hypothyroidism associated with surgical procedure: ?Status:?Acute ?Plan: -Continue levothyroxine (4) Dementia: ?Status:?Acute ?Plan: -Would address goals of care if not already done and if faily amenable (5) chronic hypercapnic resp failure - Pt on Bipap at night (6) CKD stage 4, Cr around 1.6 on Bumex, may adjust doses per volume status D/W RN Time Spent With Patient Critical Care time: I spent a total of [] minutes of critical care time on this patient's care today; this time is exclusive of procedural time.
--- NOTE | 2022-01-11 14:31 | PC.NURSE ---
Addendum entered by Debbie Schofield R.N. 01/11/22 18:22: plan for pt to return to [place] tomorrow at 1030- iker juan sent per facllity request- up in chair x several hours and wishing to stay up for a bit more- requires use of mechanical lift to return to bed - saleh remains intact- gave pt the choice of leaving saleh in overnight or taking out in am ( early)- she has yet to decide- v- paced rhyhtm- she denies discomfort at this time Original Note: pt in good spirits today- unable to bear weight again this afternoon in attempt to get up from bedside- used bed jackson for small-medium bm prior to using mechanical lift to transfer to chair - 0-2L o2 for spo2 of 90-97% lungs dim bilat, no noted bilat LLE EDEMA
--- NOTE | 2022-01-11 14:50 | CM.DPNOTE ---
[facility] was following this patient through an order initiated by her PCP. Please contact [facility] when pt. is being discharged. Rosario Hall CM Assist.
--- NOTE | 2022-01-11 17:19 | ST.IPDYTX ---
Visit Care Team Role Provider Type Kinsey Bose MD Primary Care Provider Non-Staff Specialty: Family Practice Address: [address] [place] [address], [id number] Email: Hilton Moody MD Other Providers Physician Specialty: Medical Address: Phone: Fax: Email: Angelina Landeros MD Other Providers Physician Specialty: Medical Address: Phone: Fax: Email: Cinthya Ness MD Other Providers Physician Specialty: Medical Address: Phone: Fax: Email: Craig Duke MD Other Providers Physician Specialty: Medical Address: Phone: Fax: Email: Therese Samaniego MD Other Providers Physician Specialty: Internal Medicine Address: Phone: Fax: Email: Dustin Booth MD Other Providers Physician Specialty: Medical Address: Phone: Fax: Email: Bernardo Sidhu MD Other Providers Physician Specialty: Internal Medicine Address: Phone: Fax: Email: Ruben Woods MD Other Providers Physician Specialty: Medical Address: Phone: Fax: Email: Tony Ness MD Other Providers Physician Specialty: Medical Address: Phone: Fax: Email: Merlin Palacios MD Other Providers Physician Specialty: Medical Address: Phone: Fax: Email: Princess Osuna Other Providers Physician Specialty: Medical Address: Phone: Fax: Email: Carlos Espitia MD Other Providers Physician Specialty: Medical Address: Phone: Fax: Email: Lizzy Be DO Emergency Provider Physician Specialty: Emergency Medicine Address: [address] [place] [address], [id number] Email: [email or web address] Jose Kumar DO Admit Provider Physician Attending Provider Specialty: Internal Medicine Address: [address] [place] [address], [id number] Email: [email or web address] HYDROMETEOROLOGIST Dysphagia Treatment HYDROMETEOROLOGIST Dysphagia Treatment Start: 01/10/22 10:16 Freq: Status: Active Protocol: Document 01/11/22 17:11 ZS (Rec: 01/11/22 17:19 ZS [id number]) Dysphagia Treatment Session Time Visit Start Time 16:45 Visit Stop Time 17:05 Total Visit Minutes 20 Setting Assessment Location Acute Care Visit Type Note Type Treatment Note Patient Information Identification Type Name,ID Card Subjective Observations Pt was seated in chair at bedside, slumped forward sleeping upon HYDROMETEOROLOGIST arrival. She awoke to verbal and tactile greeting and agreed to participate in PO trials. She reported no pain or discomfort today. Treatment Solids Trialed Dysphagia Mechanical,Regular Administration Type Tea Spoon,Dependent Feeding Oral Strategies Upright at 90 degrees,Dementia Strategies Pharyngeal Strategies Sitting Upright (90 deg) Additional Dysphagia Treatment Oral prompts to swallow Strategies Treatment Activities Assessed pt's swallow safety with dysphagia mechanical and regular textures (egg salad and egg salad sandwich). Pt exhibited munching rather than rotary chewing behaviors and chewed slowly. However, she exhibited minimal oral residue , demonstrated no anterior loss of bolus, and reported no difficulty with chewing or swallowing. Per pt and NSG, pt has been eating independently and has exhibited improvement in taking her medications. Assessment Patient Response to Treatment Good Rehab Potential Good Assessment of Improvement The pt safely tolerated regular textures and thin liquids and has demonstrated improvement in taking medication. NSG reported more independent feeding and increase in alertness. Pt reported no pain or discomfort today, which may positively impact her ability to eat a variety of textures. Pt reported she needs to take more breaks while eating when she is in pain. When pt is experiencing higher pain levels, it is recommended she take small bites and sips for swallow safety and have small snacks/meals throughout the day to stimulate appetite and promote adequate oral intake. Discharging from speech therapy at this time as pt is safely tolerating a regular diet with thin liquids. Diet Recommendations Recommendations Continue Current Diet Liquids Order Thin Diet Order Regular Medication Recommendations Whole in Carrier Additional Dietary Needs Reminders to Use Strategies Aspiration Precautions Recommended Precautions Upright at 90 Degrees,Small Bites/Sips Additional Precautions Distant supervision; Prompts to swallow as needed Treatment Plan Placement Recommendation after Discharge Half-Way Facility Appropriate for Continued Therapy Yes Therapy Recommendations 1. The pt will follow safe swallow strategies to reduce risk of aspiration. 2. The pt will participate in ongoing assessment of swallow safety to guide POC. Dysphagia Goals 1. The pt will tolerate least restrictive diet to meet her nutrition and hydration needs.
--- NOTE | 2022-01-11 18:00 | P.PN_ITS ---
Subjective Subjective Interval history: Patient appears much more alert this morning. She denies any acute complaints. She states she doesn't like the food here. She is aware that her daughter, Juliana, has been coming to visit her. Exam Vital Signs (past 8 hours): - 01/11/22 10:03 01/11/22 14:24 Pulse Rate 78 Respiratory Rate 23 Blood Pressure 111/56 L 104/52 L Pulse Oximetry 95 Fraction of Inspired Oxygen 30 Oxygen Delivery Method Nasal Cannula Oxygen Flow Rate 2 Narrative Exam Narrative: General: sitting up in chair upon my entering the room, eating lunch comfortablyEyes: no scleral icterus appreciated Neck: no carotid bruits appreciated or JVD Cardiovascular: RRR, S1 and S2 heart sounds normal, no extra heart sounds or murmurs appreciated Pulmonary: diminished breath sounds bilaterally, with faint wet crackles over the lung bases Abdomen:? Soft, obese, non-distended, non-tender, bowel sounds present Neurological: alert and oriented to person only, but awake and answers questions appropriately Objective Labs Result Diagrams: 01/09/22 05:50 01/11/22 06:01 Labs: Laboratory Results - last 24 hr 01/11/22 06:01 Sodium 137 Potassium 4.1 Chloride 98 Carbon Dioxide 35 H BUN 28 H Creatinine 1.69 H Estimated GFR 29.6 L BUN/Creatinine Ratio 16.6 Glucose 226 H Calcium 9.1 Magnesium 1.7 PFSH Medical History (Updated 01/10/22 @ 23:40 by Bernardo Sidhu MD) CAD (coronary artery disease) CKD (chronic kidney disease) CVA (cerebral vascular accident) Dementia Diabetes mellitus type 2 in obese GERD (gastroesophageal reflux disease) Heart failure, unspecified Hyperlipidemia Hypertension Hypothyroid Non Hodgkin's lymphoma Pacemaker Thyroid cancer Tremor, unspecified Surgical History History of cholecystectomy History of thyroidectomy Hx of tonsillectomy S/P TAVR (transcatheter aortic valve replacement) Family History Mother Dementia Father Heart attack Social History household members: none Smoking Status: Never smoker alcohol intake: never Assessment & Plan Assessment & Plan narrative: Enid Almanza 74W with PMH CAD status post stent x1, cardiac arrest status post pacemaker, aortic stenosis status post TAVR, HTN, HL, DM, CKD stage 3-4, secondary hypothyroidism status post thyroidectomy for thyroid cancer (unknown type), non-Hodgkin's lymphoma in remission and dementia who presented from [facility] facility?for decreased alertness. 1. Acute toxic / metabolic encephalopathy in setting of known chronic dementia, improving. ?- probable sepsis from UTI in setting of chronic dementia. GCS 11 on admit, now improved to just mild confusion. ?- completed 3 days of IV ceftriaxone ?- ABG with PCO2 but no acidosis, likely chronic hypercapnea ?- Head CT with old CVAs, but no acute process. ?- CXR unremarkable. ?- urine cultures show proteus with many resistance but sensitive to ceftriaxone, blood cultures negative 2. Acute cystitis with possible sepsis ?- SOFA score is 4 given GCS of 11 on admission as well as renal disease. ?- Completed 3 days of IV ceftriaxone. 3. Mild hypercalcemia, resolved ?- likely due to dehydration 4. CAD status post stenting, pacemaker and TAVR, present on admission.? Stable. -Patient has history of stenting with YADIRA to unknown coronary artery.? She also has history of TAVR.? During her operation for TAVR she had cardiac arrest requiring temporary pacemaker and when temporary pacemaker was later removed she again had another cardiac arrest. -Continue home medications. 5. Hypertension, chronic, present on admission.? Stable. -Continue home medications. 6. Hyperlipidemia, chronic, present on admission.? Stable. -Continue atorvastatin 40 mg daily at bedtime if confirmed. 7. Diabetes mellitus type 2, non-insulin using, present on admission.? Stable. -Unclear baseline glycemic control.? -continue sliding scale only for now. -A1c 8.1%. 8. Acute kidney injury on Chronic kidney disease stage 4, present on admission. -Unclear baseline creatinine. Initial creatinine 1.88 improved to 1.57 with fluids. 9. Secondary hypothyroidism, status post thyroidectomy for thyroid cancer, present on admission.? Stable. ?- continue home levothyroxine replacement therapy 10. Chronic hypercapnic respiratory failure - PCO2 on ABG of 60 but compensated. Likely baseline from presumed obesity hypoventilation syndrome. 11. Obesity, class 3 -This is contributing greatly to patient's chronic comorbidities VTE prophylaxis: Heparin 7,500 tid Time Spent With Patient Critical Care time: I spent a total of [] minutes of critical care time on this patient's care today; this time is exclusive of procedural time. Quality VTE Deep Vein Thrombosis/Pulmonary Embolism Present on Admission: No
[2022-01-11 19:45] LABS: COVID19 - ADMIT (NP swab/PCR) Negative (Negative)
[2022-01-11] MEDS: ATORVASTATIN 20 MG TABLET 80 MG PO (21:23)
[2022-01-11] MEDS: DONEPEZIL 5 MG TABLET PO (21:25)
[2022-01-11] MEDS: INSULIN GLARGINE 100 UNIT/ML 3ML PEN 8 UNIT SUBCUT (22:01)
[2022-01-11] MEDS: OXYCODONE IR 5 MG TABLET PO (22:01)
[2022-01-12] VITALS (7 sets, daily range): BP systolic 110; BP diastolic 56; PULSE 74–83; RESP 18–21; TEMP 36.6; O2SAT 95–98
[2022-01-12] MEDS: HEPARIN 5,000 UNIT/ML VIAL 7500 UNIT SUBCUT (06:11)
[2022-01-12] MEDS: LEVOTHYROXINE 100 MCG TABLET 200 MCG PO (06:11)
[2022-01-12 06:36] LABS: BUN Creatinine Ratio 17.5 (6-22); Blood Urea Nitrogen 35 mg/dL (7-17); Calcium 8.9 mg/dL (8.4-10.2); Carbon Dioxide 34 mmol/L (22-32); Chloride 96 mmol/L (98-107); Estimated Glomerular Filt Rate 24.4 mL/min (>60); Glucose 228 mg/dL (80-110); HEMOLYSIS < 15 (0-50); Magnesium 1.6 mg/dL (1.6-2.3); Potassium 3.9 mmol/L (3.4-5.1); Sodium 136 mmol/L (137-145)
[2022-01-12] MEDS: INSULIN LISPRO 100 UNIT/ML 3ML VIAL SUBCUT (08:04)
--- NOTE | 2022-01-12 08:44 | CM.DPC ---
DCP Cont: Patient is to be going back to [facility], picker and sorter load and unload at approximately 10:00. Updated hospitalist, Dr. Claros, and nurse, Bernadette. She will also resume [facility], confirmed with embroidery assistant, Rosario, who called Haleigh at [facility] that she is getting P.T. Will fax resumption orders and DC Summary, and COVID swab was completed yesterday. P: DCP to continue to follow. Patient most likely will discharge back to [facility] today. maintenance superintendent time was arranged yesterday. Will print out med sheets and have hospitalist sign when completed. Charissa Bermeo RN/Substation Operator Transforming
[2022-01-12] MEDS: BUMETANIDE 1 MG TABLET 0.5 MG PO (09:03)
[2022-01-12] MEDS: OXYCODONE IR 5 MG TABLET PO (09:03)
[2022-01-12] MEDS: MAGNESIUM CHLORIDE 64 MG TABLET 128 MG PO (09:03)
[2022-01-12] MEDS: GABAPENTIN 300 MG CAPSULE PO (09:04)
[2022-01-12] MEDS: FLUoxetine 20 MG CAPSULE 40 MG PO (09:04)
[2022-01-12] MEDS: levETIRAcetam 250 MG TABLET 500 MG PO (09:04)
[2022-01-12] MEDS: carvediloL 12.5 MG TABLET PO (09:04)
[2022-01-12] MEDS: ASPIRIN 81 MG CHEW TAB PO (09:04)
[2022-01-12] MEDS: CHOLECALCIFEROL (VITAMIN D3) 5,000 UNIT TABLET 5000 UNIT PO (09:05)
[2022-01-12] MEDS: POTASSIUM CHLORIDE 20 MEQ/15 ML UDC 10 MEQ PO (09:05)
[2022-01-12] MEDS: FERROUS SULFATE 325 MG TABLET PO (09:05)
[2022-01-12] MEDS: metOLazone 2.5 MG TABLET 5 MG PO (09:15)
[2022-01-12] MEDS: NYSTATIN POWDER 15GM 1 APPLIC TOP (09:19)
[2022-01-12] MEDS: SODIUM CHLORIDE 0.9% FLUSH 10 ML IV (09:19)
--- NOTE | 2022-01-12 11:13 | PC.NURSE ---
Dayshift note: Pt to discharge back to [facility], discontinued tele and IV, used mechanical lift to move pt to wheelchair from facility, all discharge instructions in blue folder, given to backhaul driver, all pt belongings sent with pt. No further patient contact at this time
--- NOTE | 2022-01-12 12:03 | PM.PN.1 ---
Subjective Subjective Interval history: Patient reports feeling overall well this morning. She denies any recurrence of her lower extremity edema, or of any SOB. She understands that she is due to go a rehab facility today. Exam Vital Signs (past 8 hours): - 01/12/22 06:00 01/12/22 08:00 01/12/22 08:49 Temperature 97.8 F Pulse Rate 74 Respiratory Rate 21 Blood Pressure 110/56 L Pulse Oximetry 98 98 97 01/12/22 09:04 01/12/22 10:00 Temperature Pulse Rate 83 Respiratory Rate Blood Pressure 110/56 L Pulse Oximetry 98 Fraction of Inspired Oxygen 30 Oxygen Delivery Method Nasal Cannula Oxygen Flow Rate 2 Narrative Exam Narrative: General: sitting up in chair upon my entering the room, eating breakfast comfortablyEyes: no scleral icterus appreciated Neck: no carotid bruits appreciated or JVD Cardiovascular: RRR, S1 and S2 heart sounds normal, no extra heart sounds or murmurs appreciated Pulmonary: diminished breath sounds bilaterally, with faint wet crackles over the lung bases Abdomen:? Soft, obese, non-distended, non-tender, bowel sounds present Neurological: alert and oriented to person only, but awake and answers questions appropriately Objective Labs Result Diagrams: 01/09/22 05:50 01/12/22 06:08 Labs: Laboratory Results - last 24 hr 01/11/22 01/12/22 17:59 06:08 Sodium 136 L Potassium 3.9 Chloride 96 L Carbon Dioxide 34 H BUN 35 H Creatinine 2.00 H Estimated GFR 24.4 L BUN/Creatinine Ratio 17.5 Glucose 228 H Calcium 8.9 Magnesium 1.6 SARS-CoV-2 (PCR) Negative [facility] Medical History (Updated 01/10/22 @ 23:40 by Bernardo Sidhu MD) CAD (coronary artery disease) CKD (chronic kidney disease) CVA (cerebral vascular accident) Dementia Diabetes mellitus type 2 in obese GERD (gastroesophageal reflux disease) Heart failure, unspecified Hyperlipidemia Hypertension Hypothyroid Non Hodgkin's lymphoma Pacemaker Thyroid cancer Tremor, unspecified Surgical History History of cholecystectomy History of thyroidectomy Hx of tonsillectomy S/P TAVR (transcatheter aortic valve replacement) Family History Mother Dementia Father Heart attack Social History household members: none Smoking Status: Never smoker alcohol intake: never Assessment & Plan Assessment & Plan narrative: Enid Almanza 74W with PMH CAD status post stent x1, cardiac arrest status post pacemaker, aortic stenosis status post TAVR, HTN, HL, DM, CKD stage 3-4, secondary hypothyroidism status post thyroidectomy for thyroid cancer (unknown type), non-Hodgkin's lymphoma in remission and dementia who presented from [facility]?for decreased alertness. 1. Acute toxic / metabolic encephalopathy in setting of known chronic dementia, improving. ?- probable sepsis from UTI in setting of chronic dementia. GCS 11 on admit, now improved to just mild confusion. ?- completed 3 days of IV ceftriaxone ?- ABG with PCO2 but no acidosis, likely chronic hypercapnea ?- Head CT with old CVAs, but no acute process. ?- CXR unremarkable. ?- urine cultures show proteus with many resistance but sensitive to ceftriaxone, blood cultures negative 2. Acute cystitis with possible sepsis ?- SOFA score is 4 given GCS of 11 on admission as well as renal disease. ?- Completed 3 days of IV ceftriaxone. 3. Mild hypercalcemia, resolved ?- likely due to dehydration 4. CAD status post stenting, pacemaker and TAVR, present on admission.? Stable. -Patient has history of stenting with YADIRA to unknown coronary artery.? She also has history of TAVR.? During her operation for TAVR she had cardiac arrest requiring temporary pacemaker and when temporary pacemaker was later removed she again had another cardiac arrest. -Continue home medications. 5. Hypertension, chronic, present on admission.? Stable. -Continue home medications. 6. Hyperlipidemia, chronic, present on admission.? Stable. -Continue atorvastatin 40 mg daily at bedtime if confirmed. 7. Diabetes mellitus type 2, non-insulin using, present on admission.? Stable. -Unclear baseline glycemic control.? -continue sliding scale only for now. -A1c 8.1%. 8. Acute kidney injury on Chronic kidney disease stage 4, present on admission. -Unclear baseline creatinine. Initial creatinine 1.88 improved to 1.57 with fluids. 9. Secondary hypothyroidism, status post thyroidectomy for thyroid cancer, present on admission.? Stable. ?- continue home levothyroxine replacement therapy 10. Chronic hypercapnic respiratory failure - PCO2 on ABG of 60 but compensated. Likely baseline from presumed obesity hypoventilation syndrome. 11. Obesity, class 3 -This is contributing greatly to patient's chronic comorbidities VTE prophylaxis: Heparin 7,500 tid Time Spent With Patient Critical Care time: I spent a total of [] minutes of critical care time on this patient's care today; this time is exclusive of procedural time. Quality VTE Deep Vein Thrombosis/Pulmonary Embolism Present on Admission: No
--- NOTE | 2022-01-12 12:05 | PM.DS.1 ---
History of Present Illness History of Present Illness Chief complaint: decreased LOC Discharge Providers Provider Date of admission: 01/06/22 15:26 Discharge Date: 01/12/22 Primary care physician: Kinsey Bose MD Consults: 01/06/22 17:30 Consult to Occupational Therapy Evaluate & Treat Comment: Physician Instructions: Evaluate and treat Consult to Physical Therapy Evaluate & Treat Comment: Physician Instructions: Evaluate and Treat 01/07/22 16:33 Consult to Dietitian, Adult Routine Comment: Reason For Exam: Low teodora score 01/09/22 11:58 Consult to Speech Therapy Evaluate & Treat Comment: aspiration risk, unsafe swallow Physician Instructions: Evaluate and treat 01/09/22 20:07 Consult to Tele-classroom paraprofessional Routine Comment: Consulting Provider: Dilip Tele-intensivists Reason for consultation: Garde Manager services for bipap secondary to hypercapnia Has provider been notified: Yes 01/12/22 08:42 Consult to Home Health Routine Comment: Reason For Exam: Resume Home Health P.T. Discharge provider: Miles Claros MD Summary Hospital Course Discharge Diagnosis: Enid Almanza 74W with PMH CAD status post stent x1, cardiac arrest status post pacemaker, aortic stenosis status post TAVR, HTN, HL, DM, CKD stage 3-4, secondary hypothyroidism status post thyroidectomy for thyroid cancer (unknown type), non-Hodgkin's lymphoma in remission and dementia who presented from [facility] for decreased alertness. 1. Acute toxic / metabolic encephalopathy in setting of known chronic dementia, improving ?- probable sepsis from UTI in setting of chronic dementia. GCS 11 on admit, now improved to just mild confusion. ?- completed 3 days of IV ceftriaxone ?- ABG with PCO2 but no acidosis, likely chronic hypercapnea ?- Head CT with old CVAs, but no acute process. ?- CXR unremarkable. ?- urine cultures show proteus with many resistance but sensitive to ceftriaxone, blood cultures negative 2. Acute cystitis with possible sepsis ?- SOFA score is 4 given GCS of 11 on admission as well as renal disease. ?- Completed 3 days of IV ceftriaxone. 3. Mild hypercalcemia, resolved ?- likely due to dehydration 4. CAD status post stenting, pacemaker and TAVR, present on admission.? Stable. -Patient has history of stenting with YADIRA to unknown coronary artery.? She also has history of TAVR.? During her operation for TAVR she had cardiac arrest requiring temporary pacemaker and when temporary pacemaker was later removed she again had another cardiac arrest. -Continue home medications. 5. Hypertension, chronic, present on admission.? Stable. -Continue home medications. 6. Hyperlipidemia, chronic, present on admission.? Stable. -Continue atorvastatin 40 mg daily at bedtime if confirmed. 7. Diabetes mellitus type 2, non-insulin using, present on admission.? Stable. -Unclear baseline glycemic control.? -continue sliding scale only for now. -A1c 8.1%. 8. Acute kidney injury on Chronic kidney disease stage 4, present on admission. -Unclear baseline creatinine. Initial creatinine 1.88 improved to 1.57 with fluids. 9. Secondary hypothyroidism, status post thyroidectomy for thyroid cancer, present on admission.? Stable. ?- continue home levothyroxine replacement therapy 10. Chronic hypercapnic respiratory failure - PCO2 on ABG of 60 but compensated. Likely baseline from presumed obesity hypoventilation syndrome. 11. Obesity, class 3 -This is contributing greatly to patient's chronic comorbidities Exam Vital Signs (past 8 hours): - 01/12/22 06:00 01/12/22 08:00 01/12/22 08:49 Temperature 97.8 F Pulse Rate 74 Respiratory Rate 21 Blood Pressure 110/56 L Pulse Oximetry 98 98 97 01/12/22 09:04 01/12/22 10:00 Temperature Pulse Rate 83 Respiratory Rate Blood Pressure 110/56 L Pulse Oximetry 98 Fraction of Inspired Oxygen 30 Oxygen Delivery Method Nasal Cannula Oxygen Flow Rate 2 Objective Labs Result Diagrams: 01/09/22 05:50 01/12/22 06:08 Labs: Laboratory Results - last 24 hr 01/11/22 01/12/22 17:59 06:08 Sodium 136 L Potassium 3.9 Chloride 96 L Carbon Dioxide 34 H BUN 35 H Creatinine 2.00 H Estimated GFR 24.4 L BUN/Creatinine Ratio 17.5 Glucose 228 H Calcium 8.9 Magnesium 1.6 SARS-CoV-2 (PCR) Negative [facility] Medical History (Updated 01/10/22 @ 23:40 by Bernardo Sidhu MD) CAD (coronary artery disease) CKD (chronic kidney disease) CVA (cerebral vascular accident) Dementia Diabetes mellitus type 2 in obese GERD (gastroesophageal reflux disease) Heart failure, unspecified Hyperlipidemia Hypertension Hypothyroid Non Hodgkin's lymphoma Pacemaker Thyroid cancer Tremor, unspecified Surgical History History of cholecystectomy History of thyroidectomy Hx of tonsillectomy S/P TAVR (transcatheter aortic valve replacement) Family History Mother Dementia Father Heart attack Social History household members: none Smoking Status: Never smoker alcohol intake: never Discharge Assessment & Plan Assessment and Plan Assessment: Enid Almanza 74W with H CAD status post stent x1, cardiac arrest status post pacemaker, aortic stenosis status post TAVR, HTN, HL, DM, CKD stage 3-4, secondary hypothyroidism status post thyroidectomy for thyroid cancer (unknown type), non-Hodgkin's lymphoma in remission and dementia who presented from [facility] for decreased alertness. 1. Acute toxic / metabolic encephalopathy in setting of known chronic dementia, improving. ?- probable sepsis from UTI in setting of chronic dementia. GCS 11 on admit, now improved to just mild confusion. ?- completed 3 days of IV ceftriaxone ?- ABG with PCO2 but no acidosis, likely chronic hypercapnea ?- Head CT with old CVAs, but no acute process. ?- CXR unremarkable. ?- urine cultures show proteus with many resistance but sensitive to ceftriaxone, blood cultures negative 2. Acute cystitis with possible sepsis ?- SOFA score is 4 given GCS of 11 on admission as well as renal disease. ?- Completed 3 days of IV ceftriaxone. 3. Mild hypercalcemia, resolved ?- likely due to dehydration 4. CAD status post stenting, pacemaker and TAVR, present on admission.? Stable. -Patient has history of stenting with YADIRA to unknown coronary artery.? She also has history of TAVR.? During her operation for TAVR she had cardiac arrest requiring temporary pacemaker and when temporary pacemaker was later removed she again had another cardiac arrest. -Continue home medications. 5. Hypertension, chronic, present on admission.? Stable. -Continue home medications. 6. Hyperlipidemia, chronic, present on admission.? Stable. -Continue atorvastatin 40 mg daily at bedtime if confirmed. 7. Diabetes mellitus type 2, non-insulin using, present on admission.? Stable. -Unclear baseline glycemic control.? -continue sliding scale only for now. -A1c 8.1%. 8. Acute kidney injury on Chronic kidney disease stage 4, present on admission. -Unclear baseline creatinine. Initial creatinine 1.88 improved to 1.57 with fluids. 9. Secondary hypothyroidism, status post thyroidectomy for thyroid cancer, present on admission.? Stable. ?- continue home levothyroxine replacement therapy 10. Chronic hypercapnic respiratory failure - PCO2 on ABG of 60 but compensated. Likely baseline from presumed obesity hypoventilation syndrome. 11. Obesity, class 3 -This is contributing greatly to patient's chronic comorbidities Discharge Plan Discharge Plan Patient Disposition: Assisted Living Transfer to: [facility] Discharge orders & Medications Discharge Orders: Discharge (Order); Ordered 01/12/22 Ordered By: Miles Claros Prescriptions: Continued fluoxetine 40 mg Capsule 40 mg PO DAILY 0RF levothyroxine 175 mcg Tablet 200 mcg PO DAILY 0RF donepezil 5 mg Tablet 5 mg PO DAILY 0RF potassium chloride 10 mEq Tablet Extended Release 10 meq PO DAILY 0RF aspirin 81 mg Tablet,Delayed Release (Dr/Ec) 81 mg PO DAILY 0RF ferrous sulfate 325 mg (65 mg iron) Tablet 325 mg PO DAILY 0RF cholecalciferol (vitamin D3) 1,000 unit (25 mcg) Tablet 5,000 unit PO DAILY 0RF Tradjenta 5 mg Tablet 5 mg PO DAILY 0RF magnesium oxide 400 mg magnesium Tablet 400 mg PO DAILY 0RF primidone 50 mg Tablet 75 mg PO BEDTIME 0RF acetaminophen 500 mg Tablet 1,000 mg PO TID 0RF levetiracetam 250 mg Tablet 500 mg PO BID 0RF gabapentin 300 mg Capsule 300 mg PO BID 0RF torsemide 20 mg tablet 40 mg PO DAILY 0RF Changed atorvastatin 40 mg Tablet 80 mg PO BEDTIME Qty: 0 0RF carvedilol 3.125 mg Tablet 12.5 mg PO BID Qty: 0 0RF Discontinued nystatin 100,000 unit/gram Powder 1 applic TOPICAL BID 0RF Follow up/Referrals: Kinsey Bose MD [Primary Care Provider] - Discharge Data Primary Care Provider: Kinsey Bose Quality VTE Deep Vein Thrombosis/Pulmonary Embolism Present on Admission: No
--- NOTE | 2022-01-12 12:48 | CM.DPNOTE ---
Faxed DC summary, orders, signed med list and covid result to [facility]; also faxed resume order and dc sum to [facility]. Received conf. for both. Rosario Hall CM Assist.
== END 2022-01-12 11:15 | disposition home health service (06) | DRG 871 ==
LOC: ED 14:43 → AC 16:00 → ICU 01-09 19:41
PROVIDERS: Nurse Practitioner Family; Student in an Organized Health Care Education/Training Program; Admitting Provider Internal Medicine; Emergency Provider Emergency Medicine; PCP Family Medicine; Visit Provider Internal Medicine
DX: A41.9 Sepsis, unspecified organism (principal); G92.8 Other toxic encephalopathy; N17.9 Acute kidney failure, unspecified; J96.12 Chronic respiratory failure with hypercapnia; N18.4 Chronic kidney disease, stage 4 (severe); Z68.42 Body mass index [BMI] 45.0-49.9, adult; N30.00 Acute cystitis without hematuria; Z16.24 Resistance to multiple antibiotics; I13.0 Hypertensive heart and chronic kidney disease with heart failure and stage 1 through stage 4 chronic kidney disease, or unspecified chronic kidney disease; I50.22 Chronic systolic (congestive) heart failure; E66.2 Morbid (severe) obesity with alveolar hypoventilation; R65.20 Severe sepsis without septic shock; F03.90 Unspecified dementia, unspecified severity, without behavioral disturbance, psychotic disturbance, mood disturbance, and anxiety; B96.4 Proteus (mirabilis) (morganii) as the cause of diseases classified elsewhere; I25.10 Atherosclerotic heart disease of native coronary artery without angina pectoris; E78.5 Hyperlipidemia, unspecified; E03.9 Hypothyroidism, unspecified; E11.22 Type 2 diabetes mellitus with diabetic chronic kidney disease; Z95.0 Presence of cardiac pacemaker; Z95.5 Presence of coronary angioplasty implant and graft; Z20.822 Contact with and (suspected) exposure to COVID-19; Z79.84 Long term (current) use of oral hypoglycemic drugs
CPT/HCPCS: 36415; 36600; 70450; 71045; 80048; 80053; 81001; 82805; 82962; 83036; 83605; 83690; 83735; 84145; 85007; 85025; 87040; 87077; 87086; 87186; 87635; 87797; 92526; 92610; 93005; 93010; 93306; 93970; 94660; 94760; 97163; 99285; C9803; J0696; J1644; J1650; J1815; Q9957

== ENCOUNTER → 2022-01-16 08:11 | Outpatient (ROUT) | payer OTHER, MEDICAID, SELFPAY ==
[2022-01-06 16:54] VITALS: BMI 47.5
[2022-01-11 22:30] VITALS: PULSE 80; RESP 18; O2SAT 98
[2022-01-16 08:31] LABS: Add Manual Diff / Slide Review NO; Basophils Absolute Auto 100 /uL (0-100); Basophils Percent Auto 1.1 % (0-2); Eosinophils Absolute Auto 200 /uL (0-450); Eosinophils Percent Auto 2.8 % (2-4); Hematocrit 33.7 % (36-46); Hemoglobin 10.9 g/dL (12.0-16.0); Lymphocytes Absolute Auto 1400 /uL (1100-4500); Lymphocytes Percent Auto 16.5 % (25-40); Mean Corpuscular HGB Conc 32.4 % (30-36); Mean Corpuscular Hemoglobin 29.6 PG (26-34); Mean Corpuscular Volume 91.3 fL (80-100); Monocytes Absolute Auto 1000 /uL (0-900); Monocytes Percent Auto 12.2 % (3-14); Neutrophils Absolute Auto 5600 /uL (1500-7000); Neutrophils Percent Auto 67.4 % (50-75); Platelet Count 341 X10^3/uL (150-400); Red Blood Cell Count 3.69 X10^6/uL (4.0-5.2); Red Cell Distribution Width 15.3 % (11.6-14.8); White Blood Cell Count 8.3 X10^3/uL (4.5-11.0)
[2022-01-16 08:52] LABS: BUN Creatinine Ratio 20.9 (6-22); Blood Urea Nitrogen 39 mg/dL (7-17); Calcium 9.8 mg/dL (8.4-10.2); Carbon Dioxide 36 mmol/L (22-32); Chloride 93 mmol/L (98-107); Estimated Glomerular Filt Rate 26.3 mL/min (>60); Glucose 267 mg/dL (80-110); HEMOLYSIS < 15 (0-50); Magnesium 1.5 mg/dL (1.6-2.3); Potassium 3.9 mmol/L (3.4-5.1); Sodium 136 mmol/L (137-145)
== END ==
PROVIDERS: PCP Family Medicine; Visit Provider Internal Medicine
DX: R79.0 Abnormal level of blood mineral (principal); I10 Essential (primary) hypertension; E03.9 Hypothyroidism, unspecified
CPT/HCPCS: 36415; 80048; 83735; 85025

== ENCOUNTER 2022-01-16 12:52 | Inpatient (IN) | payer OTHER, MEDICAID, SELFPAY ==
[2022-01-06 16:54] VITALS: BMI 47.5
[2022-01-11 22:30] VITALS: PULSE 80; RESP 18; O2SAT 98
[2022-01-16] VITALS (19 sets, daily range): BP systolic 99–143; BP diastolic 47–86; PULSE 61–80; RESP 12–22; TEMP 36.1–36.4; O2SAT 91–97; BMI 50.1; BMI 49.1
--- NOTE | 2022-01-16 13:15 | ED.GENADULT ---
HPI - General Adult General Chief complaint: Urogenital-Female Stated complaint: Fatigue Time Seen by Provider: 01/16/22 12:57 Source: patient and EMS Mode of arrival: EMS Limitations: no limitations History of Present Illness HPI narrative: Patient is a 76-year-old female who is sent over from her living facility for evaluation of fatigue and episodes of hypoxia when she was falling asleep and concerns for elevated carbon dioxide. Upon arrival patient states that she is unsure as to why she is here. She denies chest pain. No shortness of breath. She does state that her bottom hurts. She has been having urinary issues recently. Having urgency and frequency. She does not think that she has been having any fevers. She states she was just recently diagnosed with the urinary tract infection. Unsure if she is on antibiotics. She has been taking all of the medications that have been given to her at the facility. Related Data Home Medications Medication Instructions Recorded Confirmed aspirin 81 mg tablet,delayed 81 mg PO DAILY 09/07/19 01/06/22 release cholecalciferol (vitamin D3) 25 5,000 unit PO DAILY 09/07/19 01/06/22 mcg (1,000 unit) tablet donepezil 5 mg tablet 5 mg PO DAILY 09/07/19 01/06/22 ferrous sulfate 325 mg (65 mg 325 mg PO DAILY 09/07/19 01/06/22 iron) tablet fluoxetine 40 mg capsule 40 mg PO DAILY 09/07/19 01/06/22 levothyroxine 175 mcg tablet 200 mcg PO DAILY 09/07/19 01/06/22 linagliptin 5 mg tablet (Tradjenta) 5 mg PO DAILY 09/07/19 01/06/22 magnesium oxide 400 mg PO DAILY 09/07/19 01/06/22 potassium chloride 10 mEq 10 meq PO DAILY 09/07/19 01/06/22 tablet,extended release acetaminophen 500 mg tablet 1,000 mg PO TID 10/20/19 01/06/22 gabapentin 300 mg capsule 300 mg PO BID 10/20/19 01/06/22 levetiracetam 250 mg tablet 500 mg PO BID 10/20/19 01/06/22 primidone 50 mg tablet 75 mg PO BEDTIME 10/20/19 01/06/22 torsemide 20 mg tablet 40 mg PO DAILY 01/06/22 01/06/22 Previous Rx's Medication Instructions Recorded atorvastatin 40 mg tablet 80 mg PO BEDTIME #0 tab 01/12/22 carvedilol 3.125 mg tablet 12.5 mg PO BID #0 tab 01/12/22 Allergies Allergy/AdvReac Type Severity Reaction Status Date / Time adhesive tape Allergy Verified 01/06/22 13:27 allopurinol Allergy Verified 01/06/22 13:27 Review of Systems Constitutional Constitutional: Reports system reviewed and no additional complaints, except as documented Cardiovascular Cardiovascular: Reports system reviewed and no additional complaints, except as documented Respiratory Respiratory: Reports system reviewed and no additional complaints, except as documented Gastrointestinal Gastrointestinal: Reports system reviewed and no additional complaints, except as documented Genitourinary Genitourinary: Reports system reviewed and no additional complaints, except as documented and Reports as per HPI Integumentary/Breasts Skin/Breast: Reports system reviewed and no additional complaints, except as documented Neurologic Neurologic: Reports system reviewed and no additional complaints, except as documented Hematologic/Lymphatic On Anticoagulants: No Patient History Medical History (Updated 01/16/22 @ 18:03 by Dustin Mendoza DO) CAD (coronary artery disease) CKD (chronic kidney disease) CVA (cerebral vascular accident) Dementia Diabetes mellitus type 2 in obese GERD (gastroesophageal reflux disease) Heart failure, unspecified Hyperlipidemia Hypertension Hypothyroid Non Hodgkin's lymphoma Pacemaker Thyroid cancer Tremor, unspecified Surgical History History of cholecystectomy History of thyroidectomy Hx of tonsillectomy S/P TAVR (transcatheter aortic valve replacement) Family History Mother Dementia Father Heart attack Social History household members: none Smoking Status: Never smoker alcohol intake: never Smoking Status: Never smoker alcohol intake frequency: 0-2 drinks per day Substance Use Type: does not use Exam Initial Vital Signs Initial Vital Signs: Vital Signs Pulse Rate 70 01/16/22 13:43 Respiratory Rate 16 01/16/22 13:43 Blood Pressure 108/59 L 01/16/22 13:43 Pulse Oximetry 97 01/16/22 13:43 Const General: cooperative and comfortable HENMT Head: normal to inspection and normocephalic Resp Effort & Inspection: normal respiratory effort Auscultation: clear to auscultation bilaterally Cardio Rate: regular rate Rhythm: regular rhythm GI Palpation: soft and No tender Skin Other: Some lesions on her lower extremities that do not appear to be infected. There are no decubitus ulcers nor breakdown on her lower back or buttocks the can be seen. Neuro Other: Patient is alert to person and place. Somewhat confused about why she is here. Extrem General: normal to inspection and capillary refill normal Psych Appearance: grossly normal Scores [facility] [place] coma scale eye opening: Spontaneous Maggie coma scale verbal response: Confused Maggie coma scale motor response: Obey commands Maggie coma scale total score: 14 Course Orders Ordered: ED Orders 01/16/22 14:00 Urinalysis and Microscopic Stat 01/16/22 14:55 COVID19 -Nasal swab/Pre-Proc Stat 01/16/22 15:00 Ammonia (NH3) Stat Complete Blood Count AUTO DIFF Stat Comprehensive Metabolic Panel Stat Lipase Stat NT-proBNP (BNP-Adult 18+) Stat Troponin & CK Cardiac Panel Stat Discontinued Medications Aspirin (Aspirin 81 Mg Chew Tab) 324 mg PO NOW ONE Stop: 01/16/22 16:47 Last Admin: 01/16/22 16:57 Dose: 324 mg Documented by: FRANDY Enoxaparin Sodium (Enoxaparin 40 Mg/0.4 Ml Syringe) 145 mg 1 mg/kg (145 mg) SUBCUT NOW ONE Stop: 01/16/22 18:03 Enoxaparin Sodium (Enoxaparin 80 Mg/0.8 Ml Syringe) 145 mg 1 mg/kg (145 mg) SUBCUT NOW ONE Stop: 01/16/22 19:01 Last Admin: 01/16/22 19:05 Dose: 145 mg Documented by: FRANDY Furosemide (Furosemide 40 Mg/4 Ml Vial) 40 mg IV NOW ONE Stop: 01/16/22 16:21 Last Admin: 01/16/22 16:34 Dose: 40 mg Documented by: FRANDY Vital Signs Vital signs: Vital Signs - 8 hr 01/16/22 13:43 01/16/22 14:48 01/16/22 14:56 Pulse Rate 70 63 64 Respiratory Rate 16 Blood Pressure 108/59 L 126/60 Pulse Oximetry 97 96 97 01/16/22 15:00 01/16/22 15:01 01/16/22 15:30 Pulse Rate 62 63 62 Respiratory Rate 14 17 15 Blood Pressure 128/60 127/58 L Pulse Oximetry 96 96 95 01/16/22 16:00 01/16/22 16:30 01/16/22 16:31 Pulse Rate 61 62 61 Respiratory Rate 13 17 18 Blood Pressure 138/60 143/61 H Pulse Oximetry 95 95 95 01/16/22 17:00 01/16/22 17:30 01/16/22 18:00 Pulse Rate 63 61 64 Respiratory Rate 17 14 12 Blood Pressure 136/65 121/58 L 124/60 Pulse Oximetry 97 97 96 Medical Decision Making Medical Records Medical records reviewed: Yes I reviewed the patient's medical records. Lab Data Lab results reviewed: Yes I reviewed the patient's lab results. Result diagrams: 01/16/22 15:00 01/16/22 15:00 Labs: Lab Results 01/16/22 01/16/22 01/16/22 Range/Units 14:00 14:55 15:00 WBC 8.1 (4.5-11.0) X10^3/uL RBC 3.75 L (4.0-5.2) X10^6/uL Hgb 11.1 L (12.0-16.0) g/dL Hct 34.0 L (36-46) % MCV 90.6 (80-100) fL MCH 29.5 (26-34) PG MCHC 32.6 (30-36) % RDW 15.0 H (11.6-14.8) % Plt Count 344 (150-400) X10^3/uL Neut % (Auto) 66.3 (50-75) % Lymph % (Auto) 18.1 L (25-40) % [place] % (Auto) 12.2 (3-14) % Eos % (Auto) 2.8 (2-4) % Baso % (Auto) 0.6 (0-2) % Neut # (Auto) 5400 (7484-7510) /uL Lymph # (Auto) 1500 (6052-1092) /uL [place] # (Auto) 1000 H (0-900) /uL Eos # (Auto) 200 (0-450) /uL Baso # (Auto) 100 (0-100) /uL Sodium (137-145) mmol/L Potassium (3.4-5.1) mmol/L Chloride (98-107) mmol/L Carbon Dioxide (22-32) mmol/L BUN (7-17) mg/dL Creatinine (0.52-1.04) mg/dL Estimated GFR (>60) mL/min BUN/Creatinine Ratio (6-22) Glucose (80-110) mg/dL Calcium (8.4-10.2) mg/dL Total Bilirubin (0.2-1.3) mg/dL AST (14-36) IU/L ALT (<35) IU/L Alkaline Phosphatase (38-126) U/L Ammonia (9-30) umol/L Total Creatine Kinase (30-135) U/L CK-MB (CK-2) CK-MB (CK-2) Rel Index Troponin I (0.01-0.034) ng/mL NT-Pro-B Natriuret Pep (<125) pg/mL Total Protein (6.3-8.2) g/dL Albumin (3.5-5.0) g/dL Globulin (1.7-4.1) g/dL Albumin/Globulin Ratio (1.0-2.8) Lipase (23-300) U/L Urine Color Yellow Urine Appearance Clear Urine pH 5.0 (4.5-8.0) Ur Specific [place] 1.010 (1.000-1.035) Urine Protein Negative (Negative) Urine Glucose (UA) Negative (Negative) g/dL Urine Ketones Negative (NEGATIVE) Urine Occult Blood Trace-lysed (Negative) Urine Nitrate Negative (Negative) Urine Bilirubin Negative (NEGATIVE) Urine Urobilinogen 0.2 (0.2) E.U./dL Ur Leukocyte Esterase Negative (NEGATIVE) Urine RBC None seen (0-5/HPF) Urine WBC None seen (0-5/HPF) Urine Bacteria None seen (None) Ur Culture Indicated? Cult not indicated Micro UA Comment Microscopic normal SARS-CoV-2 (PCR) Negative (Negative) 01/16/22 01/16/22 Range/Units 15:00 15:00 WBC (4.5-11.0) X10^3/uL RBC (4.0-5.2) X10^6/uL Hgb (12.0-16.0) g/dL Hct (36-46) % MCV (80-100) fL MCH (26-34) PG MCHC (30-36) % RDW (11.6-14.8) % Plt Count (150-400) X10^3/uL Neut % (Auto) (50-75) % Lymph % (Auto) (25-40) % [place] % (Auto) (3-14) % Eos % (Auto) (2-4) % Baso % (Auto) (0-2) % Neut # (Auto) (4240-1705) /uL Lymph # (Auto) (6418-2479) /uL [place] # (Auto) (0-900) /uL Eos # (Auto) (0-450) /uL Baso # (Auto) (0-100) /uL Sodium 138 (137-145) mmol/L Potassium 3.6 (3.4-5.1) mmol/L Chloride 92 L (98-107) mmol/L Carbon Dioxide 36 H (22-32) mmol/L BUN 37 H (7-17) mg/dL Creatinine 1.90 H (0.52-1.04) mg/dL Estimated GFR 25.8 L (>60) mL/min BUN/Creatinine Ratio 19.5 (6-22) Glucose 196 H (80-110) mg/dL Calcium 10.1 (8.4-10.2) mg/dL Total Bilirubin 0.3 (0.2-1.3) mg/dL AST 34 (14-36) IU/L ALT 22 (<35) IU/L Alkaline Phosphatase 69 (38-126) U/L Ammonia < 9 L (9-30) umol/L Total Creatine Kinase 57 (30-135) U/L CK-MB (CK-2) TNP CK-MB (CK-2) Rel Index TNP Troponin I 0.251 H* (0.01-0.034) ng/mL NT-Pro-B Natriuret Pep 3250 H (<125) pg/mL Total Protein 8.9 H (6.3-8.2) g/dL Albumin 4.2 (3.5-5.0) g/dL Globulin 4.7 H (1.7-4.1) g/dL Albumin/Globulin Ratio 0.9 L (1.0-2.8) Lipase 49 (23-300) U/L Urine Color Urine Appearance Urine pH (4.5-8.0) Ur Specific [place] (1.000-1.035) Urine Protein (Negative) Urine Glucose (UA) (Negative) g/dL Urine Ketones (NEGATIVE) Urine Occult Blood (Negative) Urine Nitrate (Negative) Urine Bilirubin (NEGATIVE) Urine Urobilinogen (0.2) E.U./dL Ur Leukocyte Esterase (NEGATIVE) Urine RBC (0-5/HPF) Urine WBC (0-5/HPF) Urine Bacteria (None) Ur Culture Indicated? Micro UA Comment SARS-CoV-2 (PCR) (Negative) Imaging Data Chest x-ray: Radiologist's Impression: [address] [address] XRay Report Signed Patient: Enid Almanza MR#: [id number] : 1945 Acct:[id number] Age/Sex: 76 / F Date of Service: 01/16/22 Loc: 90E-1 Accession Number: [id number] ?? Procedure: XR chest 1V Ordering Provider: Dustin Mendoza D.O. PROCEDURE:? XR CHEST 1V ? INDICATIONS:? Shortness of breath ? TECHNIQUE:? One view of the chest was acquired.? ? COMPARISON:? [facility], CR, XR CHEST 1V, 01/06/2022, 14:37.? [facility], , XR CHEST 1V, 10/04/2021, 22:00. ? FINDINGS:? ? Surgical changes and devices:? Left pacemaker with right atrial, coronary sinus and right ventricular leads.? TAVR stent.? Clips at the lower neck. ? Lungs and pleura:? Low lung volumes.? Left lung base opacity appears decreased.? Trace blunting of the left costophrenic angle is decreased. ? Mediastinum:? Mediastinal contours appear unchanged.? Heart size is enlarged.? ? Bones and chest wall:? No suspicious bony lesions.? Overlying soft tissues appear unremarkable.? ? IMPRESSION:? Suspect improving left pleural effusion. ? ? Dictated by: Sotero Santos M.D. on 01/16/2022 at 19:28 ? ? Approved by: Sotero Santos M.D. on 01/16/2022 at 19:30 ECG Data Attestation: I personally reviewed and interpreted this ECG as follows: Interpretation: Ventricularly paced Rate is 62 QRS 1-6 milliseconds QTC [address] T wave changes MDM Narrative Medical decision making narrative: Patient is somewhat confused about why she is here in the emergency department but knows that she is in the hospital and knows what year it is. She is not in any respiratory distress. Not hypoxic. No chest pain. No shortness of breath. No abdominal pain. She is paced on her EKG without concerning findings consistent with ACS. Somewhat in a delay of obtaining labs however eventually results do show no leukocytosis. She is baseline anemic. Baseline chronic kidney disease. Her BNP is slightly above normal today. She was given Lasix. Her troponin is also elevated today. She denies chest pain. I did have a discussion with the patient's daughter. Over the phone the patient's daughter states she does have the patient's POLST form which does state DNR with limited interventions. I did not specifically have this in front of me to view however this is the information that was related to me by the patient's daughter. I did discuss the case with Cardiology who stated given her DNR status, presentation today, elevated BNP, BMI that they would not recommend cardiac catheterization and did recommend medical management. Patient was given Lovenox. Discussed case with Dr. Kumar with internal medicine who will admit for further evaluation and treatment. Discharge Plan Departure Patient Disposition: Admitted As Inpatient Clinical Impression: Non-ST elevation NM (NSTEMI) Admit Date/Time: 01/16/22 18:03 Admit Provider: Jose Kumar
--- NOTE | 2022-01-16 13:57 | PC.NURSE ---
attempted saleh catheter x2. no urine return. pt tolerated procedure moderately well. slight discomfort while holding labia apart.
[2022-01-16 14:14] LABS: Appearance Urine UA CLEAR; Bilirubin Urine UA NEGATIVE (NEGATIVE); Color Urine UA YELLOW; Glucose Urine UA NEGATIVE (Negative); Ketones Urine UA NEGATIVE (NEGATIVE); Leukocyte Esterase Urine UA NEGATIVE (NEGATIVE); Nitrite Urine UA NEGATIVE (Negative); Occult Blood Urine UA TRACE-LYSED (Negative); Protein Urine UA NEGATIVE (Negative); Urobilinogen Urine UA 0.2 E.U./dL (0.2)
[2022-01-16 14:17] LABS: Bacteria Urine None Seen; Culture Indicated Urine Cult Not Indicated; RBC Urine None Seen (0-5/HPF); Urine Comments Microscopic Normal; WBC Urine None Seen (0-5/HPF)
[2022-01-16 15:09] LABS: Add Manual Diff / Slide Review NO; Basophils Absolute Auto 100 /uL (0-100); Basophils Percent Auto 0.6 % (0-2); Eosinophils Absolute Auto 200 /uL (0-450); Eosinophils Percent Auto 2.8 % (2-4); Hemoglobin 11.1 g/dL (12.0-16.0); Lymphocytes Absolute Auto 1500 /uL (1100-4500); Lymphocytes Percent Auto 18.1 % (25-40); Mean Corpuscular HGB Conc 32.6 % (30-36); Mean Corpuscular Hemoglobin 29.5 PG (26-34); Mean Corpuscular Volume 90.6 fL (80-100); Monocytes Absolute Auto 1000 /uL (0-900); Monocytes Percent Auto 12.2 % (3-14); Neutrophils Absolute Auto 5400 /uL (1500-7000); Neutrophils Percent Auto 66.3 % (50-75); Platelet Count 344 X10^3/uL (150-400); Red Blood Cell Count 3.75 X10^6/uL (4.0-5.2); White Blood Cell Count 8.1 X10^3/uL (4.5-11.0)
[2022-01-16 15:21] LABS: Alanine Aminotransferase 22 IU/L (<35); Albumin 4.2 g/dL (3.5-5.0); Albumin Globulin Ratio 0.9 (1.0-2.8); Alkaline Phosphatase 69 U/L (38-126); Aspartate Aminotransferase 34 IU/L (14-36); BUN Creatinine Ratio 19.5 (6-22); Bilirubin Total 0.3 mg/dL (0.2-1.3); Blood Urea Nitrogen 37 mg/dL (7-17); Calcium 10.1 mg/dL (8.4-10.2); Chloride 92 mmol/L (98-107); Creatine Kinase 57 U/L (30-135); Estimated Glomerular Filt Rate 25.8 mL/min (>60); Globulin 4.7 g/dL (1.7-4.1); Glucose 196 mg/dL (80-110); HEMOLYSIS < 15 (0-50); Lipase 49 U/L (23-300); Potassium 3.6 mmol/L (3.4-5.1); Sodium 138 mmol/L (137-145); Total Protein 8.9 g/dL (6.3-8.2)
[2022-01-16 15:22] LABS: Ammonia (NH3) < 9 umol/L (9-30)
[2022-01-16 15:28] LABS: Carbon Dioxide 36 mmol/L (22-32)
[2022-01-16 15:35] LABS: NT-proBNP (BNP-Adult 18+) 3250 pg/mL (<125)
[2022-01-16 16:07] LABS: Troponin I 0.251 ng/mL (0.01-0.034)
[2022-01-16 16:24] LABS: COVID19 -Nasal RAPID Negative (Negative)
[2022-01-16] MEDS: FUROSEMIDE 40 MG/4 ML VIAL IV (16:34)
[2022-01-16] MEDS: ASPIRIN 81 MG CHEW TAB 324 MG PO (16:57)
--- NOTE | 2022-01-16 18:54 | DI.RAD.S_ITS ---
PROCEDURE: XR CHEST 1V INDICATIONS: Shortness of breath TECHNIQUE: One view of the chest was acquired. COMPARISON: [facility], CR, XR CHEST 1V, 01/06/2022, 14:37. [facility], CR, XR CHEST 1V, 10/04/2021, 22:00. FINDINGS: Surgical changes and devices: Left pacemaker with right atrial, coronary sinus and right ventricular leads. TAVR stent. Clips at the lower neck. Lungs and pleura: Low lung volumes. Left lung base opacity appears decreased. Trace blunting of the left costophrenic angle is decreased. Mediastinum: Mediastinal contours appear unchanged. Heart size is enlarged. Bones and chest wall: No suspicious bony lesions. Overlying soft tissues appear unremarkable. IMPRESSION: Suspect improving left pleural effusion. Dictated by: Sotero Santos M.D. on 01/16/2022 at 19:28 Approved by: Sotero Santos M.D. on 01/16/2022 at 19:30
[2022-01-16] MEDS: ENOXAPARIN 80 MG/0.8 ML SYRINGE 145 MG SUBCUT (19:05)
--- NOTE | 2022-01-16 20:26 | PM.HP.1 ---
History of Present Illness History of Present Illness Date Patient Seen: 01/16/22 Time Patient Seen: 21:41 Chief complaint: Fatigue Narrative: Enid Almanza is a 74-year-old female with a past medical history significant for dementia, CAD s/p stent x1, cardiac arrest status post pacemaker, aortic stenosis status post TAVR, hypertension, systolic CHF, chronic hypercapnic respiratory failure, obesity hyperventilation syndrome, morbid obesity, hyperlipidemia, NIDDM2, CKD stage 4, secondary hypothyroidism S/P thyroidectomy-thyroid cancer (unknown type), and non-Hodgkin's lymphoma in remission who presented from [facility]?for for evaluation of fatigue, episodes of hypoxia, and elevated carbon dioxide while the patient was sleeping.? Upon arrival in the ED patient stated she is unsure why she is here.? She denies chest pain, shortness of breath, fever, body aches, chills, bowel issues, abd pain, nausea, vomiting, recent falls, or injury.? Patient complains of pain to her bottom, urinary urgency, and frequency.? She reports being compliant with all of the medications given to her at [facility]. Hospitalization 01/06-01/12/[address] Claros:Enid Almanza 74W with PMH CAD status post stent x1, cardiac arrest status post pacemaker, aortic stenosis status post TAVR, HTN, HL, DM, CKD stage 4, secondary hypothyroidism status post thyroidectomy for thyroid cancer (unknown type), non-Hodgkin's lymphoma in remission and dementia who presented from [facility] for decreased alertness. admitted for Acute toxic / metabolic encephalopathy secondary to acute cystitis with sepsis, mild hypercalcemia, and likely dehydration. Urine culture positive for proteus, sensative to ceftiaxone, completed 3 days of rocephin IV, head CT showed old CVA, no acute processes, ABG's demonstrated no acidosis, likely chronic hypercapnea, blood cultures were negative, and patient meditation returned to her base line of mild confusion GCS:11, related to her dementia upon discharge. Please note change in code status per Dr. Mendoza ED:I did have a discussion with the patient's daughter.? Over the phone the patient's daughter states she does have the patient's POLST form which does state DNR with limited interventions.? I did not specifically have this in front of me to view however this is the information that was related to me by the patient's daughter.? I did discuss the case with Cardiology who stated given her DNR status, presentation today, elevated BNP, BMI that they would not recommend cardiac catheterization and did recommend medical management.? Patient's vitals upon admit are stable, patient is afebrile, BP 136/65, HR 63, R 17, O2 saturation 97% on room air. Patient's H&H are stable at 11.1/34, with no white count, patient does have positive mono# 1000. Patient's chemistry panel is stable at baseline CKD stage 4: Chloride 92, bicarb 36, creatinine 1.9, glucose 196, GFR 25.8 Last lab values on discharge 01/12/2022: MOTO MIX OPERATOR 2, BUN 35, bicarb 34, GFR 24.4. Patient's ammonia< 9, patient's total protein 8.9, lipase WNL, patient's troponin#1 0.251, BNP 3250-patient given Lasix in ED. I personally reviewed patient's EKG in which she demonstrated a ventricular paced rhythm, with a rate of 62, without ST or T-wave changes, patient also denies chest pain, no signs of ACS. Patient is orientated to self and place, and is at her baseline meditation in the setting of her dementia upon admit. Patient is admitted for NSTEMI, myocardial injury-as a DNR with limited interventions, an acute on chronic exacerbation systolic congestive heart failure. Patient History Medical History (Updated 01/16/22 @ 21:09 by SHERYL Tenorio) CAD (coronary artery disease) Chronic hypercapnic respiratory failure Chronic systolic CHF (congestive heart failure) CKD (chronic kidney disease) CVA (cerebral vascular accident) Dementia Diabetes mellitus type 2 in obese GERD (gastroesophageal reflux disease) Heart failure, unspecified Hyperlipidemia Hypertension Hypothyroid Morbid obesity with alveolar hypoventilation Non Hodgkin's lymphoma Pacemaker Thyroid cancer Tremor, unspecified Surgical History History of cholecystectomy History of thyroidectomy Hx of tonsillectomy S/P TAVR (transcatheter aortic valve replacement) Family & Social History Family History Mother Dementia Father Heart attack Social History: household members none Safety & Behavioral: Feels Safe in Current Yes -lives at [facility] Living [facility] Environment Been Physically Hurt or No Threatened By a Person Tobacco & Substance use: Smoking Status Never smoker alcohol intake never alcohol intake frequency 0-2 drinks per day Substance Use Type does not use Meds Home Medications and Allergies Home Medications Medication Instructions Recorded Confirmed Type aspirin 81 mg tablet,delayed 81 mg PO DAILY 09/07/19 01/06/22 History release cholecalciferol (vitamin D3) 25 5,000 unit PO DAILY 09/07/19 01/06/22 History mcg (1,000 unit) tablet donepezil 5 mg tablet 5 mg PO DAILY 09/07/19 01/06/22 History ferrous sulfate 325 mg (65 mg 325 mg PO DAILY 09/07/19 01/06/22 History iron) tablet fluoxetine 40 mg capsule 40 mg PO DAILY 09/07/19 01/06/22 History levothyroxine 175 mcg tablet 200 mcg PO DAILY 09/07/19 01/06/22 History linagliptin 5 mg tablet (Tradjenta) 5 mg PO DAILY 09/07/19 01/06/22 History magnesium oxide 400 mg PO DAILY 09/07/19 01/06/22 History potassium chloride 10 mEq 10 meq PO DAILY 09/07/19 01/06/22 History tablet,extended release acetaminophen 500 mg tablet 1,000 mg PO TID 10/20/19 01/06/22 History gabapentin 300 mg capsule 300 mg PO BID 10/20/19 01/06/22 History levetiracetam 250 mg tablet 500 mg PO BID 10/20/19 01/06/22 History primidone 50 mg tablet 75 mg PO BEDTIME 10/20/19 01/06/22 History torsemide 20 mg tablet 40 mg PO DAILY 01/06/22 01/06/22 History atorvastatin 40 mg tablet 80 mg PO BEDTIME #0 tab 01/12/22 01/06/22 Rx carvedilol 3.125 mg tablet 12.5 mg PO BID #0 tab 01/12/22 01/06/22 Rx Allergies Allergy/AdvReac Type Severity Reaction Status Date / Time adhesive tape Allergy Verified 01/06/22 13:27 allopurinol Allergy Verified 01/06/22 13:27 Review of Systems Review of Systems Narrative: All 12 point systems reviewed with the patient and are negative except otherwise documented. Please note ROS and HPI may be inaccurate due to patient's baseline dementia. Exam Vital Signs (past 8 hours): - 01/16/22 13:43 01/16/22 14:48 01/16/22 14:56 Pulse Rate 70 63 64 Respiratory Rate 16 Blood Pressure 108/59 L 126/60 Pulse Oximetry 97 96 97 01/16/22 15:00 01/16/22 15:01 01/16/22 15:30 Pulse Rate 62 63 62 Respiratory Rate 14 17 15 Blood Pressure 128/60 127/58 L Pulse Oximetry 96 96 95 01/16/22 16:00 01/16/22 16:30 01/16/22 16:31 Pulse Rate 61 62 61 Respiratory Rate 13 17 18 Blood Pressure 138/60 143/61 H Pulse Oximetry 95 95 95 01/16/22 17:00 01/16/22 17:30 01/16/22 18:00 Pulse Rate 63 61 64 Respiratory Rate 17 14 12 Blood Pressure 136/65 121/58 L 124/60 Pulse Oximetry 97 97 96 01/16/22 18:30 01/16/22 19:00 01/16/22 19:01 Pulse Rate 67 71 68 Respiratory Rate 18 18 22 Blood Pressure 126/67 114/86 Pulse Oximetry 94 91 92 Oxygen Delivery Method Room Air Narrative Exam Narrative: General: Patient is a well-developed, well-nourished morbidly obese elderly female, resting comfortably in bed, alert and conversant with staff, in no distress at this time. HEENT: Normocephalic, atraumatic, extraocular muscles intact, oral pharynx is clear and mucous membranes are dry. Patient appears slightly dehydrated Neck is supple and symmetric, trachea is midline, no adenopathy, no thyroid enlargement, nontender, no masses palpated. Negative for JVD Chest: no nasal flaring, retractions, or tachypneic labored breathing. Lungs: Auscultation of all lung hunter are clear without adventitious sounds, wheezes, rhonchi, or rales, respirations are shallow with decreased air exchange Cardio: regular paced rate and rhythm without murmur, rubs, or gallops, no carotid bruit, no cardiac pulsations present. Patient has pacemaker in place left upper chest area without signs of infection. Abdomen: Soft round, nontender, negative for organomegaly, or masses. Bowel sounds are present in all 4 quadrants without guarding or rebound, no CVA tenderness. Musculoskeletal: Muscle tone is equal, no crepitus, effusions, cyanosis, or clubbing present. Noted slight chronic deformity of bilateral feet, patient has +5 pitting in the left foot, none in the right, and no edema noted bilaterally. intact radial and pedal pulses are normal. Skin: Warm very dry and intact, patient has a erythema could well demarcated, without inflammation, round, peeling area to the left calf, about the size of a tea cup saucer, nontender, no open skin. Patient has hyper pigmentation to interior bilateral groin area peeling present, no erythema, no inflammation, no signs infection or skin breakdown. No signs of wounds, infection, or breakdown to buttocks area. Neuro: Alert and orientated to self and place, baseline mentation for patient -dementia, sensation to touch intact, no gross deficits noted of cranial nerves. GCS: 14 Psych: Patient has a well-kept appearance, appropriate affect, mental status attitude thought context and judgment are appropriate for mentation/dementia. Objective Labs Result Diagrams: 01/16/22 15:00 01/16/22 15:00 Labs: Laboratory Results - last 24 hr 01/16/22 01/16/22 01/16/22 14:00 14:55 15:00 WBC 8.1 RBC 3.75 L Hgb 11.1 L Hct 34.0 L MCV 90.6 MCH 29.5 MCHC 32.6 RDW 15.0 H Plt Count 344 Neut % (Auto) 66.3 Lymph % (Auto) 18.1 L [place] % (Auto) 12.2 Eos % (Auto) 2.8 Baso % (Auto) 0.6 Neut # (Auto) 5400 Lymph # (Auto) 1500 [place] # (Auto) 1000 H Eos # (Auto) 200 Baso # (Auto) 100 Sodium Potassium Chloride Carbon Dioxide BUN Creatinine Estimated GFR BUN/Creatinine Ratio Glucose Calcium Total Bilirubin AST ALT Alkaline Phosphatase Ammonia Total Creatine Kinase CK-MB (CK-2) CK-MB (CK-2) Rel Index Troponin I NT-Pro-B Natriuret Pep Total Protein Albumin Globulin Albumin/Globulin Ratio Lipase Urine Color Yellow Urine Appearance Clear Urine pH 5.0 Ur Specific [place] 1.010 Urine Protein Negative Urine Glucose (UA) Negative Urine Ketones Negative Urine Occult Blood Trace-lysed Urine Nitrate Negative Urine Bilirubin Negative Urine Urobilinogen 0.2 Ur Leukocyte Esterase Negative Urine RBC None seen Urine WBC None seen Urine Bacteria None seen Ur Culture Indicated? Cult not indicated Micro UA Comment Microscopic normal SARS-CoV-2 (PCR) Negative 01/16/22 01/16/22 15:00 15:00 WBC RBC Hgb Hct MCV MCH MCHC RDW Plt Count Neut % (Auto) Lymph % (Auto) [place] % (Auto) Eos % (Auto) Baso % (Auto) Neut # (Auto) Lymph # (Auto) [place] # (Auto) Eos # (Auto) Baso # (Auto) Sodium 138 Potassium 3.6 Chloride 92 L Carbon Dioxide 36 H BUN 37 H Creatinine 1.90 H Estimated GFR 25.8 L BUN/Creatinine Ratio 19.5 Glucose 196 H Calcium 10.1 Total Bilirubin 0.3 AST 34 ALT 22 Alkaline Phosphatase 69 Ammonia < 9 L Total Creatine Kinase 57 CK-MB (CK-2) TNP CK-MB (CK-2) Rel Index TNP Troponin I 0.251 H* NT-Pro-B Natriuret Pep 3250 H Total Protein 8.9 H Albumin 4.2 Globulin 4.7 H Albumin/Globulin Ratio 0.9 L Lipase 49 Urine Color Urine Appearance Urine pH Ur Specific [place] Urine Protein Urine Glucose (UA) Urine Ketones Urine Occult Blood Urine Nitrate Urine Bilirubin Urine Urobilinogen Ur Leukocyte Esterase Urine RBC Urine WBC Urine Bacteria Ur Culture Indicated? Micro UA Comment SARS-CoV-2 (PCR) Assessment & Plan Assessment & Plan narrative: Enid Almanza is a 74-year-old female with a past medical history significant for dementia, CAD s/p CABG x1, cardiac arrest status post pacemaker, aortic stenosis status post TAVR, hypertension, systolic CHF, chronic hypercapnic respiratory failure due to obesity hyperventilation syndrome, morbid obesity, hyperlipidemia, diabetes mellitus type 2, non-insulin using, CKD stage 4, secondary hypothyroidism status post thyroidectomy for thyroid cancer (unknown type), and non-Hodgkin's lymphoma in remission who presented [facility]?for for evaluation of fatigue, episodes of hypoxia, and elevated carbon dioxide while the patient was sleeping.? Upon admit she was found to have elevated troponin 0.251, without chest pain, shortness of breath, or EKG changes. Based on the patient's DNR status, limited interventions patient is to be admitted for NSTEMI/myocardial injury for overnight Lovenox, trend troponins, monitor on telemedicine, as well is exacerbation of systolic CHF, patient also to be mildly diuresed, in the setting of acute on chronic SEBASTIAN on CKD. 1. NSTEMI/myocardial injury, acute, present on admission -as evidence by initial troponin of 0.251 value above the 99th percentile. -no EKG changes, EKG ventral paced rhythm with a rate of [address] or T-wave changes, patient is without chest pain or shortness of breath, asymptomatic and stable. -Risk Factors/medical history:CAD s/p CABG x1, cardiac arrest status post pacemaker, aortic stenosis status post TAVR, hypertension, systolic CHF, chronic hypercapnic respiratory failure due to obesity hyperventilation syndrome, morbid obesity, hyperlipidemia, NIDDM 2, CKD stage 4. -patient given 145 mg of Lovenox in ED, will continue 145 mg q.day-per up-to-date NSTEMI conservative tx -ED consult with patients registered nurse step down [facility]. -patient admitted under chest pain protocol, telemedicine -trend troponins overnight. 2. Chronic systolic heart failure, acute on chronic exacerbation, present on admission -last echo 01/10/2022: EF 40-45% -BNP 3250, last known September 2020: 595 -40 mg of IV Lasix given in ED -will continue gentle diuresis 40 mg IV Lasix b.i.d., patient does have a Kimble, placed in ED. -strict monitoring of I&O, goal to achieve euvolemic status. Monitor for dehydration, and renal function/electrolytes. -fluid restriction 2 L, may decrease as needed -low-sodium diet -hold torsemide, continue magnesium and potassium supplements 4. CAD status post stenting, pacemaker and TAVR, chronic, present on admission.? Stable. -Patient has history of stenting with YADIRA to unknown coronary artery.? She also has history of TAVR.? During her operation for TAVR she had cardiac arrest requiring temporary pacemaker and when temporary pacemaker was later removed she again had another cardiac arrest. -Continue carvedilol 5. Hypertension, chronic, present on admission.? Stable. -Continue carvedilol 6. Hyperlipidemia, chronic, present on admission.? Stable. -Continue lipitor 7. Xsb-nosbjmy-iafndzcrd type 2 diabetes, with presenting hyperglycemia, peripheral neuropathy, acute on chronic, present on admission.? Stable. -patient admitted under diabetic protocol, monitor for hypo and hyperglycemia -continue low-dose sliding scale as needed. -Last 01/10/2022: A1c 8.1%. -Low carb diet -continue Tradjenta, gabapentin 8. Acute kidney injury on Chronic kidney disease stage 4, acute on chronic, present on admission. -Last Admit: 01/10/2022 Initial creatinine 1.88 improved to 1.57 with fluids. -Initial Chloride 92, bicarb 36, creatinine 1.9, glucose 196, GFR 25.8 Last lab values on discharge 01/12/2022: MOTO MIX OPERATOR 2, BUN 35, bicarb 34, GFR 24.4. -avoid nephrotoxic medications -monitor renal function closely 9. Hypothyroidism, secondary to status post thyroidectomy for thyroid cancer, chronic, present on admission.? Stable. -continue levothyroxine -TSH ordered 10. Chronic hypercapnic respiratory failure, likely secondary to obesity hypoventilation syndrome, chronic, present on admission- stable -01/10/2022: PCO2 on ABG of 60 but compensated. -patient in no respiratory distress, or encephalopathic symptoms at this time. -patient's O2 saturation 92% on room air. Serum carbon dioxide on admit 36. : Carbon dioxide serum: 33-38 -monitor patient's meditation, chemistries, and respiratory status. 11. Morbid obesity as evidence by BMI 50.1, acute on chronic, present on admission -This is contributing greatly to patient's chronic comorbidities, poor health outcomes, impaired mobility, and decreased healing. -no dietary consult will be obtained at this time due to patient's dementia 12. Dementia, with depression, acute on chronic, present on admission -continue donepezil, fluoxetine -patient's mentation is at baseline today, orientated to self and place. -GCS: 14 on admit 13. Chronic anemia likely secondary to CKD, acute on chronic, present on admission -patient's labs for hemoglobin 10.8-11.7, hematocrit 32-36%, initial HGB today 11.1, HCT 34. MCV 90.6 and MCH 29.5-WNL -continue ferrous sulfate -Monitor H/H 14. Essential tremor, chronic, present on admission -continue primidone 15. Seizure disorder, chronic, present on admission -patient's medication list and Mar from [facility] states the patient takes Keppra BID for seizures, though no seizure history is listed on her medical history. -will continue Keppra BID Code status:DNR- Per daughter Juliana/POL Surrogate decision maker: Juliana daughter COVID PCR: Negative COVID vaccination: Unknown DVT/VTE prophylaxis: Lovenox and SCDs Disposition: Patient admitted to acute care likely estimated length of stay less than 2 midnights but may require possibly longer. I have utilized all available immediate resources to obtain, update, or review the patient's current medications. -requested and received medication list/Mar from [facility] for review. I confirmed that the patient's advanced care plan is present, Code status is documented and/or surrogate decision maker is listed in the patient's medical record. Time Spent With Patient Critical Care time: I spent a total of [] minutes of critical care time on this patient's care today; this time is exclusive of procedural time. Scores GCS Maggie coma scale eye opening: Spontaneous [place] coma scale verbal response: Confused [place] coma scale motor response: Obey commands Maggie coma scale total score: 14
[2022-01-16] MEDS: SENNOSIDES 8.6 MG TABLET 17.2 MG PO (22:11)
[2022-01-16 23:08] LABS: Magnesium 1.4 mg/dL (1.6-2.3)
[2022-01-16 23:26] LABS: Troponin I 0.272 ng/mL (0.01-0.034)
[2022-01-17] VITALS (10 sets, daily range): BP systolic 100–138; BP diastolic 44–69; PULSE 76–83; RESP 14–18; TEMP 36.4–37.3; O2SAT 92–97
[2022-01-17] MEDS: MAGNESIUM SULFATE 2 GM/50 ML PIGGYBACK IV (05:01)
[2022-01-17 05:19] LABS: Hematocrit 34.6 % (36-46); Hemoglobin 11.2 g/dL (12.0-16.0)
[2022-01-17 05:23] LABS: INR 1.3 (0.9-1.3); Prothrombin Time 14.3 SECONDS (10.1-12.7)
[2022-01-17 05:27] LABS: Alanine Aminotransferase 23 IU/L (<35); Albumin Globulin Ratio 0.9 (1.0-2.8); Alkaline Phosphatase 77 U/L (38-126); Aspartate Aminotransferase 41 IU/L (14-36); BUN Creatinine Ratio 24.8 (6-22); Bilirubin Total 0.4 mg/dL (0.2-1.3); Blood Urea Nitrogen 40 mg/dL (7-17); Calcium 10.1 mg/dL (8.4-10.2); Carbon Dioxide 38 mmol/L (22-32); Chloride 93 mmol/L (98-107); Estimated Glomerular Filt Rate 31.3 mL/min (>60); Globulin 4.4 g/dL (1.7-4.1); Glucose 250 mg/dL (80-110); HEMOLYSIS < 15 (0-50); Potassium 3.5 mmol/L (3.4-5.1); Sodium 136 mmol/L (137-145); Total Protein 8.4 g/dL (6.3-8.2)
[2022-01-17 05:45] LABS: Troponin I 0.221 ng/mL (0.01-0.034)
[2022-01-17 06:10] LABS: Thyroid Stimulating Hormone 39.2 uIU/mL (0.47-4.68)
[2022-01-17] MEDS: LEVOTHYROXINE 100 MCG TABLET 200 MCG PO (06:50)
[2022-01-17 08:34] LABS: Free T4, Direct Thyroxine 1.09 ng/dL (0.78-2.19)
[2022-01-17] MEDS: INSULIN LISPRO 100 UNIT/ML 3ML VIAL SUBCUT ×3 (09:39→20:45)
[2022-01-17] MEDS: MAGNESIUM OXIDE 400 MG TABLET 800 MG PO (09:42)
[2022-01-17] MEDS: POTASSIUM CHLORIDE 10 MEQ TAB PO (09:42)
[2022-01-17] MEDS: GABAPENTIN 300 MG CAPSULE PO ×3 (09:42→20:32)
[2022-01-17] MEDS: carvediloL 3.125 MG TABLET 12.5 MG PO (09:42)
[2022-01-17] MEDS: levETIRAcetam 250 MG TABLET 500 MG PO ×2 (09:42→20:31)
[2022-01-17] MEDS: PRIMIDONE 50 MG TABLET 100 MG PO (09:48)
[2022-01-17] MEDS: TORSEMIDE 10 MG TABLET 40 MG PO (09:48)
[2022-01-17] MEDS: SITAGLIPTIN 50 MG TABLET 100 MG PO (09:48)
[2022-01-17] MEDS: INSULIN LISPRO 100 UNIT/ML 3ML VIAL 12 UNIT SUBCUT (09:54)
[2022-01-17] MEDS: ENOXAPARIN 150 MG/ML SYRINGE 145 MG SUBCUT (09:59)
[2022-01-17] MEDS: FUROSEMIDE 40 MG/4 ML VIAL IV (12:58)
--- NOTE | 2022-01-17 13:19 | CM.IDA ---
Initial DCP Assessment Note Pt is a 76 yo female, resident at [facility] in [place], arrives via EMS for complaints of fatigue per H+P: Patient admitted for NSTEMI, myocardial injury-as a DNR with limited interventions, an acute on chronic exacerbation systolic congestive heart failure. PMH includes dementia, CAD, morbid obesity, CKD stage 4, non-Hodgkin's lymphoma in remission PCP: Kinsey Bose Payer: Kory FERGUSON/STALIN Reviewed chart, pt discussed in multidisciplinary rounds this morning. Patient is expected to remain admitted for at least another 24-48 hrs. Patient resides at [facility], [facility] [place] at baseline, multiple co-morbidities. Will anticipate reviewing DCP w/dtr Juliana d/t patient's dementia. PATRIC Styles Discharge Planning/Care Management CM Discharge Assessment Start: 01/17/22 13:04 Freq: Status: Active Protocol: Document 01/17/22 13:04 HECTOR (Rec: 01/17/22 13:18 HECTOR [id number]) Discharge Planning Assessment Assigned Impregnator Operator PATRIC Bush DPOA/Assigned Designee Name Juliana Erwin, dtr Contact Information [phone] Advance Directives? Yes: DNR Advance Directives on File No History Provided By Medical Record Has Patient been admitted in last 30 Yes days? Comment 2.12-2.18 here for decreased LOC Prior Living Arrangements Assisted Living Comment [facility] Household Members none Type of transporation used prior to Relies on Others admit Facility Name Admitted From: [facility] Willing to Return to Facility? Yes Independent with ADL's No Is patient alert and oriented? No Needs Assistance With Bathing,Grooming,Meal Prep, Toileting,Managing Medications ,Home Chores / Shopping Comment Teresa evans at baseline, does not stand. indp eater Caregiver for Another No Comment Return home to [facility] is expected. Will review w/ patient's dtr and follow closely for coodination of DCP Discharge Plan Assisted Living Facility Transportation Arrangement Facility or Medicaid Transport Referrals Initiated None needed Additional Comment has yusuf MEHTA at [facility]
--- NOTE | 2022-01-17 13:34 | CM.DPNOTE ---
Haleigh from [facility] called and said when pt. is dc'd, please send them a new order. I let Rika know. Rosario Hall, NATALIE Assist.
--- NOTE | 2022-01-17 14:42 | PM.PN.1 ---
Subjective Subjective Date Patient Seen: 01/17/22 Time Patient Seen: 14:42 Interval history: Patient appears much more alert this morning. She denies any acute complaints. Exam Vital Signs (past 8 hours): - 01/17/22 07:24 01/17/22 08:00 01/17/22 11:07 Temperature 97.5 F L Pulse Rate 76 Respiratory Rate 18 Blood Pressure 115/57 L Pulse Oximetry 92 94 94 01/17/22 11:53 01/17/22 12:00 Temperature 98.1 F Pulse Rate 76 Respiratory Rate 18 Blood Pressure 116/61 Pulse Oximetry 93 93 Oxygen Delivery Method Room Air Oxygen Flow Rate 0 Narrative Exam Narrative: General:? Patient is a well-developed, well-nourished morbidly obese elderly female, resting comfortably in bed, alert and conversant with staff, in? no distress at this time. HEENT:? Normocephalic, atraumatic, extraocular muscles intact, oral pharynx is clear and mucous membranes are dry.? Patient appears slightly dehydrated Neck is supple and symmetric, trachea is midline, no adenopathy, no thyroid enlargement, nontender, no masses palpated.? Negative for JVD Chest:? no nasal flaring, retractions, or tachypneic labored breathing. Lungs:? Auscultation of all lung hunter are clear without adventitious sounds, wheezes, rhonchi, or rales, respirations are shallow with decreased air exchange Cardio:? regular paced rate and rhythm without murmur, rubs, or gallops, no carotid bruit, no cardiac pulsations present.? Patient has pacemaker in place left upper chest area without signs of infection. Abdomen:? Soft round, nontender, negative for organomegaly, or masses.? Bowel sounds are present in all 4 quadrants without guarding or rebound, no CVA tenderness. Musculoskeletal:? Muscle tone is equal, no crepitus, effusions, cyanosis, or clubbing present.? Noted slight chronic deformity of bilateral feet, patient has +5 pitting in the left foot, none in the right, and no edema noted bilaterally. intact radial and pedal pulses are normal. Skin:? Warm very dry and intact, patient has a erythema could well demarcated, without inflammation, round, peeling area to the left calf, about the size of a tea cup saucer, nontender, no open skin.? Patient has hyper pigmentation to interior bilateral groin area peeling present, no erythema, no inflammation, no signs infection or skin breakdown.? No signs of wounds, infection, or breakdown to buttocks area. Neuro: Alert and orientated to self and place, baseline mentation for patient -dementia, sensation to touch intact, no gross deficits noted of cranial nerves.? GCS: 14 Psych:? Patient has a well-kept appearance, appropriate affect, mental status attitude thought context and judgment are appropriate for mentation/dementia. Objective Labs Result Diagrams: 01/17/22 04:33 01/17/22 04:33 Labs: Laboratory Results - last 24 hr 01/16/22 01/16/22 01/16/22 14:55 15:00 15:00 WBC 8.1 RBC 3.75 L Hgb 11.1 L Hct 34.0 L MCV 90.6 MCH 29.5 MCHC 32.6 RDW 15.0 H Plt Count 344 Neut % (Auto) 66.3 Lymph % (Auto) 18.1 L [place] % (Auto) 12.2 Eos % (Auto) 2.8 Baso % (Auto) 0.6 Neut # (Auto) 5400 Lymph # (Auto) 1500 [place] # (Auto) 1000 H Eos # (Auto) 200 Baso # (Auto) 100 PT INR Sodium 138 Potassium 3.6 Chloride 92 L Carbon Dioxide 36 H BUN 37 H Creatinine 1.90 H Estimated GFR 25.8 L BUN/Creatinine Ratio 19.5 Glucose 196 H Calcium 10.1 Magnesium Total Bilirubin 0.3 AST 34 ALT 22 Alkaline Phosphatase 69 Ammonia Total Creatine Kinase 57 CK-MB (CK-2) TNP CK-MB (CK-2) Rel Index TNP Troponin I 0.251 H* NT-Pro-B Natriuret Pep 3250 H Total Protein 8.9 H Albumin 4.2 Globulin 4.7 H Albumin/Globulin Ratio 0.9 L Lipase 49 TSH Free T4 SARS-CoV-2 (PCR) Negative 01/16/22 01/16/22 01/16/22 15:00 22:44 22:44 WBC RBC Hgb Hct MCV MCH MCHC RDW Plt Count Neut % (Auto) Lymph % (Auto) [place] % (Auto) Eos % (Auto) Baso % (Auto) Neut # (Auto) Lymph # (Auto) [place] # (Auto) Eos # (Auto) Baso # (Auto) PT INR Sodium Potassium Chloride Carbon Dioxide BUN Creatinine Estimated GFR BUN/Creatinine Ratio Glucose Calcium Magnesium 1.4 L Total Bilirubin AST ALT Alkaline Phosphatase Ammonia < 9 L Total Creatine Kinase CK-MB (CK-2) CK-MB (CK-2) Rel Index Troponin I 0.272 H* NT-Pro-B Natriuret Pep Total Protein Albumin Globulin Albumin/Globulin Ratio Lipase TSH Free T4 SARS-CoV-2 (PCR) 01/17/22 01/17/22 01/17/22 04:33 04:33 04:33 WBC RBC Hgb 11.2 L Hct 34.6 L MCV MCH MCHC RDW Plt Count Neut % (Auto) Lymph % (Auto) [place] % (Auto) Eos % (Auto) Baso % (Auto) Neut # (Auto) Lymph # (Auto) [place] # (Auto) Eos # (Auto) Baso # (Auto) PT 14.3 H INR 1.3 Sodium 136 L Potassium 3.5 Chloride 93 L Carbon Dioxide 38 H BUN 40 H Creatinine 1.61 H Estimated GFR 31.3 L BUN/Creatinine Ratio 24.8 H Glucose 250 H Calcium 10.1 Magnesium Total Bilirubin 0.4 AST 41 H ALT 23 Alkaline Phosphatase 77 Ammonia Total Creatine Kinase CK-MB (CK-2) CK-MB (CK-2) Rel Index Troponin I 0.221 H* NT-Pro-B Natriuret Pep Total Protein 8.4 H Albumin 4.0 Globulin 4.4 H Albumin/Globulin Ratio 0.9 L Lipase TSH Free T4 SARS-CoV-2 (PCR) 01/17/22 01/17/22 04:33 07:37 WBC RBC Hgb Hct MCV MCH MCHC RDW Plt Count Neut % (Auto) Lymph % (Auto) [place] % (Auto) Eos % (Auto) Baso % (Auto) Neut # (Auto) Lymph # (Auto) [place] # (Auto) Eos # (Auto) Baso # (Auto) PT INR Sodium Potassium Chloride Carbon Dioxide BUN Creatinine Estimated GFR BUN/Creatinine Ratio Glucose Calcium Magnesium Total Bilirubin AST ALT Alkaline Phosphatase Ammonia Total Creatine Kinase CK-MB (CK-2) CK-MB (CK-2) Rel Index Troponin I NT-Pro-B Natriuret Pep Total Protein Albumin Globulin Albumin/Globulin Ratio Lipase TSH 39.2 H Free T4 1.09 SARS-CoV-2 (PCR) [facility] Medical History (Updated 01/16/22 @ 21:09 by SHERYL Tenorio) CAD (coronary artery disease) Chronic hypercapnic respiratory failure Chronic systolic CHF (congestive heart failure) CKD (chronic kidney disease) CVA (cerebral vascular accident) Dementia Diabetes mellitus type 2 in obese GERD (gastroesophageal reflux disease) Heart failure, unspecified Hyperlipidemia Hypertension Hypothyroid Morbid obesity with alveolar hypoventilation Non Hodgkin's lymphoma Pacemaker Thyroid cancer Tremor, unspecified Surgical History History of cholecystectomy History of thyroidectomy Hx of tonsillectomy S/P TAVR (transcatheter aortic valve replacement) Family History Mother Dementia Father Heart attack Social History household members: none Smoking Status: Never smoker alcohol intake: never Assessment & Plan Assessment & Plan narrative: Enid Almanza is a 74-year-old female with a past medical history significant for dementia, CAD s/p CABG x1, cardiac arrest status post pacemaker, aortic stenosis status post TAVR, hypertension, systolic CHF, chronic hypercapnic respiratory failure due to obesity hyperventilation syndrome, morbid obesity, hyperlipidemia, diabetes mellitus type 2, non-insulin using, CKD stage 4, secondary hypothyroidism status post thyroidectomy for thyroid cancer (unknown type),? and non-Hodgkin's lymphoma in remission who presented from [place] assisted living facility?for for evaluation of fatigue who remains admitted for medical management of an NSTEMI. 1. NSTEMI, acute, present on admission -as evidence by initial troponin of 0.251 with confusion. Given EKG with pacing and patient's altered mentation initially will treat as NSTEMI. -Risk Factors/medical history:CAD s/p CABG x1, cardiac arrest status post pacemaker, aortic stenosis status post TAVR, hypertension, systolic CHF, chronic hypercapnic respiratory failure due to obesity hyperventilation syndrome, morbid obesity, hyperlipidemia, NIDDM 2, CKD stage 4. -patient given 145 mg of Lovenox in ED for possible NSTEMI. 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 She is not a cath candidate at this time. 2. Acute on Chronic systolic heart failure, present on admission -last echo 01/10/2022: EF 40-45%. No need for repeat as troponin trended down. -40 mg of IV Lasix given in ED -will continue gentle diuresis 40 mg IV Lasix b.i.d., patient does have a Kimble, placed in ED. -strict monitoring of I&O, goal to achieve euvolemic status.? Monitor for dehydration, and renal function/electrolytes. -fluid restriction 2 L, may decrease as needed -low-sodium diet -hold torsemide, continue magnesium and potassium supplements 3. CAD status post stenting, pacemaker and TAVR, chronic, present on admission. -Patient has history of stenting with YADIRA to unknown coronary artery.? She also has history of TAVR.? During her operation for TAVR she had cardiac arrest requiring temporary pacemaker and when temporary pacemaker was later removed she again had another cardiac arrest. -Continue carvedilol 4. Hypertension, chronic, present on admission.? Stable. -Continue carvedilol 5. Hyperlipidemia, chronic, present on admission.? Stable. -Continue lipitor 6. Akv-vxucled-canjvvucu type 2 diabetes, with presenting hyperglycemia, peripheral neuropathy, acute on chronic, present on admission.? Stable. -patient admitted under diabetic protocol, monitor for hypo and hyperglycemia -continue low-dose sliding scale as needed. -Last 01/10/2022:? A1c 8.1%. -Low carb diet -continue Tradjenta, gabapentin 7. Acute kidney injury on Chronic kidney disease stage 4, acute on chronic, present on admission. -Last Admit:? 01/10/2022 Initial creatinine 1.88 improved to 1.57 with fluids. -Initial Chloride 92, bicarb 36, creatinine 1.9, glucose 196, GFR 25.8 Last lab values on discharge 01/12/2022:? 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 -avoid nephrotoxic medications -monitor renal function closely 8. Hypothyroidism, secondary to status post thyroidectomy for thyroid cancer, chronic, present on admission.? Stable. -continue levothyroxine -TSH very elevated at 39. Free T4 is normal. -given history of thyroidectomy, this may indicate subpartial resection (unclear if she had half removed or whole portion). Would recommend outpatient PCP follow up for further investigation as if she does have a total thyroidectomy she may need evalation for possible recurrence. 9. Chronic hypercapnic respiratory failure, likely secondary to obesity hypoventilation syndrome, chronic, present on admission- stable 10. Morbid obesity as evidence by BMI 50.1, acute on chronic, present on admission -This is contributing greatly to patient's chronic comorbidities, poor health outcomes, impaired mobility, and decreased healing. -no dietary consult will be obtained at this time due to patient's dementia 11. Dementia, with depression, acute on chronic, present on admission -continue donepezil, fluoxetine -patient's mentation is at baseline today, orientated to self and place. -GCS: 14 on admit 12. Chronic anemia likely secondary to CKD, acute on chronic, present on admission -patient's labs for 2020/2021 hemoglobin 10.8-11.7, hematocrit 32-36%, initial HGB today 11.1, HCT 34. MCV 90.6 and MCH 29.5-WNL -continue ferrous sulfate -Monitor H/H 13. Essential tremor, chronic, present on admission -continue primidone 14. Seizure disorder, chronic, present on admission -patient's medication list and Mar from [facility] the patient takes Keppra BID for seizures, though no seizure history is listed on her medical history. -will continue Keppra BID Code status:DNR- Per daughter Juliana/POLST Surrogate decision maker: Juliana daughter COVID PCR:? Negative COVID vaccination:? Unknown DVT/VTE prophylaxis:? On therapeutic Lovenox Dispo: likely return to previous facility after medical management of her NSTEMI. Time Spent With Patient Critical Care time: I spent a total of [] minutes of critical care time on this patient's care today; this time is exclusive of procedural time. Quality VTE Deep Vein Thrombosis/Pulmonary Embolism Present on Admission: No
[2022-01-17] MEDS: PRIMIDONE 50 MG TABLET 75 MG PO ×2 (14:51→20:51)
[2022-01-17] MEDS: MAGNESIUM OXIDE 400 MG TABLET PO (17:01)
[2022-01-17] MEDS: ACETAMINOPHEN 325 MG TABLET 650 MG PO (17:01)
[2022-01-17] MEDS: INSULIN LISPRO 100 UNIT/ML 3ML VIAL 14 UNIT SUBCUT (17:03)
[2022-01-17] MEDS: LIOTHYRONINE 5 MCG TABLET PO (20:31)
[2022-01-17] MEDS: SENNOSIDES 8.6 MG TABLET 17.2 MG PO (20:31)
[2022-01-17] MEDS: INSULIN GLARGINE 100 UNIT/ML 3ML PEN 40 UNIT SUBCUT (20:45)
[2022-01-17] MEDS: ENOXAPARIN 80 MG/0.8 ML SYRINGE 140 MG SUBCUT (20:47)
[2022-01-18] VITALS (10 sets, daily range): BP systolic 90–122; BP diastolic 52–61; PULSE 65–92; RESP 14–19; TEMP 36.1–37.1; O2SAT 90–97
[2022-01-18] MEDS: LEVOTHYROXINE 100 MCG TABLET 200 MCG PO (05:51)
[2022-01-18 07:36] LABS: Alanine Aminotransferase 22 IU/L (<35); Albumin 3.9 g/dL (3.5-5.0); Albumin Globulin Ratio 0.9 (1.0-2.8); Alkaline Phosphatase 79 U/L (38-126); Aspartate Aminotransferase 38 IU/L (14-36); Bilirubin Total 0.4 mg/dL (0.2-1.3); Blood Urea Nitrogen 35 mg/dL (7-17); Calcium 9.8 mg/dL (8.4-10.2); Chloride 91 mmol/L (98-107); Globulin 4.2 g/dL (1.7-4.1); Glucose 222 mg/dL (80-110); HEMOLYSIS < 15 (0-50); Potassium 3.4 mmol/L (3.4-5.1); Sodium 137 mmol/L (137-145); Total Protein 8.1 g/dL (6.3-8.2)
[2022-01-18 07:54] LABS: Carbon Dioxide 38 mmol/L (22-32)
--- NOTE | 2022-01-18 09:12 | DIET.CONS ---
Dietary Consultation Note Admission Date: 01/16/2022 18:03 RD Note: 76y F readmitted referred to nutrition for poor BG control (200-300) despite A1c 8.1. DM educator will assess pt on Saturday morning. Per nursing, pt refused insulin yesterday, stated would take it in the evening despite BG >200. Ht: 170.18 cm Wt: 142.1 kg BMI: 49.1 UBW: Last BM: 01/17/22 (01/17/22 15:50) MNA: 11 Christiano Score: 12 Diet: 01/16/22 Breakfast Carbohydrate Consistent Diet Diet Modifications: Carbohydrate level: Small (2 CHO) Bedtime snack: Yes Fluid Restriction Diet Diet Modifications: Total fluid amount: 2,000 Amount allotted to patient trays: 300 Free water included in total: Yes Fluid in addition to trays: 9972-9516 amount: 600 [id number] amount: 600 Low Sodium Diet (2gm) Diet Modifications: Nutrition Percent Meal Consumed 60 01/17/22 18:00 Percent Meal Consumed 60 01/17/22 14:04 Percent Meal Consumed 60 01/17/22 08:58 Labs: RBC 3.75 X10^6/uL (4.0-5.2) L 01/16/22 15:00 Hgb 11.2 g/dL (12.0-16.0) L 01/17/22 04:33 Hct 34.6 % (36-46) L 01/17/22 04:33 Creatinine 1.67 mg/dL (0.52-1.04) H 01/18/22 06:40 NT-Pro-B Natriuret Pep 3250 pg/mL (<125) H 01/16/22 15:00 Electronically Signed by: Lisa Casillas 01/18/22 09:12 Clinical Dietitian [address] [address]
[2022-01-18] MEDS: POTASSIUM CHLORIDE 10 MEQ TAB PO (10:51)
[2022-01-18] MEDS: GABAPENTIN 300 MG CAPSULE PO ×3 (10:51→20:53)
[2022-01-18] MEDS: MAGNESIUM OXIDE 400 MG TABLET 800 MG PO (10:51)
[2022-01-18] MEDS: SITAGLIPTIN 50 MG TABLET 100 MG PO (10:51)
[2022-01-18] MEDS: levETIRAcetam 250 MG TABLET 500 MG PO ×2 (10:51→20:53)
[2022-01-18] MEDS: PRIMIDONE 50 MG TABLET 100 MG PO (10:51)
[2022-01-18] MEDS: ENOXAPARIN 150 MG/ML SYRINGE 140 MG SUBCUT ×2 (10:52→20:53)
[2022-01-18] MEDS: INSULIN LISPRO 100 UNIT/ML 3ML VIAL SUBCUT ×2 (11:08→17:45)
[2022-01-18] MEDS: NYSTATIN CREAM 30 GM 1 APPLIC TOP ×2 (11:09→20:59)
[2022-01-18] MEDS: INSULIN LISPRO 100 UNIT/ML 3ML VIAL 12 UNIT SUBCUT (11:09)
[2022-01-18] MEDS: TORSEMIDE 10 MG TABLET 40 MG PO (11:20)
[2022-01-18 14:13] LABS: Magnesium 1.8 mg/dL (1.6-2.3)
[2022-01-18] MEDS: carvediloL 3.125 MG TABLET 12.5 MG PO (14:13)
[2022-01-18] MEDS: FUROSEMIDE 40 MG/4 ML VIAL IV (14:13)
[2022-01-18] MEDS: cefTRIAXone 1,000 MG in SODIUM CHLORIDE 0.9% 100 ML 200 ML IV (14:14)
[2022-01-18] MEDS: INSULIN LISPRO 100 UNIT/ML 3ML VIAL 14 UNIT SUBCUT ×2 (14:15→17:45)
--- NOTE | 2022-01-18 15:47 | PC.NURSE ---
Addendum entered by Daniela Foster R.N. 01/18/22 18:58: Patients bp down to 90/53. She asymptomatic and sitting up in the chair resting. Addendum entered by Daniela Foster R.N. 01/18/22 18:54: Patients tele monitor alarming VT, Dr. Kumar aware and no new orders. Pulse rate on tele also went up to 190s but patient has essential tremors and it is now in the 90s. Addendum entered by Daniela Foster R.N. 01/18/22 16:41: Patient asked to be hoyered up to the chair, she is sitting comfortably and reclining in the chair. Patient will eat dinner soon. She is napping now. Original Note: Assess- Patient is alert and oriented x2 today. Up to the commode via lillian and she did not have a bowel movemnt. Patient has been repositioned on her side every two hours. She has an open area to her l. inner butt cheek that we are applying barrier cream too. Patients blood sugars today 201, 306, and 238. Insulins have been given. New iv started to r.side, old iv taken out as it was compromised. Patient has dry skin and some exoriation under her breasts and panus, nystatin cream applied. She is resting comfortably in bed now. She has okayed for her sister Poly to have information relayed to her if she does call for a check up on patient.
--- NOTE | 2022-01-18 16:11 | P.PN_ITS ---
Subjective Subjective Date Patient Seen: 01/18/22 Time Patient Seen: 16:12 Interval history: Today patient is not feeling well. she cannot elaborate beyond that. She denies chest pain, leg pain, back pain, shortness of breath, nausea, vomiting, abdominal pain. She appears confused compared to even this morning. Exam Vital Signs (past 8 hours): - 01/18/22 09:30 01/18/22 12:00 Temperature 97.8 F Pulse Rate 82 Respiratory Rate 18 Blood Pressure 122/56 L Pulse Oximetry 97 95 Oxygen Delivery Method Room Air Oxygen Flow Rate 0 Narrative Exam Narrative: General:? Patient is a well-developed, well-nourished morbidly obese elderly female, resting comfortably in bed, alert and conversant with staff, in? no distress at this time. HEENT:? Normocephalic, atraumatic, extraocular muscles intact, oral pharynx is clear and mucous membranes are dry.? Patient appears slightly dehydrated Neck is supple and symmetric, trachea is midline, no adenopathy, no thyroid enlargement, nontender, no masses palpated.? Negative for JVD Chest:? no nasal flaring, retractions, or tachypneic labored breathing. Lungs:? Auscultation of all lung hunter are clear without adventitious sounds, wheezes, rhonchi, or rales, respirations are shallow with decreased air exchange Cardio:? regular paced rate and rhythm without murmur, rubs, or gallops, no carotid bruit, no cardiac pulsations present.? Patient has pacemaker in place left upper chest area without signs of infection. Abdomen:? Soft round, nontender, negative for organomegaly, or masses.? Bowel sounds are present in all 4 quadrants without guarding or rebound, no CVA tenderness. Musculoskeletal:? Muscle tone is equal, no crepitus, effusions, cyanosis, or clubbing present.? Noted slight chronic deformity of bilateral feet, patient has +5 pitting in the left foot, none in the right, and no edema noted bilaterally. intact radial and pedal pulses are normal. Skin:? Warm very dry and intact, patient has a erythema could well demarcated, without inflammation, round, peeling area to the left calf, about the size of a tea cup saucer, nontender, no open skin.? Patient has hyper pigmentation to interior bilateral groin area peeling present, no erythema, no inflammation, no signs infection or skin breakdown.? No signs of wounds, infection, or breakdown to buttocks area. Neuro: Alert and orientated to self and place, more slow to respond today, not as verbose and sensical as prior day. sensation to touch intact, no gross deficits noted of cranial nerves.?Pill rolling tremor noted. Psych:? Patient has a well-kept appearance, appropriate affect Objective Labs Result Diagrams: 01/17/22 04:33 01/18/22 06:40 Labs: Laboratory Results - last 24 hr 01/18/22 01/18/22 06:40 06:40 Sodium 137 Potassium 3.4 Chloride 91 L Carbon Dioxide 38 H BUN 35 H Creatinine 1.67 H Estimated GFR 30.0 L BUN/Creatinine Ratio 21.0 Glucose 222 H Calcium 9.8 Magnesium 1.8 Total Bilirubin 0.4 AST 38 H ALT 22 Alkaline Phosphatase 79 Total Protein 8.1 Albumin 3.9 Globulin 4.2 H Albumin/Globulin Ratio 0.9 L [facility] Medical History (Updated 01/16/22 @ 21:09 by SHERYL Tenorio) CAD (coronary artery disease) Chronic hypercapnic respiratory failure Chronic systolic CHF (congestive heart failure) CKD (chronic kidney disease) CVA (cerebral vascular accident) Dementia Diabetes mellitus type 2 in obese GERD (gastroesophageal reflux disease) Heart failure, unspecified Hyperlipidemia Hypertension Hypothyroid Morbid obesity with alveolar hypoventilation Non Hodgkin's lymphoma Pacemaker Thyroid cancer Tremor, unspecified Surgical History History of cholecystectomy History of thyroidectomy Hx of tonsillectomy S/P TAVR (transcatheter aortic valve replacement) Family History Mother Dementia Father Heart attack Social History household members: none Smoking Status: Never smoker alcohol intake: never Assessment & Plan Assessment & Plan narrative: Enid Almanza is a 74-year-old female with a past medical history significant for dementia, CAD s/p CABG x1, cardiac arrest status post pacemaker, aortic stenosis status post TAVR, hypertension, systolic CHF, chronic hypercapnic respiratory failure due to obesity hyperventilation syndrome, morbid obesity, hyperlipidemia, diabetes mellitus type 2, non-insulin using, CKD stage 4, secondary hypothyroidism status post thyroidectomy for thyroid cancer (unknown type),? and non-Hodgkin's lymphoma in remission who presented from [place] assisted living facility?for for evaluation of fatigue who remains admitted for medical management of an NSTEMI. Sudden mental status changes today, more lethargic, nothing focal but urine culture from admit did grow a proteus. Will treat and continue to observe. 1. NSTEMI, acute, present on admission -as evidence by initial troponin of 0.251 with confusion. Given EKG with pacing and patient's altered mentation initially will treat as NSTEMI. -Risk Factors/medical history:CAD s/p CABG x1, cardiac arrest status post pacemaker, aortic stenosis status post TAVR, hypertension, systolic CHF, chronic hypercapnic respiratory failure due to obesity hyperventilation syndrome, morbid obesity, hyperlipidemia, NIDDM 2, CKD stage 4. -patient given 145 mg of Lovenox in ED for possible NSTEMI. 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 She is not a cath candidate at this time. 2. Acute on Chronic systolic heart failure, present on admission -last echo 01/10/2022: EF 40-45%. No need for repeat as troponin trended down. -40 mg of IV Lasix given in ED -continued diuresis with 40 mg IV BID. will stop today. -fluid restriction 2 L, may decrease as needed -low-sodium diet -hold torsemide for today, consider restarting on discharge. 3. CAD status post stenting, pacemaker and TAVR, chronic, present on admission. -Patient has history of stenting with YADIRA to unknown coronary artery.? She also has history of TAVR.? During her operation for TAVR she had cardiac arrest requiring temporary pacemaker and when temporary pacemaker was later removed she again had another cardiac arrest. -Continue carvedilol 4. Hypertension, chronic, present on admission.? Stable. -Continue carvedilol 5. Hyperlipidemia, chronic, present on admission.? Stable. -Continue lipitor 6. Cji-rgyksvu-dhgxceeqc type 2 diabetes, with presenting hyperglycemia, peripheral neuropathy, acute on chronic, present on admission.? Stable. -patient admitted under diabetic protocol, monitor for hypo and hyperglycemia -continue low-dose sliding scale as needed. -Last 01/10/2022:? A1c 8.1%. -Low carb diet -continue Tradjenta, gabapentin 7. Acute kidney injury on Chronic kidney disease stage 4, acute on chronic, present on admission. -Last Admit:? 01/10/2022 Initial creatinine 1.88 improved to 1.57 with fluids. -Initial Chloride 92, bicarb 36, creatinine 1.9, glucose 196, GFR 25.8 Last lab values on discharge 01/12/2022:? 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 -avoid nephrotoxic medications -monitor renal function closely 8. Hypothyroidism, secondary to status post thyroidectomy for thyroid cancer, chronic, present on admission.? Stable. -continue levothyroxine -TSH very elevated at 39. Free T4 is normal. -given history of thyroidectomy, this may indicate subpartial resection (unclear if she had half removed or whole portion). Would recommend outpatient PCP follow up for further investigation as if she does have a total thyroidectomy she may need evalation for possible recurrence. 9. Chronic hypercapnic respiratory failure, likely secondary to obesity hypoventilation syndrome, chronic, present on admission- stable 10. Morbid obesity as evidence by BMI 50.1, acute on chronic, present on admission -This is contributing greatly to patient's chronic comorbidities, poor health outcomes, impaired mobility, and decreased healing. -no dietary consult will be obtained at this time due to patient's dementia 11. Dementia, with depression, acute on chronic, present on admission -continue donepezil, fluoxetine 12. Chronic anemia likely secondary to CKD, acute on chronic, present on admission -patient's labs for hemoglobin 10.8-11.7, hematocrit 32-36%, initial HGB today 11.1, HCT 34. MCV 90.6 and MCH 29.5-WNL -continue ferrous sulfate -Monitor H/H 13. Essential tremor, chronic, present on admission -continue primidone 14. Seizure disorder, chronic, present on admission -patient's medication list and Mar from [facility] the patient takes Keppra BID for seizures, though no seizure history is listed on her medical history. -will continue Keppra BID 15. Acute cystitis - proteus in urine culture, given lethargy today will treat with 3 days of ceftriaxone. Code status:DNR- Per daughter Juliana/POLST Surrogate decision maker: Juliana daughter COVID PCR:? Negative COVID vaccination:? Unknown DVT/VTE prophylaxis:? On therapeutic Lovenox Dispo: likely return to previous facility after medical management of her NSTEMI. Time Spent With Patient Critical Care time: I spent a total of [] minutes of critical care time on this patient's care today; this time is exclusive of procedural time. Quality VTE Deep Vein Thrombosis/Pulmonary Embolism Present on Admission: No
[2022-01-18] MEDS: MAGNESIUM OXIDE 400 MG TABLET PO (16:12)
[2022-01-18] MEDS: PRIMIDONE 50 MG TABLET 75 MG PO ×2 (16:12→21:02)
[2022-01-18] MEDS: INSULIN GLARGINE 100 UNIT/ML 3ML PEN 40 UNIT SUBCUT (20:52)
[2022-01-18] MEDS: LIOTHYRONINE 5 MCG TABLET PO (20:53)
[2022-01-18] MEDS: ACETAMINOPHEN 325 MG TABLET 650 MG PO (23:43)
[2022-01-19] VITALS (14 sets, daily range): BP systolic 97–111; BP diastolic 47–53; PULSE 62–85; RESP 14–20; TEMP 36.2–37.1; O2SAT 91–96
[2022-01-19 04:43] LABS: Add Manual Diff / Slide Review NO; Basophils Absolute Auto 100 /uL (0-100); Basophils Percent Auto 1.2 % (0-2); Eosinophils Absolute Auto 200 /uL (0-450); Eosinophils Percent Auto 2.9 % (2-4); Hematocrit 35.3 % (36-46); Hemoglobin 11.6 g/dL (12.0-16.0); Lymphocytes Absolute Auto 1800 /uL (1100-4500); Mean Corpuscular HGB Conc 32.7 % (30-36); Mean Corpuscular Hemoglobin 29.6 PG (26-34); Mean Corpuscular Volume 90.4 fL (80-100); Monocytes Absolute Auto 1100 /uL (0-900); Neutrophils Absolute Auto 4900 /uL (1500-7000); Neutrophils Percent Auto 60.9 % (50-75); Platelet Count 343 X10^3/uL (150-400); White Blood Cell Count 8.1 X10^3/uL (4.5-11.0)
[2022-01-19 05:13] LABS: Alanine Aminotransferase 22 IU/L (<35); Albumin 3.9 g/dL (3.5-5.0); Albumin Globulin Ratio 0.9 (1.0-2.8); Alkaline Phosphatase 75 U/L (38-126); Aspartate Aminotransferase 39 IU/L (14-36); BUN Creatinine Ratio 20.1 (6-22); Bilirubin Total 0.5 mg/dL (0.2-1.3); Blood Urea Nitrogen 35 mg/dL (7-17); Chloride 89 mmol/L (98-107); Estimated Glomerular Filt Rate 28.6 mL/min (>60); Globulin 4.4 g/dL (1.7-4.1); Glucose 154 mg/dL (80-110); HEMOLYSIS < 15 (0-50); Potassium 3.5 mmol/L (3.4-5.1); Sodium 135 mmol/L (137-145); Total Protein 8.3 g/dL (6.3-8.2)
[2022-01-19 05:26] LABS: Carbon Dioxide 45 mmol/L (22-32)
[2022-01-19 05:31] LABS: Magnesium 1.8 mg/dL (1.6-2.3)
[2022-01-19] MEDS: PRIMIDONE 50 MG TABLET 100 MG PO (08:12)
[2022-01-19] MEDS: MAGNESIUM OXIDE 400 MG TABLET 800 MG PO (08:12)
[2022-01-19] MEDS: ENOXAPARIN 150 MG/ML SYRINGE 140 MG SUBCUT ×2 (08:12→20:37)
[2022-01-19] MEDS: POTASSIUM CHLORIDE 10 MEQ TAB PO (08:12)
[2022-01-19] MEDS: levETIRAcetam 250 MG TABLET 500 MG PO ×2 (08:12→20:30)
[2022-01-19] MEDS: GABAPENTIN 300 MG CAPSULE PO ×3 (08:12→20:29)
[2022-01-19] MEDS: TORSEMIDE 10 MG TABLET 40 MG PO (08:13)
[2022-01-19] MEDS: SITAGLIPTIN 50 MG TABLET 100 MG PO (08:19)
[2022-01-19] MEDS: INSULIN LISPRO 100 UNIT/ML 3ML VIAL SUBCUT ×2 (08:49→13:03)
[2022-01-19] MEDS: INSULIN LISPRO 100 UNIT/ML 3ML VIAL 12 UNIT SUBCUT (08:49)
--- NOTE | 2022-01-19 09:54 | PC.NURSE ---
Addendum entered by Daniela Foster R.N. 01/19/22 18:42: Patient resting comfortably. Dinner time blood sugar 120s and insulin given. Ate well at dinner. Resting on her left side. Original Note: Assess- Patient is in good spirits this morning and states to that she is feeling better today. Her speech is still slow to respond. Patients blood sugar this am 158, patient ate her breakfast and insulin given, 13u. She is resting comfortably and she is watching tv.
--- NOTE | 2022-01-19 10:57 | DIET.PN1 ---
Dietary Progress Note Assessment: 76 y/o F with T2DM. Not appropriate for DM education or nutrition consult given dementia per provider notes. hgA1c of 8.1%. Currently consuming 50-100% of 30g CHO meals. BG improved this morning with 158. Recent BG (mg/dL): 201, 315, 190, 180, 158 Current DM meds: SSI 12u Lispro ac breakfast 14u Lispro ac lunch and dinner 40u Glargine HS 100mg daily Sitagliptin Rec goal of BG <180 mg/dL. Ht: 170.18 cm Wt: 137.3 kg BMI: 49.1 Last BM: 01/18/22 (01/18/22 10:36) MNA: 11 Christiano Score: 15 Diet: 01/16/22 Breakfast Carbohydrate Consistent Diet Diet Modifications: Carbohydrate level: Small (2 CHO) Bedtime snack: Yes Fluid Restriction Diet Diet Modifications: Total fluid amount: 2,000 Amount allotted to patient trays: 300 Free water included in total: Yes Fluid in addition to trays: 4211-3701 amount: 600 1034-4207 amount: 600 Low Sodium Diet (2gm) Diet Modifications: Nutrition Percent Meal Consumed 50% 01/19/22 10:00 Percent Meal Consumed 100% 01/18/22 11:44 Percent Meal Consumed 60 01/17/22 18:00 Percent Meal Consumed 60 01/17/22 14:04 Labs: RBC 3.90 X10^6/uL (4.0-5.2) L 01/19/22 04:15 Hgb 11.6 g/dL (12.0-16.0) L 01/19/22 04:15 Hct 35.3 % (36-46) L 01/19/22 04:15 Creatinine 1.74 mg/dL (0.52-1.04) H 01/19/22 04:15 NT-Pro-B Natriuret Pep 3250 pg/mL (<125) H 01/16/22 15:00 Monitoring/Evaluations: consult prn Electronically Signed by: Awilda Pedro 01/19/22 10:57 Clinical Dietitian [address] [id number]
[2022-01-19] MEDS: ACETAMINOPHEN 325 MG TABLET 650 MG PO (11:46)
[2022-01-19] MEDS: NYSTATIN CREAM 30 GM 1 APPLIC TOP ×2 (11:46→21:00)
[2022-01-19] MEDS: INSULIN LISPRO 100 UNIT/ML 3ML VIAL 14 UNIT SUBCUT ×2 (13:04→18:15)
[2022-01-19] MEDS: cefTRIAXone 1,000 MG in SODIUM CHLORIDE 0.9% 100 ML 200 ML IV (13:55)
--- NOTE | 2022-01-19 14:11 | CM.DPNOTE ---
DCP Note Spoke w/RN Sola/Manolo, yesterday, explained patient would likely be ready for DC today 01.19.22. Sola completed bedside assessment yesterday and explained that she knows patient well and patient appears and verbalizes feeling ill and not ready to DC, Sola does not feel patient is a good candidate for return to [facility] at this time; unless patient had transitioned to Hospice/comfort management (which patient/dtr are against at this time) Patient w/ dx of dementia but able to state needs and express wishes Discussed above w/Dr Kumar present; discussed goals for DC, barriers, and discussed how to get patient home ? Sola, LYNN explained that she is the only RN at [facility] and is the only staff member qualified to complete the bedside assessment that help [facility] staff determine when a resident can safely return. This CM team will need to contact cognos administrator Man to ask for assistance coordinating this DCP (?) Sola does not return until Saturday01.22.22 Dr Kumar aware of above; patient is not considered medically stable today but anticipate this could slip box changer the next 24-48hrs Following closely; need ongoing coordination w/[facility] team. Attempting to get patient back to her residence upon medical clearance, via w/c van, per patient and dtr's wishes JW
[2022-01-19] MEDS: MAGNESIUM OXIDE 400 MG TABLET PO (16:57)
[2022-01-19] MEDS: PRIMIDONE 50 MG TABLET 75 MG PO ×2 (16:57→20:40)
--- NOTE | 2022-01-19 17:00 | P.PN_ITS ---
Subjective Subjective Date Patient Seen: 01/19/22 Time Patient Seen: 09:00 Interval history: Today patient is feeling okay. She denies chest pain, leg pain, back pain, shortness of breath, nausea, vomiting, abdominal pain. She appears confused and slower than her usual baseline but improved since yesterday. Exam Vital Signs (past 8 hours): - 01/19/22 09:44 01/19/22 10:14 01/19/22 12:00 Temperature 98.2 F Pulse Rate 85 Respiratory Rate 16 Blood Pressure 111/53 L Pulse Oximetry 91 93 96 01/19/22 13:20 01/19/22 16:00 Temperature 97.4 F L Pulse Rate 81 Respiratory Rate 14 Blood Pressure 107/51 L Pulse Oximetry 92 91 Oxygen Delivery Method Nasal Cannula Oxygen Flow Rate 0 Narrative Exam Narrative: General:? Patient is a well-developed, well-nourished morbidly obese elderly female, resting comfortably in bed, alert and conversant with staff, in? no distress at this time. HEENT:? Normocephalic, atraumatic, extraocular muscles intact, oral pharynx is clear and mucous membranes are dry.? Patient appears slightly dehydrated Neck is supple and symmetric, trachea is midline, no adenopathy, no thyroid enlargement, nontender, no masses palpated.? Negative for JVD Chest:? no nasal flaring, retractions, or tachypneic labored breathing. Lungs:? Auscultation of all lung hunter are clear without adventitious sounds, wheezes, rhonchi, or rales, respirations are shallow with decreased air exchange Cardio:? regular paced rate and rhythm without murmur, rubs, or gallops, no carotid bruit, no cardiac pulsations present.? Patient has pacemaker in place left upper chest area without signs of infection. Abdomen:? Soft round, nontender, negative for organomegaly, or masses.? Bowel sounds are present in all 4 quadrants without guarding or rebound, no CVA tenderness. Musculoskeletal:? Muscle tone is equal, no crepitus, effusions, cyanosis, or clubbing present.? Noted slight chronic deformity of bilateral feet, patient has +5 pitting in the left foot, none in the right, and no edema noted bilaterally. intact radial and pedal pulses are normal. Skin:? Warm very dry and intact, patient has a erythema could well demarcated, without inflammation, round, peeling area to the left calf, about the size of a tea cup saucer, nontender, no open skin.? Patient has hyper pigmentation to int erior bilateral groin area peeling present, no erythema, no inflammation, no signs infection or skin breakdown.? No signs of wounds, infection, or breakdown to buttocks area. Neuro: Alert and orientated to self and place, slow to respond and confused to usual baseline, but improved since yesterday. sensation to touch intact, no gross deficits noted of cranial nerves.?Pill rolling tremor noted. Psych:? Patient has a well-kept appearance, appropriate affect Objective Labs Result Diagrams: 01/19/22 04:15 01/19/22 04:15 Labs: Laboratory Results - last 24 hr 01/19/22 01/19/22 01/19/22 04:15 04:15 04:15 WBC 8.1 RBC 3.90 L Hgb 11.6 L Hct 35.3 L MCV 90.4 MCH 29.6 MCHC 32.7 RDW 15.0 H Plt Count 343 Neut % (Auto) 60.9 Lymph % (Auto) 22.0 L Leon % (Auto) 13.0 Eos % (Auto) 2.9 Baso % (Auto) 1.2 Neut # (Auto) 4900 Lymph # (Auto) 1800 Leon # (Auto) 1100 H Eos # (Auto) 200 Baso # (Auto) 100 Sodium 135 L Potassium 3.5 Chloride 89 L Carbon Dioxide 45 H* BUN 35 H Creatinine 1.74 H Estimated GFR 28.6 L BUN/Creatinine Ratio 20.1 Glucose 154 H Calcium 10.0 Magnesium 1.8 Total Bilirubin 0.5 AST 39 H ALT 22 Alkaline Phosphatase 75 Total Protein 8.3 H Albumin 3.9 Globulin 4.4 H Albumin/Globulin Ratio 0.9 L [facility] Medical History (Updated 01/16/22 @ 21:09 by SALTY Tenorio) CAD (coronary artery disease) Chronic hypercapnic respiratory failure Chronic systolic CHF (congestive heart failure) CKD (chronic kidney disease) CVA (cerebral vascular accident) Dementia Diabetes mellitus type 2 in obese GERD (gastroesophageal reflux disease) Heart failure, unspecified Hyperlipidemia Hypertension Hypothyroid Morbid obesity with alveolar hypoventilation Non Hodgkin's lymphoma Pacemaker Thyroid cancer Tremor, unspecified Surgical History History of cholecystectomy History of thyroidectomy Hx of tonsillectomy S/P TAVR (transcatheter aortic valve replacement) Family History Mother Dementia Father Heart attack Social History household members: none Smoking Status: Never smoker alcohol intake: never Assessment & Plan Assessment & Plan narrative: Enid Almanza is a 74-year-old female with a past medical history significant for dementia, CAD s/p CABG x1, cardiac arrest status post pacemaker, aortic stenosis status post TAVR, hypertension, systolic CHF, chronic hypercapnic respiratory failure due to obesity hyperventilation syndrome, morbid obesity, hyperlipidemia, diabetes mellitus type 2, non-insulin using, CKD stage 4, secondary hypothyroidism status post thyroidectomy for thyroid cancer (unknown type),? and non-Hodgkin's lymphoma in remission who presented from [facility] assisted living facility?for for evaluation of fatigue who remains admitted for medical management of an NSTEMI. Sudden mental status changes today, more lethargic, nothing focal but urine culture from admit did grow a proteus. Will treat and continue to observe. 1. NSTEMI, acute, present on admission -as evidence by initial troponin of 0.251 with confusion. Given EKG with pacing and patient's altered mentation and inability to assess for chest pain she was treated as an NSTEMI after discussion with cardiology. Given recent echo less than 6 days prior to admission, repeat study would not foreign exchange dealer at this time and was not ordered. -Risk Factors/medical history:CAD s/p CABG x1, cardiac arrest status post pacemaker, aortic stenosis status post TAVR, hypertension, systolic CHF, chronic hypercapnic respiratory failure due to obesity hyperventilation syndrome, morbid obesity, hyperlipidemia, NIDDM 2, CKD stage 4. -patient given 145 mg of Lovenox in ED for possible NSTEMI. 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 She is not a cath candidate at this time. - added aspirin and statin therapy for continued medical management. 2. Acute on Chronic systolic heart failure, present on admission -last echo 01/10/2022 6 days prior to admission: EF 40-45%. -40 mg of IV Lasix given in ED -continued diuresis with 40 mg IV BID and stopped given rising CO2 on BMP. Transitioned to home torsemdie but continued to rise today. Will hold diuretics currently. -fluid restriction 2 L, may decrease as needed -low-sodium diet 3. CAD status post stenting, pacemaker and TAVR, chronic, present on admission. -Patient has history of stenting with YADIRA to unknown coronary artery.? She also has history of TAVR.? During her operation for TAVR she had cardiac arrest requiring temporary pacemaker and when temporary pacemaker was later removed she again had another cardiac arrest. -Continue carvedilol 4. Hypertension, chronic, present on admission.? Stable. -Continue carvedilol 5. Hyperlipidemia, chronic, present on admission.? Stable. -Continue lipitor 6. Qqw-yvyddma-pxpifwkap type 2 diabetes, with presenting hyperglycemia, peripheral neuropathy, acute on chronic, present on admission.? Stable. -patient admitted under diabetic protocol, monitor for hypo and hyperglycemia -continue low-dose sliding scale as needed. -Last 01/10/2022:? A1c 8.1%. -Low carb diet -continue Tradjenta, gabapentin 7. Acute kidney injury on Chronic kidney disease stage 4, acute on chronic, present on admission. -Last Admit:? 01/10/2022 Initial creatinine 1.88 improved to 1.57 with fluids. -Initial Chloride 92, bicarb 36, creatinine 1.9, glucose 196, GFR 25.8 Last lab values on discharge 01/12/2022:? AERIAL CROP DUSTER 2, BUN 35, bicarb 34, GFR 24.4. -avoid nephrotoxic medications -monitor renal function closely 8. Hypothyroidism, secondary to status post thyroidectomy for thyroid cancer, chronic, present on admission.? Stable. -continue levothyroxine -TSH very elevated at 39. Free T4 is normal. -given history of thyroidectomy, this may indicate subpartial resection (unclear if she had half removed or whole portion). Would recommend outpatient PCP follow up for further investigation as if she does have a total thyroidectomy she may need evalation for possible recurrence. 9. Chronic hypercapnic respiratory failure, likely secondary to obesity hypoventilation syndrome, chronic, present on admission- - VBG pending for possible acute component as discussed below. 10. Morbid obesity as evidence by BMI 50.1, acute on chronic, present on admission -This is contributing greatly to patient's chronic comorbidities, poor health outcomes, impaired mobility, and decreased healing. -no dietary consult will be obtained at this time due to patient's dementia 11. Dementia, with depression, acute on chronic, present on admission -continue donepezil, fluoxetine 12. Chronic anemia likely secondary to CKD, acute on chronic, present on ad mission -patient's labs for hemoglobin 10.8-11.7, hematocrit 32-36%, initial HGB today 11.1, HCT 34. MCV 90.6 and MCH 29.5-WNL -continue ferrous sulfate -Monitor H/H 13. Essential tremor, chronic, present on admission -continue primidone 14. Seizure disorder, chronic, present on admission -will continue Keppra BID 15. Acute cystitis ?- proteus in urine culture, given lethargy today will treat with 3 days of ceftriaxone. 16. Toxic metabolic encephalopathy - patient presented with encephalopathy on admission, presumed secondary to NSTEMI at first however yesterday worsened and was lethargic and confused. Continues today but somewhat improved. - no obvious signs of infection currently or fever beyond cystitis for which she is being treated. - consider repeat echo as noted above. - repeat VBG to assess for hypercarbia today. Code status:DNR- Per daughter Juliana/POLST Surrogate decision maker: Juliana daughter COVID PCR:? Negative COVID vaccination:? Unknown DVT/VTE prophylaxis:? On therapeutic Lovenox Dispo: likely return to previous facility, however she needs to be at her baseline mentation per her facility's nursing staff. Time Spent With Patient Critical Care time: I spent a total of [] minutes of critical care time on this patient's care today; this time is exclusive of procedural time. Quality VTE Deep Vein Thrombosis/Pulmonary Embolism Present on Admission: No
[2022-01-19] MEDS: ATORVASTATIN 20 MG TABLET 40 MG PO (20:29)
[2022-01-19] MEDS: SENNOSIDES 8.6 MG TABLET 17.2 MG PO (20:30)
[2022-01-19] MEDS: LIOTHYRONINE 5 MCG TABLET PO (20:30)
[2022-01-19] MEDS: INSULIN GLARGINE 100 UNIT/ML 3ML PEN 40 UNIT SUBCUT (20:43)
[2022-01-19] MEDS: HYDROCODONE/ACET 5/325 TABLET 1 TAB PO (22:44)
[2022-01-20] VITALS (16 sets, daily range): BP systolic 101–116; BP diastolic 45–55; PULSE 82–102; RESP 16–20; TEMP 36.4–37.2; O2SAT 2–98
--- NOTE | 2022-01-20 00:12 | PC.NURSE ---
DRAWING FRAME TENDER: patient just fell asleep. Told RN Donna about this. Allowing patient to sleep, holding vital signs until patient is awake.
[2022-01-20 05:25] LABS: Add Manual Diff / Slide Review NO; Basophils Absolute Auto 100 /uL (0-100); Basophils Percent Auto 1.2 % (0-2); Eosinophils Absolute Auto 200 /uL (0-450); Eosinophils Percent Auto 2.4 % (2-4); Hematocrit 35.9 % (36-46); Hemoglobin 11.9 g/dL (12.0-16.0); Lymphocytes Absolute Auto 1600 /uL (1100-4500); Lymphocytes Percent Auto 18.6 % (25-40); Mean Corpuscular HGB Conc 33.2 % (30-36); Mean Corpuscular Hemoglobin 29.9 PG (26-34); Monocytes Absolute Auto 1000 /uL (0-900); Monocytes Percent Auto 11.3 % (3-14); Neutrophils Absolute Auto 5600 /uL (1500-7000); Neutrophils Percent Auto 66.5 % (50-75); Platelet Count 309 X10^3/uL (150-400); Red Blood Cell Count 3.99 X10^6/uL (4.0-5.2); Red Cell Distribution Width 15.1 % (11.6-14.8); White Blood Cell Count 8.5 X10^3/uL (4.5-11.0)
[2022-01-20 05:28] LABS: Alanine Aminotransferase 22 IU/L (<35); Albumin Globulin Ratio 0.9 (1.0-2.8); Alkaline Phosphatase 76 U/L (38-126); Aspartate Aminotransferase 47 IU/L (14-36); BUN Creatinine Ratio 21.8 (6-22); Bilirubin Total 0.4 mg/dL (0.2-1.3); Blood Urea Nitrogen 38 mg/dL (7-17); Calcium 9.9 mg/dL (8.4-10.2); Chloride 88 mmol/L (98-107); Estimated Glomerular Filt Rate 28.6 mL/min (>60); Globulin 4.6 g/dL (1.7-4.1); Glucose 196 mg/dL (80-110); HEMOLYSIS < 15 (0-50); Magnesium 1.9 mg/dL (1.6-2.3); Potassium 3.7 mmol/L (3.4-5.1); Sodium 134 mmol/L (137-145); Total Protein 8.6 g/dL (6.3-8.2)
[2022-01-20 05:40] LABS: Carbon Dioxide 41 mmol/L (22-32)
[2022-01-20] MEDS: HYDROCODONE/ACET 5/325 TABLET 1 TAB PO (05:42)
[2022-01-20] MEDS: LEVOTHYROXINE 100 MCG TABLET 200 MCG PO (05:42)
--- NOTE | 2022-01-20 07:17 | PM.PN.1 ---
Subjective Subjective Date Patient Seen: 01/20/22 Interval history: She is seen in her room here today to follow-up her diabetes mellitus, dementia and non ST-elevation MD. She is quite stable appearing without any new complaints today. Her creatinine is 1.74. Her CO2 level has dropped from 45 down to 41 on the BMP that is otherwise normal. Exam Vital Signs (past 8 hours): - 01/20/22 00:00 01/20/22 04:11 01/20/22 05:00 Temperature 97.8 F Pulse Rate 93 H 83 Respiratory Rate 18 16 Blood Pressure 116/45 L Pulse Oximetry 93 Oxygen Delivery Method Room Air Oxygen Flow Rate 0 Narrative Exam Narrative: Alert and oriented to name. Heart is regular rate and rhythm without murmur Lungs are clear to auscultation bilaterally Extremities have no ankle edema Objective Labs Result Diagrams: 01/20/22 04:52 01/20/22 04:52 Labs: Laboratory Results - last 24 hr 01/20/22 01/20/22 04:52 04:52 WBC 8.5 RBC 3.99 L Hgb 11.9 L Hct 35.9 L MCV 90.0 MCH 29.9 MCHC 33.2 RDW 15.1 H Plt Count 309 Neut % (Auto) 66.5 Lymph % (Auto) 18.6 L Charlotte % (Auto) 11.3 Eos % (Auto) 2.4 Baso % (Auto) 1.2 Neut # (Auto) 5600 Lymph # (Auto) 1600 Charlotte # (Auto) 1000 H Eos # (Auto) 200 Baso # (Auto) 100 Sodium 134 L Potassium 3.7 Chloride 88 L Carbon Dioxide 41 H* BUN 38 H Creatinine 1.74 H Estimated GFR 28.6 L BUN/Creatinine Ratio 21.8 Glucose 196 H Calcium 9.9 Magnesium 1.9 Total Bilirubin 0.4 AST 47 H ALT 22 Alkaline Phosphatase 76 Total Protein 8.6 H Albumin 4.0 Globulin 4.6 H Albumin/Globulin Ratio 0.9 L [facility] Medical History (Updated 01/16/22 @ 21:09 by [facility] CAD (coronary artery disease) Chronic hypercapnic respiratory failure Chronic systolic CHF (congestive heart failure) CKD (chronic kidney disease) CVA (cerebral vascular accident) Dementia Diabetes mellitus type 2 in obese GERD (gastroesophageal reflux disease) Heart failure, unspecified Hyperlipidemia Hypertension Hypothyroid Morbid obesity with alveolar hypoventilation Non Hodgkin's lymphoma Pacemaker Thyroid cancer Tremor, unspecified Surgical History History of cholecystectomy History of thyroidectomy Hx of tonsillectomy S/P TAVR (transcatheter aortic valve replacement) Family History Mother Dementia Father Heart attack Social History household members: none Smoking Status: Never smoker alcohol intake: never Assessment & Plan Assessment & Plan narrative: Assessment & Plan narrative: Enid Almanza is a 74-year-old female with a past medical history significant for dementia, CAD s/p CABG x1, cardiac arrest status post pacemaker, aortic stenosis status post TAVR, hypertension, systolic CHF, chronic hypercapnic respiratory failure due to obesity hyperventilation syndrome, morbid obesity, hyperlipidemia, diabetes mellitus type 2, non-insulin using, CKD stage 4, secondary hypothyroidism status post thyroidectomy for thyroid cancer (unknown type),? and non-Hodgkin's lymphoma in remission who presented from [facility]?for for evaluation of fatigue who remains admitted for medical management of an NSTEMI. 1. NSTEMI, acute, present on admission -troponin of 0.251 with confusion. Given EKG with pacing and patient's altered mentation and inability to assess for chest pain she was treated as an NSTEMI after discussion with cardiology. Given recent echo less than 6 days prior to admission, repeat study would not filter changer at this time and was not ordered. -Risk Factors/medical history:CAD s/p CABG x1, cardiac arrest status post pacemaker, aortic stenosis status post TAVR, hypertension, systolic CHF, chronic hypercapnic respiratory failure due to obesity hyperventilation syndrome, morbid obesity, hyperlipidemia, NIDDM 2, CKD stage 4. -patient given 145 mg of Lovenox in ED for possible NSTEMI. Continued treatment with Lovenox 1mg / kg BID for 48 hours -ED consult with patients vendor management specialist [facility]. She is not a cath candidate at this time. ?- added aspirin and statin therapy for continued medical management. 2. Acute on Chronic systolic heart failure, present on admission -last echo 01/10/2022 6 days prior to admission: EF 40-45%. -40 mg of IV Lasix given in ED -continued diuresis with 40 mg IV BID and stopped given rising CO2 on BMP. Transitioned to home torsemide but creatinine continued to rise so it was then held. -fluid restriction 2 L, may decrease as needed -low-sodium diet 3. CAD status post stenting, pacemaker and TAVR, chronic, present on admission. -Patient has history of stenting with YADIRA to unknown coronary artery.? She also has history of TAVR.? During her operation for TAVR she had cardiac arrest requiring temporary pacemaker and when temporary pacemaker was later removed she again had another cardiac arrest. -Continue carvedilol 4. Hypertension, chronic, present on admission.? Stable. -Continue carvedilol 5. Hyperlipidemia, chronic, present on admission.? Stable. -Continue lipitor 6. Git-dumucqq-ksofzeztn type 2 diabetes, with presenting hyperglycemia, peripheral neuropathy, acute on chronic, present on admission.? Stable. -patient admitted under diabetic protocol, monitor for hypo and hyperglycemia -continue low-dose sliding scale as needed. -Last 01/10/2022:? A1c 8.1%. -Low carb diet -continue Tradjenta, gabapentin 7. Acute kidney injury on Chronic kidney disease stage 4, acute on chronic, present on admission. -Last Admit:? 01/10/2022 Initial creatinine 1.88 improved to 1.57 with fluids. -Initial Chloride 92, bicarb 36, creatinine 1.9, glucose 196, GFR 25.8 Last lab values on discharge 01/12/2022:? CROSS TIE MAKER 2, BUN 35, bicarb 34, GFR 24.4. -avoid nephrotoxic medications -monitor renal function closely 8. Hypothyroidism, secondary to status post thyroidectomy for thyroid cancer, chronic, present on admission.? Stable. -continue levothyroxine -TSH very elevated at 39. Free T4 is normal. -given history of thyroidectomy, this may indicate subpartial resection (unclear if she had half removed or whole portion). Would recommend outpatient PCP follow up for further investigation as if she does have a total thyroidectomy she may need evalation for possible recurrence. 9. Chronic hypercapnic respiratory failure, likely secondary to obesity hypoventilation syndrome, chronic, present on admission- ?- VBG on 01/20 with pH of 7.571, pCO2 of 47.6, PO2 48 and bicarb 43.7. 10. Morbid obesity as evidence by BMI 50.1, acute on chronic, present on admission -This is contributing greatly to patient's chronic comorbidities, poor health outcomes, impaired mobility, and decreased healing. -no dietary consult will be obtained at this time due to patient's dementia 11. Dementia, with depression, acute on chronic, present on admission -continue donepezil, fluoxetine 12. Chronic anemia likely secondary to CKD, acute on chronic, present on admission -patient's labs for hemoglobin 10.8-11.7, hematocrit 32-36%, initial HGB today 11.1, HCT 34. MCV 90.6 and MCH 29.5-WNL -continue ferrous sulfate -Monitor H/H 13. Essential tremor, chronic, present on admission -continue primidone 14. Seizure disorder, chronic, present on admission -will continue Keppra BID 15. Acute cystitis ?- proteus in urine culture, given lethargy will treat with 3 days of ceftriaxone. 16. Toxic metabolic encephalopathy ?- patient presented with encephalopathy on admission, presumed secondary to NSTEMI at first however yesterday worsened and was lethargic and confused. Continues today but somewhat improved. - no obvious signs of infection currently or fever beyond cystitis for which she is being treated. ?- consider repeat echo as noted above. Code status:DNR- Per daughter Juliana/POLST Surrogate decision maker: Juliana STORY vaccination:? Unknown DVT/VTE prophylaxis:? On therapeutic Lovenox Dispo: likely return to previous facility, however she needs to be at her baseline mentation per her facility's nursing staff. Time Spent With Patient Critical Care time: I spent a total of [] minutes of critical care time on this patient's care today; this time is exclusive of procedural time. Quality VTE Deep Vein Thrombosis/Pulmonary Embolism Present on Admission: No
[2022-01-20 08:27] LABS: PCO2 VBG 47.6 mmHg (45-50); pH VBG 7.57 (7.33-7.43)
[2022-01-20 08:28] LABS: HCO3 VBG 44 mmol/L (23-28); PO2 VBG 48 mmHg (35-45)
[2022-01-20 08:29] LABS: Oxygen Saturation VBG 88 % (70-75); Total CO2 VBG 45 mmol/L (24-29)
--- NOTE | 2022-01-20 08:53 | PC.NURSE ---
0735- Patient is hard to arouse by this HORTICULTURE SUPERVISOR. O2 saturation of 87%. Notified RN Lea immediately, to which she came to bedside at once.
[2022-01-20] MEDS: ENOXAPARIN 150 MG/ML SYRINGE 140 MG SUBCUT ×2 (09:12→20:55)
[2022-01-20] MEDS: levETIRAcetam 250 MG TABLET 500 MG PO ×2 (09:13→20:46)
[2022-01-20] MEDS: ASPIRIN EC 81 MG TABLET PO (09:14)
[2022-01-20] MEDS: POTASSIUM CHLORIDE 10 MEQ TAB PO (09:14)
[2022-01-20] MEDS: GABAPENTIN 300 MG CAPSULE PO ×3 (09:14→20:46)
[2022-01-20] MEDS: SITAGLIPTIN 50 MG TABLET 100 MG PO (09:57)
[2022-01-20] MEDS: NYSTATIN CREAM 30 GM 1 APPLIC TOP ×2 (09:58→21:08)
[2022-01-20] MEDS: PRIMIDONE 50 MG TABLET 100 MG PO (09:58)
[2022-01-20] MEDS: MAGNESIUM OXIDE 400 MG TABLET 800 MG PO (10:02)
[2022-01-20] MEDS: INSULIN LISPRO 100 UNIT/ML 3ML VIAL SUBCUT ×3 (12:40→21:09)
[2022-01-20] MEDS: INSULIN LISPRO 100 UNIT/ML 3ML VIAL 14 UNIT SUBCUT ×2 (12:49→17:45)
[2022-01-20] MEDS: cefTRIAXone 1,000 MG in SODIUM CHLORIDE 0.9% 100 ML 200 ML IV (13:46)
--- NOTE | 2022-01-20 15:57 | CM.DPNOTE ---
DCP Note Attempted to discuss dispo w/patient today and she appeared very disoriented. RN Basil states patient is usually talkative and more alert, this is not her baseline. Need to review medical POC with Dr Kern. Need to attempt SNF before return to [facility] (?) Have not made SNF referral or discussed w/patient's dtr/DPMAYA YOUNG
[2022-01-20] MEDS: MAGNESIUM OXIDE 400 MG TABLET PO (16:02)
[2022-01-20] MEDS: PRIMIDONE 50 MG TABLET 75 MG PO ×2 (16:02→20:46)
--- NOTE | 2022-01-20 16:38 | PC.NURSE ---
Pt slept most of day, some difficulty waking up. Denies discomfort, CBG 188 - 205 received as per protocol. New SL RFA Kimble cath patent clear urine. Call light w/in reach, bed alarm on for pt safety COntinue w/plan of care.
[2022-01-20] MEDS: ATORVASTATIN 20 MG TABLET 40 MG PO (20:45)
[2022-01-20] MEDS: SENNOSIDES 8.6 MG TABLET 17.2 MG PO (20:46)
[2022-01-20] MEDS: LIOTHYRONINE 5 MCG TABLET PO (20:46)
[2022-01-20] MEDS: INSULIN GLARGINE 100 UNIT/ML 3ML PEN 40 UNIT SUBCUT (21:08)
[2022-01-21] VITALS (18 sets, daily range): BP systolic 94–114; BP diastolic 46–57; PULSE 74–90; RESP 16–22; TEMP 36.3–37.1; O2SAT 91–94
--- NOTE | 2022-01-21 08:47 | P.PN_ITS ---
Subjective Subjective Date Patient Seen: 01/21/22 Interval history: She is seen in her room here to follow-up her dementia, tremor, heart failure and diabetes. She has an obvious pill rolling tremor. She struggles to articulate any thoughts and answer any questions. She is quite immobilized by her high BMI. She says that the facility she lives at uses a Teresa lift to move her which is what we have had to do here also. We have been waiting for them to accept her back, something they traditionally do not do on the weekend. We will be stopping her telemetry today. She has been pulling her IVs out. Her last blood tests were done yesterday. She needs a physical therapy evaluation. Exam Vital Signs (past 8 hours): - 01/21/22 01:00 01/21/22 01:14 01/21/22 03:48 Temperature Pulse Rate 90 Respiratory Rate 16 Blood Pressure Pulse Oximetry 92 93 92 01/21/22 05:00 01/21/22 07:40 Temperature 98.7 F 98.5 F Pulse Rate 90 87 Respiratory Rate 18 20 Blood Pressure 105/49 L 114/55 L Pulse Oximetry 92 91 Oxygen Delivery Method Room Air Oxygen Flow Rate 0 Narrative Exam Narrative: She is alert and oriented to her name. No apparent distress Heart is regular rate and rhythm without murmur Lungs are clear to auscultation bilaterally Abdomen is very obese, nontender, no organomegaly, bowel sounds active. Extremities have no ankle edema She has a pill-rolling tremor. She talks with a lot of hesitation and word searching. Objective Labs Result Diagrams: 01/21/22 08:54 01/21/22 08:54 [facility] Medical History (Updated 01/16/22 @ 21:09 by SHERYL Tenorio) CAD (coronary artery disease) Chronic hypercapnic respiratory failure Chronic systolic CHF (congestive heart failure) CKD (chronic kidney disease) CVA (cerebral vascular accident) Dementia Diabetes mellitus type 2 in obese GERD (gastroesophageal reflux disease) Heart failure, unspecified Hyperlipidemia Hypertension Hypothyroid Morbid obesity with alveolar hypoventilation Non Hodgkin's lymphoma Pacemaker Thyroid cancer Tremor, unspecified Surgical History History of cholecystectomy History of thyroidectomy Hx of tonsillectomy S/P TAVR (transcatheter aortic valve replacement) Family History Mother Dementia Father Heart attack Social History household members: none Smoking Status: Never smoker alcohol intake: never Assessment & Plan Assessment & Plan narrative: Enid Almanza is a 74-year-old female with a past medical history significant for dementia, CAD s/p CABG x1, cardiac arrest status post pacemaker, aortic stenosis status post TAVR, hypertension, systolic CHF, chronic hypercapnic respiratory failure due to obesity hyperventilation syndrome, morbid obesity, hyperlipidemia, diabetes mellitus type 2, non-insulin using, CKD stage 4, secondary hypothyroidism status post thyroidectomy for thyroid cancer (unknown type),? and non-Hodgkin's lymphoma in remission who presented from [facility]?for for evaluation of fatigue who remains admitted for medical management of an NSTEMI. 1. NSTEMI, acute, present on admission -troponin of 0.251 with confusion. Given EKG with pacing and patient's altered mentation and inability to assess for chest pain she was treated as an NSTEMI a fter discussion with cardiology. Given recent echo less than 6 days prior to admission, repeat study would not changeover operator at this time and was not ordered. -Risk Factors/medical history:CAD s/p CABG x1, cardiac arrest status post pacemaker, aortic stenosis status post TAVR, hypertension, systolic CHF, chronic hypercapnic respiratory failure due to obesity hyperventilation syndrome, morbid obesity, hyperlipidemia, NIDDM 2, CKD stage 4. -patient given 145 mg of Lovenox in ED for possible NSTEMI. Continued treatment with Lovenox 1mg / kg BID for 48 hours -ED consult with patients medical records technician [facility]. She is not a cath candidate at this time. ?- added aspirin and statin therapy for continued medical management. 2. Acute on Chronic systolic heart failure, present on admission -last echo 01/10/2022 6 days prior to admission: EF 40-45%. -40 mg of IV Lasix given in ED -continued diuresis with 40 mg IV BID and stopped given rising CO2 on BMP. Transitioned to home torsemide but creatinine continued to rise so it was then held. -fluid restriction 2 L, may decrease as needed -low-sodium diet 3. CAD status post stenting, pacemaker and TAVR, chronic, present on admission. -Patient has history of stenting with YADIRA to unknown coronary artery.? She also has history of TAVR.? During her operation for TAVR she had cardiac arrest requiring temporary pacemaker and when temporary pacemaker was later removed she again had another cardiac arrest. -Continue carvedilol 4. Hypertension, chronic, present on admission.? Stable. -Continue carvedilol 5. Hyperlipidemia, chronic, present on admission.? Stable. -Continue lipitor 6. Hoy-ypfaxjh-sukjtfudc type 2 diabetes, with presenting hyperglycemia, peripheral neuropathy, acute on chronic, present on admission.? Stable. -patient admitted under diabetic protocol, monitor for hypo and hyperglycemia -continue low-dose sliding scale as needed. -Last 01/10/2022:? A1c 8.1%. -Low carb diet -continue Tradjenta, gabapentin 7. Acute kidney injury on Chronic kidney disease stage 4, acute on chronic, present on admission. -Last Admit:? 01/10/2022 Initial creatinine 1.88 improved to 1.57 with fluids. -Initial Chloride 92, bicarb 36, creatinine 1.9, glucose 196, GFR 25.8 Last lab values on discharge 01/12/2022:? PUBLISHING SPECIALIST 2, BUN 35, bicarb 34, GFR 24.4. -avoid nephrotoxic medications -monitor renal function closely 8. Hypothyroidism, secondary to status post thyroidectomy for thyroid cancer, chronic, present on admission.? Stable. -continue levothyroxine -TSH very elevated at 39. Free T4 is normal. -given history of thyroidectomy, this may indicate subpartial resection (unclear if she had half removed or whole portion). Would recommend outpatient PCP follow up for further investigation as if she does have a total thyroidectomy she may need evalation for possible recurrence. 9. Chronic hypercapnic respiratory failure, likely secondary to obesity hypoventilation syndrome, chronic, present on admission- ?- VBG on 01/20 with pH of 7.571, pCO2 of 47.6, PO2 48 and bicarb 43.7. 10. Morbid obesity as evidence by BMI 50.1, acute on chronic, present on admission -This is contributing greatly to patient's chronic comorbidities, poor health outcomes, impaired mobility, and decreased healing. -no dietary consult will be obtained at this time due to patient's dementia 11. Dementia, with depression, acute on chronic, present on admission -continue donepezil, fluoxetine 12. Chronic anemia likely secondary to CKD, acute on chronic, present on admission -patient's labs for hemoglobin 10.8-11.7, hematocrit 32-36%, initial HGB today 11.1, HCT 34. MCV 90.6 and MCH 29.5-WNL -continue ferrous sulfate -Monitor H/H 13. Essential tremor, chronic, present on admission -continue primidone 14. Seizure disorder, chronic, present on admission -will continue Keppra BID 15. Acute cystitis ?- proteus in urine culture, given lethargy was treated with 3 days of ceftriaxone. 16. Toxic metabolic encephalopathy ?- patient presented with encephalopathy on admission, presumed secondary to NSTEMI at first however yesterday worsened and was lethargic and confused. This continues, probably at baseline. No obvious signs of infection currently or fever beyond cystitis for which she was treated. ?- consider repeat echo as noted above. Code status:DNR- Per daughter Juliana/POLST Surrogate decision maker: Juliana daughter PORSHA vaccination:? Unknown DVT/VTE prophylaxis:? On therapeutic Lovenox Dispo: likely return to previous facility, however she needs to be at her baseline mentation per her facility's nursing staff. Time Spent With Patient Critical Care time: I spent a total of [] minutes of critical care time on this patient's care toda y; this time is exclusive of procedural time. Quality VTE Deep Vein Thrombosis/Pulmonary Embolism Present on Admission: No
[2022-01-21 09:31] LABS: Add Manual Diff / Slide Review NO; Basophils Absolute Auto 100 /uL (0-100); Basophils Percent Auto 1.1 % (0-2); Eosinophils Absolute Auto 300 /uL (0-450); Hemoglobin 11.2 g/dL (12.0-16.0); Lymphocytes Absolute Auto 1500 /uL (1100-4500); Mean Corpuscular HGB Conc 33.1 % (30-36); Mean Corpuscular Volume 90.8 fL (80-100); Monocytes Absolute Auto 1100 /uL (0-900); Monocytes Percent Auto 11.8 % (3-14); Neutrophils Absolute Auto 6000 /uL (1500-7000); Neutrophils Percent Auto 67.1 % (50-75); Platelet Count 295 X10^3/uL (150-400); Red Blood Cell Count 3.74 X10^6/uL (4.0-5.2); Red Cell Distribution Width 15.4 % (11.6-14.8)
[2022-01-21 09:46] LABS: Alanine Aminotransferase 22 IU/L (<35); Albumin 4.1 g/dL (3.5-5.0); Albumin Globulin Ratio 0.9 (1.0-2.8); Alkaline Phosphatase 80 U/L (38-126); Aspartate Aminotransferase 44 IU/L (14-36); BUN Creatinine Ratio 18.6 (6-22); Bilirubin Total 0.4 mg/dL (0.2-1.3); Blood Urea Nitrogen 32 mg/dL (7-17); Calcium 9.7 mg/dL (8.4-10.2); Chloride 88 mmol/L (98-107); Globulin 4.8 g/dL (1.7-4.1); Glucose 208 mg/dL (80-110); HEMOLYSIS < 15 (0-50); Potassium 3.8 mmol/L (3.4-5.1); Sodium 136 mmol/L (137-145); Total Protein 8.9 g/dL (6.3-8.2)
[2022-01-21 09:52] LABS: Carbon Dioxide 38 mmol/L (22-32)
[2022-01-21] MEDS: LEVOTHYROXINE 100 MCG TABLET 200 MCG PO (09:59)
[2022-01-21] MEDS: INSULIN LISPRO 100 UNIT/ML 3ML VIAL SUBCUT ×3 (09:59→17:45)
[2022-01-21] MEDS: levETIRAcetam 250 MG TABLET 500 MG PO ×2 (10:03→20:57)
[2022-01-21] MEDS: MAGNESIUM OXIDE 400 MG TABLET 800 MG PO (10:03)
[2022-01-21] MEDS: GABAPENTIN 300 MG CAPSULE PO ×3 (10:03→20:58)
[2022-01-21] MEDS: ASPIRIN EC 81 MG TABLET PO (10:04)
[2022-01-21] MEDS: carvediloL 3.125 MG TABLET 12.5 MG PO ×2 (10:04→20:57)
[2022-01-21] MEDS: POTASSIUM CHLORIDE 10 MEQ TAB PO (10:04)
[2022-01-21] MEDS: PRIMIDONE 50 MG TABLET 100 MG PO (10:08)
[2022-01-21] MEDS: ENOXAPARIN 150 MG/ML SYRINGE 140 MG SUBCUT ×2 (10:15→20:57)
[2022-01-21] MEDS: INSULIN LISPRO 100 UNIT/ML 3ML VIAL 12 UNIT SUBCUT (10:16)
[2022-01-21] MEDS: NYSTATIN CREAM 30 GM 1 APPLIC TOP ×2 (10:16→20:59)
[2022-01-21] MEDS: SITAGLIPTIN 50 MG TABLET 100 MG PO (10:19)
[2022-01-21] MEDS: INSULIN LISPRO 100 UNIT/ML 3ML VIAL 14 UNIT SUBCUT ×2 (12:35→17:45)
--- NOTE | 2022-01-21 13:04 | PT-IP ANOTE ---
Received orders and reviewed the chart. This greeting card writer did evaluate the pt on 01/07/22 and found pt unsafe to attempt standing due to gross weakness and inability to follow simple commands. At that time, PT called [facility] and nursing there reported pt requires lillian for transfer at baseline and does not participate in transfers. PT will complete current orders. Communicated same to AMBULATORY CARE.
--- NOTE | 2022-01-21 14:44 | CM.DANOTE ---
DCP/continued: Received return phone from [facility] today. They report that they do not have the appropriate amount of staff for patient to return to facility today. [facility] reports that Sola (admit nurse) will be back tomorrow 01-22-22 and that they should have no problem with patient's return. [facility] reports to this URGENT CARE that Sola will call in AM to coordinate rock picker time. P: [facility]. RUDOLPH
[2022-01-21] MEDS: PRIMIDONE 50 MG TABLET 75 MG PO ×2 (15:13→21:03)
--- NOTE | 2022-01-21 15:41 | PC.NURSE ---
Cleaned Pt's lisa area and skin folds-they are actually looking quite a bit better than last week. Skin is intact but reddened in lisa area so applied nystatin cream. Changed Pt brief and applied barrier cream and an Allevyn Gentle Border dsg to top of gluteal cleft as well as skin tears/scratches on right forearm. Lotion applied to Pt's back as the skin was very dry. Waffle cushion, new brief, and fresh incont. pad placed under Pt and Pt turned in bed with bed and pillow support to left side. Pt states she is much more comfortable now and denied needs at this time.
[2022-01-21] MEDS: MAGNESIUM OXIDE 400 MG TABLET PO (17:56)
[2022-01-21] MEDS: SENNOSIDES 8.6 MG TABLET 17.2 MG PO (20:57)
[2022-01-21] MEDS: ATORVASTATIN 20 MG TABLET 40 MG PO (20:57)
[2022-01-21] MEDS: LIOTHYRONINE 5 MCG TABLET PO (20:58)
[2022-01-21] MEDS: INSULIN GLARGINE 100 UNIT/ML 3ML PEN 40 UNIT SUBCUT (20:59)
[2022-01-22] VITALS (10 sets, daily range): BP systolic 100–115; BP diastolic 47–63; PULSE 69–81; RESP 16–19; TEMP 36.4–36.5; O2SAT 92
[2022-01-22] MEDS: LEVOTHYROXINE 100 MCG TABLET 200 MCG PO (06:32)
[2022-01-22] MEDS: SITAGLIPTIN 50 MG TABLET 100 MG PO (08:44)
[2022-01-22] MEDS: NYSTATIN CREAM 30 GM 1 APPLIC TOP (08:44)
[2022-01-22] MEDS: ASPIRIN EC 81 MG TABLET PO (08:44)
[2022-01-22] MEDS: carvediloL 3.125 MG TABLET 12.5 MG PO (08:44)
[2022-01-22] MEDS: PRIMIDONE 50 MG TABLET 100 MG PO (08:45)
[2022-01-22] MEDS: POTASSIUM CHLORIDE 10 MEQ TAB PO (08:45)
[2022-01-22] MEDS: GABAPENTIN 300 MG CAPSULE PO ×2 (08:45→14:40)
[2022-01-22] MEDS: ENOXAPARIN 150 MG/ML SYRINGE 140 MG SUBCUT (08:46)
[2022-01-22] MEDS: MAGNESIUM OXIDE 400 MG TABLET 800 MG PO (08:46)
[2022-01-22] MEDS: levETIRAcetam 250 MG TABLET 500 MG PO (08:46)
[2022-01-22] MEDS: INSULIN LISPRO 100 UNIT/ML 3ML VIAL SUBCUT ×2 (08:47→13:12)
[2022-01-22] MEDS: INSULIN LISPRO 100 UNIT/ML 3ML VIAL 12 UNIT SUBCUT (08:48)
--- NOTE | 2022-01-22 10:49 | CM.DPC ---
Addendum entered by PATRIC Magana 01/22/22 15:47: ADD: Still no d/c summ available yet to fax to [facility], although pt remains in the hospital with planned transport in 15 min. BF Addendum entered by PATRIC Magana 01/22/22 13:53: ADD: Grain Distributor Alejandra contacted [facility] after not getting return call about accepting pt back today and confirmed pt will be accepted back and needs to transport via BLS. DCP Shnai kindly scheduled BLS transport with [facility] for 1600 and completed BLS form and updated RN and [facility]. EASTON updated MD on transport time and just requested d/c summary to be completed prior to d/c so SW can fax to [facility] for review. Med list and scripts previously faxed this morning. BF Original Note: DCP Discharge Per MD, pt is medically stable to d/c back to [facility] today and no identified barriers to discharge. EASTON called [facility] and left ms for RN station with update on d/c today and to confirm if bedside assessment needed or just call with RN to confirm pt back to baseline [facility] for return. EASTON called [facility] again a couple hours later and reached RN Sola and updated on pt d/c and seeming to be back to baseline and she thinks she likely would need to complete bedside assessment but their facility physician is there and requested updated clinicals be faxed for review by their physician and herself. EASTON faxed updated notes from past couple days and signed med rec and scripts to review. Plan: EASTON updated MD and RN and awaiting [facility] review and determination if they need to complete bedside assessment with plan of return to [facility] today. PATRIC Magana
[2022-01-22] MEDS: INSULIN LISPRO 100 UNIT/ML 3ML VIAL 14 UNIT SUBCUT (13:13)
[2022-01-22] MEDS: PRIMIDONE 50 MG TABLET 75 MG PO (14:41)
--- NOTE | 2022-01-22 15:42 | PC.NURSE ---
Pt is ready for discharge back to [place] where she has been previously living. No IV's, saleh removed, and belongings packed up. Called report to Navid at [facility] and gave full Pt report-there were no further questions. Pt to be transferred via BLS.
--- NOTE | 2022-01-22 16:27 | PC.NURSE ---
Pt out via stretcher with ambulance personnel for BLS transfer to [place]
--- NOTE | 2022-01-25 19:55 | P.DS_ITS ---
History of Present Illness History of Present Illness Date Patient Seen: 01/22/22 Chief complaint: Fatigue Narrative: Enid Almanza is a 74-year-old female with a past medical history significant for dementia, CAD s/p stent x1, cardiac arrest status post pacemaker, aortic stenosis status post TAVR, hypertension, systolic CHF, chronic hypercapnic respiratory failure, obesity hyperventilation syndrome, morbid obesity, hyperlipidemia, NIDDM2, CKD stage 4, secondary hypothyroidism S/P thyroidectomy- thyroid cancer (unknown type),? and non-Hodgkin's lymphoma in remission who presented from [facility]?for for evaluation of fatigue, episodes of hypoxia, and elevated carbon dioxide while the patient was sleeping.? Upon arrival in the ED patient stated she is unsure why she is here.? She denies chest pain, shortness of breath, fever, body aches, chills, bowel issues, abd pain, nausea, vomiting, recent falls, or injury.? Patient complains of pain to her bottom, urinary urgency, and frequency.? She reports being compliant with all of the medications given to her at [facility]. Hospitalization 01/06-01/12/[address] Claros:Enid Almanza 74W with PMH CAD status post stent x1, cardiac arrest status post pacemaker, aortic stenosis status post TAVR, HTN, HL, DM, CKD stage 4, secondary hypothyroidism status post thyroidectomy for thyroid cancer (unknown type), non-Hodgkin's lymphoma in remission and dementia who presented from [facility] for decreased alertness. admitted for Acute toxic / metabolic encephalopathy secondary to acute cystitis with sepsis, mild hypercalcemia, and likely dehydration. Urine culture positive for proteus, sensative to ceftiaxone, completed 3 days of rocephin IV, head CT showed old CVA, no acute processes, ABG's demonstrated no acidosis, likely chronic hypercapnea, blood cultures were negative, and patient meditation returned to her base line of mild confusion GCS:11, related to her dementia upon discharge. Please note change in code status per Dr. Mendoza ED:I did have a discussion with the patient's daughter.? Over the phone the patient's daughter states she does have the patient's POLST form which does state DNR with limited interventions.? I did not specifically have this in front of me to view however this is the information that was related to me by the patient's daughter.? I did discuss the case with Cardiology who stated given her DNR status, presentation today, el evated BNP, BMI that they would not recommend cardiac catheterization and did recommend medical management.? Patient's vitals upon admit are stable, patient is afebrile, BP 136/65, HR 63, R 17, O2 saturation 97% on room air.? Patient's H&H are stable at 11.1/34, with no white count, patient does have positive mono# 1000.? Patient's chemistry panel is stable at baseline CKD stage 4: Chloride 92, bicarb 36, creatinine 1.9, glucose 196, GFR 25.8 Last lab values on discharge 01/12/2022:? SOAP DRIER TENDER 2, BUN 35, bicarb 34, GFR 24.4.? Patient's ammonia< 9, patient's total protein 8.9, lipase WNL, patient's troponin#1 0.251, BNP 3250-patient given Lasix in ED.? I personally reviewed patient's EKG in which she demonstrated a ventricular paced rhythm, with a rate of 62, without ST or T-wave changes, patient also denies chest pain, no signs of ACS.? Patient is orientated to self and place, and is at her baseline meditation in the setting of her dementia upon admit.? Patient is admitted for NSTEMI, myocardial injury-as a DNR with limited interventions, an acute on chronic exacerbation systolic congestive heart failure. Discharge Providers Provider Date of admission: 01/16/22 18:03 Discharge Date: 01/22/22 Primary care physician: Kinsey Bose MD Consults: 01/17/22 16:43 Consult to Dietitian, Adult Routine Comment: Reason For Exam: diabetic control 01/21/22 12:10 Consult to Physical Therapy Evaluate & Treat Comment: Physician Instructions: Evaluate and Treat Discharge provider: Melba Contreras MD Summary Hospital Course Discharge Diagnosis: 1. NSTEMI 2. Acute on chronic systolic heart failure 3. Coronary artery disease status post stenting, pacemaker, TAVR 4. Hypertension 5. Hyperlipidemia 6. Type 2 diabetes 7. Acute on chronic kidney injury 8. Hypothyroidism 9. Chronic hypercapnic respiratory failure 10. Dementia 11. Anemia 12. A central tremor 13. Seizure disorder 14. Acute cystitis 15. Acute metabolic encephalopathy 16 morbid obesity Hospital Course: The patient has multiple medical problems and was admitted to the hospital for fatigue, she was found on admission to have an NSTEMI. The patient was given Lovenox in the emergency department. She was given aspirin and a statin as well. Patient was also found to be in congestive heart failure. She was diuresed with Lasix. Her blood sugars remained elevated in the hospital. She also was found to have acute kidney injury which improved. Patient has dementia and had waxing and waning of her mental status. She was treated for multiple medical problems and was slowly deemed appropriate to return to her assisted living facility. As the facility needed to evaluate her prior to return she remained in the hospital for 3 days awaiting evaluation. She was evaluated by the nurse from [facility] who agree that she could return. Arrangements were made for her to return to the [facility]. Patient had no complaints, she was not short of breath, she was awake alert and appropriate. Status at Discharge Cognitive/behavioral status at discharge: at baseline, confused Functional status at discharge: bed bound Overall status at discharge: patient is progressing back to baseline Exam Vital Signs (past 8 hours): Oxygen Delivery Method Room Air Oxygen Flow Rate 0 Narrative Exam Narrative: Pleasant elderly female lying in bed Resp Other: Lungs clear to auscultation Cardio Other: Cardiac exam: Regular rate rhythm normal S1-S2 Extrem Other: Extremities no edema Objective Labs Result Diagrams: 01/21/22 08:54 01/21/22 08:54 [facility] Medical History CAD (coronary artery disease) Chronic hypercapnic respiratory failure Chronic systolic CHF (congestive heart failure) CKD (chronic kidney disease) CVA (cerebral vascular accident) Dementia Diabetes mellitus type 2 in obese GERD (gastroesophageal reflux disease) Heart failure, unspecified Hyperlipidemia Hypertension Hypothyroid Morbid obesity with alveolar hypoventilation Non Hodgkin's lymphoma Pacemaker Thyroid cancer Tremor, unspecified Surgical History History of cholecystectomy History of thyroidectomy Hx of tonsillectomy S/P TAVR (transcatheter aortic valve replacement) Family History Mother Dementia Father Heart attack Social History household members: none Smoking Status: Never smoker alcohol intake: never Discharge Assessment & Plan Assessment and Plan Assessment: NSTEMI 2. Acute on chronic systolic heart failure 3. Coronary artery disease status post stenting, pacemaker, TAVR 4. Hypertension 5. Hyperlipidemia 6. Type 2 diabetes 7. Acute on chronic kidney injury 8. Hypothyroidism 9. Chronic hypercapnic respiratory failure 10. Dementia 11. Anemia 12. A central tremor 13. Seizure disorder 14. Acute cystitis 15. Acute metabolic encephalopathy 16 morbid obesity Plan of Treatment: Return to [facility] Discharge Plan Discharge Plan Patient Disposition: Assisted Living Transfer to: [facility] Consult as needed: Dental, Hearing, Mental health, Podiatry and Vision Nursing Discharge Comment: BM 01/22 [facility] discontinued 01/22 at 12noon, due to void by 1999. Discharge orders & Medications Discharge Orders: Discharge (Order); Ordered 01/22/22 Ordered By: Melba Contreras Prescriptions: New atorvastatin [Lipitor] 20 mg Tablet 40 mg PO BEDTIME Qty: 30 0RF aspirin 81 mg Tablet,Delayed Release (Dr/Ec) 81 mg PO DAILY Qty: 30 0RF levothyroxine [Synthroid] 100 mcg Tablet 200 mcg PO 0600 Qty: 30 0RF Continued potassium chloride 10 mEq Tablet Extended Release 10 meq PO DAILY 0RF cholecalciferol (vitamin D3) 1,000 unit (25 mcg) Tablet 5,000 unit PO DAILY 0RF Tradjenta 5 mg Tablet 5 mg PO DAILY 0RF primidone 50 mg Tablet 75 mg PO BID 0RF Rx Instructions: takes at 1500 & bedtime levetiracetam 250 mg Tablet 500 mg PO BID 0RF gabapentin 300 mg Capsule 300 mg PO TID 0RF primidone 50 mg Tablet 100 mg PO QAM 0RF nystatin-emollient combo no.54 100,000 unit/gram Cream 1 g TOPICAL BID 0RF Rx Instructions: apply to abdominal folds cyanocobalamin (vitamin B-12) 1,000 mcg/mL Solution 1,000 mcg IM QMONTH 0RF calcium carbonate 500 mg calcium (1,250 mg) Tablet,Chewable 500 - 1,000 mg PO Q6H PRN (Reason: mild to moderate heartburn) 0RF polyvinyl alcohol-povidon(PF) 1.4-0.6 % Dropperette 2 drp OPHTHALMIC (EYE) BID PRN (Reason: Dry Eyes) 0RF insulin aspart U-100 [Novolog Flexpen U-100 Insulin] 100 unit/mL (3 mL) Insulin Pen 12 unit SUBCUT QAM 0RF Rx Instructions: in a.m. insulin aspart U-100 [Novolog Flexpen U-100 Insulin] 100 unit/mL (3 mL) Insulin Pen 14 unit SUBCUT BID 0RF Rx Instructions: takes at 1200 & 1700 Lantus Solostar U-100 Insulin 100 unit/mL (3 mL) Insulin Pen 40 unit SUBCUT BEDTIME 0RF torsemide 20 mg tablet 40 mg PO DAILY 0RF carvedilol 3.125 mg Tablet 12.5 mg PO BID Qty: 0 0RF Discontinued levothyroxine 175 mcg Tablet 200 mcg PO DAILY 0RF No Action fluoxetine 20 mg capsule 20 mg PO DAILY 0RF donepezil 5 mg tablet 5 mg PO DAILY 0RF fluticasone propionate 50 mcg/actuation spray,suspension 50 mcg INTRANASAL DAILY 0RF calcitriol 0.25 mcg capsule 0.5 mcg PO DAILY 0RF hydrocodone-acetaminophen 10-325 mg Tablet 1 tab PO Q4HR PRN (Reason: Pain, Moderate (4-6)) Qty: 20 0RF liothyronine [Cytomel] 5 mcg Tablet 10 mcg PO DAILY Qty: 30 0RF magnesium oxide 400 mg (241.3 mg magnesium) Tablet 400 mg PO BID Qty: 60 0RF Follow up/Referrals: Kinsey Bose MD [Primary Care Provider] - Visit Report/Discharge Packet Instructions: DI for Heart Attack, Acute Kidney Injury, How to Prevent Falls Discharge Data Primary Care Provider: Kinsey Bsoe Quality VTE Deep Vein Thrombosis/Pulmonary Embolism Present on Admission: No
== END 2022-01-22 16:27 | DRG 280 ==
LOC: ED 13:50 → AC 18:03
PROVIDERS: Family Medicine; Nurse Practitioner Family; Admitting Provider Internal Medicine; Emergency Provider Emergency Medicine; PCP Family Medicine; Referring Provider Emergency Medicine; Visit Provider Internal Medicine
DX: I21.4 Non-ST elevation (NSTEMI) myocardial infarction (principal); I50.23 Acute on chronic systolic (congestive) heart failure; G93.41 Metabolic encephalopathy; I13.0 Hypertensive heart and chronic kidney disease with heart failure and stage 1 through stage 4 chronic kidney disease, or unspecified chronic kidney disease; N18.4 Chronic kidney disease, stage 4 (severe); N17.9 Acute kidney failure, unspecified; E66.2 Morbid (severe) obesity with alveolar hypoventilation; Z68.43 Body mass index [BMI] 50.0-59.9, adult; J96.12 Chronic respiratory failure with hypercapnia; N30.00 Acute cystitis without hematuria; E11.65 Type 2 diabetes mellitus with hyperglycemia; E11.42 Type 2 diabetes mellitus with diabetic polyneuropathy; I25.10 Atherosclerotic heart disease of native coronary artery without angina pectoris; E78.5 Hyperlipidemia, unspecified; E03.9 Hypothyroidism, unspecified; F03.90 Unspecified dementia, unspecified severity, without behavioral disturbance, psychotic disturbance, mood disturbance, and anxiety; F32.A Depression, unspecified; D64.89 Other specified anemias; G25.0 Essential tremor; G40.909 Epilepsy, unspecified, not intractable, without status epilepticus; B96.4 Proteus (mirabilis) (morganii) as the cause of diseases classified elsewhere; Z79.84 Long term (current) use of oral hypoglycemic drugs; Z95.5 Presence of coronary angioplasty implant and graft; Z20.822 Contact with and (suspected) exposure to COVID-19; Z95.0 Presence of cardiac pacemaker; Z66 Do not resuscitate; Z95.2 Presence of prosthetic heart valve; I10 Essential (primary) hypertension; R79.0 Abnormal level of blood mineral
CPT/HCPCS: 36415; 71045; 80048; 80053; 81001; 82140; 82550; 82805; 82962; 83690; 83735; 83880; 84439; 84443; 84484; 85014; 85018; 85025; 85610; 87635; 93005; 94760; 96372; 96374; 99285; C9803; J0696; J1650; J1815; J1940; J3475

== ENCOUNTER 2022-01-23 06:03 | Observation (INO) | payer OTHER, MEDICAID, SELFPAY ==
[2022-01-11 22:30] VITALS: PULSE 80; RESP 18; O2SAT 98
[2022-01-16 20:30] VITALS: BMI 49.1
[2022-01-23] VITALS (64 sets, daily range): BP systolic 87–115; BP diastolic 44–63; PULSE 73–95; RESP 16–40; TEMP 36.3–37.3; O2SAT 82–95; BMI 47.8
--- NOTE | 2022-01-23 06:09 | DI.RAD.S_ITS ---
PROCEDURE: XR CHEST 1V INDICATIONS: altered mental status TECHNIQUE: One view of the chest was acquired. COMPARISON: [facility], CR, XR CHEST 1V, 10/04/2021, 22:00. [facility], CR, XR CHEST 1V, 01/06/2022, 14:37. [facility], CR, XR CHEST 1V, 01/16/2022, 18:55. FINDINGS: Surgical changes and devices: Left chest wall AICD. Status post TAVR. Surgical clips projecting over the thyroid fossa appear Lungs and pleura: Lungs are clear. No pleural effusions or pneumothorax. Mediastinum: Mediastinal contours appear normal. Heart size is normal. Bones and chest wall: No suspicious bony lesions. Overlying soft tissues appear unremarkable. IMPRESSION: No acute cardiopulmonary disease process. Dictated by: Amrita White MD, PhD on 01/23/2022 at 8:26 Approved by: Amrita White MD, PhD on 01/23/2022 at 8:27
--- NOTE | 2022-01-23 06:11 | ED_ITS ---
HPI - Altered Mental Status <Zeke DO Fabien - Last Filed: 01/31/22 03:16> General Chief Complaint: Altered Mental Status Stated Complaint: Decreased LOC Time Seen by Provider: 01/23/22 06:07 History of Present Illness HPI narrative: 76F nonsmoker with history of coronary artery disease with recent NSTEMI, chronic hypercapnic respiratory failure, chronic CHF, chronic kidney disease, prior stroke and dementia, diabetes presents by EMS from a local senior living facility due to change in mental status and overall clinical picture over the past 12-24 hours. She has had decreased oral intake and has not urinated in 24 hours. EMS was activated and report was she was unresponsive, on their arrival they found her to be responsive to noxious stimuli. On her arrival here she is hard of hearing but answering questions appropriately. She is a DNR. Patient had troponin elevated at 0.251 and was treated with Lovenox after consultation with Cardiology. She is determined to not be a candidate for a heart catheterization. She has had an echo as recently as January 10 with EF noting 40-45%. Related Data Home Medications Medication Instructions Recorded Confirmed cholecalciferol (vitamin D3) 25 5,000 unit PO DAILY 09/07/19 01/23/22 mcg (1,000 unit) tablet linagliptin 5 mg tablet (Tradjenta) 5 mg PO DAILY 09/07/19 01/23/22 potassium chloride 10 mEq 10 meq PO DAILY 09/07/19 01/23/22 tablet,extended release gabapentin 300 mg capsule 300 mg PO TID 10/20/19 01/23/22 levetiracetam 250 mg tablet 500 mg PO BID 10/20/19 01/23/22 primidone 50 mg tablet 75 mg PO BID 10/20/19 01/23/22 torsemide 20 mg tablet 40 mg PO DAILY 01/06/22 01/23/22 calcium carbonate 500 mg calcium 500 - 1,000 mg PO Q6H PRN 01/17/22 01/23/22 (1,250 mg) chewable tablet cyanocobalamin (vitamin B-12) 1,000 mcg IM QMONTH 01/17/22 01/23/22 1,000 mcg/mL injection solution insulin aspart U-100 100 unit/mL 12 unit SUBCUT QAM 01/17/22 01/23/22 (3 mL) subcutaneous pen (Novolog Flexpen U-100 Insulin aspart) insulin aspart U-100 100 unit/mL 14 unit SUBCUT BID 01/17/22 01/23/22 (3 mL) subcutaneous pen (Novolog Flexpen U-100 Insulin aspart) insulin glargine 100 unit/mL (3 40 unit SUBCUT BEDTIME 01/17/22 01/23/22 mL) subcutaneous pen (Lantus Solostar U-100 Insulin) nystatin-emollient combo no.54 1 g TOPICAL BID 01/17/22 01/23/22 100,000 unit/gram topical cream polyvinyl alcohol-povidone (PF) 2 drp OPHTHALMIC (EYE) BID PRN 01/17/22 01/23/22 1.4 %-0.6 % eye drops in a dropperette primidone 50 mg tablet 100 mg PO QAM 01/17/22 01/23/22 calcitriol 0.25 mcg capsule 0.5 mcg PO DAILY 01/23/22 01/23/22 donepezil 5 mg tablet 5 mg PO DAILY 01/23/22 01/23/22 fluoxetine 20 mg capsule 20 mg PO DAILY 01/23/22 01/23/22 fluticasone propionate 50 50 mcg INTRANASAL DAILY 01/23/22 01/23/22 mcg/actuation nasal spray,suspension Previous Rx's Medication Instructions Recorded carvedilol 3.125 mg tablet 12.5 mg PO BID #0 tab 01/12/22 aspirin 81 mg tablet,delayed 81 mg PO DAILY #30 tab 01/22/22 release atorvastatin 20 mg tablet (Lipitor) 40 mg PO BEDTIME #30 tab 01/22/22 levothyroxine 100 mcg tablet 200 mcg PO 0600 #30 tab 01/22/22 (Synthroid) hydrocodone 10 mg-acetaminophen 1 tab PO Q4HR PRN #20 tab 01/25/22 325 mg tablet liothyronine 5 mcg tablet (Cytomel) 10 mcg PO DAILY #30 tab 01/25/22 magnesium oxide 400 mg (241.3 mg 400 mg PO BID #60 tab 01/25/22 magnesium) tablet Allergies Allergy/AdvReac Type Severity Reaction Status Date / Time adhesive tape Allergy Verified 01/06/22 13:27 allopurinol Allergy Verified 01/06/22 13:27 Review of Systems <Zeke Conn DO - Last Filed: 01/31/22 03:16> Review of Systems Narrative: GENERAL: Denies chills, fatigue, malaise, fever, sweats. HEENT: Denies sinus pain, ear pain, sore throat, difficulty swallowing, dizziness. RESPIRATORY: Denies dyspnea, cough, wheezing, hemoptysis, sputum. CARDIOVASCULAR: Denies chest pain, palpitations, orthopnea, edema, GASTROINTESTINAL: Denies nausea, vomiting, abdominal pain, diarrhea, constipation, melena. : Denies dysuria, frequency, incontinence, hematuria, urinary retention. MUSCULOSKELETAL: denies weakness, joint pain, or bony pain SKIN: Denies rash, skin lesions, or other NEUROLOGIC: Denies weakness, headache, numbness, change in speech, confusion, seizures, incoordination. PSYCHIATRIC: No concerning psychosocial issues. 12 point review of systems is negative except for those stated above Patient History <Zeke Conn DO - Last Filed: 01/31/22 03:16> Medical History CAD (coronary artery disease) Chronic hypercapnic respiratory failure Chronic systolic CHF (congestive heart failure) CKD (chronic kidney disease) CVA (cerebral vascular accident) Dementia Diabetes mellitus type 2 in obese GERD (gastroesophageal reflux disease) Heart failure, unspecified Hyperlipidemia Hypertension Hypothyroid Morbid obesity with alveolar hypoventilation Non Hodgkin's lymphoma Pacemaker Thyroid cancer Tremor, unspecified Surgical History History of cholecystectomy History of thyroidectomy Hx of tonsillectomy S/P TAVR (transcatheter aortic valve replacement) Family History Mother Dementia Father Heart attack Social History household members: none Smoking Status: Never smoker alcohol intake: never Smoking Status: Never smoker alcohol intake frequency: 0-2 drinks per day Substance Use Type: does not use Exam <Zeke Conn DO - Last Filed: 01/31/22 03:16> Narrative Exam Narrative: GENERAL: [76 year old patient appears stated age. Well-developed patient, in mild distress. HEAD: Atraumatic. Normocephalic. EYES: Pupils equal round and reactive. Extraocular motions intact. No scleral icterus. No injection or drainage. ENT: Dry mucous membranes Nose without bleeding, purulent drainage. Throat without erythema, tonsillar hypertrophy or exudate. Airway patent. NECK: Trachea midline. Non tender CARDIOVASCULAR: Regular rate and rhythm without murmurs, gallops, or rubs. RESPIRATORY: Clear to auscultation. Breath sounds equal bilaterally. No wheezes, rales, or rhonchi. GASTROINTESTINAL: Abdomen soft, non-tender, nondistended. EXTREMITIES: No edema or joint tenderness. BACK: Nontender without deformity or crepitance. No flank tenderness. NEURO: AOx3. SKIN: Poor skin turgor No rash or erythema of visible areas Initial Vital Signs Initial Vital Signs: Vital Signs Temperature 97.4 F L 01/23/22 06:08 Pulse Rate 76 01/23/22 06:08 Respiratory Rate 16 01/23/22 06:08 Blood Pressure 106/57 L 01/23/22 06:08 Pulse Oximetry 94 01/23/22 06:08 <Lizzy Be, DO - Last Filed: 01/23/22 18:47> Initial Vital Signs Initial Vital Signs: Vital Signs Temperature 97.4 F L 01/23/22 06:08 Pulse Rate 76 01/23/22 06:08 Respiratory Rate 16 01/23/22 06:08 Blood Pressure 106/57 L 01/23/22 06:08 Pulse Oximetry 94 01/23/22 06:08 Scores <Zeke Conn DO - Last Filed: 01/31/22 03:16> GCS [place] coma scale total score: 13 <Lizzy Be DO - Last Filed: 01/23/22 18:47> GCS [place] coma scale eye opening: To sound [place] coma scale verbal response: Confused [place] coma scale motor response: Obey commands [place] coma scale total score: 13 Course <Zeke Conn DO - Last Filed: 01/31/22 03:16> Orders Ordered: Discontinued Medications Acetaminophen (Acetaminophen 325 Mg Tablet) 975 mg PO Q8HR PRN PRN Reason: Pain, Moderate (4-6) Hydrocodone Bitart/Acetaminophen (Hydrocodone/Acet 10/325 Tablet) 1 tab PO Q4HR PRN PRN Reason: Pain, Moderate (4-6) Last Admin: 01/24/22 00:46 Dose: 1 tab Documented by: Admin: 01/23/22 19:42 Dose: 1 tab Documented by: FRANCESCA Artificial Tears (Polyvinyl Alcohol Drops) 1 drops EYE-BOTH PRN PRN PRN Reason: Dry Eye(s) Aspirin (Aspirin Ec 81 Mg Tablet) 81 mg PO DAILY [facility] Last Admin: 01/25/22 09:46 Dose: 81 mg Documented by: Admin: 01/24/22 08:58 Dose: 81 mg Documented by: DMITRIY Bisacodyl (Bisacodyl 10 Mg Supp) 10 mg [place] DAILY PRN PRN Reason: Constipation Carvedilol (Carvedilol 12.5 Mg Tablet) 12.5 mg PO BID [facility] Last Admin: 01/25/22 09:46 Dose: 12.5 mg Documented by: Admin: 01/24/22 21:15 Dose: 12.5 mg Documented by: JUAN J Admin: 01/24/22 08:57 Dose: 12.5 mg Documented by: Admin: 01/23/22 20:32 Dose: 12.5 mg Documented by: FRANCESCA Dextrose (Dextrose 50 % In Water 25 Gm/50 Ml Syringe) 25 gm IV PRN PRN; Protocol PRN Reason: Hypoglycemia Docusate Sodium (Docusate 100 Mg Capsule) 100 mg PO BID [facility] Last Admin: 01/25/22 09:45 Dose: 100 mg Documented by: Admin: 01/24/22 21:16 Dose: 100 mg Documented by: JUAN J Admin: 01/24/22 08:58 Dose: 100 mg Documented by: Admin: 01/23/22 20:32 Dose: 100 mg Documented by: FRANCESCA Donepezil HCl (Donepezil 5 Mg Tablet) 10 mg PO BEDTIME [facility] Last Admin: 01/24/22 21:16 Dose: 10 mg Documented by: JUAN J Admin: 01/23/22 20:32 Dose: 10 mg Documented by: FRANCESCA Enoxaparin Sodium (Enoxaparin 40 Mg/0.4 Ml Syringe) 40 mg SUBCUT DAILY [facility] Fluoxetine HCl (Fluoxetine 20 Mg Capsule) 20 mg PO DAILY [facility] Last Admin: 01/25/22 09:45 Dose: 20 mg Documented by: Admin: 01/24/22 08:57 Dose: 20 mg Documented by: DMITRIY Gabapentin (Gabapentin 300 Mg Capsule) 300 mg PO Q8HR [facility] Last Admin: 01/25/22 13:12 Dose: 300 mg Documented by: Admin: 01/25/22 05:37 Dose: 300 mg Documented by: JUAN J Admin: 01/24/22 21:17 Dose: 300 mg Documented by: JUAN J Admin: 01/24/22 15:25 Dose: 300 mg Documented by: Admin: 01/24/22 05:47 Dose: 300 mg Documented by: Admin: 01/23/22 21:17 Dose: 300 mg Documented by: FRANCESCA Heparin Sodium (Porcine) (Heparin 5,000 Unit/Ml Vial) 7,500 unit SUBCUT Q8HR [facility] Last Admin: 01/25/22 13:12 Dose: 7,500 unit Documented by: Admin: 01/25/22 05:37 Dose: 7,500 unit Documented by: JUAN J Admin: 01/24/22 21:19 Dose: 7,500 unit Documented by: JUAN J Admin: 01/24/22 15:24 Dose: 7,500 unit Documented by: Admin: 01/24/22 05:47 Dose: 7,500 unit Documented by: Admin: 01/23/22 21:17 Dose: 7,500 unit Documented by: FRANCESCA Sodium Chloride (Normal Saline 0.9%) 500 mls @ 1,000 mls/hr IV BOLUS ONE Stop: 01/23/22 06:36 Last Infusion: 01/23/22 10:14 Dose: 0 mls/hr Documented by: Admin: 01/23/22 09:04 Dose: 1,000 mls/hr Documented by: CHIRS Ceftriaxone Sodium 1,000 mg/ (Sodium Chloride) 100 mls @ 200 mls/hr IV Q24H [facility] Last Infusion: 01/24/22 15:30 Dose: 0 mls/hr Documented by: Admin: 01/24/22 01:19 Dose: 200 mls/hr Documented by: FRANCESCA Insulin Glargine (Insulin Glargine 100 Unit/Ml 3ml Pen) 40 unit SUBCUT BEDTIME [facility] Last Admin: 01/24/22 21:17 Dose: 40 unit Documented by: JUAN J Cosigned by: SONU Admin: 01/23/22 20:30 Dose: 40 unit Documented by: FRANCESCA Cosigned by: ZHANE Insulin Human Lispro (Insulin Lispro 100 Unit/Ml 3ml Vial) 0 unit SUBCUT ACHS [facility]; Protocol Last Admin: 01/25/22 13:10 Dose: 10 unit Documented by: ALICE Cosigned by: MAYTE Admin: 01/25/22 09:43 Dose: 4 unit Documented by: ALICE Cosigned by: MAYTE Admin: 01/24/22 21:18 Dose: 5 unit Documented by: JUAN J Cosigned by: SONU Admin: 01/24/22 17:17 Dose: 4 unit Documented by: DMITRIY Cosigned by: KENDRICK Admin: 01/24/22 12:43 Dose: 4 unit Documented by: DMITRIY Cosigned by: KENDRICK Admin: 01/24/22 08:56 Dose: 2 unit Documented by: DMITRIY Hernandezigned by: KENDRICK Admin: 01/23/22 20:29 Dose: 7 unit Documented by: FRANCESCA Cosigned by: ZHANE Insulin Human Lispro (Insulin Lispro 100 Unit/Ml 3ml Vial) 12 unit SUBCUT AC [facility] Last Admin: 01/25/22 13:11 Dose: 12 unit Documented by: ALICE Cosigned by: MAYTE Levetiracetam (Levetiracetam 250 Mg Tablet) 500 mg PO BID [facility] Last Admin: 01/25/22 09:45 Dose: 500 mg Documented by: Admin: 01/24/22 21:15 Dose: 500 mg Documented by: JUAN J Admin: 01/24/22 08:57 Dose: 500 mg Documented by: Admin: 01/23/22 20:33 Dose: 500 mg Documented by: FRANCESCA Levothyroxine Sodium (Levothyroxine 100 Mcg Tablet) 250 mcg PO DAILY@0600 [facility] Last Admin: 01/25/22 05:37 Dose: 250 mcg Documented by: JUAN J Admin: 01/24/22 05:58 Dose: 250 mcg Documented by: [email or web address] Liothyronine Sodium (Liothyronine 5 Mcg Tablet) 10 mcg PO DAILY [facility] Admin: 01/25/22 10:11 Dose: 10 mcg Documented by: Admin: 01/24/22 09:17 Dose: 10 mcg Documented by: DMITRIY Magnesium Hydroxide (Magnesium Hydroxide 30 Ml Udc) 30 ml PO DAILY PRN PRN Reason: Constipation Magnesium Oxide (Magnesium Oxide 400 Mg Tablet) 400 mg PO BID [facility] Admin: 01/25/22 09:46 Dose: 400 mg Documented by: Admin: 01/24/22 21:15 Dose: 400 mg Documented by: JUAN J Admin: 01/24/22 08:58 Dose: 400 mg Documented by: Admin: 01/23/22 20:33 Dose: 400 mg Documented by: FRANCESCA Naloxone HCl (Naloxone 0.4 Mg/Ml Vial) 0.2 mg IV Q2MIN PRN PRN Reason: Opiate Reversal Trajenta 5 Mg 5 mg PO DAILY [facility] Admin: 01/25/22 09:46 Dose: Not Given Documented by: Admin: 01/24/22 08:58 Dose: Not Given Documented by: DMITRIY Nystatin (Nystatin Ointment 15 Applic/Tube Oint...G.) 1 applic TOP TID [facility] Admin: 01/25/22 13:10 Dose: 1 applic Documented by: Admin: 01/24/22 21:19 Dose: 1 applic Documented by: JUAN J Admin: 01/24/22 15:28 Dose: 1 applic Documented by: Admin: 01/24/22 12:42 Dose: 1 applic Documented by: Admin: 01/23/22 20:34 Dose: 1 applic Documented by: FRANCESCA Potassium Chloride (Potassium Chloride 20 Meq Tab) 20 meq PO DAILYCC [facility] Admin: 01/25/22 09:46 Dose: 20 meq Documented by: Admin: 01/24/22 08:58 Dose: 20 meq Documented by: DMITRIY Primidone (Primidone 50 Mg Tablet) 100 mg PO DAILY [facility] Admin: 01/25/22 10:12 Dose: 100 mg Documented by: Admin: 01/24/22 09:17 Dose: 100 mg Documented by: DMITRIY Sennosides (Sennosides 8.6 Mg Tablet) 17.2 mg PO BEDTIME [facility] Last Admin: 01/24/22 21:15 Dose: 17.2 mg Documented by: JUAN J Admin: 01/23/22 20:32 Dose: 17.2 mg Documented by: FRANCESCA Torsemide (Torsemide 10 Mg Tablet) 40 mg PO DAILY [facility] Last Admin: 01/25/22 10:11 Dose: 40 mg Documented by: Admin: 01/24/22 09:18 Dose: 40 mg Documented by: DMITRIY Vitamin D (Cholecalciferol (Vitamin D3) 5,000 Unit Tablet) 5,000 unit PO DAILY [facility] Last Admin: 01/25/22 10:11 Dose: 5,000 unit Documented by: Admin: 01/24/22 09:18 Dose: 5,000 unit Documented by: DMITRIY Vital Signs Vital signs: Vital Signs - 8 hr 01/23/22 06:08 01/23/22 06:10 01/23/22 06:15 Temperature 97.4 F L Pulse Rate 76 77 76 Respiratory Rate 16 29 H 37 H Blood Pressure 106/57 L Pulse Oximetry 94 91 94 01/23/22 06:30 01/23/22 06:45 01/23/22 07:00 Temperature Pulse Rate 77 75 76 Respiratory Rate 26 H 19 18 Blood Pressure 105/55 L 100/53 L Pulse Oximetry 93 91 92 01/23/22 07:15 01/23/22 07:30 01/23/22 07:45 Temperature Pulse Rate 75 74 74 Respiratory Rate 20 22 26 H Blood Pressure 101/55 L Pulse Oximetry 91 91 91 01/23/22 08:00 01/23/22 08:15 01/23/22 08:30 Temperature Pulse Rate 74 77 76 Respiratory Rate 18 18 19 Blood Pressure 104/54 L 106/53 L Pulse Oximetry 91 92 91 01/23/22 08:43 01/23/22 08:45 01/23/22 09:00 Temperature Pulse Rate 77 75 74 Respiratory Rate 22 21 22 Blood Pressure 107/63 113/55 L Pulse Oximetry 93 93 91 01/23/22 09:15 Temperature Pulse Rate 74 Respiratory Rate 25 H Blood Pressure Pulse Oximetry 91 <Lizzy Be DO - Last Filed: 01/23/22 18:47> Orders Ordered: Discontinued Medications Acetaminophen (Acetaminophen 325 Mg Tablet) 975 mg PO Q8HR PRN PRN Reason: Pain, Moderate (4-6) Hydrocodone Bitart/Acetaminophen (Hydrocodone/Acet 10/325 Tablet) 1 tab PO Q4HR PRN PRN Reason: Pain, Moderate (4-6) Last Admin: 01/24/22 00:46 Dose: 1 tab Documented by: Admin: 01/23/22 19:42 Dose: 1 tab Documented by: FRANCESCA Artificial Tears (Polyvinyl Alcohol Drops) 1 drops EYE-BOTH PRN PRN PRN Reason: Dry Eye(s) Aspirin (Aspirin Ec 81 Mg Tablet) 81 mg PO DAILY [facility] Last Admin: 01/25/22 09:46 Dose: 81 mg Documented by: Admin: 01/24/22 08:58 Dose: 81 mg Documented by: DMITRIY Bisacodyl (Bisacodyl 10 Mg Supp) 10 mg [place] DAILY PRN PRN Reason: Constipation Carvedilol (Carvedilol 12.5 Mg Tablet) 12.5 mg PO BID [facility] Last Admin: 01/25/22 09:46 Dose: 12.5 mg Documented by: Admin: 01/24/22 21:15 Dose: 12.5 mg Documented by: JUAN J Admin: 01/24/22 08:57 Dose: 12.5 mg Documented by: Admin: 01/23/22 20:32 Dose: 12.5 mg Documented by: FRANCESCA Dextrose (Dextrose 50 % In Water 25 Gm/50 Ml Syringe) 25 gm IV PRN PRN; Protocol PRN Reason: Hypoglycemia Docusate Sodium (Docusate 100 Mg Capsule) 100 mg PO BID [facility] Last Admin: 01/25/22 09:45 Dose: 100 mg Documented by: Admin: 01/24/22 21:16 Dose: 100 mg Documented by: JUAN J Admin: 01/24/22 08:58 Dose: 100 mg Documented by: Admin: 01/23/22 20:32 Dose: 100 mg Documented by: FRANCESCA Donepezil HCl (Donepezil 5 Mg Tablet) 10 mg PO BEDTIME [facility] Last Admin: 01/24/22 21:16 Dose: 10 mg Documented by: JUAN J Admin: 01/23/22 20:32 Dose: 10 mg Documented by: FRANCESCA Enoxaparin Sodium (Enoxaparin 40 Mg/0.4 Ml Syringe) 40 mg SUBCUT DAILY [facility] Fluoxetine HCl (Fluoxetine 20 Mg Capsule) 20 mg PO DAILY [facility] Last Admin: 01/25/22 09:45 Dose: 20 mg Documented by: Admin: 01/24/22 08:57 Dose: 20 mg Documented by: DMITRIY Gabapentin (Gabapentin 300 Mg Capsule) 300 mg PO Q8HR [facility] Last Admin: 01/25/22 13:12 Dose: 300 mg Documented by: Admin: 01/25/22 05:37 Dose: 300 mg Documented by: JUAN J Admin: 01/24/22 21:17 Dose: 300 mg Documented by: JUAN J Admin: 01/24/22 15:25 Dose: 300 mg Documented by: Admin: 01/24/22 05:47 Dose: 300 mg Documented by: Admin: 01/23/22 21:17 Dose: 300 mg Documented by: FRANCESCA Heparin Sodium (Porcine) (Heparin 5,000 Unit/Ml Vial) 7,500 unit SUBCUT Q8HR [facility] Last Admin: 01/25/22 13:12 Dose: 7,500 unit Documented by: Admin: 01/25/22 05:37 Dose: 7,500 unit Documented by: JUAN J Admin: 01/24/22 21:19 Dose: 7,500 unit Documented by: JUAN J Admin: 01/24/22 15:24 Dose: 7,500 unit Documented by: Admin: 01/24/22 05:47 Dose: 7,500 unit Documented by: Admin: 01/23/22 21:17 Dose: 7,500 unit Documented by: FRANCESCA Sodium Chloride (Normal Saline 0.9%) 500 mls @ 1,000 mls/hr IV BOLUS ONE Stop: 01/23/22 06:36 Last Infusion: 01/23/22 10:14 Dose: 0 mls/hr Documented by: Admin: 01/23/22 09:04 Dose: 1,000 mls/hr Documented by: CHRIS Ceftriaxone Sodium 1,000 mg/ (Sodium Chloride) 100 mls @ 200 mls/hr IV Q24H [facility] Last Infusion: 01/24/22 15:30 Dose: 0 mls/hr Documented by: Admin: 01/24/22 01:19 Dose: 200 mls/hr Documented by: FRANCESCA Insulin Glargine (Insulin Glargine 100 Unit/Ml 3ml Pen) 40 unit SUBCUT BEDTIME [facility] Last Admin: 01/24/22 21:17 Dose: 40 unit Documented by: JUAN J Cosigned by: SONU Admin: 01/23/22 20:30 Dose: 40 unit Documented by: FRANCESCA Cosigned by: ZHANE Insulin Human Lispro (Insulin Lispro 100 Unit/Ml 3ml Vial) 0 unit SUBCUT ACHS [facility]; Protocol Last Admin: 01/25/22 13:10 Dose: 10 unit Documented by: ALICE Cosigned by: MAYTE Admin: 01/25/22 09:43 Dose: 4 unit Documented by: ALICE Cosigned by: MAYTE Admin: 01/24/22 21:18 Dose: 5 unit Documented by: JUAN J Cosigned by: SONU Admin: 01/24/22 17:17 Dose: 4 unit Documented by: DMITRIY Cosigned by: KENDRICK Admin: 01/24/22 12:43 Dose: 4 unit Documented by: DMITRIY Cosigned by: KENDRICK Admin: 01/24/22 08:56 Dose: 2 unit Documented by: DMITRIY Cosigned by: KENDRICK Admin: 01/23/22 20:29 Dose: 7 unit Documented by: FRANCESCA Cosigned by: ZHANE Insulin Human Lispro (Insulin Lispro 100 Unit/Ml 3ml Vial) 12 unit SUBCUT AC [facility] Last Admin: 01/25/22 13:11 Dose: 12 unit Documented by: ALICE Cosigned by: MAYTE Levetiracetam (Levetiracetam 250 Mg Tablet) 500 mg PO BID [facility] Last Admin: 01/25/22 09:45 Dose: 500 mg Documented by: Admin: 01/24/22 21:15 Dose: 500 mg Documented by: JUAN J Admin: 01/24/22 08:57 Dose: 500 mg Documented by: Admin: 01/23/22 20:33 Dose: 500 mg Documented by: FRANCESCA Levothyroxine Sodium (Levothyroxine 100 Mcg Tablet) 250 mcg PO DAILY@0600 [facility] Admin: 01/25/22 05:37 Dose: 250 mcg Documented by: JUAN J Admin: 01/24/22 05:58 Dose: 250 mcg Documented by: FRANCESCA Liothyronine Sodium (Liothyronine 5 Mcg Tablet) 10 mcg PO DAILY [facility] Admin: 01/25/22 10:11 Dose: 10 mcg Documented by: Admin: 01/24/22 09:17 Dose: 10 mcg Documented by: DMITRIY Magnesium Hydroxide (Magnesium Hydroxide 30 Ml Udc) 30 ml PO DAILY PRN PRN Reason: Constipation Magnesium Oxide (Magnesium Oxide 400 Mg Tablet) 400 mg PO BID [facility] Admin: 01/25/22 09:46 Dose: 400 mg Documented by: Admin: 01/24/22 21:15 Dose: 400 mg Documented by: JUAN J Admin: 01/24/22 08:58 Dose: 400 mg Documented by: Admin: 01/23/22 20:33 Dose: 400 mg Documented by: FRANCESCA Naloxone HCl (Naloxone 0.4 Mg/Ml Vial) 0.2 mg IV Q2MIN PRN PRN Reason: Opiate Reversal Trajenta 5 Mg 5 mg PO DAILY [facility] Admin: 01/25/22 09:46 Dose: Not Given Documented by: Admin: 01/24/22 08:58 Dose: Not Given Documented by: DMITRIY Nystatin (Nystatin Ointment 15 Applic/Tube Oint...G.) 1 applic TOP TID [facility] Admin: 01/25/22 13:10 Dose: 1 applic Documented by: Admin: 01/24/22 21:19 Dose: 1 applic Documented by: JUAN J Admin: 01/24/22 15:28 Dose: 1 applic Documented by: Admin: 01/24/22 12:42 Dose: 1 applic Documented by: Admin: 01/23/22 20:34 Dose: 1 applic Documented by: FRANCESCA Potassium Chloride (Potassium Chloride 20 Meq Tab) 20 meq PO DAILYCC [facility] Admin: 01/25/22 09:46 Dose: 20 meq Documented by: Admin: 01/24/22 08:58 Dose: 20 meq Documented by: DMITRIY Primidone (Primidone 50 Mg Tablet) 100 mg PO DAILY [facility] Admin: 01/25/22 10:12 Dose: 100 mg Documented by: Admin: 01/24/22 09:17 Dose: 100 mg Documented by: DMITRIY Sennosides (Sennosides 8.6 Mg Tablet) 17.2 mg PO BEDTIME [facility] Admin: 01/24/22 21:15 Dose: 17.2 mg Documented by: JUAN J Admin: 01/23/22 20:32 Dose: 17.2 mg Documented by: FRANCESCA Torsemide (Torsemide 10 Mg Tablet) 40 mg PO DAILY [facility] Admin: 01/25/22 10:11 Dose: 40 mg Documented by: Admin: 01/24/22 09:18 Dose: 40 mg Documented by: DMITRIY Vitamin D (Cholecalciferol (Vitamin D3) 5,000 Unit Tablet) 5,000 unit PO DAILY [facility] Admin: 01/25/22 10:11 Dose: 5,000 unit Documented by: Admin: 01/24/22 09:18 Dose: 5,000 unit Documented by: DMITRIY Vital Signs Vital signs: Vital Signs - 8 hr 01/23/22 06:08 01/23/22 06:10 01/23/22 06:15 Temperature 97.4 F L Pulse Rate 76 77 76 Respiratory Rate 16 29 H 37 H Blood Pressure 106/57 L Pulse Oximetry 94 91 94 01/23/22 06:30 01/23/22 06:45 01/23/22 07:00 Temperature Pulse Rate 77 75 76 Respiratory Rate 26 H 19 18 Blood Pressure 105/55 L 100/53 L Pulse Oximetry 93 91 92 01/23/22 07:15 01/23/22 07:30 01/23/22 07:45 Temperature Pulse Rate 75 74 74 Respiratory Rate 20 22 26 H Blood Pressure 101/55 L Pulse Oximetry 91 91 91 01/23/22 08:00 01/23/22 08:15 01/23/22 08:30 Temperature Pulse Rate 74 77 76 Respiratory Rate 18 18 19 Blood Pressure 104/54 L 106/53 L Pulse Oximetry 91 92 91 03/01/22 08:43 01/23/22 08:45 01/23/22 09:00 Temperature Pulse Rate 77 75 74 Respiratory Rate 22 21 22 Blood Pressure 107/63 113/55 L Pulse Oximetry 93 93 91 01/23/22 09:15 Temperature Pulse Rate 74 Respiratory Rate 25 H Blood Pressure Pulse Oximetry 91 MDM - Altered Mental Status <Zeke Conn DO - Last Filed: 01/31/22 03:16> Lab Data Result diagrams: 01/23/22 08:15 01/25/22 05:26 Labs: Lab Results 01/23/22 01/23/22 01/23/22 Range/Units 08:15 08:15 08:15 WBC 8.1 (4.5-11.0) X10^3/uL RBC 3.87 L (4.0-5.2) X10^6/uL Hgb 11.6 L (12.0-16.0) g/dL Hct 35.1 L (36-46) % MCV 90.7 (80-100) fL MCH 30.0 (26-34) PG MCHC 33.1 (30-36) % RDW 15.7 H (11.6-14.8) % Plt Count 257 (150-400) X10^3/uL Neut % (Auto) 64.3 (50-75) % Lymph % (Auto) 16.9 L (25-40) % [place] % (Auto) 14.3 H (3-14) % Eos % (Auto) 3.1 (2-4) % Baso % (Auto) 1.4 (0-2) % Neut # (Auto) 5200 (2996-1811) /uL Lymph # (Auto) 1400 (8974-5660) /uL [place] # (Auto) 1200 H (0-900) /uL Eos # (Auto) 300 (0-450) /uL Baso # (Auto) 100 (0-100) /uL PT 14.1 H (10.1-12.7) SECONDS INR 1.2 (0.9-1.3) Sodium 135 L (137-145) mmol/L Potassium 5.1 D (3.4-5.1) mmol/L Chloride 90 L (98-107) mmol/L Carbon Dioxide 38 H (22-32) mmol/L BUN 37 H (7-17) mg/dL Creatinine 1.94 H (0.52-1.04) mg/dL Estimated GFR 25.2 L (>60) mL/min BUN/Creatinine Ratio 19.1 (6-22) Glucose 185 H (80-110) mg/dL Lactate (0.7-2.1) mmol/L Calcium 9.4 (8.4-10.2) mg/dL Magnesium 2.3 (1.6-2.3) mg/dL Total Bilirubin 0.9 (0.2-1.3) mg/dL AST 72 H (14-36) IU/L ALT 33 (<35) IU/L Alkaline Phosphatase 82 (38-126) U/L Total Creatine Kinase 65 (30-135) U/L CK-MB (CK-2) TNP CK-MB (CK-2) Rel Index TNP Troponin I 0.041 H (0.01-0.034) ng/mL NT-Pro-B Natriuret Pep 2640 H (<125) pg/mL Total Protein 9.4 H (6.3-8.2) g/dL Albumin 4.4 (3.5-5.0) g/dL Globulin 5.0 H (1.7-4.1) g/dL Albumin/Globulin Ratio 0.9 L (1.0-2.8) Lipase 50 (23-300) U/L TSH (0.47-4.68) uIU/mL 01/23/22 01/23/22 Range/Units 08:15 08:15 WBC (4.5-11.0) X10^3/uL RBC (4.0-5.2) X10^6/uL Hgb (12.0-16.0) g/dL Hct (36-46) % MCV (80-100) fL MCH (26-34) PG MCHC (30-36) % RDW (11.6-14.8) % Plt Count (150-400) X10^3/uL Neut % (Auto) (50-75) % Lymph % (Auto) (25-40) % [place] % (Auto) (3-14) % Eos % (Auto) (2-4) % Baso % (Auto) (0-2) % Neut # (Auto) (1438-7675) /uL Lymph # (Auto) (7813-4968) /uL [place] # (Auto) (0-900) /uL Eos # (Auto) (0-450) /uL Baso # (Auto) (0-100) /uL PT (10.1-12.7) SECONDS INR (0.9-1.3) Sodium (137-145) mmol/L Potassium (3.4-5.1) mmol/L Chloride (98-107) mmol/L Carbon Dioxide (22-32) mmol/L BUN (7-17) mg/dL Creatinine (0.52-1.04) mg/dL Estimated GFR (>60) mL/min BUN/Creatinine Ratio (6-22) Glucose (80-110) mg/dL Lactate 1.4 (0.7-2.1) mmol/L Calcium (8.4-10.2) mg/dL Magnesium (1.6-2.3) mg/dL Total Bilirubin (0.2-1.3) mg/dL AST (14-36) IU/L ALT (<35) IU/L Alkaline Phosphatase (38-126) U/L Total Creatine Kinase (30-135) U/L CK-MB (CK-2) CK-MB (CK-2) Rel Index Troponin I (0.01-0.034) ng/mL NT-Pro-B Natriuret Pep (<125) pg/mL Total Protein (6.3-8.2) g/dL Albumin (3.5-5.0) g/dL Globulin (1.7-4.1) g/dL Albumin/Globulin Ratio (1.0-2.8) Lipase (23-300) U/L TSH 64.8 H D (0.47-4.68) uIU/mL MDM Narrative Medical decision making narrative: Patient is awake, alert oriented x3. She demonstrates capacity, makes her own medical decisions and states she feels fine and does not want us to do anything. She does not want us to draw blood or put in an IV. She states she feels fine and is upset that someone called and sent her here. She understands that by not completing a full evaluation she could have underlying medical problems we will not recognize or build a tree. She understands this and accepts the responsibility and wishes us to send her home. 0645 -called patient's daughter who states she would like to speak to her on the phone, after about 10 minute conversation patient agrees to allow us to check her out. <Lizzy eB DO - Last Filed: 01/23/22 18:47> Lab Data Labs: Lab Results 01/23/22 01/23/22 01/23/22 Range/Units 08:15 08:15 08:15 WBC 8.1 (4.5-11.0) X10^3/uL RBC 3.87 L (4.0-5.2) X10^6/uL Hgb 11.6 L (12.0-16.0) g/dL Hct 35.1 L (36-46) % MCV 90.7 (80-100) fL MCH 30.0 (26-34) PG MCHC 33.1 (30-36) % RDW 15.7 H (11.6-14.8) % Plt Count 257 (150-400) X10^3/uL Neut % (Auto) 64.3 (50-75) % Lymph % (Auto) 16.9 L (25-40) % [place] % (Auto) 14.3 H (3-14) % Eos % (Auto) 3.1 (2-4) % Baso % (Auto) 1.4 (0-2) % Neut # (Auto) 5200 (6835-1986) /uL Lymph # (Auto) 1400 (5414-3022) /uL [place] # (Auto) 1200 H (0-900) /uL Eos # (Auto) 300 (0-450) /uL Baso # (Auto) 100 (0-100) /uL PT 14.1 H (10.1-12.7) SECONDS INR 1.2 (0.9-1.3) Sodium 135 L (137-145) mmol/L Potassium 5.1 D (3.4-5.1) mmol/L Chloride 90 L (98-107) mmol/L Carbon Dioxide 38 H (22-32) mmol/L BUN 37 H (7-17) mg/dL Creatinine 1.94 H (0.52-1.04) mg/dL Estimated GFR 25.2 L (>60) mL/min BUN/Creatinine Ratio 19.1 (6-22) Glucose 185 H (80-110) mg/dL Lactate (0.7-2.1) mmol/L Calcium 9.4 (8.4-10.2) mg/dL Magnesium 2.3 (1.6-2.3) mg/dL Total Bilirubin 0.9 (0.2-1.3) mg/dL AST 72 H (14-36) IU/L ALT 33 (<35) IU/L Alkaline Phosphatase 82 (38-126) U/L Total Creatine Kinase 65 (30-135) U/L CK-MB (CK-2) TNP CK-MB (CK-2) Rel Index TNP Troponin I 0.041 H (0.01-0.034) ng/mL NT-Pro-B Natriuret Pep 2640 H (<125) pg/mL Total Protein 9.4 H (6.3-8.2) g/dL Albumin 4.4 (3.5-5.0) g/dL Globulin 5.0 H (1.7-4.1) g/dL Albumin/Globulin Ratio 0.9 L (1.0-2.8) Lipase 50 (23-300) U/L TSH (0.47-4.68) uIU/mL 01/23/22 01/23/22 Range/Units 08:15 08:15 WBC (4.5-11.0) X10^3/uL RBC (4.0-5.2) X10^6/uL Hgb (12.0-16.0) g/dL Hct (36-46) % MCV (80-100) fL MCH (26-34) PG MCHC (30-36) % RDW (11.6-14.8) % Plt Count (150-400) X10^3/uL Neut % (Auto) (50-75) % Lymph % (Auto) (25-40) % [place] % (Auto) (3-14) % Eos % (Auto) (2-4) % Baso % (Auto) (0-2) % Neut # (Auto) (0946-1202) /uL Lymph # (Auto) (5046-3665) /uL [place] # (Auto) (0-900) /uL Eos # (Auto) (0-450) /uL Baso # (Auto) (0-100) /uL PT (10.1-12.7) SECONDS INR (0.9-1.3) Sodium (137-145) mmol/L Potassium (3.4-5.1) mmol/L Chloride (98-107) mmol/L Carbon Dioxide (22-32) mmol/L BUN (7-17) mg/dL Creatinine (0.52-1.04) mg/dL Estimated GFR (>60) mL/min BUN/Creatinine Ratio (6-22) Glucose (80-110) mg/dL Lactate 1.4 (0.7-2.1) mmol/L Calcium (8.4-10.2) mg/dL Magnesium (1.6-2.3) mg/dL Total Bilirubin (0.2-1.3) mg/dL AST (14-36) IU/L ALT (<35) IU/L Alkaline Phosphatase (38-126) U/L Total Creatine Kinase (30-135) U/L CK-MB (CK-2) CK-MB (CK-2) Rel Index Troponin I (0.01-0.034) ng/mL NT-Pro-B Natriuret Pep (<125) pg/mL Total Protein (6.3-8.2) g/dL Albumin (3.5-5.0) g/dL Globulin (1.7-4.1) g/dL Albumin/Globulin Ratio (1.0-2.8) Lipase (23-300) U/L TSH 64.8 H D (0.47-4.68) uIU/mL Imaging Data Chest x-ray: Radiologist's Impression: PROCEDURE:? XR CHEST 1V ? INDICATIONS:? altered mental status ? TECHNIQUE:? One view of the chest was acquired.? ? COMPARISON:? [facility], , XR CHEST 1V, 10/04/2021, 22:00.? [facility], CR, XR CHEST 1V, 01/06/2022, 14:37.? [facility], CR, XR CHEST 1V, 01/16/2022, 18:55. ? FINDINGS:? ? Surgical changes and devices:? Left chest wall AICD.? Status post TAVR.? Surgical clips projecting over the thyroid fossa appear ? Lungs and pleura:? Lungs are clear.? No pleural effusions or pneumothorax.? ? Mediastinum:? Mediastinal contours appear normal.? Heart size is normal.? ? Bones and chest wall:? No suspicious bony lesions.? Overlying soft tissues appear unremarkable.? ? IMPRESSION:? No acute cardiopulmonary disease process. ? ? Dictated by: Amrita White MD, PhD on 01/23/2022 at 8:26 ? ? CT scan - head: Radiologist's Impression: PROCEDURE:? CT HEAD/BRAIN WO CON ? INDICATIONS:? decreased mental status ? TECHNIQUE:? Noncontrast 4.5 mm thick angled axial sections acquired from the foramen magnum to the vertex, with coronal and sagittal reformats.? For radiation dose reduction, the following was used:? automated exposure control, adjustment of mA and/or kV according to patient size.? ? COMPARISON:? [facility], CT, CT HEAD/BRAIN WO CON, 01/06/2022, 15:21. ? FINDINGS:? Image quality:? Excellent.? ? CSF spaces:? Basal cisterns are patent.? No extra-axial fluid collections.? The ventricles are symmetric in size and shape.? ? Brain:? No intracranial bleeds or masses.? 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 There is cerebral volume loss for age, with resultant ventricular and sulcal prominence.? There are periventricular and deep white matter chronic small vessel ischemic gross ges.? There is intracranial internal carotid artery atherosclerosis.? ? Skull and face:? Calvarium and visualized facial bones appear intact, without suspicious lesions.? ? Sinuses:? Visualized sinuses and mastoids are clear.? ? IMPRESSION:? 1. No CT evidence of acute intracranial process. 2. No significant changes from previous study.? ? ? Dictated by: Tommy Porter M.D. on 01/23/2022 at 8:52 ? ? Approved by: Tommy Porter M.D. on 01/23/2022 at 8:53 ? ECG Data Interpretation: Paced rhythm rate [address] changes similar to previous EKG MDM Narrative Medical decision making narrative: Patient is awake, alert oriented x3. She demonstrates capacity, makes her own medical decisions and states she feels fine and does not want us to do anything. She does not want us to draw blood or put in an IV. She states she feels fine and is upset that someone called and sent her here. She understands that by not completing a full evaluation she could have underlying medical problems we will not recognize or build a tree. She understands this and accepts the re sponsibility and wishes us to send her home. 0645 -called patient's daughter who states she would like to speak to her on the phone, after about 10 minute conversation patient agrees to allow us to check her out. [id number]-Haile- I have received sign-out from Dr. Conn at seen the patient myself currently sleeping she is arousable able answer questions. Did not open her eyes in till I suggested blood work and she said ?good luck.But was agreeable. Patient was admitted to the hospital with metabolic encephalopathy a UTI January 06 through January 12 she returned on January 16, discharged January 22 this time for a NSTEMI. Returns again for decreasing mental status. This apparently is a similar presentation to what she had last time. Daughter was unaware her discharge recently The patient is lethargic but arousable. Head CT is negative blood work is overall reassuring. TSH does seem to be rising previously 39 today 64. She does have hypoventilation but no other signs or symptoms of myxedema coma. Blood pressure is slightly low she has a normal heart rate glucose is within normal limits sodium is on the lower end but not significantly hyponatremic. Troponin has been trending downward Spoke with Dr. Kay over at the care facility who states that she is requiring higher level of care and request senior living facility rather than assisted living. Dr. Contreras updated patient's symptoms test results and except patient Discharge Plan Departure Patient Disposition: Admitted as Observation Clinical Impression: Encephalopathy, metabolic, Hypothyroid Admit Date/Time: 01/23/22 09:45 Admit Provider: Melba Contreras
--- NOTE | 2022-01-23 06:25 | PC.NURSE ---
pt arrives alert and responding to questions appropriately, pt is refusing all care here in the ER, leave me alone. pt refusing to participate in care, MD aware and pt is requesting discharge from the ER.
--- NOTE | 2022-01-23 08:20 | DI.CT.S_ITS ---
PROCEDURE: CT HEAD/BRAIN WO CON INDICATIONS: decreased mental status TECHNIQUE: Noncontrast 4.5 mm thick angled axial sections acquired from the foramen magnum to the vertex, with coronal and sagittal reformats. For radiation dose reduction, the following was used: automated exposure control, adjustment of mA and/or kV according to patient size. COMPARISON: [facility], CT, CT HEAD/BRAIN WO CON, 01/06/2022, 15:21. FINDINGS: Image quality: Excellent. CSF spaces: Basal cisterns are patent. No extra-axial fluid collections. The ventricles are symmetric in size and shape. Brain: No intracranial bleeds or masses. 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 There is cerebral volume loss for age, with resultant ventricular and sulcal prominence. There are periventricular and deep white matter chronic small vessel ischemic changes. There is intracranial internal carotid artery atherosclerosis. Skull and face: Calvarium and visualized facial bones appear intact, without suspicious lesions. Sinuses: Visualized sinuses and mastoids are clear. IMPRESSION: 1. No CT evidence of acute intracranial process. 2. No significant changes from previous study. Dictated by: Tommy Porter M.D. on 01/23/2022 at 8:52 Approved by: Tommy Porter M.D. on 01/23/2022 at 8:53
[2022-01-23 08:45] LABS: Add Manual Diff / Slide Review NO; Basophils Absolute Auto 100 /uL (0-100); Basophils Percent Auto 1.4 % (0-2); Eosinophils Absolute Auto 300 /uL (0-450); Eosinophils Percent Auto 3.1 % (2-4); Hematocrit 35.1 % (36-46); Hemoglobin 11.6 g/dL (12.0-16.0); Lymphocytes Absolute Auto 1400 /uL (1100-4500); Lymphocytes Percent Auto 16.9 % (25-40); Mean Corpuscular HGB Conc 33.1 % (30-36); Mean Corpuscular Volume 90.7 fL (80-100); Monocytes Absolute Auto 1200 /uL (0-900); Monocytes Percent Auto 14.3 % (3-14); Neutrophils Absolute Auto 5200 /uL (1500-7000); Neutrophils Percent Auto 64.3 % (50-75); Platelet Count 257 X10^3/uL (150-400); Red Blood Cell Count 3.87 X10^6/uL (4.0-5.2); Red Cell Distribution Width 15.7 % (11.6-14.8); White Blood Cell Count 8.1 X10^3/uL (4.5-11.0)
[2022-01-23 08:52] LABS: INR 1.2 (0.9-1.3); Prothrombin Time 14.1 SECONDS (10.1-12.7)
[2022-01-23 08:59] LABS: Alanine Aminotransferase 33 IU/L (<35); Albumin 4.4 g/dL (3.5-5.0); Albumin Globulin Ratio 0.9 (1.0-2.8); Alkaline Phosphatase 82 U/L (38-126); Aspartate Aminotransferase 72 IU/L (14-36); BUN Creatinine Ratio 19.1 (6-22); Bilirubin Total 0.9 mg/dL (0.2-1.3); Blood Urea Nitrogen 37 mg/dL (7-17); Calcium 9.4 mg/dL (8.4-10.2); Carbon Dioxide 38 mmol/L (22-32); Chloride 90 mmol/L (98-107); Creatine Kinase 65 U/L (30-135); Estimated Glomerular Filt Rate 25.2 mL/min (>60); Glucose 185 mg/dL (80-110); Lipase 50 U/L (23-300); Magnesium 2.3 mg/dL (1.6-2.3); Sodium 135 mmol/L (137-145); Total Protein 9.4 g/dL (6.3-8.2)
[2022-01-23 09:00] LABS: Lactate (Lactic Acid) 1.4 mmol/L (0.7-2.1)
[2022-01-23 09:02] LABS: Potassium 5.1 mmol/L (3.4-5.1)
[2022-01-23] MEDS: SODIUM CHLORIDE 0.9% 500 ML 1000 ML IV (09:04)
[2022-01-23 09:07] LABS: NT-proBNP (BNP-Adult 18+) 2640 pg/mL (<125)
[2022-01-23 09:14] LABS: Troponin I 0.041 ng/mL (0.01-0.034)
[2022-01-23 09:15] LABS: HEMOLYSIS 149 (0-50)
[2022-01-23 10:08] LABS: Thyroid Stimulating Hormone 64.8 uIU/mL (0.47-4.68)
[2022-01-23 10:22] LABS: COVID19 -Nasal RAPID Negative (Negative)
[2022-01-23 10:34] LABS: Appearance Urine UA SL CLOUDY; Bilirubin Urine UA NEGATIVE (NEGATIVE); Color Urine UA YELLOW; Glucose Urine UA NEGATIVE (Negative); Ketones Urine UA NEGATIVE (NEGATIVE); Leukocyte Esterase Urine UA 1+ (NEGATIVE); Nitrite Urine UA NEGATIVE (Negative); Occult Blood Urine UA 2+ (Negative); Protein Urine UA 1+ (Negative); Urobilinogen Urine UA 0.2 E.U./dL (0.2)
[2022-01-23 10:47] LABS: Bacteria Urine Many (>30); Granular Casts Urine 5-10/LPF; RBC Urine 1-5/HPF (0-5/HPF); Squamous Epithelial Cell Urine 1-5 /HPF (0-5/HPF); WBC Urine 30-100/HPF (0-5/HPF)
[2022-01-23 10:48] LABS: Culture Indicated Urine Specimen Cultured
--- NOTE | 2022-01-23 14:12 | PC.ADMIT ---
[address] Admission Note: Pt arrived from ER, A/o x3, recalls previous hospitalization and familiar with staff in ICU. Slide board to transfer, Oriented to call light, Patient is familiar with expectations and POC. Updating daughter on phone at present. The patient,Enid Almanza,76 y/o, was given written information regarding hospital policies, unit procedures and contact persons. Patient's smoking status: Never smoker. Vital Signs - 8 hr 01/23/22 06:15 01/23/22 06:30 01/23/22 06:45 Temperature Pulse Rate 76 77 75 Respiratory Rate 37 H 26 H 19 Blood Pressure 105/55 L Pulse Oximetry 94 93 91 01/23/22 07:00 01/23/22 07:15 01/23/22 07:30 Temperature Pulse Rate 76 75 74 Respiratory Rate 18 20 22 Blood Pressure 100/53 L 101/55 L Pulse Oximetry 92 91 91 01/23/22 07:45 01/23/22 08:00 01/23/22 08:15 Temperature Pulse Rate 74 74 77 Respiratory Rate 26 H 18 18 Blood Pressure 104/54 L Pulse Oximetry 91 91 92 01/23/22 08:30 01/23/22 08:43 01/23/22 08:45 Temperature Pulse Rate 76 77 75 Respiratory Rate 19 22 21 Blood Pressure 106/53 L 107/63 Pulse Oximetry 91 93 93 01/23/22 09:00 01/23/22 09:15 01/23/22 09:30 Temperature Pulse Rate 74 74 74 Respiratory Rate 22 25 H 19 Blood Pressure 113/55 L 106/53 L Pulse Oximetry 91 91 91 01/23/22 09:45 01/23/22 10:00 01/23/22 10:15 Temperature Pulse Rate 75 75 76 Respiratory Rate 27 H 25 H 22 Blood Pressure 115/57 L Pulse Oximetry 92 91 92 01/23/22 10:30 01/23/22 10:32 01/23/22 10:45 Temperature Pulse Rate 75 76 79 Respiratory Rate 24 24 25 H Blood Pressure 87/44 L 98/50 L Pulse Oximetry 01/23/22 11:00 01/23/22 11:15 01/23/22 11:30 Temperature Pulse Rate 75 82 78 Respiratory Rate 25 H 36 H 26 H Blood Pressure 104/51 L 105/55 L Pulse Oximetry 01/23/22 11:45 01/23/22 12:00 01/23/22 12:15 Temperature Pulse Rate 78 76 75 Respiratory Rate 22 27 H 22 Blood Pressure 106/55 L Pulse Oximetry 01/23/22 12:30 01/23/22 12:45 Temperature 98.0 F Pulse Rate 74 75 Respiratory Rate 22 21 Blood Pressure 110/52 L Pulse Oximetry 95
--- NOTE | 2022-01-23 17:26 | CM.DANOTE ---
DCP/Admit: Reviewed EMR. Patient discharged from [facility] on 01-22-22 at approximately 4:00pm. At that time patient returned to her residence [facility]. Per ED notes this AM patient brought back to . Emergency Room for ALOC. ED notes indicate that mental status improved upon admit. UR/RN reviewed record from ED indicating that patient basically at her medical baseline (Labs not much different from when patient was discharged within 12hrs ago)? Patient does have UTI which she was not previously treated for. SALES AND SERVICE ENGINEER discussed case with Dr. Contreras whom indicates that she will admit but she feels that this is primarily a social admit because [facility] unable to care for patient. SALES AND SERVICE ENGINEER spoke with Carlos A at [facility] in AM today. She reports that she believed that patient was sent over to the ED for urinary retention. Carlos A made aware that patient will not need to remain in acute care? Carlos A reports that she has spoken to their medical technologist prn/Dr. Arambula and that she would like patient managed at [facility] vs. [facility]. [facility] has more capabilities to manage patient's chronic medical issues. SALES AND SERVICE ENGINEER placed call to Yola at [facility]. She reports that she will call [employer] and Medicaid for authorization. Facility will take either. Yola hopes to have authorization no later than 01-24-22. Dr. Contreras and CM team notified. Might be helpful to discuss goals of care with patient and daughter (if patient requests) some notes discuss patient's desire for very little intervention while other notes discuss more? Updated POLST would be helpful for all medical providers and facilities moving forward. It appears clear from recent hospitalizations at [facility] that [facility] unable to manage this patient's chronic medical issues. Therefore, she repeatedly returns to the hospital. CM team hopeful that moving patient to higher level of care indefinitely will help resolve the frequency of acute care admits. P: Connie GALDAMEZ Discharge Planning/Care Management CM Discharge Assessment Start: 01/23/22 17:19 Freq: Status: Active Protocol: Document 01/23/22 17:19 KWAKUS (Rec: 01/23/22 17:26 KJ [id number]) Discharge Planning Assessment Assigned Mouse Breeder PATRIC Powers Contact Information Juliana Almanza (daughter) # [phone] Advance Directives? Yes: DNR Advance Directives on File No History Provided By Medical Record Has Patient been admitted in last 30 Yes days? Household Members none Type of transporation used prior to Relies on Others admit Facility Name Admitted From: [facility] Willing to Return to Facility? No Independent with ADL's No Needs Assistance With Bathing,Eating,Grooming,Meal Prep,Toileting,Managing Medications,Home Chores / Shopping Caregiver for Another No Barriers to Discharge No Comment [facility] and re-admitted to [facility] on 01-[facility]-22 because [facility] unable to care for patient. SALES AND SERVICE ENGINEER spoke with [facility] [employer] Carlos A this AM. She recommends either patient returning to [facility] vs. [facility]. [facility]charge Plan [facility] Transportation Arrangement Non-urgent BLS Referrals Initiated [facility],Other If patient plan is SNF: Has PASSR been No: Needed completed? Comment Patient currently OBS status as of 01-23-22. Review Status In Process Next Review Type Continued Stay Review
--- NOTE | 2022-01-23 17:57 | P.HP_ITS ---
History of Present Illness History of Present Illness Date Patient Seen: 01/23/22 Chief complaint: Decreased LOC Narrative: The patient is a 76-year-old female with a history significant for dementia, coronary disease, cardiac arrest status post pacemaker, aortic stenosis status post TAVR, hypertension, systolic heart failure, chronic hypercapnic respiratory failure, obesity hypoventilation syndrome, morbid obesity, hyperlipidemia, type 2 diabetes, chronic kidney disease, hypothyroidism following a thyroidectomy, and non-Hodgkin's lymphoma who was admitted to the hospital 222 for evaluation of fatigue hypoxia and elevated carbon dioxide while sleeping. The patient had an extensive hospital stay, she was discharged on 01/22 1 day prior to this admission. Patient had bed evaluated and treated for an NSTEMI, treated for her chronic systolic heart failure, hypertension, and diabetes. The patient has known hypothyroidism, her Synthroid had been increased to 200 mcg per day. A rrangements were made for her to be discharged back to [facility]. Apparently when the patient arrived there it is unclear what occurred however she was sent back. By report the patient had a change in mental status that occurred over the past 24 hours. Currently the patient is awake and alert and has no recollection of why she was sent to the hospital. Her laboratory deisi dies in the emergency department revealed a sodium of 135, potassium 5.1, chloride 90, BUN of 37, creatinine 1.94, troponin 0.041, proBNP 26 40, TSH 64.8. Urine showed 30-100 wbc's, with many bacteria, specimen sent for culture. Patient is admitted to the hospital for further evaluation. Patient History Medical History CAD (coronary artery disease) Chronic hypercapnic respiratory failure Chronic systolic CHF (congestive heart failure) CKD (chronic kidney disease) CVA (cerebral vascular accident) Dementia Diabetes mellitus type 2 in obese GERD (gastroesophageal reflux disease) Heart failure, unspecified Hyperlipidemia Hypertension Hypothyroid Morbid obesity with alveolar hypoventilation Non Hodgkin's lymphoma Pacemaker Thyroid cancer Tremor, unspecified Surgical History History of cholecystectomy History of thyroidectomy Hx of tonsillectomy S/P TAVR (transcatheter aortic valve replacement) Family & Social History Family History Mother Dementia Father Heart attack Social History: household members none Safety & Behavioral: Feels Safe in Current Unwilling to Answer Environment Tobacco & Substance use: Smoking Status Never smoker alcohol intake never alcohol intake frequency 0-2 drinks per day Substance Use Type does not use Meds Home Medications and Allergies Home Medications Medication Instructions Recorded Confirmed Type cholecalciferol (vitamin D3) 25 5,000 unit PO DAILY 09/07/19 01/23/22 History mcg (1,000 unit) tablet linagliptin 5 mg tablet (Tradjenta) 5 mg PO DAILY 09/07/19 01/23/22 History magnesium oxide 400 mg PO QPM 09/07/19 01/23/22 History potassium chloride 10 mEq 10 meq PO DAILY 09/07/19 01/23/22 History tablet,extended release acetaminophen 500 mg tablet 1,000 mg PO TID 10/20/19 01/23/22 History gabapentin 300 mg capsule 300 mg PO TID 10/20/19 01/23/22 History levetiracetam 250 mg tablet 500 mg PO BID 10/20/19 01/23/22 History primidone 50 mg tablet 75 mg PO BID 10/20/19 01/23/22 History torsemide 20 mg tablet 40 mg PO DAILY 01/06/22 01/23/22 History carvedilol 3.125 mg tablet 12.5 mg PO BID #0 tab 01/12/22 01/23/22 Rx acetaminophen 325 mg tablet 325 mg PO Q4H PRN 01/17/22 01/23/22 History (Tylenol) calcium carbonate 500 mg calcium 500 - 1,000 mg PO Q6H PRN 01/17/22 01/23/22 History (1,250 mg) chewable tablet cyanocobalamin (vitamin B-12) 1,000 mcg IM QMONTH 01/17/22 01/23/22 History 1,000 mcg/mL injection solution hydrocortisone 2.5 % topical cream 1 applic TOPICAL Q12H PRN 01/17/22 01/23/22 History insulin aspart U-100 100 unit/mL 12 unit SUBCUT QAM 01/17/22 01/23/22 History (3 mL) subcutaneous pen (Novolog Flexpen U-100 Insulin aspart) insulin aspart U-100 100 unit/mL 14 unit SUBCUT BID 01/17/22 01/23/22 History (3 mL) subcutaneous pen (Novolog Flexpen U-100 Insulin aspart) insulin glargine 100 unit/mL (3 40 unit SUBCUT BEDTIME 01/17/22 01/23/22 History mL) subcutaneous pen (Lantus Solostar U-100 Insulin) liothyronine 5 mcg tablet 5 mcg PO BEDTIME 01/17/22 01/23/22 History loperamide 2 mg tablet 2 mg PO Q6H PRN 01/17/22 01/23/22 History magnesium oxide 800 mg PO QAM 01/17/22 01/23/22 History nystatin-emollient combo no.54 1 g TOPICAL BID 01/17/22 01/23/22 History 100,000 unit/gram topical cream polyethylene glycol 3350 17 17 g PO Q12H PRN 01/17/22 01/23/22 History gram/dose oral powder polyvinyl alcohol-povidone (PF) 2 drp OPHTHALMIC (EYE) BID PRN 01/17/22 01/23/22 History 1.4 %-0.6 % eye drops in a dropperette primidone 50 mg tablet 100 mg PO QAM 01/17/22 01/23/22 History aspirin 81 mg tablet,delayed 81 mg PO DAILY #30 tab 01/22/22 01/23/22 Rx release atorvastatin 20 mg tablet (Lipitor) 40 mg PO BEDTIME #30 tab 01/22/22 01/23/22 Rx hydrocodone 5 mg-acetaminophen 325 1 tab PO Q4HR PRN #20 tab 01/22/22 01/23/22 Rx mg tablet levothyroxine 100 mcg tablet 200 mcg PO 0600 #30 tab 01/22/22 01/23/22 Rx (Synthroid) calcitriol 0.25 mcg capsule 0.5 mcg PO DAILY 01/23/22 01/23/22 History donepezil 5 mg tablet 5 mg PO DAILY 01/23/22 01/23/22 History ferrous sulfate 325 mg (65 mg 325 mg PO DAILY 01/23/22 01/23/22 History iron) tablet (FeroSul) fluoxetine 20 mg capsule 20 mg PO DAILY 01/23/22 01/23/22 History fluticasone propionate 50 50 mcg INTRANASAL DAILY 01/23/22 01/23/22 History mcg/actuation nasal spray,suspension Allergies Allergy/AdvReac Type Severity Reaction Status Date / Time adhesive tape Allergy Verified 01/06/22 13:27 allopurinol Allergy Verified 01/06/22 13:27 Review of Systems Review of Systems Narrative: Ten point review of systems is negative Exam Vital Signs (past 8 hours): - 01/23/22 10:00 01/23/22 10:15 01/23/22 10:30 Temperature Pulse Rate 75 76 75 Respiratory Rate 25 H 22 24 Blood Pressure 115/57 L 87/44 L Pulse Oximetry 91 92 01/23/22 10:32 01/23/22 10:45 01/23/22 11:00 Temperature Pulse Rate 76 79 75 Respiratory Rate 24 25 H 25 H Blood Pressure 98/50 L 104/51 L Pulse Oximetry 01/23/22 11:15 01/23/22 11:30 01/23/22 11:45 Temperature Pulse Rate 82 78 78 Respiratory Rate 36 H 26 H 22 Blood Pressure 105/55 L Pulse Oximetry 01/23/22 12:00 01/23/22 12:15 01/23/22 12:30 Temperature Pulse Rate 76 75 74 Respiratory Rate 27 H 22 22 Blood Pressure 106/55 L 110/52 L Pulse Oximetry 01/23/22 12:45 01/23/22 13:50 Temperature 98.0 F 98.4 F Pulse Rate 75 73 Respiratory Rate 21 18 Blood Pressure 101/50 L Pulse Oximetry 95 95 Oxygen Delivery Method Room Air Oxygen Flow Rate 0 Narrative Exam Narrative: Pleasant elderly female lying in bed in no obvious distress [facility] Other: HEENT: Normocephalic atraumatic, extraocular muscles are intact, oropharynx is clear, neck is supple without adenopathy Resp Other: Lungs are clear to auscultation Cardio Other: Cardiac exam: Regular rate and rhythm normal S1-S2 GI Other: Abdomen: Soft nontender nondistended Skin Other: Extremities no edema Neuro Other: Neuro exam nonfocal Psych Other: Patient is awake alert and appropriate Objective Labs Result Diagrams: 01/23/22 08:15 01/23/22 08:15 Labs: Laboratory Results - last 24 hr 01/23/22 01/23/22 01/23/22 08:15 08:15 08:15 WBC 8.1 RBC 3.87 L Hgb 11.6 L Hct 35.1 L MCV 90.7 MCH 30.0 MCHC 33.1 RDW 15.7 H Plt Count 257 Neut % (Auto) 64.3 Lymph % (Auto) 16.9 L Laurel % (Auto) 14.3 H Eos % (Auto) 3.1 Baso % (Auto) 1.4 Neut # (Auto) 5200 Lymph # (Auto) 1400 Laurel # (Auto) 1200 H Eos # (Auto) 300 Baso # (Auto) 100 PT 14.1 H INR 1.2 Sodium 135 L Potassium 5.1 D Chloride 90 L Carbon Dioxide 38 H BUN 37 H Creatinine 1.94 H Estimated GFR 25.2 L BUN/Creatinine Ratio 19.1 Glucose 185 H Lactate Calcium 9.4 Magnesium 2.3 Total Bilirubin 0.9 AST 72 H ALT 33 Alkaline Phosphatase 82 Total Creatine Kinase 65 CK-MB (CK-2) TNP CK-MB (CK-2) Rel Index TNP Troponin I 0.041 H NT-Pro-B Natriuret Pep 2640 H Total Protein 9.4 H Albumin 4.4 Globulin 5.0 H Albumin/Globulin Ratio 0.9 L Lipase 50 TSH Urine Color Urine Appearance Urine pH Ur Specific Hershey Urine Protein Urine Glucose (UA) Urine Ketones Urine Occult Blood Urine Nitrate Urine Bilirubin Urine Urobilinogen Ur Leukocyte Esterase Urine RBC Urine WBC Ur Squamous Epith Cells Urine Bacteria Granular Casts Urine Yeast Ur Culture Indicated? SARS-CoV-2 (PCR) 01/23/22 01/23/22 01/23/22 08:15 08:15 09:52 WBC RBC Hgb Hct MCV MCH MCHC RDW Plt Count Neut % (Auto) Lymph % (Auto) Laurel % (Auto) Eos % (Auto) Baso % (Auto) Neut # (Auto) Lymph # (Auto) Laurel # (Auto) Eos # (Auto) Baso # (Auto) PT INR Sodium Potassium Chloride Carbon Dioxide BUN Creatinine Estimated GFR BUN/Creatinine Ratio Glucose Lactate 1.4 Calcium Magnesium Total Bilirubin AST ALT Alkaline Phosphatase Total Creatine Kinase CK-MB (CK-2) CK-MB (CK-2) Rel Index Troponin I NT-Pro-B Natriuret Pep Total Protein Albumin Globulin Albumin/Globulin Ratio Lipase TSH 64.8 H D Urine Color Urine Appearance Urine pH Ur Specific Hershey Urine Protein Urine Glucose (UA) Urine Ketones Urine Occult Blood Urine Nitrate Urine Bilirubin Urine Urobilinogen Ur Leukocyte Esterase Urine RBC Urine WBC Ur Squamous Epith Cells Urine Bacteria Granular Casts Urine Yeast Ur Culture Indicated? SARS-CoV-2 (PCR) Negative 01/23/22 10:06 WBC RBC Hgb Hct MCV MCH MCHC RDW Plt Count Neut % (Auto) Lymph % (Auto) Laurel % (Auto) Eos % (Auto) Baso % (Auto) Neut # (Auto) Lymph # (Auto) Laurel # (Auto) Eos # (Auto) Baso # (Auto) PT INR Sodium Potassium Chloride Carbon Dioxide BUN Creatinine Estimated GFR BUN/Creatinine Ratio Glucose Lactate Calcium Magnesium Total Bilirubin AST ALT Alkaline Phosphatase Total Creatine Kinase CK-MB (CK-2) CK-MB (CK-2) Rel Index Troponin I NT-Pro-B Natriuret Pep Total Protein Albumin Globulin Albumin/Globulin Ratio Lipase TSH Urine Color Yellow Urine Appearance Sl cloudy Urine pH 5.0 Ur Specific Hershey 1.020 Urine Protein 1+ H Urine Glucose (UA) Negative Urine Ketones Negative Urine Occult Blood 2+ H Urine Nitrate Negative Urine Bilirubin Negative Urine Urobilinogen 0.2 Ur Leukocyte Esterase 1+ H Urine RBC 1-5/hpf Urine WBC 30-100/hpf H Ur Squamous Epith Cells 1-5 /hpf Urine Bacteria Many (>30) H Granular Casts 5-10/lpf Urine Yeast 1-5/hpf H Ur Culture Indicated? Specimen cultured SARS-CoV-2 (PCR) Assessment & Plan Assessment & Plan narrative: Enid Almanza is a 74-year-old female with a past medical history significant for dementia, CAD s/p CABG x1, cardiac arrest status post pacemaker, aortic stenosis status post TAVR, hypertension, systolic CHF, chronic hypercapnic respiratory failure due to obesity hyperventilation syndrome, morbid obesity, hyperlipidemia, diabetes mellitus type 2, non-insulin using, CKD stage 4, secondary hypothyroidism status post thyroidectomy for thyroid cancer (unknown type),? and non-Hodgkin's lymphoma in remission who presented from [facility]for for evaluation of fatigue, episodes of hypoxia, and elevated carbon dioxide while the patient was sleeping. This was identical to her prior admission. Patient very likely has underlying obesity hypoventilation, in addition to obstructive sleep apnea the patient very likely would benefit from a formal sleep evaluation. She may also be a candidate for a trilogy. * Obesity hypoventilation syndrome * Suspect the patient be calms hypercapnic when sleeping, and possibly hypoxic * Will obtain a nocturnal oximetry study here * Consider outpatient sleep study * Will consult respiratory therapy for possible trilogy Chronic systolic heart failure * Patient does not appear to be in acute heart failure, proBNP 26 40, this is lower than her prior proBNP * Will continue her usual torsemide and potassium History of coronary disease, prior NSTEMI * Patient with prior NSTEMI, troponins improved, 2.0 4 1 * Patient now without any symptoms of coronary disease * Will continue aspirin, statin, and Coreg * * * Hypothyroidism * Despite received Synthroid 200 mcg daily, and Cytomel 5 mcg daily her TSH continues to her right * Will increase Synthroid to 250 per day, increase item cytomel to 10 mcg daily, will follow-up TSH subsequent Chronic kidney disease stage 4 * Creatinine 1.94, previously 1.72, * Will avoid nephrotoxic agent Hyperlipidemia * Continue statin Type 2 diabetes * Will continue insulin and Tradjenta Seizure disorder * Continue Keppra Dementia Continue donepezil Patient's daughter is her caregiver, and DPOA, Patient is DNR per her prior admission Patient is admitted under observation, will continue to moved towards placement in the morning. I have reviewed all available records to update confirm her current medications. Time Spent With Patient Critical Care time: I spent a total of [] minutes of critical care time on this patient's care today; this time is exclusive of procedural time.
[2022-01-23] MEDS: HYDROCODONE/ACET 10/325 TABLET 1 TAB PO (19:42)
[2022-01-23] MEDS: INSULIN LISPRO 100 UNIT/ML 3ML VIAL SUBCUT (20:29)
[2022-01-23] MEDS: INSULIN GLARGINE 100 UNIT/ML 3ML PEN 40 UNIT SUBCUT (20:30)
[2022-01-23] MEDS: SENNOSIDES 8.6 MG TABLET 17.2 MG PO (20:32)
[2022-01-23] MEDS: DONEPEZIL 5 MG TABLET 10 MG PO (20:32)
[2022-01-23] MEDS: carvediloL 12.5 MG TABLET PO (20:32)
[2022-01-23] MEDS: DOCUSATE 100 MG CAPSULE PO (20:32)
[2022-01-23] MEDS: MAGNESIUM OXIDE 400 MG TABLET PO (20:33)
[2022-01-23] MEDS: levETIRAcetam 250 MG TABLET 500 MG PO (20:33)
[2022-01-23] MEDS: NYSTATIN OINTMENT 15 APPLIC/TUBE OINT...G. TOP (20:34)
[2022-01-23] MEDS: GABAPENTIN 300 MG CAPSULE PO (21:17)
[2022-01-23] MEDS: HEPARIN 5,000 UNIT/ML VIAL 7500 UNIT SUBCUT (21:17)
[2022-01-24] VITALS (23 sets, daily range): BP systolic 99–116; BP diastolic 47–56; PULSE 69–82; RESP 14–27; TEMP 36.1–37.1; O2SAT 90–93
[2022-01-24] MEDS: HYDROCODONE/ACET 10/325 TABLET 1 TAB PO (00:46)
[2022-01-24] MEDS: cefTRIAXone 1,000 MG in SODIUM CHLORIDE 0.9% 100 ML 200 ML IV (01:19)
[2022-01-24] MEDS: GABAPENTIN 300 MG CAPSULE PO ×3 (05:47→21:17)
[2022-01-24] MEDS: HEPARIN 5,000 UNIT/ML VIAL 7500 UNIT SUBCUT ×3 (05:47→21:19)
[2022-01-24] MEDS: LEVOTHYROXINE 100 MCG TABLET 250 MCG PO (05:58)
[2022-01-24] MEDS: INSULIN LISPRO 100 UNIT/ML 3ML VIAL SUBCUT ×4 (08:56→21:18)
[2022-01-24] MEDS: levETIRAcetam 250 MG TABLET 500 MG PO ×2 (08:57→21:15)
[2022-01-24] MEDS: carvediloL 12.5 MG TABLET PO ×2 (08:57→21:15)
[2022-01-24] MEDS: FLUoxetine 20 MG CAPSULE PO (08:57)
[2022-01-24] MEDS: POTASSIUM CHLORIDE 20 MEQ TAB PO (08:58)
[2022-01-24] MEDS: MAGNESIUM OXIDE 400 MG TABLET PO ×2 (08:58→21:15)
[2022-01-24] MEDS: DOCUSATE 100 MG CAPSULE PO ×2 (08:58→21:16)
[2022-01-24] MEDS: ASPIRIN EC 81 MG TABLET PO (08:58)
[2022-01-24] MEDS: PRIMIDONE 50 MG TABLET 100 MG PO (09:17)
[2022-01-24] MEDS: LIOTHYRONINE 5 MCG TABLET 10 MCG PO (09:17)
[2022-01-24] MEDS: CHOLECALCIFEROL (VITAMIN D3) 5,000 UNIT TABLET 5000 UNIT PO (09:18)
[2022-01-24] MEDS: TORSEMIDE 10 MG TABLET 40 MG PO (09:18)
--- NOTE | 2022-01-24 09:42 | PC.NURSE ---
PT AGREEABLE TO GET UP TO CHAIR USING MECHANICAL LIFT AFTER MUCH ENCOURAGEMENT FROM STAFF- SHE TOLERATES THIS WELL - SHE ATE APPROX 25% OF MEAL AND SWALLOWED PILLS WHOLE WITH H20- LUNGS DIMINISHED- DISCHARGE PENDING TO [facility] FOR INCREASED REHAB AND ASSIST WITH HER COMPLEX CHRONIC MEDICAL DIAGNOSIS- SHE IS ALERT/ORIENTED TO SELF AND AT TIMES SITUATION BUT REMAINS FORGETFUL
--- NOTE | 2022-01-24 12:16 | OT.IP.EVAL ---
Past Medical History (Last Reviewed 01/23/22 @ 18:03 by Melba Contreras MD) CAD (coronary artery disease) Chronic hypercapnic respiratory failure Chronic systolic CHF (congestive heart failure) CKD (chronic kidney disease) CVA (cerebral vascular accident) Dementia Diabetes mellitus type 2 in obese GERD (gastroesophageal reflux disease) Heart failure, unspecified History of cholecystectomy History of thyroidectomy Hx of tonsillectomy Hyperlipidemia Hypertension Hypothyroid Morbid obesity with alveolar hypoventilation Non Hodgkin's lymphoma Pacemaker S/P TAVR (transcatheter aortic valve replacement) Thyroid cancer Tremor, unspecified Surgical History (Last Reviewed 01/23/22 @ 18:04 by Melba Contreras MD) History of cholecystectomy History of thyroidectomy Hx of tonsillectomy S/P TAVR (transcatheter aortic valve replacement) Occupational Therapy Inpatient Evaluation/Re-Eval M1 PT/OT-IP Prior Functional Status Start: 01/24/22 11:59 Freq: NEEDED Status: Active Protocol: Document 01/24/22 11:59 [facility] (Rec: 01/24/22 12:16 [facility] [id number]) Medical Review Prior Functional Status Communication Independent. Mobility and Gait Per facility use of teresa for transfers. Pt states it has been a long time since she has been able to walk on her own. However pt states that she at one point was transferring with FWW and one person assist. Not able to clarify with her facility. Activities of Daily Living and IADL's Facility assist with all LB dressing, assist to pull shirt in the back, toileting, abd bathing needs. Pt is able to do her grooming and eating needs after set-up. Social History Household Members none Living Arrangements Assisted Living M2 OT-IP Current Condition Start: 01/24/22 11:59 Freq: Status: Active Protocol: Document 01/24/22 11:59 [facility] (Rec: 01/24/22 12:16 [facility] [id number]) Occupational Therapy Current Condition Current Condition Evaluation Date 01/24/22 Treatment Diagnosis UTI, recent NSTEMI, decreased mobility Diagnosis Onset Date 01/23/22 M3 OT- IP Subjective and Pain Start: 01/24/22 11:59 Freq: Status: Active Protocol: Document 01/24/22 11:59 [facility] (Rec: 01/24/22 12:16 [facility] [id number]) OT- Subjective Occupational Therapy Visit Type Type Initial Evaluation Visit Start Time 10:40 Visit Stop Time 11:10 Total Visit Minutes 30 Occupational Therapy Visit Comments Patient Comments Pt agreed to work with OT. Patient/Caregiver Goals Pt states would like to be able to walk again, but not able to state time frame when she was able to walk before. OT Pain Assessment Pain When Pain Assessed At Rest Pain Present Pain Present Denied Pain M4 OT- IP ADL's Start: 01/24/22 11:59 Freq: Status: Active Protocol: Document 01/24/22 11:59 [facility] (Rec: 01/24/22 12:16 [facility] [id number]) OT [id number] General Evaluation Self-Feeding Ability Independent Comments OT Self-Feeding Comments set-up assisst OT ADL-Grooming General Evaluation Grooming Ability Independent Areas Needing Assistance Retrieving/Set-up of Grooming Items OT ADL-Oral Care General Eval Oral Care Ability Independent OT ADL-Dressing General Eval Lower Body Dressing Ability Total Assistance Areas Needing Assistance Socks OT ADL-Toileting General Evaluation Toileting Ability Total Assistance Comments OT Toileting Comments Kimble OT ADL-Bathing Comments OT Bathing Comments Sponge bath more appropriate at this time. M6 OT- IP Functional Cognition Start: 01/24/22 11:59 Freq: Status: Active Protocol: Document 01/24/22 11:59 [facility] (Rec: 01/24/22 12:16 [facility] [id number]) Cognitive Factors Limiting Selfcare Function Cognitive Ability Level of Alertness Alert Patient Orientation Name Attention Span Ability Capable of Focused Attention, Capable of Sustained Attention Ability to Follow Commands Able to Follow One Step Commands with Increased Time, Able to Follow One Step Commands with Repetition Memory Description Short Term Impaired Cognitive Comments Cognitive Assessment Comments Pt is pleasant and able to follow commands for ADL and mobility needs. OT- Vision and Hearing OT- Hearing Assessment OT- Hearing Assessment WFL OT- Vision Assessment Vision Assessment Comments Pt states has glasses but not able to specify if she has reading glasses or regular glasses, M7 OT- IP Mobility and Balance Start: 01/24/22 11:59 Freq: Status: Active Protocol: Document 01/24/22 11:59 [facility] (Rec: 01/24/22 12:16 [facility] [id number]) OT-Transfer Assessment Sit to and From Stand Sit to and from Stand Maximum Assistance,Total Assistance,2 Person Assistance Comments Mobility Comments Teresa to assist to get out of bed per nursing. Pt able to come to stand with MAX/Total x 2 to FWW. OT- Balance Assessment Sitting Balance and Reactions Static Sitting Balance Ability Good Dynamic Sitting Balance Ability Fair Standing Balance and Reactions Static Standing Balance Ability Poor M8 OT- IP Objective Assessments Start: 01/24/22 11:59 Freq: Status: Active Protocol: Document 01/24/22 11:59 [facility] (Rec: 01/24/22 12:16 [facility] [id number]) OT Gross Range of Motion Upper Extremity Range of Motion Assessment Within Functional Limits OT Strength Upper Extremity Strength Assessment Within Functional Limits OT- Coordination Assessment Comments Coordination Comments assist to open items for oral care needs OT-Muscle Tone Assessment Muscle Tone WNL Yes M9 OT- IP Assessment and Plan Start: 01/24/22 11:59 Freq: Status: Active Protocol: Document 01/24/22 11:59 [facility] (Rec: 01/24/22 12:16 [facility] [id number]) OT Summary Assessment and Plan Potential Rehabilitation Potential Fair Analytic Complexity at Evaluation Moderate Summary OT Impairments Strength,Balance,Functional Cognition,Functional Mobility, Toilet Transfers,Activity Tolerance Progress Towards Goals Slow Progress due to Medical Issues,Slow Progress due to Activity Tolerance,Slow Progress due to Cognition Assessment Summary Pt MOD complexity and here due to UTI, recent NSTEMI, and at her [facility] has been using a teresa for transfers. However pt states has been able to stand with one person assist for transfers in recent past , but unable to give a timeline . Pt currently able to stand with MAX/total assist x2 to FWW and having to sit back down. Pt would benefit form skilled rehab to work on standing balance, transfers to toilet/BSC to help with her hygiene and self awareness of being more active for her ADl and mobility needs versus use of teresa. Pt is very motivated to get better and wanting to walk, which is questionable. However OT feels that pt is able to improve with her mobility needs of transfers especially to a BSC, WC, and bed. Having OT goals to eventually work towards one person assist with FWW to the BSC/toilet will be beneficial for her well being and skin integrity especially. Goals Toilet Transfer Goal Moderate Assistance,Bedside Commode OT-Other Goals Pt will be able to stand to FWW with MODA x 2 for 1 minutes to improve standing balance for toileting needs. Days to Meet Goals 40 Frequency of Treatment Frequency Of Treatment Once a Day Treatment Plan OT Treatment Plan ADL Training,Functional Cognition Training,Functional Mobility,Patient/Family Education,Discharge Planning Other Treatment Recommendations and Next Stand to FWW with MAX A X 2 Treatment Focus for 15 seconds. Discharge Recommendations OT Discharge Recommendations SNF Rehab Transportation Needs at Discharge Wheelchair/Cabulance
[2022-01-24] MEDS: NYSTATIN OINTMENT 15 APPLIC/TUBE OINT...G. TOP ×3 (12:42→21:19)
--- NOTE | 2022-01-24 15:21 | CM.DPC ---
DCP Cont: Per MD, pt remains stable but had ordered nocturnal oximetry reading as pt likely has sleep apnea or breathing issues that are contributing to her ongoing admissions but RT was unable to complete last night and could be very beneficial to treating pt appropriately. SW spoke to [facility] admissions and [facility] insurance would like lab results and OT note to determine if they will auth and [facility] needs [employer] denial if pt is to come under Medicaid. EASTON requested OT eval pt kyle and OT kindly completed after getting some baseline on pt from [facility] submitted the updated clinicals to [facility] to review. EASTON met bedside with pt and Dtr/DPOA and discussed d/c plan to [facility] and both agreeable and feel SNF needed. SW provided [facility] list to Dtr as she is interested in eventually attempting Medicaid bed at [facility] closer to her in [facility] and EASTON discussed the process of calling for medicaid bed and involving the [facility] CM to get assessment and daily rate to potential ALFs. But Dtr aware that pt will likely be at [facility] for rehab, with a potential for LTC there, or going back to [facility] while calling to inquire about availability at [facility]. EASTON received a call from [facility] stating [facility] confirmed they have clinicals to review but now needs Physician Review prior to determination if they will auth or deny. Plan: SW to follow closely in the [facility] [employer] [facility]. PATRIC Magana
--- NOTE | 2022-01-24 17:38 | PC.NURSE ---
PT ALERT AND GROUCHY IN AM- ALLOWED STAFF TO USE MECH LIFT TO ASSIST HER TO CHAIR - WHERE SHE HAS STAYED ENTIRE DAY SHIFT- TAKING EACH OF HER 3 MEALS THERE, CBG ELEVATED AND COVERED WITH SLIDING SCALE COVERAGE - BENNIE PATENT AND UA GREW OUT YEAST, SHE DENIES PAIN AND HAS BEEN ON ROOM AIR ENTIRE DAY WITH [id number]% - PLAN IS FOR DC TOMORROW TO [facility] AFTER A NOC SHIFT SPO2 STUDY, SALINE LOCKED
--- NOTE | 2022-01-24 17:39 | P.PN_ITS ---
Subjective Subjective Date Patient Seen: 01/24/22 Interval history: Patient is a 76-year-old female with a history of chronic hypercapnic respiratory failure, chronic systolic heart failure, chronic kidney disease, coronary disease, type 2 diabetes, who was readmitted to the hospital for a central failure to thrive. The patient very likely has obesity hypoventilation versus obstructive sleep apnea. Attempts were made to obtain a nocturnal oximetry last evening and this was not done. The patient is awake and alert today. She does not have any complaints of pain. She has no specific shortness of breath. Her oxygenation is fairly good here. Exam Vital Signs (past 8 hours): - 01/24/22 12:00 01/24/22 16:00 Temperature 97.5 F L Pulse Rate 69 77 Respiratory Rate 18 16 Blood Pressure 99/52 L 116/47 L Pulse Oximetry 91 92 Oxygen Delivery Method Room Air Oxygen Flow Rate 0 Narrative Exam Narrative: Pleasant female sitting in a chair in no acute distress Resp Other: Lungs decreased breath sounds no crackles rhonchi or wheezes Cardio Other: Cardiac exam: Regular rate and rhythm normal S1-S2 with a 2/6 systolic ejection murmur GI Other: Abdomen soft nontender nondistended, obese Extrem Other: No edema Objective Labs Result Diagrams: 01/23/22 08:15 01/23/22 08:15 Labs: Laboratory Results - last 24 hr 01/23/22 16:52 Nasal Screen MRSA (PCR) Positive for mrsa H [facility], [facility] Medical History CAD (coronary artery disease) Chronic hypercapnic respiratory failure Chronic systolic CHF (congestive heart failure) CKD (chronic kidney disease) CVA (cerebral vascular accident) Dementia Diabetes mellitus type 2 in obese GERD (gastroesophageal reflux disease) Heart failure, unspecified Hyperlipidemia Hypertension Hypothyroid Morbid obesity with alveolar hypoventilation Non Hodgkin's lymphoma Pacemaker Thyroid cancer Tremor, unspecified Surgical History History of cholecystectomy History of thyroidectomy Hx of tonsillectomy S/P TAVR (transcatheter aortic valve replacement) Family History Mother Dementia Father Heart attack Social History household members: none Smoking Status: Never smoker alcohol intake: never Assessment & Plan Assessment & Plan narrative: Enid Almanza is a 74-year-old female with a past medical history significant for dementia, CAD s/p CABG x1, cardiac arrest status post pacemaker, aortic stenosis status post TAVR, hypertension, systolic CHF, chronic hypercapnic respiratory failure due to obesity hyperventilation syndrome, morbid obesity, hyperlipidemia, diabetes mellitus type 2, non-insulin using, CKD stage 4, secondary hypothyroidism status post thyroidectomy for thyroid cancer (unknown type),? and non-Hodgkin's lymphoma in remission who presented from [facility]?for for evaluation of fatigue, episodes of hypoxia, and elevated carbon dioxide while the patient was sleeping.? This was identical to her prior admission.? Patient very likely has underlying obesity hypoventilation, in addition to obstructive sleep apnea the patient very likely would benefit from a formal sleep evaluation.? She may also be a candidate for a trilogy. Suspect Obesity hypoventilation syndrome, will order nocturnal oxygen level this evening, will discuss trilogy device via respiratory therapy tomorrow as well * Suspect the patient be calms hypercapnic when sleeping, and possibly hypoxic * Will obtain a nocturnal oximetry study here, will attempt again * Consider outpatient sleep study * Chronic systolic heart failure * Patient does not appear to be in acute heart failure, proBNP 26 40, this is lower than her prior proBNP * Will continue her usual torsemide and potassium * History of coronary disease, prior NSTEMI * Patient with prior NSTEMI, troponins improved, 2.0 4 1 * Patient now without any symptoms of coronary disease * Will continue aspirin, statin, and Coreg * Hypothyroidism * Despite received Synthroid 200 mcg daily, and Cytomel 5 mcg daily her TSH continues to her right * Will increase Synthroid to 250 per day, increase item cytomel to 10 mcg daily, will follow-up TSH subsequentChronic kidney disease stage 4 * Creatinine 1.94, previously 1.72, * Will avoid nephrotoxic agentHyperlipidemia * Continue statinType 2 diabetes * Will continue insulin and TradjentaSeizure disorder * Continue KeppraDementia Continue donepezil Hopefully discharge to [facility] in 1-2 days Time Spent With Patient Critical Care time: I spent a total of [] minutes of critical care time on this patient's care today; this time is exclusive of procedural time. Quality VTE Deep Vein Thrombosis/Pulmonary Embolism Present on Admission: No
[2022-01-24] MEDS: SENNOSIDES 8.6 MG TABLET 17.2 MG PO (21:15)
[2022-01-24] MEDS: DONEPEZIL 5 MG TABLET 10 MG PO (21:16)
[2022-01-24] MEDS: INSULIN GLARGINE 100 UNIT/ML 3ML PEN 40 UNIT SUBCUT (21:17)
[2022-01-25 00:19] VITALS: BP 103/75; PULSE 81; RESP 20; O2SAT 95
[2022-01-25 05:05] VITALS: BP 101/52; PULSE 81; RESP 16; TEMP 36.5; O2SAT 93
[2022-01-25] MEDS: HEPARIN 5,000 UNIT/ML VIAL 7500 UNIT SUBCUT ×2 (05:37→13:12)
[2022-01-25] MEDS: LEVOTHYROXINE 100 MCG TABLET 250 MCG PO (05:37)
[2022-01-25] MEDS: GABAPENTIN 300 MG CAPSULE PO ×2 (05:37→13:12)
[2022-01-25 05:59] LABS: BUN Creatinine Ratio 18.8 (6-22); Blood Urea Nitrogen 34 mg/dL (7-17); Calcium 8.9 mg/dL (8.4-10.2); Carbon Dioxide 39 mmol/L (22-32); Chloride 91 mmol/L (98-107); Estimated Glomerular Filt Rate 27.3 mL/min (>60); Glucose 251 mg/dL (80-110); HEMOLYSIS < 15 (0-50); Potassium 4.1 mmol/L (3.4-5.1); Sodium 134 mmol/L (137-145)
[2022-01-25 07:43] VITALS: BP 109/56; PULSE 71; RESP 18; TEMP 36.6; O2SAT 95
--- NOTE | 2022-01-25 08:38 | CM.DPC ---
Addendum entered by PATRIC Magana 01/25/22 11:53: ADD: SW spoke to pt's Dtr/DPOA Juliana again and she confirms she spoke to [facility] and in agreement with pt going to [facility] and aware her mom will be transported via w/c at 1330 today and SW provided admissions contact number at [facility] for Dtr if she has further questions regarding pt's belongings, etc. EASTON updated OPTOMETRIC AIDE and agricultural research technologist and RN of transport time at 1330 and RN report number to call. SW confirmed that [facility] has all d/c packet information needed. Plan: Patient to d/c to [facility] rehab/LTC today via facility van at 1330. PATRIC Magana Addendum entered by PATRIC Magana 01/25/22 10:52: ADD: Per Hospitalist, completed Peer to Peer with Fabienne and Kory will deny pt's SNF auth as no skillable need and pt mostly back to baseline of [facility]. EASTON called and updated [facility] via and completed discharge and EASTON faxed signed med rec, scripts, MD TOSHIA orders to [facility] for review. Plan: SW to follow for confirmation on d/c transport time today to [facility] for likely chcf care. PATRIC Magana Original Note: DCP SNF planning: EASTON received a call from Fabienne/Kory stating pt's SNF auth went to Physician Review and now needs Peer to Peer for final determination. Hospitalist needs to call [phone] option 5 by 1000 with [employer] id# [id number]. EASTON updated who graciously is willing to complete peer to peer today. EASTON called [facility] and updated and admissions confirms that if [employer] denies SNF auth then pt can come to their facility today under Medicaid but that Manolo just needs to confirm with pt's dtr/dpoa that she is agreeable with pt going to [facility] rehab and maybe becoming chcf resident there. [facility] confirms no updated POLST needed at this time. EASTON called pt's Dtr/DPOA and updated on above and she is very willing to call Dalila or Man at [facility] to discuss and SW requested she do it soon and she was agreeable. Plan: EASTON to follow closely for plan of [facility] today under [employer] vs Medicaid. Yumiko Luna MSW
[2022-01-25] MEDS: INSULIN LISPRO 100 UNIT/ML 3ML VIAL SUBCUT ×2 (09:43→13:10)
[2022-01-25] MEDS: FLUoxetine 20 MG CAPSULE PO (09:45)
[2022-01-25] MEDS: levETIRAcetam 250 MG TABLET 500 MG PO (09:45)
[2022-01-25] MEDS: DOCUSATE 100 MG CAPSULE PO (09:45)
[2022-01-25] MEDS: MAGNESIUM OXIDE 400 MG TABLET PO (09:46)
[2022-01-25] MEDS: POTASSIUM CHLORIDE 20 MEQ TAB PO (09:46)
[2022-01-25] MEDS: carvediloL 12.5 MG TABLET PO (09:46)
[2022-01-25] MEDS: ASPIRIN EC 81 MG TABLET PO (09:46)
[2022-01-25] MEDS: LIOTHYRONINE 5 MCG TABLET 10 MCG PO (10:11)
[2022-01-25] MEDS: TORSEMIDE 10 MG TABLET 40 MG PO (10:11)
[2022-01-25] MEDS: CHOLECALCIFEROL (VITAMIN D3) 5,000 UNIT TABLET 5000 UNIT PO (10:11)
[2022-01-25] MEDS: PRIMIDONE 50 MG TABLET 100 MG PO (10:12)
--- NOTE | 2022-01-25 10:18 | PM.DS.1 ---
History of Present Illness History of Present Illness Chief complaint: Decreased LOC Narrative: The patient is a 76-year-old female with a history significant for dementia, coronary disease, cardiac arrest status post pacemaker, aortic stenosis status post TAVR, hypertension, systolic heart failure, chronic hypercapnic respiratory failure, obesity hypoventilation syndrome, morbid obesity, hyperlipidemia, type 2 diabetes, chronic kidney disease, hypothyroidism following a thyroidectomy, and non-Hodgkin's lymphoma who was admitted to the hospital 222 for evaluation of fatigue hypoxia and elevated carbon dioxide while sleeping. The patient had an extensive hospital stay, she was discharged on 01/22 1 day prior to this admission. Patient had bed evaluated and treated for an NSTEMI, treated for her chronic systolic heart failure, hypertension, and diabetes. The patient has known hypothyroidism, her Synthroid had been increased to 200 mcg per day. Arrangements were made for her to be discharged back to [facility]. Apparently when the patient arrived there it is unclear what occurred however she was sent back. By report the patient had a change in mental status that occurred over the past 24 hours. Currently the patient is awake and alert and has no recollection of why she was sent to the hospital. Her laboratory studies in the emergency department revealed a sodium of 135, potassium 5.1, chloride 90, BUN of 37, creatinine 1.94, troponin 0.041, proBNP 26 40, TSH 64.8. Urine showed 30-100 wbc's, with many bacteria, specimen sent for culture. Patient is admitted to the hospital for further evaluation. Discharge Providers Provider Date of admission: 01/23/22 09:45 Discharge Date: 01/25/22 Primary care physician: Kinsey Bose MD Consults: 01/24/22 07:48 Consult to Occupational Therapy Evaluate & Treat Comment: Physician Instructions: Evaluate and treat Discharge provider: Melba Contreras MD Summary Hospital Course Discharge Diagnosis: 1. Chronic Systolic Heart Failure 2. Failure to thrive 3. Morbid Obesity 4. Coronary disease, status post NSTEMI 5. Hypothyroidism 6. Chronic kidney disease 7. Hyperlipidemia 8. Type 2 diabetes 9. Seizure disorder 10. Dementia Hospital Course: Patient was readmitted to the hospital 24 hours after discharge. There was no clinical etiology except that the facility did not feel like they could manage her. By report the patient had acute metabolic encephalopathy. However she is awake alert and has had no episodes to suggest confusion during her hospital stay. Her urine culture grew Kellen, there is no evidence of urinary tract infection. Patient had no shortness of breath. Arrangements were made for her to be discharged to long term for long-term care. Patient has no complaints today. Attempts were made last evening to obtain a nocturnal oximetry study. Patient was uncooperative however there was no noted hypoxemia. Status at Discharge Cognitive/behavioral status at discharge: calm Functional status at discharge: bed bound Overall status at discharge: patient is progressing back to baseline Exam Vital Signs (past 8 hours): - 01/25/22 05:05 01/25/22 07:43 Temperature 97.7 F 97.8 F Pulse Rate 81 71 Respiratory Rate 16 18 Blood Pressure 101/52 L 109/56 L Pulse Oximetry 93 95 Fraction of Inspired Oxygen 21 Oxygen Delivery Method Room Air Oxygen Flow Rate 0 Narrative Exam Narrative: Pleasant female resting comfortably in a chair in no obvious distress Resp Other: Lungs clear to auscultation decreased breath sound Cardio Other: Cardiac exam: Regular rate rhythm normal S1-S2 GI Other: Abdomen: Soft nontender nondistended Extrem Other: Extremities: No edema Objective Labs Result Diagrams: 01/23/22 08:15 01/25/22 05:26 Labs: Laboratory Results - last 24 hr 01/25/22 05:26 Sodium 134 L Potassium 4.1 Chloride 91 L Carbon Dioxide 39 H BUN 34 H Creatinine 1.81 H Estimated GFR 27.3 L BUN/Creatinine Ratio 18.8 Glucose 251 H Calcium 8.9 PFSH Medical History CAD (coronary artery disease) Chronic hypercapnic respiratory failure Chronic systolic CHF (congestive heart failure) CKD (chronic kidney disease) CVA (cerebral vascular accident) Dementia Diabetes mellitus type 2 in obese GERD (gastroesophageal reflux disease) Heart failure, unspecified Hyperlipidemia Hypertension Hypothyroid Morbid obesity with alveolar hypoventilation Non Hodgkin's lymphoma Pacemaker Thyroid cancer Tremor, unspecified Surgical History History of cholecystectomy History of thyroidectomy Hx of tonsillectomy S/P TAVR (transcatheter aortic valve replacement) Family History Mother Dementia Father Heart attack Social History household members: none Smoking Status: Never smoker alcohol intake: never Discharge Assessment & Plan Assessment and Plan Assessment: 1. Chronic Systolic Heart Failure 2. Failure to thrive 3. Morbid Obesity 4. Coronary disease, status post NSTEMI 5. Hypothyroidism 6. Chronic kidney disease 7. Hyperlipidemia 8. Type 2 diabetes 9. Seizure disorder 10. Dementia Plan of Treatment: Discharged to [facility] Discharge Plan Discharge Plan Patient Disposition: SNF Transfer to: [facility] Transportation: Ambulance Consult as needed: Dental, Hearing, Mental health, Podiatry and Vision I certify the postop hospital long term care is medically necessary on a continuing basis for any conditions for which he/ she received care during this hospitalization.: Yes The receiving facility has agreed to accept transfer and provide medical treatment.: Yes Discharge orders & Medications Prescriptions: New hydrocodone-acetaminophen 10-325 mg Tablet 1 tab PO Q4HR PRN (Reason: Pain, Moderate (4-6)) Qty: 20 0RF liothyronine [Cytomel] 5 mcg Tablet 10 mcg PO DAILY Qty: 30 0RF Continued potassium chloride 10 mEq Tablet Extended Release 10 meq PO DAILY 0RF cholecalciferol (vitamin D3) 1,000 unit (25 mcg) Tablet 5,000 unit PO DAILY 0RF Tradjenta 5 mg Tablet 5 mg PO DAILY 0RF primidone 50 mg Tablet 75 mg PO BID 0RF Rx Instructions: takes at 1500 & bedtime levetiracetam 250 mg Tablet 500 mg PO BID 0RF gabapentin 300 mg Capsule 300 mg PO TID 0RF primidone 50 mg Tablet 100 mg PO QAM 0RF nystatin-emollient combo no.54 100,000 unit/gram Cream 1 g TOPICAL BID 0RF Rx Instructions: apply to abdominal folds cyanocobalamin (vitamin B-12) 1,000 mcg/mL Solution 1,000 mcg IM QMONTH 0RF calcium carbonate 500 mg calcium (1,250 mg) Tablet,Chewable 500 - 1,000 mg PO Q6H PRN (Reason: mild to moderate heartburn) 0RF polyvinyl alcohol-povidon(PF) 1.4-0.6 % Dropperette 2 drp OPHTHALMIC (EYE) BID PRN (Reason: Dry Eyes) 0RF insulin aspart U-100 [Novolog Flexpen U-100 Insulin] 100 unit/mL (3 mL) Insulin Pen 12 unit SUBCUT QAM 0RF Rx Instructions: in a.m. insulin aspart U-100 [Novolog Flexpen U-100 Insulin] 100 unit/mL (3 mL) Insulin Pen 14 unit SUBCUT BID 0RF Rx Instructions: takes at 1200 & 1700 Lantus Solostar U-100 Insulin 100 unit/mL (3 mL) Insulin Pen 40 unit SUBCUT BEDTIME 0RF atorvastatin [Lipitor] 20 mg Tablet 40 mg PO BEDTIME Qty: 30 0RF aspirin 81 mg Tablet,Delayed Release (Dr/Ec) 81 mg PO DAILY Qty: 30 0RF levothyroxine [Synthroid] 100 mcg Tablet 200 mcg PO 0600 Qty: 30 0RF fluoxetine 20 mg capsule 20 mg PO DAILY 0RF donepezil 5 mg tablet 5 mg PO DAILY 0RF fluticasone propionate 50 mcg/actuation spray,suspension 50 mcg INTRANASAL DAILY 0RF calcitriol 0.25 mcg capsule 0.5 mcg PO DAILY 0RF torsemide 20 mg tablet 40 mg PO DAILY 0RF carvedilol 3.125 mg Tablet 12.5 mg PO BID Qty: 0 0RF Discontinued magnesium oxide 400 mg magnesium Tablet 400 mg PO QPM 0RF acetaminophen 500 mg Tablet 1,000 mg PO TID 0RF liothyronine 5 mcg Tablet 5 mcg PO BEDTIME 0RF magnesium oxide 400 mg magnesium Tablet 800 mg PO QAM 0RF loperamide 2 mg Tablet 2 mg PO Q6H PRN (Reason: Diarrhea) 0RF Rx Instructions: no more than 8mg/24h hydrocortisone 2.5 % Cream 1 applic TOPICAL Q12H PRN (Reason: Hemorrhoids) 0RF polyethylene glycol 3350 17 gram/dose Powder 17 g PO Q12H PRN (Reason: Constipation) 0RF acetaminophen [Tylenol] 325 mg Tablet 325 mg PO Q4H PRN (Reason: pain or fever) 0RF hydrocodone-acetaminophen 5-325 mg Tablet 1 tab PO Q4HR PRN (Reason: Pain, Moderate (4-6)) Qty: 20 0RF ferrous sulfate [FeroSul] 325 mg (65 mg iron) tablet 325 mg PO DAILY 0RF Follow up/Referrals: Kinsey Bose MD [Primary Care Provider] - Discharge Health Status Multidrug resistant organism: No MDRO Diet/Activity/Treatments Diet: Carb-consistent/Diabetic, Low-fat and Low-sodium Liquid consistency: Normal/Thin Food texture: Regular [facility] Reason for rehabilitation: Recovery r/t decondition Rehab type: Physical therapy and Occupational therapy Discharge Data Primary Care Provider: Kinsey Bose Attending Provider: Melba Contreras VTE Deep Vein Thrombosis/Pulmonary Embolism Present on Admission: No
[2022-01-25 11:00] VITALS: BP 96/52; PULSE 73; RESP 18; TEMP 36.4; O2SAT 95
--- NOTE | 2022-01-25 12:05 | PC.NURSE ---
Addendum entered by Angela Shane R.N. 01/25/22 13:41: UP to own w/c @ 1330. Transport arrived and sent to facility. Addendum entered by Angela Shane R.N. 01/25/22 13:40: Report called to Jessica, @ [facility], Pt will be transporting @ 1330. IV removed and dressing changed to s/t on R FA Original Note: Am shift Pt is pleasant and cooperative with care, making jokes this AM. Forgetful. At times has confusion. Kimble d/c in prep for d/c this afternoon to [facility].Pt is up to chair with lift. CBG elevated and covered with SS per emar.
[2022-01-25] MEDS: NYSTATIN OINTMENT 15 APPLIC/TUBE OINT...G. TOP (13:10)
[2022-01-25] MEDS: INSULIN LISPRO 100 UNIT/ML 3ML VIAL 12 UNIT SUBCUT (13:11)
== END 2022-01-25 13:43 ==
LOC: ED 09:24 → AC 09:46 → ICU 13:47
PROVIDERS: Emergency Medicine; Admitting Provider Internal Medicine; Emergency Provider Emergency Medicine; PCP Family Medicine; Referring Provider Emergency Medicine; Visit Provider Internal Medicine
DX: I50.22 Chronic systolic (congestive) heart failure (principal); R41.82 Altered mental status, unspecified; E11.9 Type 2 diabetes mellitus without complications; E78.5 Hyperlipidemia, unspecified; E11.22 Type 2 diabetes mellitus with diabetic chronic kidney disease; N18.4 Chronic kidney disease, stage 4 (severe); R62.7 Adult failure to thrive; E03.9 Hypothyroidism, unspecified; G40.909 Epilepsy, unspecified, not intractable, without status epilepticus; I25.10 Atherosclerotic heart disease of native coronary artery without angina pectoris; E66.01 Morbid (severe) obesity due to excess calories; Z22.322 Carrier or suspected carrier of Methicillin resistant Staphylococcus aureus; Z66 Do not resuscitate; Z79.4 Long term (current) use of insulin; Z20.822 Contact with and (suspected) exposure to COVID-19
CPT/HCPCS: 36415; 70450; 71045; 80048; 80053; 81001; 82550; 82962; 83605; 83690; 83735; 83880; 84443; 84484; 85025; 85610; 87040; 87077; 87086; 87635; 87797; 93005; 96361; 96365; 96366; 96372; 97166; 99285; C9803; G0378; J0696; J1644; J1815

== ENCOUNTER → 2022-02-09 21:13 | Outpatient (ROUT) | payer OTHER, MEDICAID, SELFPAY ==
[2022-01-11 22:30] VITALS: PULSE 80; RESP 18; O2SAT 98
[2022-01-23 10:03] VITALS: BMI 47.8
[2022-02-09 21:24] LABS: Add Manual Diff / Slide Review NO; Basophils Absolute Auto 100 /uL (0-100); Basophils Percent Auto 1.3 % (0-2); Eosinophils Absolute Auto 200 /uL (0-450); Eosinophils Percent Auto 2.7 % (2-4); Hematocrit 33.3 % (36-46); Hemoglobin 11.2 g/dL (12.0-16.0); Lymphocytes Absolute Auto 1200 /uL (1100-4500); Lymphocytes Percent Auto 15.9 % (25-40); Mean Corpuscular HGB Conc 33.5 % (30-36); Mean Corpuscular Hemoglobin 30.3 PG (26-34); Mean Corpuscular Volume 90.5 fL (80-100); Monocytes Absolute Auto 1000 /uL (0-900); Monocytes Percent Auto 13.7 % (3-14); Neutrophils Absolute Auto 5000 /uL (1500-7000); Neutrophils Percent Auto 66.4 % (50-75); Platelet Count 260 X10^3/uL (150-400); Red Blood Cell Count 3.68 X10^6/uL (4.0-5.2); Red Cell Distribution Width 16.5 % (11.6-14.8); White Blood Cell Count 7.5 X10^3/uL (4.5-11.0)
[2022-02-09 21:42] LABS: Alanine Aminotransferase 30 IU/L (<35); Albumin 3.9 g/dL (3.5-5.0); Albumin Globulin Ratio 0.8 (1.0-2.8); Alkaline Phosphatase 88 U/L (38-126); Aspartate Aminotransferase 51 IU/L (14-36); BUN Creatinine Ratio 18.6 (6-22); Bilirubin Total 0.4 mg/dL (0.2-1.3); Blood Urea Nitrogen 32 mg/dL (7-17); Calcium 10.3 mg/dL (8.4-10.2); Carbon Dioxide 38 mmol/L (22-32); Chloride 95 mmol/L (98-107); Globulin 4.6 g/dL (1.7-4.1); Glucose 175 mg/dL (80-110); Potassium 3.9 mmol/L (3.4-5.1); Sodium 139 mmol/L (137-145); Total Protein 8.5 g/dL (6.3-8.2)
[2022-02-09 22:18] LABS: HEMOLYSIS < 15 (0-50); Prolactin 21.4 ng/mL (3.0-18.6)
== END ==
PROVIDERS: PCP Family Medicine; Visit Provider Internal Medicine
DX: R41.82 Altered mental status, unspecified (principal)
CPT/HCPCS: 80053; 84146; 85025

== ENCOUNTER → 2022-02-13 15:42 | Outpatient (CLI) | payer OTHER, MEDICAID, SELFPAY ==
[2022-01-11 22:30] VITALS: PULSE 80; RESP 18; O2SAT 98
[2022-01-23 10:03] VITALS: BMI 47.8
--- NOTE | 2022-02-13 | DI.RAD.S_ITS ---
PROCEDURE: XR CHEST 2V INDICATIONS: COUGH TECHNIQUE: 2 views of the chest were acquired. COMPARISON: [facility], CR, XR CHEST 1V, 01/23/2022, 6:13. FINDINGS: Surgical changes and devices: Left chest wall pacemaker leads are in the region of right atrium, right ventricle and left ventricle. Prosthetic heart valve is also seen. Lungs and pleura: There is pulmonary vascular congestion. Blunting of left costophrenic angle is noted suggestive of small to moderate left pleural effusion. No definite focal infiltrate. No gross pneumothorax.. Mediastinum: Mediastinal contours are normal. Heart size is enlarged. Bones and chest wall: No suspicious bony abnormalities. Soft tissues appear unremarkable. IMPRESSION: Cardiomegaly and pulmonary vascular congestion. Small to moderate left pleural effusion. No definite focal infiltrate or pneumothorax. Dictated by: Tommy Porter M.D. on 02/13/2022 at 16:12 Approved by: Tommy Porter M.D. on 02/13/2022 at 16:13
== END ==
PROVIDERS: PCP Family Medicine; Referring Provider Nurse Practitioner Family; Visit Provider Nurse Practitioner Family
DX: J90 Pleural effusion, not elsewhere classified (principal); R09.89 Other specified symptoms and signs involving the circulatory and respiratory systems; I51.7 Cardiomegaly; R05.9 Cough, unspecified
CPT/HCPCS: 71046

== ENCOUNTER 2022-02-20 10:26 | Emergency (ER) | payer OTHER, MEDICAID, SELFPAY ==
[2022-01-11 22:30] VITALS: PULSE 80; RESP 18; O2SAT 98
[2022-01-23 10:03] VITALS: BMI 47.8
[2022-02-20] VITALS (9 sets, daily range): BP systolic 98–112; BP diastolic 50–67; PULSE 80–86; RESP 15–23; TEMP 36.8; O2SAT 90–94
--- NOTE | 2022-02-20 10:56 | ED_ITS ---
HPI - General Adult General Chief complaint: Altered Mental Status Stated complaint: O2 stat/unresponsive Time Seen by Provider: 02/20/22 10:53 Source: patient and EMS Mode of arrival: EMS Limitations: no limitations History of Present Illness HPI narrative: The patient is a 76-year-old female who is sent over from her living facility for evaluation of hypoxia and decreased responsiveness. Patient does have a history of sleep apnea. The recommendations are as that she wears her CPAP at night and when she is napping however it appears that she occasionally refuses to do this. Is reported that last evening she did not wear her CPAP and when nursing staff came to see her this morning they found that she was hypoxic and was not as responsive as normal. EMS was called. When they arrived they stim ulated her more and placed her on oxygen and she seem to improve. Despite this patient was transferred here to the ER. Here in the ER she knows that she is in the hospital. She reports no specific symptoms. Related Data Home Medications Medication Instructions Recorded Confirmed cholecalciferol (vitamin D3) 25 5,000 unit PO DAILY 09/07/19 01/23/22 mcg (1,000 unit) tablet linagliptin 5 mg tablet (Tradjenta) 5 mg PO DAILY 09/07/19 01/23/22 potassium chloride 10 mEq 10 meq PO DAILY 09/07/19 01/23/22 tablet,extended release gabapentin 300 mg capsule 300 mg PO TID 10/20/19 01/23/22 levetiracetam 250 mg tablet 500 mg PO BID 10/20/19 01/23/22 primidone 50 mg tablet 75 mg PO BID 10/20/19 01/23/22 torsemide 20 mg tablet 40 mg PO DAILY 01/06/22 01/23/22 calcium carbonate 500 mg calcium 500 - 1,000 mg PO Q6H PRN 01/17/22 01/23/22 (1,250 mg) chewable tablet cyanocobalamin (vitamin B-12) 1,000 mcg IM QMONTH 01/17/22 01/23/22 1,000 mcg/mL injection solution insulin aspart U-100 100 unit/mL 12 unit SUBCUT QAM 01/17/22 01/23/22 (3 mL) subcutaneous pen (Novolog Flexpen U-100 Insulin aspart) insulin aspart U-100 100 unit/mL 14 unit SUBCUT BID 01/17/22 01/23/22 (3 mL) subcutaneous pen (Novolog Flexpen U-100 Insulin aspart) insulin glargine 100 unit/mL (3 40 unit SUBCUT BEDTIME 01/17/22 01/23/22 mL) subcutaneous pen (Lantus Solostar U-100 Insulin) nystatin-emollient combo no.54 1 g TOPICAL BID 01/17/22 01/23/22 100,000 unit/gram topical cream polyvinyl alcohol-povidone (PF) 2 drp OPHTHALMIC (EYE) BID PRN 01/17/22 01/23/22 1.4 %-0.6 % eye drops in a dropperette primidone 50 mg tablet 100 mg PO QAM 01/17/22 01/23/22 calcitriol 0.25 mcg capsule 0.5 mcg PO DAILY 01/23/22 01/23/22 donepezil 5 mg tablet 5 mg PO DAILY 01/23/22 01/23/22 fluoxetine 20 mg capsule 20 mg PO DAILY 01/23/22 01/23/22 fluticasone propionate 50 50 mcg INTRANASAL DAILY 01/23/22 01/23/22 mcg/actuation nasal spray,suspension Previous Rx's Medication Instructions Recorded carvedilol 3.125 mg tablet 12.5 mg PO BID #0 tab 01/12/22 aspirin 81 mg tablet,delayed 81 mg PO DAILY #30 tab 01/22/22 release atorvastatin 20 mg tablet (Lipitor) 40 mg PO BEDTIME #30 tab 01/22/22 levothyroxine 100 mcg tablet 200 mcg PO 0600 #30 tab 01/22/22 (Synthroid) hydrocodone 10 mg-acetaminophen 1 tab PO Q4HR PRN #20 tab 01/25/22 325 mg tablet liothyronine 5 mcg tablet (Cytomel) 10 mcg PO DAILY #30 tab 01/25/22 magnesium oxide 400 mg (241.3 mg 400 mg PO BID #60 tab 01/25/22 magnesium) tablet Allergies Allergy/AdvReac Type Severity Reaction Status Date / Time adhesive tape Allergy Verified 02/20/22 10:53 allopurinol Allergy Verified 02/20/22 10:53 Review of Systems Constitutional Constitutional: Denies fever(s) Cardiovascular Cardiovascular: Reports as per HPI and Reports system reviewed and no additional complaints, except as documented Respiratory Respiratory: Reports as per HPI and Reports system reviewed and no additional complaints, except as documented Integumentary/Breasts Skin/Breast: Reports system reviewed and no additional complaints, except as documented Hematologic/Lymphatic On Anticoagulants: No Patient History Medical History CAD (coronary artery disease) Chronic hypercapnic respiratory failure Chronic systolic CHF (congestive heart failure) CKD (chronic kidney disease) CVA (cerebral vascular accident) Dementia Diabetes mellitus type 2 in obese GERD (gastroesophageal reflux disease) Heart failure, unspecified Hyperlipidemia Hypertension Hypothyroid Morbid obesity with alveolar hypoventilation Non Hodgkin's lymphoma Pacemaker Thyroid cancer Tremor, unspecified Surgical History History of cholecystectomy History of thyroidectomy Hx of tonsillectomy S/P TAVR (transcatheter aortic valve replacement) Family History Mother Dementia Father Heart attack Social History household members: none Smoking Status: Never smoker alcohol intake: never Smoking Status: Never smoker alcohol intake frequency: 0-2 drinks per day Substance Use Type: does not use Exam Initial Vital Signs Initial Vital Signs: Vital Signs Pulse Rate 81 02/20/22 10:36 Respiratory Rate 19 02/20/22 10:36 Blood Pressure 105/66 02/20/22 10:36 Pulse Oximetry 93 02/20/22 10:36 HENMT Head: normal to inspection and normocephalic Resp Effort & Inspection: normal respiratory effort and tachypneic Auscultation: clear to auscultation bilaterally Cardio Rate: regular rate Rhythm: regular rhythm Neuro General: patient alert, patient awake, patient oriented x3 and moves all extremities Extrem General: capillary refill normal Course Orders Ordered: ED Orders 02/20/22 10:44 EKG-12 Lead Routine Vital Signs Vital signs: Vital Signs - 8 hr 02/20/22 12:00 02/20/22 12:30 02/20/22 13:00 Pulse Rate 83 83 82 Respiratory Rate 19 19 17 Blood Pressure 98/55 L 107/53 L Pulse Oximetry 92 90 L 93 02/20/22 13:01 Pulse Rate 81 Respiratory Rate 15 Blood Pressure 98/50 L Pulse Oximetry 93 Medical Decision Making ECG Data Attestation: I personally reviewed and interpreted this ECG as follows: Interpretation: Ventricularly paced Rate of 82 MDM Narrative Medical decision making narrative: Here in the emergency department patient was satting in the mid to upper 90s on 2 L by nasal cannula. She is alert oriented x3. Denies any specific symptoms to include chest pain or shortness of breath. No cough. Low suspicion for pneumonia. Patient able to tolerate oral intake. Patient is a DNR per paperwork that arrived from the living facility. I suspect that heard somnolence this morning was related to her not being on the CPAP overnight. I do encourage CPAP use. Will discharge home. Discharge Plan Departure Patient Disposition: Home Clinical Impression: Shortness of breath Instructions: DI for Shortness of Breath Activity Restrictions/Additional Instructions: She can continue all of her medications as directed and I do recommend that she is encouraged to use her CPAP machine especially at night. She can use the oxygen by nasal cannula as needed. Contact her primary doctor for follow-up. Prescriptions: No Action potassium chloride 10 mEq Tablet Extended Release 10 meq PO DAILY 0RF cholecalciferol (vitamin D3) 1,000 unit (25 mcg) Tablet 5,000 unit PO DAILY 0RF Tradjenta 5 mg Tablet 5 mg PO DAILY 0RF primidone 50 mg Tablet 75 mg PO BID 0RF Rx Instructions: takes at 1500 & bedtime levetiracetam 250 mg Tablet 500 mg PO BID 0RF gabapentin 300 mg Capsule 300 mg PO TID 0RF primidone 50 mg Tablet 100 mg PO QAM 0RF nystatin-emollient combo no.54 100,000 unit/gram Cream 1 g TOPICAL BID 0RF Rx Instructions: apply to abdominal folds cyanocobalamin (vitamin B-12) 1,000 mcg/mL Solution 1,000 mcg IM QMONTH 0RF calcium carbonate 500 mg calcium (1,250 mg) Tablet,Chewable 500 - 1,000 mg PO Q6H PRN (Reason: mild to moderate heartburn) 0RF polyvinyl alcohol-povidon(PF) 1.4-0.6 % Dropperette 2 drp OPHTHALMIC (EYE) BID PRN (Reason: Dry Eyes) 0RF insulin aspart U-100 [Novolog Flexpen U-100 Insulin] 100 unit/mL (3 mL) Insulin Pen 12 unit SUBCUT QAM 0RF Rx Instructions: in a.m. insulin aspart U-100 [Novolog Flexpen U-100 Insulin] 100 unit/mL (3 mL) Insulin Pen 14 unit SUBCUT BID 0RF Rx Instructions: takes at 1200 & 1700 Lantus Solostar U-100 Insulin 100 unit/mL (3 mL) Insulin Pen 40 unit SUBCUT BEDTIME 0RF atorvastatin [Lipitor] 20 mg Tablet 40 mg PO BEDTIME Qty: 30 0RF aspirin 81 mg Tablet,Delayed Release (Dr/Ec) 81 mg PO DAILY Qty: 30 0RF levothyroxine [Synthroid] 100 mcg Tablet 200 mcg PO 0600 Qty: 30 0RF fluoxetine 20 mg capsule 20 mg PO DAILY 0RF donepezil 5 mg tablet 5 mg PO DAILY 0RF fluticasone propionate 50 mcg/actuation spray,suspension 50 mcg INTRANASAL DAILY 0RF calcitriol 0.25 mcg capsule 0.5 mcg PO DAILY 0RF hydrocodone-acetaminophen 10-325 mg Tablet 1 tab PO Q4HR PRN (Reason: Pain, Moderate (4-6)) Qty: 20 0RF liothyronine [Cytomel] 5 mcg Tablet 10 mcg PO DAILY Qty: 30 0RF magnesium oxide 400 mg (241.3 mg magnesium) Tablet 400 mg PO BID Qty: 60 0RF torsemide 20 mg tablet 40 mg PO DAILY 0RF carvedilol 3.125 mg Tablet 12.5 mg PO BID Qty: 0 0RF Referrals: Kinsey Bose MD [Primary Care Provider] -
--- NOTE | 2022-02-20 12:22 | PC.NURSE ---
Pts AMS resolved prior to arrival.
== END 2022-02-20 13:40 | disposition home or self-care (01) ==
PROVIDERS: Emergency Provider Emergency Medicine; PCP Family Medicine
DX: R06.02 Shortness of breath (principal); Z66 Do not resuscitate
CPT/HCPCS: 36415; 93005; 99283

== ENCOUNTER 2022-02-27 09:26 | Inpatient (IN) | payer OTHER, MEDICAID, SELFPAY ==
[2022-01-11 22:30] VITALS: PULSE 80; RESP 18; O2SAT 98
[2022-01-23 10:03] VITALS: BMI 47.8
[2022-02-27] VITALS (19 sets, daily range): BP systolic 99–127; BP diastolic 44–65; PULSE 76–93; RESP 14–22; TEMP 35.7–36.7; O2SAT 92–100; BMI 44.4
--- NOTE | 2022-02-27 09:36 | ED.SOB ---
HPI - SOB/Dyspnea General Chief Complaint: Neuro Symptoms/Deficit Stated Complaint: Increased Sputum Time Seen by Provider: 02/27/22 09:35 Source: patient, EMS and old records reviewed Mode of arrival: EMS Limitations: altered mental status History of Present Illness HPI Narrative: This is a 76-year-old female brought from [facility] for intermittent hypoxia particularly while asleep and decreased responsiveness. Patient has a history of sleep apnea she has a CPAP but occasionally wears refuses to wear this. Unclear if she were last night but was noted to have O2 sats in the 80s overnight. While awake she was in the low 90s. She has been noted by her staff to have a known pleural effusion, CHF and has had increasing frothy sputum, she does have some morbid obesity and likely hypoventilation syndrome as well. She had a BNP in the 3000 range 2 days ago and they increased her torsemide but has not had much improvement and they states she is normally alert although has some possible dementia but her mental status is decreased today compared to her normal. No reported fevers, patient response to verbal stimuli, she follows commands but does moan intermittently. She states yes she has pain but is unable to give me a location. She does not answer questions fully and review of symptoms. Related Data Home Medications Medication Instructions Recorded Confirmed cholecalciferol (vitamin D3) 25 5,000 unit PO DAILY 09/07/19 02/27/22 mcg (1,000 unit) tablet linagliptin 5 mg tablet (Tradjenta) 5 mg PO DAILY 09/07/19 02/27/22 potassium chloride 10 mEq 10 meq PO DAILY 09/07/19 02/27/22 tablet,extended release levetiracetam 250 mg tablet 500 mg PO BID 10/20/19 02/27/22 primidone 50 mg tablet 75 mg PO BID 10/20/19 02/27/22 torsemide 20 mg tablet 60 mg PO DAILY 01/06/22 02/27/22 calcium carbonate 500 mg calcium 500 - 1,000 mg PO Q6H PRN 01/17/22 02/27/22 (1,250 mg) chewable tablet cyanocobalamin (vitamin B-12) 1,000 mcg IM QMONTH 01/17/22 02/27/22 1,000 mcg/mL injection solution insulin glargine 100 unit/mL (3 50 unit SUBCUT BEDTIME 01/17/22 02/27/22 mL) subcutaneous pen (Lantus Solostar U-100 Insulin) nystatin-emollient combo no.54 1 g TOPICAL BID 01/17/22 02/27/22 100,000 unit/gram topical cream polyvinyl alcohol-povidone (PF) 2 drp OPHTHALMIC (EYE) BID PRN 01/17/22 02/27/22 1.4 %-0.6 % eye drops in a dropperette primidone 50 mg tablet 100 mg PO QAM 01/17/22 02/27/22 calcitriol 0.25 mcg capsule 0.5 mcg PO DAILY 01/23/22 02/27/22 donepezil 5 mg tablet 5 mg PO DAILY 01/23/22 02/27/22 fluoxetine 20 mg capsule 20 mg PO DAILY 01/23/22 02/27/22 fluticasone propionate 50 50 mcg INTRANASAL DAILY 01/23/22 02/27/22 mcg/actuation nasal spray,suspension hydrocodone 10 mg-acetaminophen 1 tab PO Q4HR PRN 02/27/22 02/27/22 325 mg tablet hydrocodone 10 mg-acetaminophen 1 tab PO Q4HR PRN 02/27/22 02/27/22 325 mg tablet insulin aspart U-100 100 unit/mL See Rx Instructions .ROUTE .COMPLEX 02/27/22 02/27/22 subcutaneous solution (Novolog U-100 Insulin aspart) insulin glargine 100 unit/mL 15 unit SUBCUT QAM 02/27/22 02/27/22 subcutaneous solution (Lantus U-100 Insulin) levothyroxine 100 mcg tablet 225 mcg PO 0600 02/27/22 02/27/22 (Synthroid) Previous Rx's Medication Instructions Recorded carvedilol 3.125 mg tablet 12.5 mg PO BID #0 tab 01/12/22 aspirin 81 mg tablet,delayed 81 mg PO DAILY #30 tab 01/22/22 release atorvastatin 20 mg tablet (Lipitor) 40 mg PO BEDTIME #30 tab 01/22/22 liothyronine 5 mcg tablet (Cytomel) 10 mcg PO DAILY #30 tab 01/25/22 magnesium oxide 400 mg (241.3 mg 400 mg PO BID #60 tab 01/25/22 magnesium) tablet Allergies Allergy/AdvReac Type Severity Reaction Status Date / Time adhesive tape Allergy Verified 02/27/22 09:36 allopurinol Allergy Verified 02/27/22 09:36 Review of Systems Review of Systems ROS Unobtainable: Unobtainable due to mental status/LOC Patient History Medical History CAD (coronary artery disease) Chronic hypercapnic respiratory failure Chronic systolic CHF (congestive heart failure) CKD (chronic kidney disease) CVA (cerebral vascular accident) Dementia Diabetes mellitus type 2 in obese GERD (gastroesophageal reflux disease) Heart failure, unspecified Hyperlipidemia Hypertension Hypothyroid Morbid obesity with alveolar hypoventilation Non Hodgkin's lymphoma Pacemaker Thyroid cancer Tremor, unspecified Surgical History History of cholecystectomy History of thyroidectomy Hx of tonsillectomy S/P TAVR (transcatheter aortic valve replacement) Family History Mother Dementia Father Heart attack Social History household members: none Smoking Status: Never smoker alcohol intake: never Smoking Status: Never smoker alcohol intake frequency: 0-2 drinks per day Substance Use Type: does not use Exam Narrative Exam Narrative: GEN: Obese female, patient alert sits with her eyes closed full will open them to verbal stimuli, she can tell me her name, she can answer some questions but will trail off when answering or asking questions over prolonged period of time, patient appears to be in moderate distress. HEENT: Atraumatic, pupils are equal round reactive to light, extraocular movements are intact, nares are clear, there is no conjunctival pallor. Throat is clear without any exudates, erythema, tonsillar enlargement or uvular deviation, dry mucous membranes. HEART: Regular rate and rhythm without murmur, clicks, rubs. Pulses are equal in upper and lower extremities LUNGS:Lungs decreased breath sounds bilaterally but likely secondary to body habitus picking exam difficult, no wheezes, rales, crackles, chest moves symmetrically, no tachypnea accessory muscle use. Patient is on 4 L upon arrival is 99%, attempting to wean down to evaluate room air oxygen saturation. ABD:bowel sounds normal, soft, non-tender, no guarding, rebound, rigidity, no masses noted, no hepatosplenomegaly :No CVA tenderness MSCL: Non-tender, no muscle atrophy, patient has normal range of motion upper extremities. She does have a bandage on her right calf. She 70 warmth erythema or skin changes otherwise. NEURO:CN 2-12 intact, sensation normal Initial Vital Signs Initial Vital Signs: Vital Signs Temperature 98.1 F 02/27/22 09:30 Pulse Rate 78 02/27/22 09:30 Respiratory Rate 15 02/27/22 09:30 Blood Pressure 127/63 02/27/22 09:30 Pulse Oximetry 98 02/27/22 09:30 Scores GCS Maggie coma scale eye opening: To sound [place] coma scale verbal response: Confused [place] coma scale motor response: Obey commands [place] coma scale total score: 13 Course Orders Ordered: Acetaminophen (Acetaminophen 325 Mg Tablet) 650 mg PO Q6HR PRN PRN Reason: pain Aspirin (Aspirin Ec 81 Mg Tablet) 81 mg PO DAILY [facility] Atorvastatin Calcium (Atorvastatin 20 Mg Tablet) 40 mg PO BEDTIME [facility] Calcitonin [place] (Calcitonin,[place] 400 Units/2 Ml Mdv) 500 units SUBCUT BID [facility] Last Admin: 02/27/22 18:07 Dose: 500 units Documented by: CASSANDRA Carvedilol (Carvedilol 12.5 Mg Tablet) 12.5 mg PO BID [facility] Donepezil HCl (Donepezil 5 Mg Tablet) 5 mg PO DAILY [facility] Fluoxetine HCl (Fluoxetine 20 Mg Capsule) 20 mg PO DAILY [facility] Heparin Sodium (Porcine) (Heparin 5,000 Unit/Ml Vial) 5,000 unit SUBCUT BID [facility] Ceftriaxone Sodium 1,000 mg/ (Sodium Chloride) 100 mls @ 200 mls/hr IV Q24H [facility] Last Admin: 02/27/22 16:55 Dose: 200 mls/hr Documented by: TOM Sodium Chloride (Normal Saline 0.9%) 1,000 mls @ 100 mls/hr IV CONT [facility] Last Admin: 02/27/22 16:57 Dose: 100 mls/hr Documented by: TOM Dextrose (D10w) 250 mls @ 999 mls/hr IV PRN PRN PRN Reason: Hypoglycemia Insulin Glargine (Insulin Glargine 100 Unit/Ml 3ml Pen) 15 unit SUBCUT DAILY [facility] Insulin Glargine (Insulin Glargine 100 Unit/Ml 3ml Pen) 50 unit SUBCUT BEDTIME [facility] Insulin Human Lispro (Insulin Lispro 100 Unit/Ml 3ml Vial) 0 unit SUBCUT ACHS SHANI; Protocol Last Admin: 02/27/22 17:15 Dose: Not Given Documented by: CPERADHA Levetiracetam (Levetiracetam 250 Mg Tablet) 500 mg PO BID [facility] Levothyroxine Sodium (Levothyroxine 100 Mcg Tablet) 225 mcg PO 0600 [facility] Liothyronine Sodium (Liothyronine 5 Mcg Tablet) 10 mcg PO DAILY@0600 [facility] Ondansetron HCl (Ondansetron 4 Mg/2 Ml Inj) 4 mg IV Q8HR PRN PRN Reason: Nausea And Vomiting Primidone (Primidone 50 Mg Tablet) 75 mg PO BID@1500,2100 [facility] Primidone (Primidone 50 Mg Tablet) 100 mg PO DAILY [facility] Discontinued Medications Furosemide (Furosemide 100 Mg/10 Ml Vial) 80 mg IV NOW ONE Stop: 02/27/22 10:34 Last Admin: 02/27/22 10:51 Dose: 80 mg Documented by: SREEKANTH Sodium Chloride (Normal Saline 0.9%) 1,000 mls @ 1,000 mls/hr IV BOLUS ONE Stop: 02/27/22 11:32 Last Infusion: 02/27/22 14:28 Dose: 0 mls/hr Documented by: Admin: 02/27/22 10:50 Dose: 1,000 mls/hr Documented by: SREEKANTH Reevaluation(s) Reevaluation #1: Recheck patient continues to be decrease in her mental status but responds to verbal stimuli. Time: 11:45 Reevaluation #2: Spoke with daughter at bedside after speaking with hospitalist. There has been discussion of hospice but no decision has been made. Discussed would probably treat her hypercalcemia and evaluate overnight into today to make final decision if they would wish for comfort measures or hospice. Did discuss with daughter it would be very appropriate to have consultation with hospice to get a better understanding of what is available in this might be helpful to the daughter to make a final decision. She is the main decision maker to the patient. Consultations Consultation #1: Dr. Barbosa accepts for admission. Patient has hypercalcemia, acute kidney injury on her chronic kidney disease. She does have altered mental status. Does not appear to be hypoventilating today in terms of oxygen but CO2 is mildly elevated in the 50s. Suspect her mental status changes are secondary to hypercalcemia given fluids and Lasix. Time: 11:45 Vital Signs Vital signs: Vital Signs - 8 hr 02/27/22 09:30 Temperature 98.1 F Pulse Rate 78 Respiratory Rate 15 Blood Pressure 127/63 Pulse Oximetry 98 MDM - SOB/Dyspnea Lab Data Result diagrams: 02/27/22 09:40 02/27/22 15:49 Labs: Lab Results 02/27/22 02/27/22 02/27/22 Range/Units 09:40 09:40 09:40 WBC 7.4 (4.5-11.0) X10^3/uL RBC 4.22 (4.0-5.2) X10^6/uL Hgb 12.4 (12.0-16.0) g/dL Hct 38.5 (36-46) % MCV 91.3 (80-100) fL MCH 29.4 (26-34) PG MCHC 32.2 (30-36) % RDW 16.5 H (11.6-14.8) % Plt Count 253 (150-400) X10^3/uL Neut % (Auto) 68.8 (50-75) % Lymph % (Auto) 13.1 L (25-40) % [place] % (Auto) 14.5 H (3-14) % Eos % (Auto) 2.3 (2-4) % Baso % (Auto) 1.3 (0-2) % Neut # (Auto) 5100 (5619-6860) /uL Lymph # (Auto) 1000 L (5063-1005) /uL [place] # (Auto) 1100 H (0-900) /uL Eos # (Auto) 200 (0-450) /uL Baso # (Auto) 100 (0-100) /uL PT 16.0 H (10.1-12.7) SECONDS INR 1.4 H (0.9-1.3) APTT 35 D (26.4-36.2) SECONDS ABG pH (7.35-7.45) ABG pCO2 (35-45) mmHg ABG pO2 (80-100) mmHg ABG HCO3 (22-26) mmol/L ABG Total CO2 (21-31) mmol/L ABG O2 Saturation (95-100) % ABG Base Excess (-2-2) mmol/L FiO2 Sodium (137-145) mmol/L Potassium (3.4-5.1) mmol/L Chloride (98-107) mmol/L Carbon Dioxide (22-32) mmol/L BUN (7-17) mg/dL Creatinine (0.52-1.04) mg/dL Estimated GFR (>60) mL/min BUN/Creatinine Ratio (6-22) Glucose (80-110) mg/dL Lactate (0.7-2.1) mmol/L Calcium (8.4-10.2) mg/dL Phosphorus (2.8-4.1) mg/dL Magnesium 2.4 H (1.6-2.3) mg/dL Total Bilirubin (0.2-1.3) mg/dL AST (14-36) IU/L ALT (<35) IU/L Alkaline Phosphatase (38-126) U/L Total Creatine Kinase 34 (30-135) U/L CK-MB (CK-2) TNP CK-MB (CK-2) Rel Index TNP Troponin I 0.044 H (0.01-0.034) ng/mL NT-Pro-B Natriuret Pep 6170 H (<125) pg/mL Total Protein (6.3-8.2) g/dL Albumin (3.5-5.0) g/dL Globulin (1.7-4.1) g/dL Albumin/Globulin Ratio (1.0-2.8) 25-OH Vitamin D Total (30.0-100.0) ng/mL Procalcitonin 0.20 (<0.5) ng/mL TSH (0.47-4.68) uIU/mL Chlamy pneumoniae PCR (Not Detect) Adenovirus (PCR) (Not Detect) B. pertussis DNA (PCR) (Not Detecte) B.parapertussis DNA PCR (Not Detecte) Coronavirus OC43 (PCR) (Not Detect) Coronavirus HKU1 (PCR) (Not Detect) Coronavirus 229E (PCR) (Not Detect) SARS-CoV-2 (PCR) (Not Detecte) Coronavirus NL63 (PCR) (Not Detect) Human Metapneumovir PCR (Not Detect) Influenza Type A (PCR) (Not Detect) Influenza Type B (PCR) (Not Detect) M. pneumoniae (PCR) (Not Detect) Parainfluenza 1 (PCR) (Not Detect) Parainfluenza 2 (PCR) (Not Detect) Parainfluenza 3 (PCR) (Not Detect) Parainfluenza 4 (PCR) (Not Detect) RSV (PCR) (Not Detect) Entero/Rhino (PCR) (Not Detect) 02/27/22 02/27/22 02/27/22 Range/Units 09:40 09:40 09:40 WBC (4.5-11.0) X10^3/uL RBC (4.0-5.2) X10^6/uL Hgb (12.0-16.0) g/dL Hct (36-46) % MCV (80-100) fL MCH (26-34) PG MCHC (30-36) % RDW (11.6-14.8) % Plt Count (150-400) X10^3/uL Neut % (Auto) (50-75) % Lymph % (Auto) (25-40) % [place] % (Auto) (3-14) % Eos % (Auto) (2-4) % Baso % (Auto) (0-2) % Neut # (Auto) (7682-7631) /uL Lymph # (Auto) (9734-8484) /uL [place] # (Auto) (0-900) /uL Eos # (Auto) (0-450) /uL Baso # (Auto) (0-100) /uL PT (10.1-12.7) SECONDS INR (0.9-1.3) APTT (26.4-36.2) SECONDS ABG pH (7.35-7.45) ABG pCO2 (35-45) mmHg ABG pO2 (80-100) mmHg ABG HCO3 (22-26) mmol/L ABG Total CO2 (21-31) mmol/L ABG O2 Saturation (95-100) % ABG Base Excess (-2-2) mmol/L FiO2 Sodium 148 H (137-145) mmol/L Potassium 4.1 (3.4-5.1) mmol/L Chloride 96 L (98-107) mmol/L Carbon Dioxide 37 H (22-32) mmol/L BUN 37 H (7-17) mg/dL Creatinine 2.21 H (0.52-1.04) mg/dL Estimated GFR 21.7 L (>60) mL/min BUN/Creatinine Ratio 16.7 (6-22) Glucose 123 H (80-110) mg/dL Lactate 1.3 (0.7-2.1) mmol/L Calcium 13.5 H* (8.4-10.2) mg/dL Phosphorus (2.8-4.1) mg/dL Magnesium (1.6-2.3) mg/dL Total Bilirubin 0.6 (0.2-1.3) mg/dL AST 37 H (14-36) IU/L ALT 14 (<35) IU/L Alkaline Phosphatase 105 (38-126) U/L Total Creatine Kinase (30-135) U/L CK-MB (CK-2) CK-MB (CK-2) Rel Index Troponin I (0.01-0.034) ng/mL NT-Pro-B Natriuret Pep (<125) pg/mL Total Protein 9.5 H (6.3-8.2) g/dL Albumin 4.3 (3.5-5.0) g/dL Globulin 5.2 H (1.7-4.1) g/dL Albumin/Globulin Ratio 0.8 L (1.0-2.8) 25-OH Vitamin D Total (30.0-100.0) ng/mL Procalcitonin (<0.5) ng/mL TSH 93.1 H (0.47-4.68) uIU/mL Chlamy pneumoniae PCR (Not Detect) Adenovirus (PCR) (Not Detect) B. pertussis DNA (PCR) (Not Detecte) B.parapertussis DNA PCR (Not Detecte) Coronavirus OC43 (PCR) (Not Detect) Coronavirus HKU1 (PCR) (Not Detect) Coronavirus 229E (PCR) (Not Detect) SARS-CoV-2 (PCR) (Not Detecte) Coronavirus NL63 (PCR) (Not Detect) Human Metapneumovir PCR (Not Detect) Influenza Type A (PCR) (Not Detect) Influenza Type B (PCR) (Not Detect) M. pneumoniae (PCR) (Not Detect) Parainfluenza 1 (PCR) (Not Detect) Parainfluenza 2 (PCR) (Not Detect) Parainfluenza 3 (PCR) (Not Detect) Parainfluenza 4 (PCR) (Not Detect) RSV (PCR) (Not Detect) Entero/Rhino (PCR) (Not Detect) 02/27/22 02/27/22 02/27/22 Range/Units 09:40 09:40 09:47 WBC (4.5-11.0) X10^3/uL RBC (4.0-5.2) X10^6/uL Hgb (12.0-16.0) g/dL Hct (36-46) % MCV (80-100) fL MCH (26-34) PG MCHC (30-36) % RDW (11.6-14.8) % Plt Count (150-400) X10^3/uL Neut % (Auto) (50-75) % Lymph % (Auto) (25-40) % [place] % (Auto) (3-14) % Eos % (Auto) (2-4) % Baso % (Auto) (0-2) % Neut # (Auto) (1323-6747) /uL Lymph # (Auto) (5789-4610) /uL [place] # (Auto) (0-900) /uL Eos # (Auto) (0-450) /uL Baso # (Auto) (0-100) /uL PT (10.1-12.7) SECONDS INR (0.9-1.3) APTT (26.4-36.2) SECONDS ABG pH 7.46 H (7.35-7.45) ABG pCO2 59.8 H (35-45) mmHg ABG pO2 80 (80-100) mmHg ABG HCO3 43 H (22-26) mmol/L ABG Total CO2 45 H (21-31) mmol/L ABG O2 Saturation 96 (95-100) % ABG Base Excess 19.0 H (-2-2) mmol/L FiO2 25 Sodium (137-145) mmol/L Potassium (3.4-5.1) mmol/L Chloride (98-107) mmol/L Carbon Dioxide (22-32) mmol/L BUN (7-17) mg/dL Creatinine (0.52-1.04) mg/dL Estimated GFR (>60) mL/min BUN/Creatinine Ratio (6-22) Glucose (80-110) mg/dL Lactate (0.7-2.1) mmol/L Calcium (8.4-10.2) mg/dL Phosphorus 4.0 (2.8-4.1) mg/dL Magnesium (1.6-2.3) mg/dL Total Bilirubin (0.2-1.3) mg/dL AST (14-36) IU/L ALT (<35) IU/L Alkaline Phosphatase (38-126) U/L Total Creatine Kinase (30-135) U/L CK-MB (CK-2) CK-MB (CK-2) Rel Index Troponin I (0.01-0.034) ng/mL NT-Pro-B Natriuret Pep (<125) pg/mL Total Protein (6.3-8.2) g/dL Albumin (3.5-5.0) g/dL Globulin (1.7-4.1) g/dL Albumin/Globulin Ratio (1.0-2.8) 25-OH Vitamin D Total 39.4 (30.0-100.0) ng/mL Procalcitonin (<0.5) ng/mL TSH (0.47-4.68) uIU/mL Chlamy pneumoniae PCR (Not Detect) Adenovirus (PCR) (Not Detect) B. pertussis DNA (PCR) (Not Detecte) B.parapertussis DNA PCR (Not Detecte) Coronavirus OC43 (PCR) (Not Detect) Coronavirus HKU1 (PCR) (Not Detect) Coronavirus 229E (PCR) (Not Detect) SARS-CoV-2 (PCR) (Not Detecte) Coronavirus NL63 (PCR) (Not Detect) Human Metapneumovir PCR (Not Detect) Influenza Type A (PCR) (Not Detect) Influenza Type B (PCR) (Not Detect) M. pneumoniae (PCR) (Not Detect) Parainfluenza 1 (PCR) (Not Detect) Parainfluenza 2 (PCR) (Not Detect) Parainfluenza 3 (PCR) (Not Detect) Parainfluenza 4 (PCR) (Not Detect) RSV (PCR) (Not Detect) Entero/Rhino (PCR) (Not Detect) 02/27/22 Range/Units 09:47 WBC (4.5-11.0) X10^3/uL RBC (4.0-5.2) X10^6/uL Hgb (12.0-16.0) g/dL Hct (36-46) % MCV (80-100) fL MCH (26-34) PG MCHC (30-36) % RDW (11.6-14.8) % Plt Count (150-400) X10^3/uL Neut % (Auto) (50-75) % Lymph % (Auto) (25-40) % [place] % (Auto) (3-14) % Eos % (Auto) (2-4) % Baso % (Auto) (0-2) % Neut # (Auto) (7684-7498) /uL Lymph # (Auto) (9660-9480) /uL [place] # (Auto) (0-900) /uL Eos # (Auto) (0-450) /uL Baso # (Auto) (0-100) /uL PT (10.1-12.7) SECONDS INR (0.9-1.3) APTT (26.4-36.2) SECONDS ABG pH (7.35-7.45) ABG pCO2 (35-45) mmHg ABG pO2 (80-100) mmHg ABG HCO3 (22-26) mmol/L ABG Total CO2 (21-31) mmol/L ABG O2 Saturation (95-100) % ABG Base Excess (-2-2) mmol/L FiO2 Sodium (137-145) mmol/L Potassium (3.4-5.1) mmol/L Chloride (98-107) mmol/L Carbon Dioxide (22-32) mmol/L BUN (7-17) mg/dL Creatinine (0.52-1.04) mg/dL Estimated GFR (>60) mL/min BUN/Creatinine Ratio (6-22) Glucose (80-110) mg/dL Lactate (0.7-2.1) mmol/L Calcium (8.4-10.2) mg/dL Phosphorus (2.8-4.1) mg/dL Magnesium (1.6-2.3) mg/dL Total Bilirubin (0.2-1.3) mg/dL AST (14-36) IU/L ALT (<35) IU/L Alkaline Phosphatase (38-126) U/L Total Creatine Kinase (30-135) U/L CK-MB (CK-2) CK-MB (CK-2) Rel Index Troponin I (0.01-0.034) ng/mL NT-Pro-B Natriuret Pep (<125) pg/mL Total Protein (6.3-8.2) g/dL Albumin (3.5-5.0) g/dL Globulin (1.7-4.1) g/dL Albumin/Globulin Ratio (1.0-2.8) 25-OH Vitamin D Total (30.0-100.0) ng/mL Procalcitonin (<0.5) ng/mL TSH (0.47-4.68) uIU/mL Chlamy pneumoniae PCR Not detected (Not Detect) Adenovirus (PCR) Not detected (Not Detect) B. pertussis DNA (PCR) Not detected (Not Detecte) B.parapertussis DNA PCR Not detected (Not Detecte) Coronavirus OC43 (PCR) Not detected (Not Detect) Coronavirus HKU1 (PCR) Not detected (Not Detect) Coronavirus 229E (PCR) Not detected (Not Detect) SARS-CoV-2 (PCR) Not detected (Not Detecte) Coronavirus NL63 (PCR) Not detected (Not Detect) Human Metapneumovir PCR Not detected (Not Detect) Influenza Type A (PCR) Not detected (Not Detect) Influenza Type B (PCR) Not detected (Not Detect) M. pneumoniae (PCR) Not detected (Not Detect) Parainfluenza 1 (PCR) Not detected (Not Detect) Parainfluenza 2 (PCR) Not detected (Not Detect) Parainfluenza 3 (PCR) Not detected (Not Detect) Parainfluenza 4 (PCR) Not detected (Not Detect) RSV (PCR) Not detected (Not Detect) Entero/Rhino (PCR) Not detected (Not Detect) Point of Care Testing Glucose POC 101 Imaging Data Chest x-ray: Radiologist's Impression: [address] [address] XRay Report Signed Patient: Enid Almanza MR#: [id number] : 1945 Acct:[id number] Age/Sex: 76 / F Date of Service: 02/27/22 Loc: ED Accession Number: [id number] ?? Procedure: XR chest 1V Ordering Provider: Maura Villeda D.O. PROCEDURE:? XR CHEST 1V ? INDICATIONS:? AMS, intermittent low O2 ? TECHNIQUE:? One view of the chest was acquired.? ? COMPARISON:? [facility], CT, CT ABDOMEN PELVIS W CON, 09/07/2019, 9:35.? [facility], CR, XR CHEST 2V, 02/13/2022, 15:36. ? FINDINGS:? ? Surgical changes and devices:? Redemonstrated left cardiac device.? ? Lungs and pleura:? Nonvisualization of the left costophrenic sulcus.? The remaining visualized lung zones appear well aerated.? No pneumothorax.? ? Mediastinum:? Mediastinal contours appear normal.? Heart size is normal.? ? Bones and chest wall:? No suspicious bony lesions.? Overlying soft tissues appear unremarkable.? ? IMPRESSION:? Nonvisualization of the left costophrenic sulcus, felt to represent soft tissue attenuation.? ? ? Dictated by: Hunter Rossi M.D. on 02/27/2022 at 10:44 ? ? Approved by: Hunter Rossi M.D. on 02/27/2022 at 10:47 CT scan - head: Radiologist's Impression: Enid Almanza??76??F??1945 ? Allergy/Adv: adhesive tape, allopurinol (More??) Close Head CT (Signed) Hunter Rossi - 02/27/22 Chest X-Ray (Signed) Hunter Rossi - 02/27/22 Chest X-Ray (Signed) Tommy Porter - 02/13/22 Telemetry Strips 01/23/[address] (Signed) Tommy Porter - 01/23/22 Chest X-Ray (Signed) Amrita White - 01/23/22 Chest X-Ray (Signed) Sotero Santos - 01/16/22 Telemetry Strips 01/16/22 Vascular Ultrasound (Signed) Tommy Porter - 01/10/22 Echocardiogram Ultrasound (Signed) Geovanny Nazario - 01/10/22 Telemetry Strips 01/06/22 Telemetry Strips 01/06/22 Telemetry Strips 01/06/[address] (Signed) Jerad Brothers - 01/06/22 Chest X-Ray (Signed) Brothers,Jerad - 01/06/22 Chest X-Ray (Signed) Maurizio Rosales - 10/04/[address] (Signed) KeshawnLilibeth - 08/07/[address] (Signed) Lilibeth Liao - 08/07/20 Echocardiogram Ultrasound (Signed) Erich Tello - 07/11/20 Chest X-Ray (Signed) AlonsoVinayak - 12/25/19 Echocardiogram Ultrasound (Signed) AileenAngelajennifer - 09/08/19 Telemetry Strips 09/07/19 Abdomen/Pelvis CT (Signed) Bessie Baron - 09/07/[address] (Signed) Maurizio Rosales - 09/07/19 [place] [address] CT Scan Report Signed Patient: Enid Almanza MR#: [id number] : 1945 Acct:[id number] Age/Sex: 76 / F Date of Service: 02/27/22 Loc: ED Accession Number: [id number] ?? Procedure: CT head/brain wo con Ordering Provider: Maura Villeda D.O. PROCEDURE:? CT HEAD/BRAIN WO CON ? INDICATIONS:? altered mental status, intermittent low O2 ? TECHNIQUE:? Noncontrast 4.5 mm thick angled axial sections acquired from the foramen magnum to the vertex, with coronal and sagittal reformats.? For radiation dose reduction, the following was used:? automated exposure control, adjustment of mA and/or kV according to patient size.? ? COMPARISON:? [facility], CT, CT HEAD/BRAIN WO CON, 01/23/2022, 8:23. ? FINDINGS:? Image quality:? Excellent.? ? CSF spaces:? Basal cisterns are patent.? No extra-axial fluid collections.? The ventricles are symmetric in size and shape.? ? Brain:? No intracranial bleeds or masses.? There is cerebral volume loss for age, with resultant ventricular and sulcal prominence.? There are periventricular and deep white matter chronic small vessel ischemic changes.? Encephalomalacia/gliosis in the left posterior parietal, right frontal and right parietal occipital regions.? CSF prominence of the sella. Intracranial internal carotid artery atherosclerosis.? ? Skull and face:? Calvarium and visualized facial bones appear intact, without suspicious lesions.? ? Sinuses:? Visualized sinuses and mastoids are clear.? ? IMPRESSION:? No acute intracranial abnormality. ? ? Dictated by: Hunter Rossi M.D. on 02/27/2022 at 10:40 ? ? Approved by: Hunter Rossi M.D. on 02/27/2022 at 10:44?? ECG Data Attestation: I personally reviewed and interpreted this ECG as follows: MDM Narrative Medical decision making narrative: This is a 76-year-old female comes emergency department with altered mental status, concern for worsening CHF possibly CO2 narcosis. Patient is found on labs to be hypercalcemic likely contributing to her altered status head CT is negative, chest x-ray does not show major acute changes. Labs show some acute kidney injury on top of her chronic renal disease. ABG does shows alkalosis with a CO2 of 50 and elevated bicarb that is fairly consistent with past visits. Elevated BNP which is likely contributing to CHF but patient was given fluids and Lasix here for her hypercalcemia continued to be diuresed as needed. Patient's septum by hospitalist. Her daughter also arrived in later point had discussion her primary service at her [facility] has discussed with her about making the patient hospice or comfort measures. We discussed seeing how she responds in terms of hypercalcemia treatment but would be appropriate to talk to our hospitalist about this as well as having consultation with hospice is daughter is unsure if she wishes to proceed in this direction but she notes her mother's quality a lace is quite poor and even if she improves will continue to be poor. Discharge Plan Departure Patient Disposition: Admitted As Inpatient Clinical Impression: Hypercalcemia, Acute alteration in mental status, Acute kidney injury Admit Date/Time: 02/27/22 11:45 Admit Provider: Rodrigo Barbosa
--- NOTE | 2022-02-27 09:37 | DI.RAD.S_ITS ---
PROCEDURE: XR CHEST 1V INDICATIONS: AMS, intermittent low O2 TECHNIQUE: One view of the chest was acquired. COMPARISON: [facility], CT, CT ABDOMEN PELVIS W CON, 09/07/2019, 9:35. [facility], CR, XR CHEST 2V, 02/13/2022, 15:36. FINDINGS: Surgical changes and devices: Redemonstrated left cardiac device. Lungs and pleura: Nonvisualization of the left costophrenic sulcus. The remaining visualized lung zones appear well aerated. No pneumothorax. Mediastinum: Mediastinal contours appear normal. Heart size is normal. Bones and chest wall: No suspicious bony lesions. Overlying soft tissues appear unremarkable. IMPRESSION: Nonvisualization of the left costophrenic sulcus, felt to represent soft tissue attenuation. Dictated by: Hunter Rossi M.D. on 02/27/2022 at 10:44 Approved by: Hunter Rossi M.D. on 02/27/2022 at 10:47
--- NOTE | 2022-02-27 09:37 | DI.CT.S_ITS ---
PROCEDURE: CT HEAD/BRAIN WO CON INDICATIONS: altered mental status, intermittent low O2 TECHNIQUE: Noncontrast 4.5 mm thick angled axial sections acquired from the foramen magnum to the vertex, with coronal and sagittal reformats. For radiation dose reduction, the following was used: automated exposure control, adjustment of mA and/or kV according to patient size. COMPARISON: [facility], CT, CT HEAD/BRAIN WO CON, 01/23/2022, 8:23. FINDINGS: Image quality: Excellent. CSF spaces: Basal cisterns are patent. No extra-axial fluid collections. The ventricles are symmetric in size and shape. Brain: No intracranial bleeds or masses. There is cerebral volume loss for age, with resultant ventricular and sulcal prominence. There are periventricular and deep white matter chronic small vessel ischemic changes. Encephalomalacia/gliosis in the left posterior parietal, right frontal and right parietal occipital regions. CSF prominence of the sella. Intracranial internal carotid artery atherosclerosis. Skull and face: Calvarium and visualized facial bones appear intact, without suspicious lesions. Sinuses: Visualized sinuses and mastoids are clear. IMPRESSION: No acute intracranial abnormality. Dictated by: Hunter Rossi M.D. on 02/27/2022 at 10:40 Approved by: Hunter Rossi M.D. on 02/27/2022 at 10:44
[2022-02-27 09:55] LABS: Add Manual Diff / Slide Review NO; Basophils Absolute Auto 100 /uL (0-100); Basophils Percent Auto 1.3 % (0-2); Eosinophils Absolute Auto 200 /uL (0-450); Eosinophils Percent Auto 2.3 % (2-4); Hematocrit 38.5 % (36-46); Hemoglobin 12.4 g/dL (12.0-16.0); Lymphocytes Absolute Auto 1000 /uL (1100-4500); Lymphocytes Percent Auto 13.1 % (25-40); Mean Corpuscular HGB Conc 32.2 % (30-36); Mean Corpuscular Hemoglobin 29.4 PG (26-34); Mean Corpuscular Volume 91.3 fL (80-100); Monocytes Absolute Auto 1100 /uL (0-900); Monocytes Percent Auto 14.5 % (3-14); Neutrophils Absolute Auto 5100 /uL (1500-7000); Neutrophils Percent Auto 68.8 % (50-75); Platelet Count 253 X10^3/uL (150-400); Red Blood Cell Count 4.22 X10^6/uL (4.0-5.2); Red Cell Distribution Width 16.5 % (11.6-14.8); White Blood Cell Count 7.4 X10^3/uL (4.5-11.0)
[2022-02-27 10:00] LABS: INR 1.4 (0.9-1.3)
[2022-02-27 10:02] LABS: PTT Partial Thromboplastin Tim 35 SECONDS (26.4-36.2)
[2022-02-27 10:13] LABS: Creatine Kinase 34 U/L (30-135); Lactate (Lactic Acid) 1.3 mmol/L (0.7-2.1); Magnesium 2.4 mg/dL (1.6-2.3)
[2022-02-27 10:14] LABS: Alanine Aminotransferase 14 IU/L (<35); Albumin 4.3 g/dL (3.5-5.0); Albumin Globulin Ratio 0.8 (1.0-2.8); Alkaline Phosphatase 105 U/L (38-126); Aspartate Aminotransferase 37 IU/L (14-36); BUN Creatinine Ratio 16.7 (6-22); Bilirubin Total 0.6 mg/dL (0.2-1.3); Blood Urea Nitrogen 37 mg/dL (7-17); Chloride 96 mmol/L (98-107); Estimated Glomerular Filt Rate 21.7 mL/min (>60); Globulin 5.2 g/dL (1.7-4.1); Glucose 123 mg/dL (80-110); HEMOLYSIS < 15 (0-50); Potassium 4.1 mmol/L (3.4-5.1); Sodium 148 mmol/L (137-145); Total Protein 9.5 g/dL (6.3-8.2)
[2022-02-27 10:21] LABS: Carbon Dioxide 37 mmol/L (22-32)
[2022-02-27 10:25] LABS: NT-proBNP (BNP-Adult 18+) 6170 pg/mL (<125); Troponin I 0.044 ng/mL (0.01-0.034)
[2022-02-27 10:27] LABS: Fractionated Inspired Oxygen 25; HCO3 ABG 43 mmol/L (22-26); Oxygen Saturation ABG 96 % (95-100); PCO2 ABG 59.8 mmHg (35-45); PO2 ABG 80 mmHg (80-100); TCO2 ABG 45 mmol/L (21-31); pH ABG 7.46 (7.35-7.45)
[2022-02-27 10:31] LABS: Calcium 13.5 mg/dL (8.4-10.2)
[2022-02-27 10:44] LABS: Thyroid Stimulating Hormone 93.1 uIU/mL (0.47-4.68)
[2022-02-27] MEDS: SODIUM CHLORIDE 0.9% 1,000 ML 1000 ML IV (10:50)
[2022-02-27] MEDS: FUROSEMIDE 100 MG/10 ML VIAL 80 MG IV (10:51)
[2022-02-27 11:12] LABS: Adenovirus Not Detected (Not Detect); B. parapertussis Not Detected (Not Detecte); Bordetella pertussis Not Detected (Not Detecte); Chlamydophila pneumoniae Not Detected (Not Detect); Coronavirus 229E Not Detected (Not Detect); Coronavirus HKU1 Not Detected (Not Detect); Coronavirus NL 63 Not Detected (Not Detect); Coronavirus OC43 Not Detected (Not Detect); Human Metapneumovirus Not Detected (Not Detect); Human Rhinovirus/Enterovirus Not Detected (Not Detect); Influenza A Not Detected (Not Detect); Influenza B Not Detected (Not Detect); Mycoplasma pneumoniae Not Detected (Not Detect); Parainfluenza Virus 1 Not Detected (Not Detect); Parainfluenza Virus 2 Not Detected (Not Detect); Parainfluenza Virus 3 Not Detected (Not Detect); Parainfluenza Virus 4 Not Detected (Not Detect); Respiratory Syncytial Virus Not Detected (Not Detect); SARS- CoV-2 Not Detected (Not Detecte)
[2022-02-27 12:48] LABS: Appearance Urine UA CLEAR; Bilirubin Urine UA 1+ (NEGATIVE); Color Urine UA YELLOW; Glucose Urine UA NEGATIVE (Negative); Ketones Urine UA TRACE (NEGATIVE); Leukocyte Esterase Urine UA 1+ (NEGATIVE); Nitrite Urine UA NEGATIVE (Negative); Occult Blood Urine UA 1+ (Negative); Protein Urine UA 2+ (Negative); Urobilinogen Urine UA 0.2 E.U./dL (0.2)
[2022-02-27 13:05] LABS: Bacteria Urine Many (>30); Culture Indicated Urine Specimen Cultured; Granular Casts Urine 1-5/LPF; Ictotest Urine Negative (Negative); RBC Urine 1-5/HPF (0-5/HPF); Squamous Epithelial Cell Urine 1-5 /HPF (0-5/HPF); Transitional Epi Cells Urine 1-5/HPF (0-5/HPF); WBC Urine 10-30/HPF (0-5/HPF)
[2022-02-27 13:44] LABS: Vitamin D 25 Hydroxy (D3) 39.4 ng/mL (30.0-100.0)
--- NOTE | 2022-02-27 16:02 | P.HP_ITS ---
History of Present Illness History of Present Illness Date Patient Seen: 02/27/22 Time Patient Seen: 15:00 Chief complaint: Increased Sputum Narrative: Ms. Almanza is a 76W with long PMH including CHFsEF 40-45%, chronic hypercapneic respiratory failure with TRUONG, CAD, cardiac arrest s/p PPM, s/p TAVR, CKD stage 3-4, dementia, DM, HTN, HL, hypothyroid s/p thyroidectomy for cancer, non- hodgkin's lymphoma who is now bedbound/wheelchair bound who presents from her facility due to confusion and hypoxia. She has a CPAP but does at times refuse to wear this. She has been admitted three times a month ago first for encephalopathy and UTI, second for NSTEMI and CHF, third for encephalopathy. Per the daughter the patient has been declining significantly over the last month. She has called her and has not been able to have any significant conversations. The patient mostly sleeps throughout the day. There has been discussion about hospice. She was brought in for altered mental status and sats in the 80s while asleep. She has recently had her torsemide increased for noted elevated BNP ~3000, and known history of CHF. On arrival to the hospital she was quite a ltered and could not give a review of her symptoms. In the ED workup was done, vitals noted to be unremarkable initially. Labs notable for WBC 7.4, Hgb 12.4, Na 148, CO2 37, BUN 37, creat 2.21. BNP 6170, trop 0.044. Calcium 13.5. ABG pH 7.46, co2 60, hco3 43. Chest xray and CT head with no acute process. She was ordered for fluids and lasix for her hypercalcemia and admitted for further treatment. Patient History Medical History CAD (coronary artery disease) Chronic hypercapnic respiratory failure Chronic systolic CHF (congestive heart failure) CKD (chronic kidney disease) CVA (cerebral vascular accident) Dementia Diabetes mellitus type 2 in obese GERD (gastroesophageal reflux disease) Heart failure, unspecified Hyperlipidemia Hypertension Hypothyroid Morbid obesity with alveolar hypoventilation Non Hodgkin's lymphoma Pacemaker Thyroid cancer Tremor, unspecified Surgical History History of cholecystectomy History of thyroidectomy Hx of tonsillectomy S/P TAVR (transcatheter aortic valve replacement) Family & Social History Family History Mother Dementia Father Heart attack Social History: household members none Prior Living Arrangements Skilled Nurse Facility Tobacco & Substance use: Smoking Status Never smoker alcohol intake never alcohol intake frequency 0-2 drinks per day Substance Use Type does not use Meds Home Medications and Allergies Home Medications Medication Instructions Recorded Confirmed Type cholecalciferol (vitamin D3) 25 5,000 unit PO DAILY 09/07/19 02/27/22 History mcg (1,000 unit) tablet linagliptin 5 mg tablet (Tradjenta) 5 mg PO DAILY 09/07/19 02/27/22 History potassium chloride 10 mEq 10 meq PO DAILY 09/07/19 02/27/22 History tablet,extended release levetiracetam 250 mg tablet 500 mg PO BID 10/20/19 02/27/22 History primidone 50 mg tablet 75 mg PO BID 10/20/19 02/27/22 History torsemide 20 mg tablet 60 mg PO DAILY 01/06/22 02/27/22 History carvedilol 3.125 mg tablet 12.5 mg PO BID #0 tab 01/12/22 02/27/22 Rx calcium carbonate 500 mg calcium 500 - 1,000 mg PO Q6H PRN 01/17/22 02/27/22 History (1,250 mg) chewable tablet cyanocobalamin (vitamin B-12) 1,000 mcg IM QMONTH 01/17/22 02/27/22 History 1,000 mcg/mL injection solution insulin glargine 100 unit/mL (3 50 unit SUBCUT BEDTIME 01/17/22 02/27/22 History mL) subcutaneous pen (Lantus Solostar U-100 Insulin) nystatin-emollient combo no.54 1 g TOPICAL BID 01/17/22 02/27/22 History 100,000 unit/gram topical cream polyvinyl alcohol-povidone (PF) 2 drp OPHTHALMIC (EYE) BID PRN 01/17/22 02/27/22 History 1.4 %-0.6 % eye drops in a dropperette primidone 50 mg tablet 100 mg PO QAM 01/17/22 02/27/22 History aspirin 81 mg tablet,delayed 81 mg PO DAILY #30 tab 01/22/22 02/27/22 Rx release atorvastatin 20 mg tablet (Lipitor) 40 mg PO BEDTIME #30 tab 01/22/22 02/27/22 Rx calcitriol 0.25 mcg capsule 0.5 mcg PO DAILY 01/23/22 02/27/22 History donepezil 5 mg tablet 5 mg PO DAILY 01/23/22 02/27/22 History fluoxetine 20 mg capsule 20 mg PO DAILY 01/23/22 02/27/22 History fluticasone propionate 50 50 mcg INTRANASAL DAILY 01/23/22 02/27/22 History mcg/actuation nasal spray,suspension liothyronine 5 mcg tablet (Cytomel) 10 mcg PO DAILY #30 tab 01/25/22 02/27/22 Rx magnesium oxide 400 mg (241.3 mg 400 mg PO BID #60 tab 01/25/22 02/27/22 Rx magnesium) tablet hydrocodone 10 mg-acetaminophen 1 tab PO Q4HR PRN 02/27/22 02/27/22 History 325 mg tablet hydrocodone 10 mg-acetaminophen 1 tab PO Q4HR PRN 02/27/22 02/27/22 History 325 mg tablet insulin aspart U-100 100 unit/mL See Rx Instructions .ROUTE .COMPLEX 02/27/22 02/27/22 History subcutaneous solution (Novolog U-100 Insulin aspart) insulin glargine 100 unit/mL 15 unit SUBCUT QAM 02/27/22 02/27/22 History subcutaneous solution (Lantus U-100 Insulin) levothyroxine 100 mcg tablet 225 mcg PO 0600 02/27/22 02/27/22 History (Synthroid) Allergies Allergy/AdvReac Type Severity Reaction Status Date / Time adhesive tape Allergy Verified 02/27/22 09:36 allopurinol Allergy Verified 02/27/22 09:36 Review of Systems Review of Systems Narrative: Unable to obtain due to patient's encephalopathy Exam Vital Signs (past 8 hours): - 02/27/22 09:30 02/27/22 09:31 02/27/22 10:08 Temperature 98.1 F Pulse Rate 79 79 82 Respiratory Rate 15 Blood Pressure 127/63 127/63 Pulse Oximetry 94 95 02/27/22 10:30 02/27/22 11:00 02/27/22 11:16 Temperature Pulse Rate 82 77 76 Respiratory Rate 16 16 20 Blood Pressure 100/50 L Pulse Oximetry 92 100 100 02/27/22 11:30 02/27/22 11:35 02/27/22 12:00 Temperature Pulse Rate 76 79 77 Respiratory Rate 17 16 15 Blood Pressure 104/55 L 102/53 L Pulse Oximetry 99 100 99 02/27/22 12:30 02/27/22 13:00 02/27/22 13:30 Temperature Pulse Rate 80 83 77 Respiratory Rate 14 15 15 Blood Pressure 115/59 L 100/54 L 102/53 L Pulse Oximetry 98 97 98 02/27/22 14:00 02/27/22 14:59 Temperature 96.3 F L Pulse Rate 78 78 Respiratory Rate 15 19 Blood Pressure 100/52 L 99/44 L Pulse Oximetry 98 98 Oxygen Delivery Method Nasal Cannula Oxygen Flow Rate 3 Narrative Exam Narrative: GEN: mild distress, not responding to stimuli currently HEENT: dry mucous membranes, PERRL NECK: trachea midline, no JVD CV: regular rate and rhythm, no murmurs PULM: decreased breath sounds bilaterally ABD: soft, nontender, nondistended, no organomegaly, normal bowel sounds, obese EXT: warm and well perfused with trace edema NEURO: no focal deficits notes, moving all extremities Objective Labs Result Diagrams: 02/27/22 09:40 02/27/22 09:40 Labs: Laboratory Results - last 24 hr 02/27/22 02/27/22 02/27/22 09:40 09:40 09:40 WBC 7.4 RBC 4.22 Hgb 12.4 Hct 38.5 MCV 91.3 MCH 29.4 MCHC 32.2 RDW 16.5 H Plt Count 253 Neut % (Auto) 68.8 Lymph % (Auto) 13.1 L [place] % (Auto) 14.5 H Eos % (Auto) 2.3 Baso % (Auto) 1.3 Neut # (Auto) 5100 Lymph # (Auto) 1000 L [place] # (Auto) 1100 H Eos # (Auto) 200 Baso # (Auto) 100 PT 16.0 H INR 1.4 H APTT 35 D ABG pH ABG pCO2 ABG pO2 ABG HCO3 ABG Total CO2 ABG O2 Saturation ABG Base Excess FiO2 Sodium Potassium Chloride Carbon Dioxide BUN Creatinine Estimated GFR BUN/Creatinine Ratio Glucose Lactate Calcium Phosphorus Magnesium 2.4 H Total Bilirubin AST ALT Alkaline Phosphatase Total Creatine Kinase 34 CK-MB (CK-2) TNP CK-MB (CK-2) Rel Index TNP Troponin I 0.044 H NT-Pro-B Natriuret Pep 6170 H Total Protein Albumin Globulin Albumin/Globulin Ratio 25-OH Vitamin D Total Procalcitonin 0.20 TSH Urine Color Urine Appearance Urine pH Ur Specific [place] Urine Protein Urine Glucose (UA) Urine Ketones Urine Occult Blood Urine Nitrate Urine Bilirubin Ur Bilirubin Confirm Urine Urobilinogen Ur Leukocyte Esterase Urine RBC Urine WBC Ur Squamous Epith Cells Ur Transition Epith Cell Urine Bacteria Granular Casts Ur Culture Indicated? Chlamy pneumoniae PCR Adenovirus (PCR) B. pertussis DNA (PCR) B.parapertussis DNA PCR Coronavirus OC43 (PCR) Coronavirus HKU1 (PCR) Coronavirus 229E (PCR) SARS-CoV-2 (PCR) Coronavirus NL63 (PCR) Human Metapneumovir PCR Influenza Type A (PCR) Influenza Type B (PCR) M. pneumoniae (PCR) Parainfluenza 1 (PCR) Parainfluenza 2 (PCR) Parainfluenza 3 (PCR) Parainfluenza 4 (PCR) RSV (PCR) Entero/Rhino (PCR) 02/27/22 02/27/22 02/27/22 09:40 09:40 09:40 WBC RBC Hgb Hct MCV MCH MCHC RDW Plt Count Neut % (Auto) Lymph % (Auto) [place] % (Auto) Eos % (Auto) Baso % (Auto) Neut # (Auto) Lymph # (Auto) [place] # (Auto) Eos # (Auto) Baso # (Auto) PT INR APTT ABG pH ABG pCO2 ABG pO2 ABG HCO3 ABG Total CO2 ABG O2 Saturation ABG Base Excess FiO2 Sodium 148 H Potassium 4.1 Chloride 96 L Carbon Dioxide 37 H BUN 37 H Creatinine 2.21 H Estimated GFR 21.7 L BUN/Creatinine Ratio 16.7 Glucose 123 H Lactate 1.3 Calcium 13.5 H* Phosphorus Magnesium Total Bilirubin 0.6 AST 37 H ALT 14 Alkaline Phosphatase 105 Total Creatine Kinase CK-MB (CK-2) CK-MB (CK-2) Rel Index Troponin I NT-Pro-B Natriuret Pep Total Protein 9.5 H Albumin 4.3 Globulin 5.2 H Albumin/Globulin Ratio 0.8 L 25-OH Vitamin D Total Procalcitonin TSH 93.1 H Urine Color Urine Appearance Urine pH Ur Specific [place] Urine Protein Urine Glucose (UA) Urine Ketones Urine Occult Blood Urine Nitrate Urine Bilirubin Ur Bilirubin Confirm Urine Urobilinogen Ur Leukocyte Esterase Urine RBC Urine WBC Ur Squamous Epith Cells Ur Transition Epith Cell Urine Bacteria Granular Casts Ur Culture Indicated? Chlamy pneumoniae PCR Adenovirus (PCR) B. pertussis DNA (PCR) B.parapertussis DNA PCR Coronavirus OC43 (PCR) Coronavirus HKU1 (PCR) Coronavirus 229E (PCR) SARS-CoV-2 (PCR) Coronavirus NL63 (PCR) Human Metapneumovir PCR Influenza Type A (PCR) Influenza Type B (PCR) M. pneumoniae (PCR) Parainfluenza 1 (PCR) Parainfluenza 2 (PCR) Parainfluenza 3 (PCR) Parainfluenza 4 (PCR) RSV (PCR) Entero/Rhino (PCR) 02/27/22 02/27/22 02/27/22 09:40 09:40 09:47 WBC RBC Hgb Hct MCV MCH MCHC RDW Plt Count Neut % (Auto) Lymph % (Auto) [place] % (Auto) Eos % (Auto) Baso % (Auto) Neut # (Auto) Lymph # (Auto) [place] # (Auto) Eos # (Auto) Baso # (Auto) PT INR APTT ABG pH 7.46 H ABG pCO2 59.8 H ABG pO2 80 ABG HCO3 43 H ABG Total CO2 45 H ABG O2 Saturation 96 ABG Base Excess 19.0 H FiO2 25 Sodium Potassium Chloride Carbon Dioxide BUN Creatinine Estimated GFR BUN/Creatinine Ratio Glucose Lactate Calcium Phosphorus 4.0 Magnesium Total Bilirubin AST ALT Alkaline Phosphatase Total Creatine Kinase CK-MB (CK-2) CK-MB (CK-2) Rel Index Troponin I NT-Pro-B Natriuret Pep Total Protein Albumin Globulin Albumin/Globulin Ratio 25-OH Vitamin D Total 39.4 Procalcitonin TSH Urine Color Urine Appearance Urine pH Ur Specific [place] Urine Protein Urine Glucose (UA) Urine Ketones Urine Occult Blood Urine Nitrate Urine Bilirubin Ur Bilirubin Confirm Urine Urobilinogen Ur Leukocyte Esterase Urine RBC Urine WBC Ur Squamous Epith Cells Ur Transition Epith Cell Urine Bacteria Granular Casts Ur Culture Indicated? Chlamy pneumoniae PCR Adenovirus (PCR) B. pertussis DNA (PCR) B.parapertussis DNA PCR Coronavirus OC43 (PCR) Coronavirus HKU1 (PCR) Coronavirus 229E (PCR) SARS-CoV-2 (PCR) Coronavirus NL63 (PCR) Human Metapneumovir PCR Influenza Type A (PCR) Influenza Type B (PCR) M. pneumoniae (PCR) Parainfluenza 1 (PCR) Parainfluenza 2 (PCR) Parainfluenza 3 (PCR) Parainfluenza 4 (PCR) RSV (PCR) Entero/Rhino (PCR) 02/27/22 02/27/22 09:47 12:00 WBC RBC Hgb Hct MCV MCH MCHC RDW Plt Count Neut % (Auto) Lymph % (Auto) [place] % (Auto) Eos % (Auto) Baso % (Auto) Neut # (Auto) Lymph # (Auto) [place] # (Auto) Eos # (Auto) Baso # (Auto) PT INR APTT ABG pH ABG pCO2 ABG pO2 ABG HCO3 ABG Total CO2 ABG O2 Saturation ABG Base Excess FiO2 Sodium Potassium Chloride Carbon Dioxide BUN Creatinine Estimated GFR BUN/Creatinine Ratio Glucose Lactate Calcium Phosphorus Magnesium Total Bilirubin AST ALT Alkaline Phosphatase Total Creatine Kinase CK-MB (CK-2) CK-MB (CK-2) Rel Index Troponin I NT-Pro-B Natriuret Pep Total Protein Albumin Globulin Albumin/Globulin Ratio 25-OH Vitamin D Total Procalcitonin TSH Urine Color Yellow Urine Appearance Clear Urine pH 6.0 Ur Specific [place] 1.020 Urine Protein 2+ H Urine Glucose (UA) Negative Urine Ketones Trace H Urine Occult Blood 1+ H Urine Nitrate Negative Urine Bilirubin 1+ H Ur Bilirubin Confirm Negative Urine Urobilinogen 0.2 Ur Leukocyte Esterase 1+ H Urine RBC 1-5/hpf Urine WBC 10-30/hpf H Ur Squamous Epith Cells 1-5 /hpf Ur Transition Epith Cell 1-5/hpf Urine Bacteria Many (>30) H Granular Casts 1-5/lpf Ur Culture Indicated? Specimen cultured Chlamy pneumoniae PCR Not detected Adenovirus (PCR) Not detected B. pertussis DNA (PCR) Not detected B.parapertussis DNA PCR Not detected Coronavirus OC43 (PCR) Not detected Coronavirus HKU1 (PCR) Not detected Coronavirus 229E (PCR) Not detected SARS-CoV-2 (PCR) Not detected Coronavirus NL63 (PCR) Not detected Human Metapneumovir PCR Not detected Influenza Type A (PCR) Not detected Influenza Type B (PCR) Not detected M. pneumoniae (PCR) Not detected Parainfluenza 1 (PCR) Not detected Parainfluenza 2 (PCR) Not detected Parainfluenza 3 (PCR) Not detected Parainfluenza 4 (PCR) Not detected RSV (PCR) Not detected Entero/Rhino (PCR) Not detected Assessment & Plan Assessment & Plan narrative: Ms. Almanza is a 76W with long PMH including CHFsEF 40-45%, chronic hypercapneic respiratory failure with TRUONG, CAD, cardiac arrest s/p PPM, s/p TAVR, CKD stage 3-4, dementia, DM, HTN, HL, hypothyroid s/p thyroidectomy for cancer, non- hodgkin's lymphoma who is now bedbound/wheelchair bound who presents with confusion and hypoxemia. 1. Acute encephalopathy -etiology likely multifactorial but presume hypercalcemia playing significant role -treat hypercalcemia as below -may also be worsening hypercapnia -repeat ABG -possibly also from UTI, started on antibiotics 2. Acute hypercalcemia -etiology possibly from renal failure, vitamin d toxicity in setting of being on calcitriol -PTH, vitamin D levels ordered -already ordered for fluids and lasix in ED -repeat calcium 3. Acute hypoxemic/hypercarbic respiratory failure -has multiple comorbidities including chf, sleep apnea, and possible obesity hypoventilation -wean oxygen as able -may need additional diuresis if remains on oxygen -no evidence of infection on chest xray, and white count/procalcitonin, not elevated 4. Morbid obesity -contributing to respiratory failure and sleep apnea 5. SEBASTIAN on CKD stage 3 -possibly secondary to increased torsemide dose -order gentle IV fluids -check urine electrolytes 6. Chronic systolic heart failure -chest xray showed no significant fluid overload -for now hold off additional lasix 7. CAD s/p stents, pacemaker, TAVR -continue statin, aspirin 8. Type 2 Diabetes -continue insulin, and insulin sliding scale 9. HTN -continue coreg 10. HL -continue statin 11. Dementia -continue donepezil 12. Seizure disorder -continue keppra 13. UTI -UA presumptive positive, start ceftriaxone -follow up cultures CODE: DNR Proxy: Juliana Erwin I have utilized all available resources to reconcile the patient's home medications. Time Spent With Patient Critical Care time: I spent a total of [] minutes of critical care time on this patient's care today; this time is exclusive of procedural time. Quality MIPS - Admit I confirm the patient?s Advance Care Plan is present, Code status is documented, Surrogate decision maker is in patient?s record [If Yes, STOP here]: Yes
[2022-02-27 16:19] LABS: BUN Creatinine Ratio 18.8 (6-22); Blood Urea Nitrogen 39 mg/dL (7-17); Chloride 97 mmol/L (98-107); Estimated Glomerular Filt Rate 23.3 mL/min (>60); Glucose 124 mg/dL (80-110); HEMOLYSIS 33 (0-50); Potassium 4.2 mmol/L (3.4-5.1); Sodium 148 mmol/L (137-145)
[2022-02-27 16:25] LABS: Carbon Dioxide 39 mmol/L (22-32)
--- NOTE | 2022-02-27 16:38 | DI.US.S_ITS ---
PROCEDURE: US RENAL COMPLETE INDICATIONS: nate TECHNIQUE: Real-time scanning was performed of the kidneys and bladder, with image documentation. COMPARISON: None. FINDINGS: Kidneys: Kidneys are normal in size. Right kidney measures 11.6 cm long; left kidney measures 10.3 cm long. Right renal cortical thickness is 0.8 cm; left renal cortical thickness is 0.8 cm. Renal cortical echotexture is normal. No hydronephrosis or nephrolithiasis. No suspicious solid mass lesions. Bladder: Kimble catheter Miscellaneous: No free pelvic fluid. IMPRESSION: Unremarkable renal ultrasound Approved by: Jerad Brothers M.D. on 02/27/2022 at 16:56
[2022-02-27] MEDS: cefTRIAXone 1,000 MG in SODIUM CHLORIDE 0.9% 100 ML 200 ML IV (16:55)
[2022-02-27] MEDS: SODIUM CHLORIDE 0.9% 1,000 ML 100 ML IV (16:57)
[2022-02-27 17:00] LABS: Fractionated Inspired Oxygen 28; HCO3 ABG 41 mmol/L (22-26); Oxygen Saturation ABG 95 % (95-100); PCO2 ABG 62.4 mmHg (35-45); PO2 ABG 77 mmHg (80-100); TCO2 ABG 42 mmol/L (21-31); pH ABG 7.42 (7.35-7.45)
[2022-02-27 18:05] LABS: Creatinine Urine Random 109.5 mg/dL; Sodium Urine Random 77 mmol/L (30-90)
[2022-02-27] MEDS: CALCITONIN,SALMON 400 UNITS/2 ML MDV 500 UNITS SUBCUT (18:07)
[2022-02-27] MEDS: carvediloL 12.5 MG TABLET PO (21:16)
[2022-02-27] MEDS: levETIRAcetam 250 MG TABLET 500 MG PO (21:16)
[2022-02-27] MEDS: ACETAMINOPHEN 325 MG TABLET 650 MG PO (21:16)
[2022-02-27] MEDS: HEPARIN 5,000 UNIT/ML VIAL 5000 UNIT SUBCUT (21:17)
[2022-02-27] MEDS: ATORVASTATIN 20 MG TABLET 40 MG PO (21:17)
[2022-02-27] MEDS: PRIMIDONE 50 MG TABLET 75 MG PO (21:26)
[2022-02-27 21:31] LABS: BUN Creatinine Ratio 18.6 (6-22); Blood Urea Nitrogen 38 mg/dL (7-17); Calcium 12.5 mg/dL (8.4-10.2); Chloride 98 mmol/L (98-107); Estimated Glomerular Filt Rate 23.8 mL/min (>60); Glucose 129 mg/dL (80-110); HEMOLYSIS < 15 (0-50); Potassium 3.8 mmol/L (3.4-5.1); Sodium 148 mmol/L (137-145)
[2022-02-27 21:38] LABS: Carbon Dioxide 37 mmol/L (22-32)
--- NOTE | 2022-02-27 22:44 | RT ---
2034 pt needing help at this time to clear airway , dorie used to clear back of throat, moderate amt of secretions suctioned out . RN aware and will notify me of any help needed . pt remains on 2lpm nasal canula . RT to follow
[2022-02-28] VITALS (11 sets, daily range): BP systolic 103–151; BP diastolic 45–71; PULSE 78–90; RESP 14–18; TEMP 36.2–36.9; O2SAT 93–97
[2022-02-28 03:08] LABS: Hematocrit 33.8 % (36-46); Hemoglobin 11.1 g/dL (12.0-16.0); Mean Corpuscular HGB Conc 32.9 % (30-36); Mean Corpuscular Hemoglobin 29.6 PG (26-34); Mean Corpuscular Volume 90.1 fL (80-100); Platelet Count 222 X10^3/uL (150-400); Red Blood Cell Count 3.75 X10^6/uL (4.0-5.2); Red Cell Distribution Width 16.5 % (11.6-14.8); White Blood Cell Count 7.6 X10^3/uL (4.5-11.0)
[2022-02-28 03:11] LABS: BUN Creatinine Ratio 18.2 (6-22); Blood Urea Nitrogen 37 mg/dL (7-17); Chloride 99 mmol/L (98-107); Estimated Glomerular Filt Rate 23.9 mL/min (>60); Glucose 129 mg/dL (80-110); HEMOLYSIS < 15 (0-50); Potassium 4.2 mmol/L (3.4-5.1); Sodium 147 mmol/L (137-145)
[2022-02-28 03:14] LABS: Add Manual Diff / Slide Review YES
[2022-02-28 03:17] LABS: Carbon Dioxide 36 mmol/L (22-32)
[2022-02-28 03:27] LABS: Neutrophils Absolute Manual 5016 /uL (3000-5900); Total Cells Counted 100
[2022-02-28 03:28] LABS: RBC Morphology Normal Morphology
[2022-02-28] MEDS: LEVOTHYROXINE 100 MCG TABLET 225 MCG PO (06:26)
[2022-02-28] MEDS: LIOTHYRONINE 5 MCG TABLET 10 MCG PO (06:27)
--- NOTE | 2022-02-28 06:52 | PC.NURSE ---
ICU called with unusual arrthymias, unsure weather related to heart or to Parkinsons movements. Spoke with hospitalist, labs ordered. Labs returned, reported to hospitalist, with improving results.
[2022-02-28] MEDS: levETIRAcetam 250 MG TABLET 500 MG PO (09:47)
[2022-02-28] MEDS: carvediloL 12.5 MG TABLET PO (09:48)
[2022-02-28] MEDS: PRIMIDONE 50 MG TABLET 100 MG PO (09:48)
[2022-02-28] MEDS: HEPARIN 5,000 UNIT/ML VIAL 5000 UNIT SUBCUT ×2 (09:48→21:12)
[2022-02-28] MEDS: FLUoxetine 20 MG CAPSULE PO (09:48)
[2022-02-28] MEDS: ASPIRIN EC 81 MG TABLET PO (09:48)
[2022-02-28] MEDS: DONEPEZIL 5 MG TABLET PO (09:48)
[2022-02-28] MEDS: INSULIN GLARGINE 100 UNIT/ML 3ML PEN 15 UNIT SUBCUT (09:50)
[2022-02-28 09:55] LABS: pH ABG 7.41 (7.35-7.45)
[2022-02-28 09:56] LABS: Fractionated Inspired Oxygen 28; HCO3 ABG 41 mmol/L (22-26); Oxygen Saturation ABG 93 % (95-100); PO2 ABG 70 mmHg (80-100); TCO2 ABG 43 mmol/L (21-31)
[2022-02-28] MEDS: SODIUM CHLORIDE 0.9% 1,000 ML 100 ML IV (10:05)
[2022-02-28 10:56] LABS: BUN Creatinine Ratio 18.3 (6-22); Blood Urea Nitrogen 35 mg/dL (7-17); Calcium 11.9 mg/dL (8.4-10.2); Carbon Dioxide 39 mmol/L (22-32); Chloride 101 mmol/L (98-107); Estimated Glomerular Filt Rate 25.7 mL/min (>60); Glucose 139 mg/dL (80-110); HEMOLYSIS < 15 (0-50); Sodium 148 mmol/L (137-145)
[2022-02-28] MEDS: CALCITONIN,SALMON 400 UNITS/2 ML MDV 500 UNITS SUBCUT (12:02)
--- NOTE | 2022-02-28 13:35 | DIET.CONS ---
Dietary Consultation Note Admission Date: 02/27/2022 11:45 Assessment: 76 y/o F admitted with altered mental status. RD consulted for decreasing PO intake. Per EMR records pt has lost significant weight in over the last 1-5 months. wt hx: 02/27/22: 128.5kg 01/23/22: 138.5kg (-10kg or 7.2% severe) 10/04/21: 155.1kg (-26.6kg or 17% severe) Nutrition focused physical exam indicates moderate temporal scooping, dark circles and depressed orbital area indicative of malnutrition. [place] was unable to verbally participate in full nutrition assessment. Per staff notes, pt refused lunch today. Pt with T2DM: recent BG --- 124, 101, 114, 115, 128. Currently on CCD. If PO remains low or plan of care indicates such, liberalizing diet should be considered. Will re-evaluate at f/u. Ht: 170.18 cm Wt: 128.5 kg BMI: 44.4 Last BM: 02/26/22 (02/27/22 15:40) MNA: 6 Christiano Score: 13 Diet: 02/27/22 Dinner Carbohydrate Consistent Diet Diet Modifications: Carbohydrate level: Medium (3 CHO) Nutrition Percent Meal Consumed pt refused meal 02/28/22 11:04 Labs: RBC 3.75 X10^6/uL (4.0-5.2) L 02/28/22 02:51 Hgb 11.1 g/dL (12.0-16.0) L 02/28/22 02:51 Hct 33.8 % (36-46) L 02/28/22 02:51 Creatinine 1.91 mg/dL (0.52-1.04) H 02/28/22 10:22 Lactate 1.3 mmol/L (0.7-2.1) 02/27/22 09:40 NT-Pro-B Natriuret Pep 6170 pg/mL (<125) H 02/27/22 09:40 Nutrition Diagnosis: Acute severe PCM r/t predicted inadequate PO aeb >5% wt loss in one month, signs of moderate muscle wasting in temples and orbital areas. Interventions: ONS daily to support protein needs. EER: 1600-1700kcals (12-13kcal/kg) ; 120g PRO (1.5g/kg @80kg per malnutrition) Monitoring/Evaluations: RD f/u in 2-3 days; monitoring PO, ONS tolerance and wt. Electronically Signed by: Awilda Pedro 02/28/22 13:35 Clinical Dietitian [address] [id number]
--- NOTE | 2022-02-28 14:08 | P.PN_ITS ---
Subjective Subjective Date Patient Seen: 02/28/22 Time Patient Seen: 08:00 Interval history: She remains altered. Her calcium has improved somewhat with fluids and c alcitonin to 11.9. She is requiring less oxygen at 2L. ABG showed slightly higher pCO2 at 65, with compensated pH at 7.41 Exam Vital Signs (past 8 hours): - 02/28/22 08:00 02/28/22 09:40 02/28/22 09:48 Temperature 97.1 F L Pulse Rate 80 Respiratory Rate 14 Blood Pressure 115/71 115/71 Pulse Oximetry 95 95 Oxygen Delivery Method Nasal Cannula Oxygen Flow Rate 2 Narrative Exam Narrative: GEN: lethargic HEENT: dry mucous membranes, PERRL NECK: trachea midline, no JVD CV: regular rate and rhythm, no murmurs PULM: decreased breath sounds bilaterally ABD: soft, nontender, nondistended, no organomegaly, normal bowel sounds, obese EXT: warm and well perfused with trace edema NEURO: no focal deficits notes, moving all extremities Objective Labs Result Diagrams: 02/28/22 02:51 02/28/22 10:22 Labs: Laboratory Results - last 24 hr 02/27/22 02/27/22 02/27/22 12:00 15:49 16:51 WBC RBC Hgb Hct MCV MCH MCHC RDW Plt Count Neut % (Auto) Lymph % (Auto) Henry % (Auto) Eos % (Auto) Baso % (Auto) Lymph # (Auto) Henry # (Auto) Baso # (Auto) Total Counted Seg Neutrophils % Lymphocytes % (Manual) Monocytes % (Manual) Eosinophils % (Manual) Basophils % (Manual) Neutrophils # (Manual) RBC Morphology ABG pH 7.42 ABG pCO2 62.4 H* ABG pO2 77 L ABG HCO3 41 H ABG Total CO2 42 H ABG O2 Saturation 95 ABG Base Excess 16.0 H FiO2 28 Sodium 148 H Potassium 4.2 Chloride 97 L Carbon Dioxide 39 H BUN 39 H Creatinine 2.08 H Estimated GFR 23.3 L BUN/Creatinine Ratio 18.8 Glucose 124 H Calcium 13.0 H* Ur Random Sodium 77 Urine Creatinine 109.5 02/27/22 02/28/22 02/28/22 21:05 02:51 02:51 WBC 7.6 RBC 3.75 L Hgb 11.1 L Hct 33.8 L MCV 90.1 MCH 29.6 MCHC 32.9 RDW 16.5 H Plt Count 222 Neut % (Auto) Not Reportable Lymph % (Auto) Not Reportable Henry % (Auto) Not Reportable Eos % (Auto) Not Reportable Baso % (Auto) Not Reportable Lymph # (Auto) Not Reportable Henry # (Auto) Not Reportable Baso # (Auto) Not Reportable Total Counted 100 Seg Neutrophils % 66.0 Lymphocytes % (Manual) 9.0 L Monocytes % (Manual) 22.0 H Eosinophils % (Manual) 1.0 L Basophils % (Manual) 2.0 H Neutrophils # (Manual) 5016 RBC Morphology Normal morphology ABG pH ABG pCO2 ABG pO2 ABG HCO3 ABG Total CO2 ABG O2 Saturation ABG Base Excess FiO2 Sodium 148 H 147 H Potassium 3.8 4.2 Chloride 98 99 Carbon Dioxide 37 H 36 H BUN 38 H 37 H Creatinine 2.04 H 2.03 H Estimated GFR 23.8 L 23.9 L BUN/Creatinine Ratio 18.6 18.2 Glucose 129 H 129 H Calcium 12.5 H 12.0 H Ur Random Sodium Urine Creatinine 02/28/22 02/28/22 09:40 10:22 WBC RBC Hgb Hct MCV MCH MCHC RDW Plt Count Neut % (Auto) Lymph % (Auto) Henry % (Auto) Eos % (Auto) Baso % (Auto) Lymph # (Auto) Henry # (Auto) Baso # (Auto) Total Counted Seg Neutrophils % Lymphocytes % (Manual) Monocytes % (Manual) Eosinophils % (Manual) Basophils % (Manual) Neutrophils # (Manual) RBC Morphology ABG pH 7.41 ABG pCO2 64.7 H* ABG pO2 70 L ABG HCO3 41 H ABG Total CO2 43 H ABG O2 Saturation 93 L ABG Base Excess 17.0 H FiO2 28 Sodium 148 H Potassium 4.0 Chloride 101 Carbon Dioxide 39 H BUN 35 H Creatinine 1.91 H Estimated GFR 25.7 L BUN/Creatinine Ratio 18.3 Glucose 139 H Calcium 11.9 H Ur Random Sodium Urine Creatinine [facility] Medical History CAD (coronary artery disease) Chronic hypercapnic respiratory failure Chronic systolic CHF (congestive heart failure) CKD (chronic kidney disease) CVA (cerebral vascular accident) Dementia Diabetes mellitus type 2 in obese GERD (gastroesophageal reflux disease) Heart failure, unspecified Hyperlipidemia Hypertension Hypothyroid Morbid obesity with alveolar hypoventilation Non Hodgkin's lymphoma Pacemaker Thyroid cancer Tremor, unspecified Surgical History History of cholecystectomy History of thyroidectomy Hx of tonsillectomy S/P TAVR (transcatheter aortic valve replacement) Family History Mother Dementia Father Heart attack Social History household members: none Smoking Status: Never smoker alcohol intake: never Assessment & Plan Assessment & Plan narrative: Ms. Almanza is a 76W with long PMH including CHFsEF 40-45%, chronic hypercapneic respiratory failure with TRUONG, CAD, cardiac arrest s/p PPM, s/p TAVR, CKD stage 3-4, dementia, DM, HTN, HL, hypothyroid s/p thyroidectomy for cancer, non-hodgkin's lymphoma who is now bedbound/wheelchair bound who presents with confusion and hypoxemia. 1. Acute encephalopathy -etiology likely multifactorial but presume hypercalcemia playing a role, however daughter also says patient mostly sleeps at facility -treat hypercalcemia as below -monitor for worsening hypercapnia, currently CO2 in 60s, which has been where she has been prior, with compensated pH at 7.41 -possibly also from UTI, started on antibiotics 2. Acute hypercalcemia -etiology possibly from renal failure, vitamin d toxicity in setting of being on calcitriol -PTH, vitamin D levels ordered -already ordered for fluids and lasix in ED -repeat calcium -ordered for calcitonin for two days then stop 3. Acute hypoxemic/hypercarbic respiratory failure -has multiple comorbidities including chf, sleep apnea, and possible obesity hypoventilation -wean oxygen as able -may need additional diuresis if remains on oxygen -no evidence of infection on chest xray, and white count/procalcitonin, not elevated 4. Morbid obesity -contributing to respiratory failure and sleep apnea 5. SEBASTIAN on CKD stage 3, improving -possibly secondary to increased torsemide dose -order gentle IV fluids -check urine electrolytes 6. Chronic systolic heart failure -chest xray showed no significant fluid overload -for now hold off additional lasix 7. CAD s/p stents, pacemaker, TAVR -continue statin, aspirin 8. Type 2 Diabetes -continue insulin, and insulin sliding scale 9. HTN -continue coreg 10. HL -continue statin 11. Dementia -continue donepezil 12. Seizure disorder -continue keppra 13. UTI -UA presumptive positive, start ceftriaxone -follow up cultures CODE: DNR Proxy: Juliana Erwin I have utilized all available resources to reconcile the patient's home medications. Time Spent With Patient Critical Care time: I spent a total of [] minutes of critical care time on this patient's care today; this time is exclusive of procedural time.
--- NOTE | 2022-02-28 15:46 | CM.IDA ---
Initial DCP Assessment Note Pt is a 76 yo female, resident at [facility] for [facility] care , arrives w/ confusion and hypoxemia Per H+P: Ms. Almanza is a 76W with long PMH including CHFsEF 40-45%, chronic hypercapneic respiratory failure with TRUONG, CAD, cardiac arrest s/p PPM, s/p TAVR, CKD stage 3-4, dementia, DM, HTN, HL, hypothyroid s/p thyroidectomy for cancer, non-hodgkin's lymphoma who is now bedbound/wheelchair bound PCP: Patti Zurita Payer: [employer]ory FERGUSON/STALIN Reviewed chart, pt discussed in multidisciplinary rounds this morning. Dr Barbosa unsure how patient will recover from yet another hospitalization. Patient is DNR with multiple medical complications, Hospice candidate? Patient was formerly living at [facility]) until recently when she moved into [facility] for increased level of care. It is expected that patient will return to [facility] upon DC, either w/ Rehabilitative efforts ([employer] auth?) vs LTC ([facility]) vs LTC w/Hospice Following closely for coordination of DCP. PATRIC Styles Discharge Planning/Care Management CM Discharge Assessment Start: 02/28/22 15:40 Freq: Status: Active Protocol: Document 02/28/22 15:40 HECTOR (Rec: 02/28/22 15:46 HECTOR [id number]) Discharge Planning Assessment Assigned Household Chores PATRIC Bush DPOA/Assigned Designee Name Juliana Erwin Contact Information [phone] Advance Directives? Yes: DNR Advance Directives on File No History Provided By Family Member,Medical Record Has Patient been admitted in last 30 No days? Comment Here 01.23.22-01.25.22, DC to [facility] Prior Living Arrangements Skilled Nurse Facility Household Members none Type of transporation used prior to Relies on Others admit Facility Name Admitted From: [facility] Willing to Return to Facility? Yes Independent with ADL's No Is patient alert and oriented? No Needs Assistance With Bathing,Grooming,Meal Prep, Toileting,Managing Medications ,Home Chores / Shopping Comment Multiple medical co-morbidities Patient/Family Preference [facility] Facility Comment [facility], [facility] Comment [facility] and re-admitted to [facility] 01-[facility]22 because [place] unable to care for patient. Patient admitted with acute encephalopathy and hypoxemia Discharge Plan [facility] Facility Transportation Arrangement Non-urgent BLS Referrals Initiated Jail,Other
[2022-02-28] MEDS: cefTRIAXone 1,000 MG in SODIUM CHLORIDE 0.9% 100 ML 200 ML IV (16:21)
[2022-02-28] MEDS: MORPHINE 2 MG/ML INJ IV (16:50)
[2022-02-28] MEDS: levETIRAcetam 500 MG in SODIUM CHLORIDE 0.9% 100 ML 420 ML IV (21:12)
[2022-02-28 23:20] LABS: Parathyroid Hormone, Intact 1 pg/mL (15-65)
[2022-03-01] VITALS (12 sets, daily range): BP systolic 103–130; BP diastolic 58–70; PULSE 82–90; RESP 13–18; TEMP 36.5–37.3; O2SAT 88–96
[2022-03-01] MEDS: SODIUM CHLORIDE 0.9% 1,000 ML 100 ML IV (06:08)
[2022-03-01 06:14] LABS: Hematocrit 32.8 % (36-46); Hemoglobin 10.6 g/dL (12.0-16.0); Mean Corpuscular HGB Conc 32.3 % (30-36); Mean Corpuscular Hemoglobin 29.7 PG (26-34); Platelet Count 202 X10^3/uL (150-400); Red Blood Cell Count 3.57 X10^6/uL (4.0-5.2); Red Cell Distribution Width 16.5 % (11.6-14.8); White Blood Cell Count 6.7 X10^3/uL (4.5-11.0)
[2022-03-01 06:23] LABS: Blood Urea Nitrogen 31 mg/dL (7-17); Calcium 10.8 mg/dL (8.4-10.2); Carbon Dioxide 35 mmol/L (22-32); Chloride 106 mmol/L (98-107); Glucose 111 mg/dL (80-110); HEMOLYSIS < 15 (0-50); Potassium 3.8 mmol/L (3.4-5.1); Sodium 150 mmol/L (137-145)
[2022-03-01] MEDS: levETIRAcetam 500 MG in SODIUM CHLORIDE 0.9% 100 ML 420 ML IV ×2 (09:06→21:33)
[2022-03-01] MEDS: HEPARIN 5,000 UNIT/ML VIAL 5000 UNIT SUBCUT ×2 (09:07→21:33)
--- NOTE | 2022-03-01 15:00 | P.PN_ITS ---
Subjective Subjective Date Patient Seen: 03/01/22 Time Patient Seen: 08:00 Interval history: She opens eyes to voice. She can rarely verbalize something that I can u nderstand. She is moaning and appears uncomfortable throughout exam. Exam Vital Signs (past 8 hours): - 03/01/22 07:30 03/01/22 09:10 03/01/22 11:30 Temperature 98.2 F 98.8 F Pulse Rate 82 84 Respiratory Rate 14 13 Blood Pressure 103/61 129/59 L Pulse Oximetry 94 96 91 03/01/22 11:33 Temperature Pulse Rate Respiratory Rate Blood Pressure Pulse Oximetry 96 Oxygen Delivery Method Room Air Oxygen Flow Rate 0 Narrative Exam Narrative: GEN: lethargic HEENT: dry mucous membranes, PERRL NECK: trachea midline, no JVD CV: regular rate and rhythm, no murmurs PULM: decreased breath sounds bilaterally ABD: soft, nontender, nondistended, no organomegaly, normal bowel sounds, obese EXT: warm and well perfused with trace edema NEURO: no focal deficits notes, moving all extremities Objective Labs Result Diagrams: 03/01/22 05:35 03/01/22 05:35 Labs: Laboratory Results - last 24 hr 02/27/22 03/01/22 03/01/22 09:40 05:35 05:35 WBC 6.7 RBC 3.57 L Hgb 10.6 L Hct 32.8 L MCV 92.0 MCH 29.7 MCHC 32.3 RDW 16.5 H Plt Count 202 Sodium 150 H Potassium 3.8 Chloride 106 Carbon Dioxide 35 H BUN 31 H Creatinine 1.72 H Estimated GFR 29.0 L BUN/Creatinine Ratio 18.0 Glucose 111 H Calcium 10.8 H PTH Intact 1 L PTH Intact Intraop Comment PFSH Medical History CAD (coronary artery disease) Chronic hypercapnic respiratory failure Chronic systolic CHF (congestive heart failure) CKD (chronic kidney disease) CVA (cerebral vascular accident) Dementia Diabetes mellitus type 2 in obese GERD (gastroesophageal reflux disease) Heart failure, unspecified Hyperlipidemia Hypertension Hypothyroid Morbid obesity with alveolar hypoventilation Non Hodgkin's lymphoma Pacemaker Thyroid cancer Tremor, unspecified Surgical History History of cholecystectomy History of thyroidectomy Hx of tonsillectomy S/P TAVR (transcatheter aortic valve replacement) Family History Mother Dementia Father Heart attack Social History household members: none Smoking Status: Never smoker alcohol intake: never Assessment & Plan Assessment & Plan narrative: Ms. Almanza is a 76W with long PMH including CHFsEF 40-45%, chronic hypercapneic respiratory failure with TRUONG, CAD, cardiac arrest s/p PPM, s/p TAVR, CKD stage 3-4, dementia, DM, HTN, HL, hypothyroid s/p thyroidectomy for cancer, non- hodgkin's lymphoma who is now bedbound/wheelchair bound who presents with confusion and hypoxemia. 1. Acute encephalopathy -etiology likely multifactorial but presume hypercalcemia playing a role, however daughter also says patient mostly sleeps at facility -treat hypercalcemia as below with improvement, with only marginal improvement in encephalopathy -monitor for worsening hypercapnia, currently CO2 in 60s, which has been where she has been prior, with compensated pH at 7.41 -possibly also from UTI, started on antibiotics 2. Acute hypercalcemia, improved -etiology possibly from renal failure, vitamin d toxicity in setting of being on calcitriol -PTH, vitamin D levels ordered -already ordered for fluids and lasix in ED -calcium <11 on 03/01 -ordered for calcitonin for two days then stopped 3. Acute hypoxemic/hypercarbic respiratory failure -has multiple comorbidities including chf, sleep apnea, and possible obesity hypoventilation -wean oxygen as able -may need additional diuresis if remains on oxygen -no evidence of infection on chest xray, and white count/procalcitonin, not elevated 4. Morbid obesity -contributing to respiratory failure and sleep apnea 5. SEBASTIAN on CKD stage 3, improved -creatinine 2.2 on admit, improved to 1.72 which appears baseline -possibly secondary to increased torsemide dose -order gentle IV fluids -check urine electrolytes 6. Chronic systolic heart failure -chest xray showed no significant fluid overload -for now hold off additional lasix 7. CAD s/p stents, pacemaker, TAVR -continue statin, aspirin 8. Type 2 Diabetes -continue insulin, and insulin sliding scale 9. HTN -continue coreg 10. HL -continue statin 11. Dementia -continue donepezil 12. Seizure disorder -continue keppra 13. UTI -UA presumptive positive, started ceftriaxone initially -aerococcus on cultures will switch to amoxicillin for 7 days Dispo: patient has had marginal improvement with treating infection, fluid resuscitation, and correction of electrolyte derangement. She is appropriate for palliative/hospice care and these discussions have been had with family. Time Spent With Patient Critical Care time: I spent a total of [] minutes of critical care time on this patient's care today; this time is exclusive of procedural time.
[2022-03-01] MEDS: AMPICILLIN/SULBACTAM 1.5 GM 1.5 GM in SODIUM CHLORIDE 0.9% 100 ML IV (22:03)
[2022-03-02] VITALS (11 sets, daily range): BP systolic 105–143; BP diastolic 42–72; PULSE 88–99; RESP 18–20; TEMP 36.4–37.3; O2SAT 89–95
[2022-03-02] MEDS: AMPICILLIN/SULBACTAM 1.5 GM 1.5 GM in SODIUM CHLORIDE 0.9% 100 ML IV ×4 (03:14→21:10)
[2022-03-02 06:27] LABS: BUN Creatinine Ratio 15.2 (6-22); Blood Urea Nitrogen 25 mg/dL (7-17); Calcium 10.2 mg/dL (8.4-10.2); Carbon Dioxide 34 mmol/L (22-32); Chloride 106 mmol/L (98-107); Estimated Glomerular Filt Rate 30.4 mL/min (>60); Glucose 133 mg/dL (80-110); HEMOLYSIS < 15 (0-50); Potassium 3.5 mmol/L (3.4-5.1); Sodium 150 mmol/L (137-145)
[2022-03-02] MEDS: MORPHINE 2 MG/ML INJ IV ×2 (06:28→14:29)
--- NOTE | 2022-03-02 06:37 | PC.NURSE ---
Pt became more alert this morning and allowed for oral care. Pt also requested pain medication and was able to rate pain when asked. 2 mg IV morphine given for pain rated 5/10.
[2022-03-02] MEDS: HEPARIN 5,000 UNIT/ML VIAL 5000 UNIT SUBCUT (09:00)
[2022-03-02] MEDS: levETIRAcetam 500 MG in SODIUM CHLORIDE 0.9% 100 ML 420 ML IV ×2 (09:01→21:18)
[2022-03-02] MEDS: SODIUM CHLORIDE 0.9% 1,000 ML 50 ML IV (09:02)
--- NOTE | 2022-03-02 10:24 | DIET.CONS ---
Addendum entered by Awilda Pedro 03/02/22 12:40: Upon further review, given h/o dementia likely not a good nutrition support candidate. Original Note: Dietary Consultation Note Admission Date: 02/27/2022 11:45 Assessment: 76 y/o F admitted with altered mental status. RD consulted originally for decreasing PO intake and now for NPO status, unable to eat safely. If family decides to continue all measure of care, pt may benefit from nutrition support via TF related to h/o significant wt loss and inadequate PO. Per EMR records pt has lost significant weight in over the last 1-5 months. No new wt since 02/27. wt hx: 02/27/22: 128.5kg 01/23/22: 138.5kg (-10kg or 7.2% severe) 10/04/21: 155.1kg (-26.6kg or 17% severe) Last consult nutrition focused physical exam indicates moderate temporal scooping, dark circles and depressed orbital area indicative of malnutrition. Awaiting plan of care, potential hospice candidate. Ht: 170.18 cm Wt: 128.5 kg BMI: 44.4 Last BM: 02/26/22 (02/27/22 15:40) MNA: 6 Christiano Score: 10 Diet: 02/28/22 16:26 NPO Diet Diet Modifications: not safe to swallow NPO Type: Strict Nutrition Percent Meal Consumed patient was NPO for the whole 03/01/22 18:55 shift Percent Meal Consumed pt refused meal 02/28/22 11:04 Labs: RBC 3.57 X10^6/uL (4.0-5.2) L 03/01/22 05:35 Hgb 10.6 g/dL (12.0-16.0) L 03/01/22 05:35 Hct 32.8 % (36-46) L 03/01/22 05:35 Creatinine 1.65 mg/dL (0.52-1.04) H 03/02/22 05:30 Lactate 1.3 mmol/L (0.7-2.1) 02/27/22 09:40 NT-Pro-B Natriuret Pep 6170 pg/mL (<125) H 02/27/22 09:40 Nutrition Diagnosis: Acute severe PCM r/t inadequate PO aeb >5% wt loss in one month, signs of moderate muscle wasting in temples and orbital areas, inadequate intake and NPO status. Inadequate energy intake r/t inability to eat safely aeb pt altered mental status, staff notes, and NPO status. Interventions: None at this time. Awaiting plan of care. EER: 1600-1700kcals (12-13kcal/kg) ; 120g PRO (1.5g/kg @80kg per malnutrition) Monitoring/Evaluations: weights please, will continue to monitor Electronically Signed by: Awilda Pedro 03/02/22 10:24 Clinical Dietitian [address] [address]
--- NOTE | 2022-03-02 14:41 | P.PN_ITS ---
Subjective Subjective Date Patient Seen: 03/02/22 Time Patient Seen: 13:33 Interval history: She opens eyes to voice. She can rarely verbalize something that I can u nderstand. She is moaning and appears uncomfortable throughout exam. Exam Vital Signs (past 8 hours): - 03/02/22 07:00 03/02/22 09:14 03/02/22 09:24 Temperature 97.7 F Pulse Rate 88 Respiratory Rate 20 Blood Pressure 131/42 L Pulse Oximetry 93 94 95 03/02/22 11:00 Temperature 97.6 F Pulse Rate 91 H Respiratory Rate 20 Blood Pressure 105/56 L Pulse Oximetry 92 Oxygen Delivery Method Nasal Cannula Oxygen Flow Rate 1 Narrative Exam Narrative: GEN: lethargic HEENT: dry mucous membranes, PERRL NECK: trachea midline, no JVD CV: regular rate and rhythm, no murmurs PULM: decreased breath sounds bilaterally ABD: soft, nontender, nondistended, no organomegaly, normal bowel sounds, obese EXT: warm and well perfused with trace edema NEURO: no focal deficits notes, moving all extremities Objective Labs Result Diagrams: 03/01/22 05:35 03/02/22 05:30 Labs: Laboratory Results - last 24 hr 03/02/22 05:30 Sodium 150 H Potassium 3.5 Chloride 106 Carbon Dioxide 34 H BUN 25 H Creatinine 1.65 H Estimated GFR 30.4 L BUN/Creatinine Ratio 15.2 Glucose 133 H Calcium 10.2 PFSH Medical History CAD (coronary artery disease) Chronic hypercapnic respiratory failure Chronic systolic CHF (congestive heart failure) CKD (chronic kidney disease) CVA (cerebral vascular accident) Dementia Diabetes mellitus type 2 in obese GERD (gastroesophageal reflux disease) Heart failure, unspecified Hyperlipidemia Hypertension Hypothyroid Morbid obesity with alveolar hypoventilation Non Hodgkin's lymphoma Pacemaker Thyroid cancer Tremor, unspecified Surgical History History of cholecystectomy History of thyroidectomy Hx of tonsillectomy S/P TAVR (transcatheter aortic valve replacement) Family History Mother Dementia Father Heart attack Social History household members: none Smoking Status: Never smoker alcohol intake: never Assessment & Plan Assessment & Plan narrative: Ms. Almanza is a 76W with long PMH including CHFsEF 40-45%, chronic hypercapneic respiratory failure with TRUONG, CAD, cardiac arrest s/p PPM, s/p TAVR, CKD stage 3-4, dementia, DM, HTN, HL, hypothyroid s/p thyroidectomy for cancer, non- hodgkin's lymphoma who is now bedbound/wheelchair bound who presents with confus ion and hypoxemia. 1. Acute encephalopathy -etiology likely multifactorial but presume hypercalcemia playing a role, however daughter also says patient mostly sleeps at facility -treat hypercalcemia as below with improvement, with only marginal improvement in encephalopathy -monitor for worsening hypercapnia, currently CO2 in 60s, which has been where she has been prior, with compensated pH at 7.41 -possibly also from UTI, started on antibiotics as noted below -consider MRI depending on goals of care discussion. 2. Acute hypercalcemia, improved -etiology possibly from renal failure, vitamin d toxicity in setting of being on calcitriol -PTH, vitamin D levels ordered -already ordered for fluids and lasix in ED -calcium <11 on 03/01 -ordered for calcitonin for two days then stopped 3. Acute hypoxemic/hypercarbic respiratory failure -has multiple comorbidities including chf, sleep apnea, and possible obesity hypoventilation -wean oxygen as able -may need additional diuresis if remains on oxygen -no evidence of infection on chest xray, and white count/procalcitonin, not elevated 4. Morbid obesity -contributing to respiratory failure and sleep apnea 5. SEBASTIAN on CKD stage 3, improved -creatinine 2.2 on admit, improved to 1.72 which appears baseline -possibly secondary to increased torsemide dose -order gentle IV fluids -check urine electrolytes 6. Chronic systolic heart failure -chest xray showed no significant fluid overload -for now hold off additional lasix 7. CAD s/p stents, pacemaker, TAVR -continue statin, aspirin 8. Type 2 Diabetes -continue insulin, and insulin sliding scale 9. HTN -continue coreg 10. HL -continue statin 11. Dementia -continue donepezil 12. Seizure disorder -continue keppra 13. UTI -UA presumptive positive, started ceftriaxone initially -aerococcus on cultures changed to amoxicillin for 7 days Dispo: patient has had marginal improvement with treating infection, fluid resuscitation, and correction of electrolyte derangement. She is appropriate for palliative/hospice care and these discussions have been had with family. Time Spent With Patient Critical Care time: I spent a total of [] minutes of critical care time on this patient's care today; this time is exclusive of procedural time.
--- NOTE | 2022-03-02 15:36 | PC.NURSE ---
Day shift note: Patient sleeping through care, repositioning in bed, lisa and oral care provided. . GCS 11, opens eyes to touch, follows commands sporadically, unable to understand words, moans. FLACC scale used for pain management. Continue NPO, IVF infusing as ordered. Remain on O2 at 1L via NC, sats 92-94%, continuous pulse ox in place. Updated daughter Juliana via phone, states she will not come by today.
[2022-03-03] VITALS (13 sets, daily range): BP systolic 127–141; BP diastolic 60–77; PULSE 83–93; RESP 18–21; TEMP 36.1–36.6; O2SAT 89–96
[2022-03-03] MEDS: AMPICILLIN/SULBACTAM 1.5 GM 1.5 GM in SODIUM CHLORIDE 0.9% 100 ML IV ×4 (03:36→21:39)
[2022-03-03] MEDS: SODIUM CHLORIDE 0.9% 1,000 ML 50 ML IV (08:29)
[2022-03-03] MEDS: HEPARIN 5,000 UNIT/ML VIAL 5000 UNIT SUBCUT ×2 (08:39→21:35)
[2022-03-03] MEDS: levETIRAcetam 500 MG in SODIUM CHLORIDE 0.9% 100 ML 420 ML IV ×2 (08:46→21:35)
--- NOTE | 2022-03-03 11:35 | CM.DPNOTE ---
DCP Note According to Dr Kumar; patient would be a great candidate for return to SNF, [facility] with Hospice services and will discuss w/patient's family today. Since arrival, patient has been mostly sleeping, does not appear to be improving and is medically fragile and baseline. This CM team will follow closely for coordination of DCP; possibly return to [facility] H+R (STALIN) w/addition of Hospice services JW
[2022-03-03 14:35] LABS: PO2 ABG 59 mmHg (80-100); pH ABG 7.43 (7.35-7.45)
[2022-03-03 14:36] LABS: Fractionated Inspired Oxygen 21; HCO3 ABG 35 mmol/L (22-26); Oxygen Saturation ABG 90 % (95-100); TCO2 ABG 36 mmol/L (21-31)
--- NOTE | 2022-03-03 15:08 | PC.NURSE ---
Pt resting most of the day. Moans occassionally Repositioned frequently. NS infusing @ 50cc/hr via pump into the GERSON w/o incidence. Remains NPO, due to swallowing issues. Condition remains essentially unchanged. Call light w/in reach, bed alarm on for pt safety. Continue w/plan of care.
--- NOTE | 2022-03-03 15:34 | P.PN_ITS ---
Subjective Subjective Date Patient Seen: 03/03/22 Time Patient Seen: 15:35 Interval history: She opens eyes to voice. She can rarely verbalize something that I can u nderstand. She is moaning and appears uncomfortable throughout exam but does appear to try and voice no when asked about pain. Discussed with daughter whom is agreeable with decision to move to comfort care at this time given overall poor prognosis and minimal chance for adequate recovery at this time. Exam Vital Signs (past 8 hours): - 03/03/22 09:00 03/03/22 09:06 03/03/22 11:00 Temperature 97.8 F Pulse Rate 91 H Respiratory Rate 20 Blood Pressure 127/63 Pulse Oximetry 94 92 92 03/03/22 14:36 03/03/22 15:00 Temperature 96.9 F L Pulse Rate 85 Respiratory Rate 19 Blood Pressure 141/73 H Pulse Oximetry 93 95 Oxygen Delivery Method Nasal Cannula Oxygen Flow Rate 2 Narrative Exam Narrative: GEN: lethargic, obese female appears uncomfortable when awoken. HEENT: dry mucous membranes, PERRL NECK: trachea midline, no JVD CV: regular rate and rhythm, no murmurs PULM: decreased breath sounds bilaterally ABD: soft, nontender, nondistended, no organomegaly, normal bowel sounds, obese EXT: warm and well perfused with trace edema NEURO: no focal deficits notes, moving all extremities, moaning, incomprehensible speech. Objective Labs Result Diagrams: 03/01/22 05:35 03/02/22 05:30 Labs: Laboratory Results - last 24 hr 03/03/22 14:26 ABG pH 7.43 ABG pCO2 52.0 H ABG pO2 59 L ABG HCO3 35 H ABG Total CO2 36 H ABG O2 Saturation 90 L ABG Base Excess 11.0 H FiO2 21 PFSH Medical History CAD (coronary artery disease) Chronic hypercapnic respiratory failure Chronic systolic CHF (congestive heart failure) CKD (chronic kidney disease) CVA (cerebral vascular accident) Dementia Diabetes mellitus type 2 in obese GERD (gastroesophageal reflux disease) Heart failure, unspecified Hyperlipidemia Hypertension Hypothyroid Morbid obesity with alveolar hypoventilation Non Hodgkin's lymphoma Pacemaker Thyroid cancer Tremor, unspecified Surgical History History of cholecystectomy History of thyroidectomy Hx of tonsillectomy S/P TAVR (transcatheter aortic valve replacement) Family History Mother Dementia Father Heart attack Social History household members: none Smoking Status: Never smoker alcohol intake: never Assessment & Plan Assessment & Plan narrative: Ms. Almanza is a 76W with long PMH including CHFsEF 40-45%, chronic hypercapneic respiratory failure with TRUONG, CAD, cardiac arrest s/p PPM, s/p TAVR, CKD stage 3-4, dementia, DM, HTN, HL, hypothyroid s/p thyroidectomy for cancer, non- hodgkin's lymphoma who is now bedbound/wheelchair bound who presents with con fusion and hypoxemia. 1. Acute encephalopathy -etiology likely multifactorial but presume hypercalcemia playing a role, however daughter also says patient mostly sleeps at facility -treat hypercalcemia as below with improvement, with only marginal improvement in encephalopathy -monitor for worsening hypercapnia, currently CO2 in 60s, which has been where she has been prior, with compensated pH at 7.41. Repeated today and PCO2 was stable around 60. -possibly also from UTI, started on antibiotics as noted below -discussed with daughter today, agreeable to move to comfort goal primarily. Stop labs, focus on comfort, continue antibiotics but stop IV fluids. 2. Acute hypercalcemia, improved -etiology possibly from renal failure, vitamin d toxicity in setting of being on calcitriol -PTH, vitamin D levels ordered -already ordered for fluids and lasix in ED -calcium <11 on 03/01 -ordered for calcitonin for two days then stopped -stop IV fluids today given goals discussion noted above. 3. Acute hypoxemic/hypercarbic respiratory failure -has multiple comorbidities including chf, sleep apnea, and possible obesity hypoventilation -wean oxygen as able, now off supplemental therapy. -no evidence of infection on chest xray, and white count/procalcitonin, not elevated 4. Morbid obesity -contributing to respiratory failure and sleep apnea 5. SEBASTIAN on CKD stage 3, improved -creatinine 2.2 on admit, improved to baseline -possibly secondary to increased torsemide dose -order gentle IV fluids while NPO, will stop given goals of care. 6. Chronic systolic heart failure -chest xray showed no significant fluid overload -for now hold off additional lasix 7. CAD s/p stents, pacemaker, TAVR -continue statin, aspirin if able to tolerate oral intake. 8. Type 2 Diabetes -stop insulin for comfort 9. HTN -continue coreg if able 10. HL -continue statin if able 11. Dementia -continue donepezil if able 12. Seizure disorder -continue keppra if able and consider replacement with IV if seizure develops while NPO for comfort measures. 13. UTI -UA presumptive positive, started ceftriaxone initially -aerococcus on cultures changed to amoxicillin for 7 days, however unable to tolerate oral so on unasyn. Dispo: patient has had marginal improvement with treating infection, fluid resuscitation, and correction of electrolyte derangement. She is appropriate for palliative/hospice care. Daughter is agreeable with this plan. Plan for transfer to [facility] on hospice when able. Time Spent With Patient Critical Care time: I spent a total of [] minutes of critical care time on this patient's care today; this time is exclusive of procedural time.
[2022-03-04] MEDS: AMPICILLIN/SULBACTAM 1.5 GM 1.5 GM in SODIUM CHLORIDE 0.9% 100 ML IV ×4 (03:17→21:21)
[2022-03-04 07:00] VITALS: BP 138/58; PULSE 93; RESP 21; TEMP 36.2; O2SAT 96
[2022-03-04 07:45] VITALS: O2SAT 100
[2022-03-04 07:47] VITALS: O2SAT 95
[2022-03-04 08:30] VITALS: O2SAT 2
[2022-03-04] MEDS: levETIRAcetam 500 MG in SODIUM CHLORIDE 0.9% 100 ML 420 ML IV ×2 (09:45→20:46)
[2022-03-04] MEDS: HEPARIN 5,000 UNIT/ML VIAL 5000 UNIT SUBCUT ×2 (09:51→20:46)
[2022-03-04] MEDS: MORPHINE 2 MG/ML INJ IV ×2 (10:01→16:09)
--- NOTE | 2022-03-04 11:04 | P.PN_ITS ---
Subjective Subjective Date Patient Seen: 03/04/22 Time Patient Seen: 11:04 Interval history: Awake and alert this morning. Still confused but much improved. Failed bedside swallow. Discussed with daughter would like speech evaluation but will remain on comfort measures primarily. Home medications to be determined by ability to swallow moving forward. Exam Vital Signs (past 8 hours): - 03/04/22 07:00 03/04/22 07:45 03/04/22 07:47 Temperature 97.1 F L Pulse Rate 93 H Respiratory Rate 21 Blood Pressure 138/58 L Pulse Oximetry 96 100 95 Oxygen Delivery Method Room Air Oxygen Flow Rate 2 Narrative Exam Narrative: GEN: lethargic, obese female but awake and communicative this morning. HEENT: dry mucous membranes, PERRL NECK: trachea midline, no JVD CV: regular rate and rhythm, no murmurs PULM: decreased breath sounds bilaterally ABD: soft, nontender, nondistended, no organomegaly, normal bowel sounds, obese EXT: warm and well perfused with trace edema NEURO: no focal deficits notes, moving all extremities, alert and oriented to name. Speech is slow. Follows commands today. Objective Labs Result Diagrams: 03/01/22 05:35 03/02/22 05:30 Labs: Laboratory Results - last 24 hr 03/03/22 14:26 ABG pH 7.43 ABG pCO2 52.0 H ABG pO2 59 L ABG HCO3 35 H ABG Total CO2 36 H ABG O2 Saturation 90 L ABG Base Excess 11.0 H FiO2 21 PFSH Medical History CAD (coronary artery disease) Chronic hypercapnic respiratory failure Chronic systolic CHF (congestive heart failure) CKD (chronic kidney disease) CVA (cerebral vascular accident) Dementia Diabetes mellitus type 2 in obese GERD (gastroesophageal reflux disease) Heart failure, unspecified Hyperlipidemia Hypertension Hypothyroid Morbid obesity with alveolar hypoventilation Non Hodgkin's lymphoma Pacemaker Thyroid cancer Tremor, unspecified Surgical History History of cholecystectomy History of thyroidectomy Hx of tonsillectomy S/P TAVR (transcatheter aortic valve replacement) Family History Mother Dementia Father Heart attack Social History household members: none Smoking Status: Never smoker alcohol intake: never Assessment & Plan Assessment & Plan narrative: Ms. Almanza is a 76W with long PMH including CHFsEF 40-45%, chronic hypercapneic respiratory failure with TRUONG, CAD, cardiac arrest s/p PPM, s/p TAVR, CKD stage 3-4, dementia, DM, HTN, HL, hypothyroid s/p thyroidectomy for cancer, non-hodgkin's lymphoma who is now bedbound/wheelchair bound who presents with confusion and hypoxemia. 1. Acute encephalopathy, improved today. -etiology likely multifactorial but presume hypercalcemia playing a role, however daughter also says patient mostly sleeps at facility -treat hypercalcemia as below with improvement, with only marginal improvement in encephalopathy initially. Now much improved. -monitor for worsening hypercapnia, currently CO2 in 60s, which has been where she has been prior, with compensated pH at 7.41. Repeated 03/03 and PCO2 was stable around 60. -possibly also from UTI, started on antibiotics as noted below. -discussed with daughter, agreeable to move to comfort goal primarily. Stop labs, focus on comfort, continue antibiotics but stopped IV fluids. -suddent improvement in mental status on 03/04. Still continue to focus on comfort but will have speech therapy evaluation given failed bedside swallow. 2. Acute hypercalcemia, improved -etiology possibly from renal failure, vitamin d toxicity in setting of being on calcitriol -PTH, vitamin D levels ordered -already ordered for fluids and lasix in ED -calcium <11 on 03/01 -ordered for calcitonin for two days then stopped -stop IV fluids 03/03 given goals discussion noted above. 3. Acute hypoxemic/hypercarbic respiratory failure -has multiple comorbidities including chf, sleep apnea, and possible obesity hypoventilation -now off supplemental therapy. -no evidence of infection on chest xray, and white count/procalcitonin, not elevated 4. Morbid obesity -contributing to respiratory failure and sleep apnea 5. SEBASTIAN on CKD stage 3, improved -creatinine 2.2 on admit, improved to baseline -possibly secondary to increased torsemide dose -order gentle IV fluids while NPO, will stop given goals of care. 6. Chronic systolic heart failure -chest xray showed no significant fluid overload -for now hold off additional lasix 7. CAD s/p stents, pacemaker, TAVR -continue statin, aspirin if able to tolerate oral intake. 8. Type 2 Diabetes -stop insulin for comfort 9. HTN -continue coreg if able 10. HL -continue statin if able 11. Dementia -continue donepezil if able 12. Seizure disorder -continue keppra if able and consider replacement with IV if seizure develops while NPO for comfort measures. 13. UTI -UA presumptive positive, started ceftriaxone initially -aerococcus on cultures changed to amoxicillin for 7 days, however unable to tolerate oral so on unasyn. Dispo: patient has had marginal improvement with treating infection, fluid resuscitation, and correction of electrolyte derangement initially but on 03/04 with sudden improvement. She is appropriate for palliative/hospice care still at this time given multitude of medical co-morbidities and continued decline. Daughter is agreeable with this plan. Plan for transfer to [facility] on hospice after speech evaluations. Time Spent With Patient Critical Care time: I spent a total of [] minutes of critical care time on this patient's care today; this time is exclusive of procedural time.
--- NOTE | 2022-03-04 12:49 | PC.NURSE ---
Assumed care of pt at 0700. Pt resting bed during hand-off. Awakens to voice and says a few words. Provider requests bedside swallow screen. Unable to complete screen. Pt began coughing with teaspoon of water, Pt remains NPO, LEASE OUT MAN eval order placed. Provider aware.
[2022-03-04] MEDS: SODIUM CHLORIDE 0.9% FLUSH 10 ML IV ×2 (16:10→20:47)
[2022-03-04] MEDS: MORPHINE 4 MG/ML INJ IV (17:30)
[2022-03-04 20:25] VITALS: PULSE 93; RESP 20; O2SAT 92
[2022-03-04] MEDS: SODIUM CHLORIDE 0.9% 250 ML 21 ML IV (20:46)
[2022-03-04 21:00] VITALS: O2SAT 86
--- NOTE | 2022-03-04 23:10 | PC.NURSE ---
Patient is not responding verbally to questions asked but does open her eyes and moans. Breath sounds diminished with RA sat of 86% but when attempts made to place her on oxygen she keeps turning head side to side. HRR. BT hypoactive and note she has not had a BM since 02/26. Indwelling catheter is patent; urine is clear, dark yellow. Not moving herself so is being repositioned q2h. Does have a stage 2 open area near rectum but too close to apply a dressing so waffle cushions placed under her. FLACC score is 2. Fall risk score is high and bed alarm is activated. Is on mostly comfort care and plan is to DC on hospice.
[2022-03-05] MEDS: MORPHINE 2 MG/ML INJ IV (02:03)
[2022-03-05] MEDS: SODIUM CHLORIDE 0.9% FLUSH 10 ML IV ×4 (02:04→08:42)
[2022-03-05] MEDS: AMPICILLIN/SULBACTAM 1.5 GM 1.5 GM in SODIUM CHLORIDE 0.9% 100 ML IV ×2 (03:12→09:59)
[2022-03-05] MEDS: MORPHINE 4 MG/ML INJ IV ×2 (06:30→10:03)
[2022-03-05 06:45] VITALS: BP 138/68; PULSE 92; RESP 18; TEMP 36.6; O2SAT 91
[2022-03-05 07:34] VITALS: O2SAT 95
[2022-03-05 08:41] VITALS: O2SAT 90
[2022-03-05] MEDS: HEPARIN 5,000 UNIT/ML VIAL 5000 UNIT SUBCUT (08:41)
[2022-03-05] MEDS: levETIRAcetam 500 MG in SODIUM CHLORIDE 0.9% 100 ML 420 ML IV (08:41)
--- NOTE | 2022-03-05 09:09 | SLP.IPNOTE ---
Attempted swallow evaluation. Nsg reported pt had received 4 mg of morphine at 6:30. She was positioned upright in bed, moaning with all movements and eyes open but fixed on ceiling. Was not responsive to verbal prompts to look at clinician. Pt refused all attempts at oral intake except moist swab to lips and then fell asleep. She was minimally communicative, saying Yeah x3 and turning her head away in refusal x2. Results were shared with PATRIC Roberts. Will attempt again as able.
--- NOTE | 2022-03-05 10:49 | PM.DS.1 ---
History of Present Illness History of Present Illness Date Patient Seen: 03/05/22 Time Patient Seen: 10:49 Chief complaint: Increased Sputum Narrative: Per Dr. Vieyra, Ms. Almanza is a 76W with long PMH including CHFsEF 40-45%, chronic hypercapneic respiratory failure with TRUONG, CAD, cardiac arrest s/p PPM, s/p TAVR, CKD stage 3-4, dementia, DM, HTN, HL, hypothyroid s/p thyroidectomy for cancer, non-hodgkin's lymphoma who is now bedbound/wheelchair bound who presents from her facility due to confusion and hypoxia. She has a CPAP but does at times refuse to wear this. ? She has been admitted three times a month ago first for encephalopathy and UTI, second for NSTEMI and CHF, third for encephalopathy. Per the daughter the patient has been declining significantly over the last month. She has called her and has not been able to have any significant conversations. The patient mostly sleeps throughout the day. There has been discussion about hospice. She was brought in for altered mental status and sats in the 80s while asleep. She has recently had her torsemide increased for noted elevated BNP ~3000, and known history of CHF. On arrival to the hospital she was quite altered and could not give a review of her symptoms. In the ED workup was done, vitals noted to be unremarkable initially. Labs notable for WBC 7.4, Hgb 12.4, Na 148, CO2 37, BUN 37, creat 2.21. BNP 6170, trop 0.044. Calcium 13.5. ABG pH 7.46, co2 60, hco3 43. Chest xray and CT head with no acute process. She was ordered for fluids and lasix for her hypercalcemia and admitted for further treatment. Discharge Providers Provider Date of admission: 02/27/22 11:45 Discharge Date: 03/05/22 Primary care physician: JOSEPH Lopez Consults: 02/27/22 09:36 Consult to Respiratory Therapy Evaluate & Treat Comment: Physician Instructions: Evaluate and treat 02/27/22 15:04 Consult to Respiratory Therapy Evaluate & Treat Comment: PM CPAP Physician Instructions: Evaluate and treat 02/27/22 15:46 Consult to Dietitian, Adult Routine Comment: Reason For Exam: decreasing PO intake, altered mental status 02/28/22 17:50 Consult to Dietitian, Adult Routine Comment: Reason For Exam: NPO, unable to safely swallow 03/03/22 16:07 Consult to Discharge Planning Routine Comment: Consult to Hospice Referral Urgent Comment: 03/04/22 10:08 Consult to Speech Therapy Evaluate & Treat Comment: Falied bedside swallow screen Physician Instructions: Evaluate and treat Discharge provider: Jose Kumar DO Summary Hospital Course Discharge Diagnosis: Please see hospital course by problem list noted below: Hospital Course: Ms. Almanza is a 76W with long PMH including CHFsEF 40-45%, chronic hypercapneic respiratory failure with TRUONG, CAD, cardiac arrest s/p PPM, s/p TAVR, CKD stage 3-4, dementia, DM, HTN, HL, hypothyroid s/p thyroidectomy for cancer, non-hodgkin's lymphoma who is now bedbound/wheelchair bound who presented with confusion and hypoxemia, was found to have UTI and was treated appropriately along with electrolyte and metabolic abnormalities without much improvement overall. Ultimately was transitioned to confort care measures after discussion with daughter /POA. 1. Acute encephalopathy, waxing and waning. -etiology likely multifactorial due to UTI and hypercalcemia playing a role, however daughter also says patient mostly sleeps at facility. -treated hypercalcemia as below with improvement, with only marginal improvement in encephalopathy initially. She had a period of increased alertness on 03/04, but the following day returned to slurred speech. -may be related to transient hypercapnea, less likely seizure activity as she has been on IV therapy despite NPO status. Failed speech eval 03/05. -possibly also from UTI, started on antibiotics as noted below. -discussed with daughter, agreeable to move to comfort care. Stopped labs to focus on comfort, continued antibiotics until discharge but stopped IV fluids. -will likely continue to wax and wane. If her cognition improves would have speech therapy evaluation to see if she could safely tolerate food, or food could be given for comfort. 2. Acute hypercalcemia, improved -etiology possibly from renal failure, vitamin d toxicity in setting of being on calcitriol -PTH was low. Vit D still pending. Consistent with excess intake and increased probable in setting of dehydration and diuretic. -calcium <11 on 03/01 -ordered for calcitonin for two days then stopped -stopped IV fluids 03/03 given goals discussion noted above. 3. Acute hypoxemic/hypercarbic respiratory failure -has multiple comorbidities including chf, sleep apnea, and possible obesity hypoventilation -was off supplemental therapy while here. Okay to continue for comfort if desired. -no evidence of infection on chest xray, and white count/procalcitonin, not elevated 4. Morbid obesity -contributing to respiratory failure and sleep apnea, and many of her other chronic co-morbid conditions. 5. SEBASTIAN on CKD stage 3, improved -creatinine 2.2 on admit, improved to baseline -possibly secondary to increased torsemide dose and probable lack of oral intake. -ordered gentle IV fluids while NPO initially, stopped after goals of care changed to comfort measures. 6. Chronic systolic heart failure -chest xray showed no significant fluid overload -no lasix was provided this admission due to likely dehydration and then goals of care discussions that followed. 7. CAD s/p stents, pacemaker, TAVR -discontinued statin therapies given swallowing difficuties. If improving, could consider restarting chcf medications. 8. Type 2 Diabetes -stop insulin for comfort 9. HTN -discontinued therapies given swallowing difficuties. If improving, could consider restarting intermediate designer medications. 10. HL -discontinued therapies given swallowing difficuties. If improving, could consider restarting intermediate designer medications. 11. Dementia -discontinued therapies given swallowing difficuties. If improving, could consider restarting intermediate designer medications. 12. Seizure disorder -discontinued therapies given swallowing difficuties. If improving, could consider restarting intermediate designer medications. -IV keppra was provided during her stay for seizure prevention. 13. UTI -UA presumptive positive, started ceftriaxone initially -aerococcus on cultures changed to amoxicillin for 7 days, however unable to tolerate oral so on unasyn until the time of discharge. Dispo: patient has had marginal improvement with treating infection, fluid resuscitation, and correction of electrolyte derangement initially but on 03/04 with sudden improvement. She is appropriate for palliative/hospice care still at this time given multitude of medical co-morbidities and continued decline. Daughter is agreeable with this plan. Plan for transfer to [facility] with hospice today. Comfort medications were prescribed. Time Spent with Patient Time spent: Greater than 30 minutes Exam Vital Signs (past 8 hours): - 03/05/22 06:45 03/05/22 07:34 03/05/22 08:41 Temperature 97.8 F Pulse Rate 92 H Respiratory Rate 18 Blood Pressure 138/68 Pulse Oximetry 91 95 90 L Oxygen Delivery Method Room Air Oxygen Flow Rate 0 Narrative Exam Narrative: GEN: lethargic, obese female appears uncomfortable when awoken. HEENT: dry mucous membranes, PERRL NECK: trachea midline, no JVD CV: regular rate and rhythm, no murmurs PULM: decreased breath sounds bilaterally ABD: soft, nontender, nondistended, no organomegaly, normal bowel sounds, obese EXT: warm and well perfused with trace edema NEURO: no focal deficits notes, moving all extremities, moaning, incomprehensible speech. Objective Labs Result Diagrams: 03/01/22 05:35 03/02/22 05:30 [facility] Medical History CAD (coronary artery disease) Chronic hypercapnic respiratory failure Chronic systolic CHF (congestive heart failure) CKD (chronic kidney disease) CVA (cerebral vascular accident) Dementia Diabetes mellitus type 2 in obese GERD (gastroesophageal reflux disease) Heart failure, unspecified Hyperlipidemia Hypertension Hypothyroid Morbid obesity with alveolar hypoventilation Non Hodgkin's lymphoma Pacemaker Thyroid cancer Tremor, unspecified Surgical History History of cholecystectomy History of thyroidectomy Hx of tonsillectomy S/P TAVR (transcatheter aortic valve replacement) Family History Mother Dementia Father Heart attack Social History household members: none Smoking Status: Never smoker alcohol intake: never Discharge Plan Discharge Plan Patient Disposition: SNF Transfer to: [facility] Provider Discharge Comment: Patient was admitted with altered mental status and encephalopathy, not much improvement with treatment of UTI, metabolic issues. Decided for comfort care measures and plan to transfer to [facility] with plan for hospice on comfort measures. Discharge orders & Medications Prescriptions: New lorazepam [Lorazepam Intensol] 2 mg/mL Concentrate 1 mg PO Q1HR PRN (Reason: Anxiety) 7 Days Qty: 30 0RF morphine concentrate 10 mg/0.5 mL Syringe 10 mg PO Q1H PRN (Reason: Pain/Dyspnea) 7 Days Qty: 50 0RF scopolamine base [Transderm-Scop] 1 mg over 3 days Patch 3 Day 1 patch topical Q72H PRN (Reason: Secretions) 14 Days Qty: 6 0RF Discontinued potassium chloride 10 mEq Tablet Extended Release 10 meq PO DAILY 0RF cholecalciferol (vitamin D3) 1,000 unit (25 mcg) Tablet 5,000 unit PO DAILY 0RF Tradjenta 5 mg Tablet 5 mg PO DAILY 0RF primidone 50 mg Tablet 75 mg PO BID 0RF Rx Instructions: takes at 1500 & bedtime levetiracetam 250 mg Tablet 500 mg PO BID 0RF primidone 50 mg Tablet 100 mg PO QAM 0RF nystatin-emollient combo no.54 100,000 unit/gram Cream 1 g TOPICAL BID 0RF Rx Instructions: apply to abdominal folds cyanocobalamin (vitamin B-12) 1,000 mcg/mL Solution 1,000 mcg IM QMONTH 0RF calcium carbonate 500 mg calcium (1,250 mg) Tablet,Chewable 500 - 1,000 mg PO Q6H PRN (Reason: mild to moderate heartburn) 0RF polyvinyl alcohol-povidon(PF) 1.4-0.6 % Dropperette 2 drp OPHTHALMIC (EYE) BID PRN (Reason: Dry Eyes) 0RF Lantus Solostar U-100 Insulin 100 unit/mL (3 mL) Insulin Pen 50 unit SUBCUT BEDTIME 0RF atorvastatin [Lipitor] 20 mg Tablet 40 mg PO BEDTIME Qty: 30 0RF aspirin 81 mg Tablet,Delayed Release (Dr/Ec) 81 mg PO DAILY Qty: 30 0RF fluoxetine 20 mg capsule 20 mg PO DAILY 0RF donepezil 5 mg tablet 5 mg PO DAILY 0RF fluticasone propionate 50 mcg/actuation spray,suspension 50 mcg INTRANASAL DAILY 0RF calcitriol 0.25 mcg capsule 0.5 mcg PO DAILY 0RF liothyronine [Cytomel] 5 mcg Tablet 10 mcg PO DAILY Qty: 30 0RF magnesium oxide 400 mg (241.3 mg magnesium) Tablet 400 mg PO BID Qty: 60 0RF torsemide 20 mg tablet 60 mg PO DAILY 0RF carvedilol 3.125 mg Tablet 12.5 mg PO BID Qty: 0 0RF Rx Instructions: HOLD for SBP <110 HR <60 hydrocodone-acetaminophen 10-325 mg tablet 1 tab PO Q4HR PRN (Reason: Pain, Severe) 0RF levothyroxine [Synthroid] 100 mcg tablet 225 mcg PO 0600 0RF Lantus U-100 Insulin 100 unit/mL Solution 15 unit SUBCUT QAM 0RF hydrocodone-acetaminophen 10-325 mg Tablet 1 tab PO Q4HR PRN (Reason: Severe Pain (Scale Score 7-10)) 0RF insulin aspart U-100 [Novolog U-100 Insulin aspart] 100 unit/mL Solution See Rx Instructions .ROUTE .COMPLEX 0RF Rx Instructions: Give ACHS- BG 151-250= 3 units 251-350=6 units 351-450=9 units Follow up/Referrals: Patti Zurita ARNP [Primary Care Provider] - Diet/Activity/Treatments Diet: Nothing by Mouth Diet comment: Advance as tolerated with comfort in mind if mental status improves Activity: As tolerated [facility] Rehab type: Speech therapy Discharge Data Primary Care Provider: Patti Zurita
--- NOTE | 2022-03-05 11:10 | CM.DPNOTE ---
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 Spoke to Jerad for BLS machine pecan picker. Rosario Hall, NATALIE Assist.
[2022-03-05 11:26] LABS: COVID19 -Nasal RAPID Negative (Negative)
--- NOTE | 2022-03-05 13:46 | CM.DPC ---
DCP/continued: Reviewed chart. Spoke with and he indicates that patient is medically stable to d/c to [facility] for comfort care. Met briefly with patient and daughter/Juliana. Daughter in agreement to plan. Placed call to [facility] spoke with Jessica she reports that patient accepted back. Asked CHAGO/Rosario to coordinate BLS transport. Medical necessity form completed and signed by provider. In addition, POLST form done. Placed call to Caitlin at [facility] they will will contact daughter to do informational visit and plan to follow up with patient at [facility]. P: [facility] today with [facility]. 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 PATRIC Powers
[2022-03-05] MEDS: LORazepam 2 MG/ML INJ 1 MG IV (14:55)
--- NOTE | 2022-03-05 15:05 | PC.NURSE ---
pt got anxious upon transferring. gave 1mg ativan IV.
[2022-03-08 14:42] LABS: 1,25-Dihydroxy, Vitamin D-2 <10 pg/mL (.)
[2022-03-12 10:22] LABS: Calcium 13.2
[2022-03-16 08:31] LABS: PCO2 ABG 64.7 mmHg (35-45)
== END 2022-03-05 15:05 | DRG 70 ==
LOC: ED 09:35 → AC 11:47
PROVIDERS: Internal Medicine; Admitting Provider Internal Medicine; Emergency Provider Emergency Medicine; PCP Nurse Practitioner Family; Referring Provider Emergency Medicine; Visit Provider Internal Medicine
DX: G93.41 Metabolic encephalopathy (principal); J96.01 Acute respiratory failure with hypoxia; J96.02 Acute respiratory failure with hypercapnia; Z68.41 Body mass index [BMI] 40.0-44.9, adult; I13.0 Hypertensive heart and chronic kidney disease with heart failure and stage 1 through stage 4 chronic kidney disease, or unspecified chronic kidney disease; I50.22 Chronic systolic (congestive) heart failure; N17.9 Acute kidney failure, unspecified; N39.0 Urinary tract infection, site not specified; Z16.29 Resistance to other single specified antibiotic; E83.52 Hypercalcemia; E66.01 Morbid (severe) obesity due to excess calories; N18.30 Chronic kidney disease, stage 3 unspecified; B96.89 Other specified bacterial agents as the cause of diseases classified elsewhere; I25.10 Atherosclerotic heart disease of native coronary artery without angina pectoris; E78.5 Hyperlipidemia, unspecified; F03.90 Unspecified dementia, unspecified severity, without behavioral disturbance, psychotic disturbance, mood disturbance, and anxiety; G40.909 Epilepsy, unspecified, not intractable, without status epilepticus; E11.22 Type 2 diabetes mellitus with diabetic chronic kidney disease; K21.9 Gastro-esophageal reflux disease without esophagitis; E03.9 Hypothyroidism, unspecified; Z20.822 Contact with and (suspected) exposure to COVID-19; Z79.84 Long term (current) use of oral hypoglycemic drugs; Z51.5 Encounter for palliative care; Z66 Do not resuscitate; Z95.5 Presence of coronary angioplasty implant and graft; Z95.2 Presence of prosthetic heart valve; Z79.4 Long term (current) use of insulin; Z95.0 Presence of cardiac pacemaker
CPT/HCPCS: 36415; 36600; 70450; 71045; 76770; 80048; 80053; 81001; 82306; 82310; 82550; 82570; 82652; 82805; 82962; 83605; 83735; 83880; 83970; 84100; 84145; 84300; 84443; 84484; 85007; 85025; 85027; 85610; 85730; 87040; 87077; 87086; 87186; 87633; 87635; 94760; 94762; 96374; 99285; C9803; J0295; J0630; J0696; J1644; J1815; J1940; J1953; J2060; J2270